=== PATIENT | male | born 1970 | race Caucasian/White ===

== ENCOUNTER → 2017-09-25 14:11 | Outpatient (CLI) | payer OTHER, SELFPAY ==
--- NOTE | 2017-09-25 14:15 | CA_ITS ---
PROCEDURE: 2-D M-mode and color Doppler study INDICATIONS FOR THE TEST: Chest pain COPD Heart Murmur Tobacco Smoking+ Palpitations Fatigue Syncope Edema Hypertension+Diabetes Mellitus Rheumatic Fever SOB HERR Obesity Hyperlipidemia Family History HD Additional History PATIENT INFORMATION HEIGHT: 71 WEIGHT: 259 GENDER: Male B/P: 146/93 2-D/M-MODE INTERPRETATION: 2-D MEASUREMENTS OBSERVED VALUES IN CMS Right Ventricular Dimension (RVDd) 2.9 Interventricular Septum (Thickness)(IVsd) 1.2 Left Ventricular Internal Dimensions(LVIDd) 3.7 Left Ventricular Posterior Wall (Thickness)(LVPWd) 1.4 Aortic Root 3.0 Aortic Cusp Separation 2.1 Left Atrial Dimensions (LAD) 3.7 2D 1. Left atrium is mildly enlarged, left ventricle is normal size, mild concentric left ventricular hypertrophy, visually estimated ejection fraction 55% with no obvious regional wall motion abnormality. 2. The right atrium and right ventricle are normal size and contractility. 3. The aortic valve is minimally thickened and fibrosed. 4. The mitral and tricuspid valvular grossly normal. 5. The pulmonic valve is poorly visualized. 6. No significant pericardial effusion noted. DOPPLER INTERROGATION: Doppler interrogation of the aortic, mitral and tricuspid valvular presence of mild mitral and tricuspid regurgitation, tricuspid and jet velocity is insufficient for calculation of the right ventricular systolic pressure, grade 1 diastolic dysfunction seen without tissue Doppler evidence of raised left atrial pressure. CONCLUSION: 1. Mildly enlarged left atrium, normal left ventricular size, mild concentric left ventricular hypertrophy, visually estimated ejection fraction 55% with no obvious regional wall motion abnormality, grade 1 diastolic dysfunction seen without tissue Doppler evidence of raised left atrial pressure. 2. Mild mitral and tricuspid regurgitation 3. No significant pericardial effusion noted.
== END ==
PROVIDERS: PCP Physician Assistant; Visit Provider Internal Medicine Cardiovascular Disease
DX: R94.31 Abnormal electrocardiogram [ECG] [EKG] (principal); R00.0 Tachycardia, unspecified; R00.2 Palpitations; I10 Essential (primary) hypertension
CPT/HCPCS: 93306

== ENCOUNTER → 2017-10-03 14:17 | Outpatient (CLI) | payer OTHER, SELFPAY | PROVIDERS: PCP Physician Assistant; Visit Provider Internal Medicine Cardiovascular Disease | DX: G47.33 Obstructive sleep apnea (adult) (pediatric) (principal); R40.0 Somnolence | CPT/HCPCS: 95806 ==

== ENCOUNTER → 2017-10-10 15:10 | Outpatient (CLI) | payer OTHER, SELFPAY ==
--- NOTE | 2017-10-10 15:13 | CT_ITS ---
CT heart w calcium score INDICATION: ITS.REASON: HTN and tobacco abuse ORDERING PHYSICIAN: Steven Melissa MD PATIENT AGE: 46 years COMPARISON: None TECHNIQUE: Axial images are obtained without contrast. Sagittal and coronal reformatted images are reviewed as well. All CT scans at the facility use one or more dose reduction, viz: automated exposure control, ma/kV adjustment per patient size (including targeted exams where dose is matched to indication, i.e. head), or iterative reconstruction technique. FINDINGS: Coronary artery calcium score is 323 indicating moderate plaque burden and high cardiovascular disease risk. Calcium is present in the distal left main, LAD, circumflex and RCA. The main calcium burden is in the LAD. IMPRESSION: Coronary artery calcium score of 323 indicating moderate plaque burden and high cardiovascular disease risk
== END ==
PROVIDERS: PCP Physician Assistant; Visit Provider Internal Medicine Cardiovascular Disease
DX: I10 Essential (primary) hypertension (principal); R94.31 Abnormal electrocardiogram [ECG] [EKG]; F17.200 Nicotine dependence, unspecified, uncomplicated
CPT/HCPCS: 75571

== ENCOUNTER → 2017-10-31 09:05 | Outpatient (CLI) | payer OTHER, SELFPAY | PROVIDERS: PCP Physician Assistant; Visit Provider Internal Medicine Cardiovascular Disease | DX: R94.31 Abnormal electrocardiogram [ECG] [EKG] (principal); R00.0 Tachycardia, unspecified | CPT/HCPCS: 93017 ==

== ENCOUNTER → 2018-08-23 12:13 | Outpatient (CLI) | payer OTHER, SELFPAY ==
[2018-08-23 14:30] LABS: Anion Gap 16.2 mEq/L (5-15); Blood Urea Nitrogen 26 mg/dL (7-18); Carbon Dioxide 26 mmol/L (21.0-32.0); Creatinine,Serum 2.14 mg/dL (0.70-1.30); Estimated Glomerular Filt Rate 34 ml/min (>60); GFR (African American) 41 ML/MIN (>60); Potassium 5.2 mmoL/L (3.5-5.1)
[2018-08-23 14:36] LABS: Chloride 75 mmol/L (98-107)
[2018-08-23 14:40] LABS: Glucose 1069 mg/dL (74-106); Sodium 112 mmol/L (136-145)
== END ==
PROVIDERS: Visit Provider Internal Medicine Cardiovascular Disease
DX: R00.0 Tachycardia, unspecified (principal); I10 Essential (primary) hypertension; R94.31 Abnormal electrocardiogram [ECG] [EKG]; F17.200 Nicotine dependence, unspecified, uncomplicated
CPT/HCPCS: 36415; 80048

== ENCOUNTER 2018-08-23 15:07 | Observation (INO) ==
--- NOTE | 2018-08-23 15:13 | Emergency Department Note ---
ED Disposition Clinical Impression: New onset type 2 diabetes mellitus, Acute kidney injury Hyperglycemia due to type 2 diabetes mellitus Qualifiers: Diabetes mellitus identification technician insulin use: without identification technician use Qualified Code(s): E11.65 - Type 2 diabetes mellitus with hyperglycemia Disposition: Admitted as Observation Condition on Discharge: Fair Referrals: Sheila Ayoub PA [Primary Care Provider] - - Critical Care Critical Care Time: Yes Attestation: On , the high probability of a clinically significant, sudden or life threatening deterioration of the following system(s) required my full and direct attention, intervention and personal management. The time I documented below is in addition to time spent performing reported procedures but includes the following listed in this critical care notation. Total Critical Care Time: 35 Vital system(s) involved:: Metabolic Failure My critical care processes included: Assessment & monitoring of V/S, Initial and Re-exams, Data Review/Interpretation, Coordinating Care, Medication Orders and management, Documentation Medical Decision Making - Nathaniel Inquiry Pt receiving controlled substance: No Vital Signs: 08/23/18 15:10 08/23/18 15:35 Temperature 98.1 F Temperature Source Oral Pulse Rate [Right Radial] 105 H 109 H Respiratory Rate 16 Blood Pressure [Right Arm] 113/67 113/67 Blood Pressure Mean [Right Arm] 82 82 Blood Pressure Source [Right Arm] Automatic Cuff Blood Pressure Position [Right Arm] Sitting 02 Sat by Pulse Oximetry 99 97 Oxygen Delivery Method Room Air - Lab Data Lab Results 08/23/18 15:30: WBC 11.1 H, RBC 4.00 L, Hgb 12.8 L, Hct 44.1, MCV 110.3 H, MCH 32.1 H, MCHC 29.1 L, RDW 12.2, Plt Count 268, MPV 8.5, Neut % (Auto) 76.2, Lymph % (Auto) 17.5, [place] % (Auto) 5.5, Eos % (Auto) 0.5, Baso % (Auto) 0.4, Neut # (Auto) 8.4 H, Lymph # (Auto) 1.9, [place] # (Auto) 0.6, Eos # (Auto) 0.1, Baso # (Auto) 0.1 08/23/18 15:30: Sodium 104 L*, Potassium 4.9, Chloride 71 L, Carbon Dioxide 23, Anion Gap 14.9, BUN 28 H, Creatinine 2.63 H D, Estimated Creat Clear 51, Estimated GFR 26 L, Est GFR ( Amer) 32 L D, Glucose 1503 H* D, Calcium 8.5, Total Bilirubin 1.5 H, AST 35, ALT 51, Alkaline Phosphatase 128 H, Total Protein 7.8, Albumin 3.3 L, Globulin 4.5 H, Albumin/Globulin Ratio 0.7 L, Acetone Level None detected 08/23/18 15:30: Lactate 5.8 H 08/23/18 15:32: VBG pH 7.29 L, VBG pCO2 45.1, VBG pO2 39.1, VBG HCO3 21.2 L, VBG Total CO2 22.5 L, VBG O2 Saturation 72.6 H, VBG Base Excess -5.4 L Result diagrams: 08/23/18 15:30 08/23/18 15:30 Orders (Tests/Meds): ED MEDICATIONS Discontinued Medications Generic Name Dose Route Start Last Admin Trade Name Freq PRN Reason Stop Dose Admin Insulin Human Regular 10 unit 08/23/18 15:57 08/23/18 16:16 Humulin R Insulin 100 Units/Ml 10ml Vial IVP 08/23/18 15:58 10 unit ONCE ONE Administration Sodium Chloride 1,000 ml 08/23/18 15:40 08/23/18 15:40 Sod Chlor 0.9% 1000ml Bag IV 08/23/18 15:41 1,000 ml BOLUS ONE Administration Sodium Chloride 1,000 ml 08/23/18 16:10 Sod Chlor 0.9% 1000ml Bag IV 08/23/18 16:11 BOLUS ONE ORDERS Category Date Time Status Hemoglobin A1C Stat Lab 08/23/18 15:30 Received Urinalysis and Microscopic Stat Lab 08/23/18 15:32 Ordered - Radiology Data #1 Image(s): Chest Image Reviewed: Yes I have reviewed radiologist's interpretation IMPRESSION: Negative chest, no acute finding Dictated By: Narendra Solorio MD Signed By: <Electronically signed by Narendra Solorio MD in OV> 08/23/18 1533 - ECG Data Tracing #1 EKG interpreted by Eyad Russo MD: Rhythm: sinus tachycardia Rate: 104 [place]: normal Ectopy: none Conduction: normal ST Segment Changes: none T Wave Changes: Nonspecific Q Waves: none No evidence of acute ischemia or injury Prior electrocardiagrams reviewed. No change from prior tracings. - Physician Consults Physician Consulted: Solomon Time: 15:50 Reason -: Admission Comment/Response: Agrees to admit the patient to the hospital. We discussed the patient's clinical information, including history, exam, laboratory and radiology results and ED course. Per hospital procedure, I will write temporary bridge inpatient orders on the patient. Specific orders requested by the admitting physician: Regular insulin 10 mg IV, then high intensity sliding scale, continue hydration, recheck labs in the morning Additional Consult: Solomon Time: 16:29 Comment/Response: Discussed ED labs. Continue with same treatment plan, repeat chemistry profile at 9 PM. He will be here this evening and will manage. Medical Decision Narrative: Blood draw from today: Blood sugar 1069, sodium 112, potassium 5.2. Chloride 75, CO2 26, BUN 26, creatinine 2.14. I do not see any previous labs prior to that since 2015, at which time those values were normal. General Adult HPI - General Stated complaint: sugar high Time Seen by Provider: 08/23/18 15:30 - History of Present Illness HPI narrative: The patient says for the past 2 weeks he has not felt well. He has blurry vision, his arms feel heavy, he gets a pain across his kidneys when he coughs, he has increased thirst and urination. He saw his primary care doctor on Sunday and is referred to cardiology here at the hospital, whom he has seen before. They did blood work on him and found his blood sugar to be over thousand and sent him to the emergency room. He does not have any known history of diabetes. - Related Data Home Medications Medication Instructions Recorded Confirmed aspirin 81 mg tablet,delayed 81 mg PO DAILY 08/20/18 08/23/18 release cholecalciferol (vitamin D3) 1,000 1,000 unit PO DAILY 08/23/18 08/23/18 unit capsule ibuprofen 200 mg capsule 200 mg PO Q6H 08/23/18 08/23/18 potassium 99 mg tablet 10 meq PO BID 08/23/18 08/23/18 vitamin B complex tablet 1 tab PO DAILY 08/23/18 08/23/18 Previous Rx's Medication Instructions Recorded metoprolol succinate ER 25 mg 25 mg PO DAILY #30 tab 08/23/18 tablet,extended release 24 hr Allergies Allergy/AdvReac Type Severity Reaction Status Date / Time No Known Allergies Allergy Verified 08/23/18 11:05 [facility] History - Hepatitis A Screen Attestation statement:: This patient has been screened for Hepatitis A risk factors. I have reviewed the patient's past medical history: Yes 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: Reports:: Hypertension Other 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: Reports: Other Comment: MEÑO Other Surgeries: Yes: Cardiac Catheterization Amputation: No Fractures: No - Social History Smoking Status: Current every day smoker Tobacco Type: cigarettes # Packs/Day (cigarettes): 1 Alcohol Intake: current Alcohol Intake Frequency:: 3 or more drinks per day Substance Use Type: denies use Occupational Status: employed Family Hx:: Cancer ROS Obtained: Yes All systems reviewed & no additional complaints - Constitutional Constitutional: Reports fatigue, Denies fever(s), Reports weakness - Eyes Eyes: Reports blurry vision - Musculoskeletal Musculoskeletal: Reports back pain - Endocrine Endocrine: Reports increased thirst, Reports polyuria Physical Exam - General General appearance: alert, in no apparent distress - Head Head exam: atraumatic, normocephalic - Eye Eye exam: Present: normal appearance, EOMI - ENT ENT exam: Present: mucous membranes dry - Neck Neck exam: Present: normal inspection, trachea midline - Chest Chest inspection: Present: normal inspection, symmetric chest wall rise - Respiratory Respiratory exam: Present: normal lung sounds bilaterally. Absent: respiratory distress - Cardiovascular Cardiovascular exam: Present: regular rate, normal rhythm, normal heart sounds - Abdominal Exam Abdominal exam: Present: soft, normal bowel sounds. Absent: distention, tenderness, guarding, rebound, rigidity - Extremities Exam Extremities exam: Present: normal inspection - Neurological Exam Neurological exam: Present: alert, oriented X3 - Psychiatric Psychiatric exam: Present: normal affect, normal mood - Skin Skin exam: Present: warm, dry
[2018-08-23 15:43] LABS: Basophils # 0.1 K/mm3 (0-0.2); Basophils % 0.4 % (0.1-2.0); Eosinophils # 0.1 K/mm3 (0.0-0.4); Eosinophils % 0.5 % (0.1-12.0); Hematocrit 44.1 % (42.0-52.0); Hemoglobin 12.8 g/dL (14.1-18.0); Lymphocytes # 1.9 K/mm3 (0.7-4.5); Lymphocytes % 17.5 % (10-50); Mean Corpuscular HGB Conc 29.1 g/dL (31.8-35.4); Mean Corpuscular Hemoglobin 32.1 pg (27.0-31.2); Mean Corpuscular Volume 110.3 fl (80-94); Mean Platelet Volume 8.5 fl (7.4-10.4); Monocytes # 0.6 K/mm3 (0.1-1.0); Monocytes % 5.5 % (1.7-9.3); Neutrophils # 8.4 K/mm3 (1.8-7.8); Neutrophils % 76.2 % (37.0-80.0); Platelet Count 268 K/mm3 (142-424); Red Cell Distribution Width 12.2 % (11.5-17.5); White Blood Count 11.1 K/mm3 (4.8-10.8)
[2018-08-23 15:43] LABS: VBG Base Excess -5.4 mmol/L (-2.4-2.3); VBG HCO3 21.2 mmol/L (23-30); VBG Oxygen Saturation 72.6 % (50-70); VBG PCO2 45.1 mmol/L (35-51); VBG PH 7.29 mmol/L (7.31-7.41); VBG PO2 39.1 mmol/L (28-40); VBG Total CO2 22.5 mmol/L (23-27)
[2018-08-23 15:57] LABS: Alanine Aminotransferase 51 U/L (12-78); Albumin Level 3.3 gm/dL (3.4-5.0); Albumin/Globulin Ratio 0.7 (1.1-1.8); Alkaline Phosphatase 128 U/L (46-116); Anion Gap 14.9 mEq/L (5-15); Aspartate Amino Transferase 35 U/L (15-37); Bilirubin,Total 1.5 mg/dL (0.2-1.0); Blood Urea Nitrogen 28 mg/dL (7-18); Calcium 8.5 mg/dL (8.5-10.1); Carbon Dioxide 23 mmol/L (21.0-32.0); Globulin 4.5 gm/dl (1.3-3.2); Potassium 4.9 mmoL/L (3.5-5.1); Total Protein,Serum 7.8 gm/dL (6.4-8.2)
[2018-08-23 16:12] LABS: Chloride 71 mmol/L (98-107)
[2018-08-23 16:13] LABS: Sodium 104 mmol/L (136-145)
[2018-08-23 16:14] LABS: Glucose 1503 mg/dL (74-106)
[2018-08-23 16:26] LABS: Acetone, Serum (Rapid) None Detected (None Detect)
--- NOTE | 2018-08-23 19:52 | History & Physical Report ---
*Admission Date: 08/23/18 *Chief complaint: elevated glu *History of present illness: this pt was seen in card clinic and was found to have elevated glu- The patient says for the past 2 weeks he has not felt well. He has blurry vision, his arms feel heavy, he gets a pain across his kidneys when he coughs, h e has increased thirst and urination. He saw his primary care doctor on Sunday and is referred to cardiology here at the hospital, whom he has seen before. They did blood work on him and found his blood sugar to be over thousand and sent him to the emergency room. He does not have any known history of diabetes. [facility] History I have reviewed the patient's past medical history: Yes 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: Reports:: Hypertension Denies:: Cancer, Diabetes Mellitus Type 1, Diabetes Mellitus Type 2, MRSA *Have you ever received a pneumonia vaccine?: No *Have you received a flu vaccine this season?: No Other 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: Reports: Other Other Surgeries: Yes: Cardiac Catheterization Amputation: No Fractures: No - *Social History Educational Level: Completed High School Smoking Status: Current every day smoker Tobacco Type: cigarettes # Packs/Day (cigarettes): 1 Alcohol Intake: former Alcohol Intake Frequency:: 3 or more drinks per day Substance Use Type: denies use *Occupational Status:: employed Housing: apartment Household Members: none *Travel in the last 8 weeks: None - Psychiatric History Expresses thoughts of harming self/others: None Suicide Plan Description: No Plan Family Hx:: Cancer, Diabetes, Hypertension Review of Systems - Review of Systems Review of systems:: pertinent systems reviewed and negative unless documented below - Constitutional Reports weakness, Denies fever(s) - Eyes Reports blurry vision - ENT Reports other (dry mouth), Denies sore throat - *Cardiovascular Denies chest pain - *Respiratory Denies cough - *Gastrointestinal Reports nausea, Denies abdominal pain - *Genitourinary Reports urinary frequency, Denies blood in urine - *Musculoskeletal Denies joint pain - Integumentary/Breasts Denies rash - *Neurologic Reports weakness, Denies confusion, Denies seizure-like activity - Psychiatric Denies anxiety Meds Home Medications Medication Instructions Recorded Confirmed Type aspirin 81 mg tablet,delayed 81 mg PO DAILY 08/20/18 08/23/18 History release Ascorbate Calcium [Vitamin C] 500 mg PO DAILY 08/23/18 08/23/18 History Bisoprolol Fumarate [Bisoprolol 1 tab PO DAILY 08/23/18 08/23/18 History 10mg Tablet] Lisinopril/Hydrochlorothiazide 1 tab PO DAILY 08/23/18 08/23/18 History [Lisinopril-Hctz 20-12.5 mg Tab] Magnesium Oxide,Aspartate,Citr 400 mg PO DAILY 08/23/18 08/23/18 History [Triple Magnesium Complex] cholecalciferol (vitamin D3) 1,000 1,000 unit PO DAILY 08/23/18 08/23/18 History unit capsule ibuprofen 200 mg capsule 200 mg PO Q6H 08/23/18 08/23/18 History potassium 99 mg tablet 10 meq PO BID 08/23/18 08/23/18 History vitamin B complex tablet 1 tab PO DAILY 08/23/18 08/23/18 History Allergies Allergy/AdvReac Type Severity Reaction Status Date / Time No Known Allergies Allergy Verified 08/23/18 11:05 Exam Vital signs and Labs for Last 24 Hours: Temp Pulse Resp BP Pulse Ox 98.5 F 102 H 17 122/65 97 08/23/18 19:48 08/23/18 19:48 08/23/18 19:48 08/23/18 19:48 08/23/18 19:48 Laboratory Results - last 24 hr 08/23/18 15:30: WBC 11.1 H, RBC 4.00 L, Hgb 12.8 L, Hct 44.1, MCV 110.3 H, MCH 32.1 H, MCHC 29.1 L, RDW 12.2, Plt Count 268, MPV 8.5, Neut % (Auto) 76.2, Lymph % (Auto) 17.5, [place] % (Auto) 5.5, Eos % (Auto) 0.5, Baso % (Auto) 0.4, Neut # (Auto) 8.4 H, Lymph # (Auto) 1.9, [place] # (Auto) 0.6, Eos # (Auto) 0.1, Baso # (Auto) 0.1 08/23/18 15:30: Sodium 104 L*, Potassium 4.9, Chloride 71 L, Carbon Dioxide 23, Anion Gap 14.9, BUN 28 H, Creatinine 2.63 H D, Estimated Creat Clear 51, Estimated GFR 26 L, Est GFR ( Amer) 32 L D, Glucose 1503 H* D, Calcium 8.5, Total Bilirubin 1.5 H, AST 35, ALT 51, Alkaline Phosphatase 128 H, Total Protein 7.8, Albumin 3.3 L, Globulin 4.5 H, Albumin/Globulin Ratio 0.7 L, Acetone Level None detected 08/23/18 15:30: Hemoglobin A1c 13.8 H 08/23/18 15:30: Lactate 5.8 H 08/23/18 15:32: VBG pH 7.29 L, VBG pCO2 45.1, VBG pO2 39.1, VBG HCO3 21.2 L, VBG Total CO2 22.5 L, VBG O2 Saturation 72.6 H, VBG Base Excess -5.4 L I & O for Last 24 hours: Intake & Output 08/21/18 08/22/18 08/23/18 08/24/18 11:59 11:59 11:59 11:59 Intake Total 1000 / 1000 Balance 1000 / 1000 Weight 233 lb 2 oz - Constitutional no acute distress, obese - *Routine HEENT Exam Head: Present: normocephalic Eye: Present: EOMI, PERRL ENT: Present: mucous membranes dry - *Routine Neck Exam Absent: JVD - *Routine Respiratory Exam Present: CTA bilaterally - *Routine Cardiovascular Exam Present: RRR, murmur - *Routine Abdominal Exam Present: soft. Absent: organomegaly - *Routine Extremities Exam Present: full ROM - *Routine Skin Exam Present: intact - *Routine Neurological Exam Present: alert, oriented X3, CN II-XII intact - Routine Psychiatric Exam Present: normal affect Assessment and Plan (1) Acute kidney injury Current visit: Yes Status: Acute Category: Medical Code(s): N17.9 - Acute kidney failure, unspecified (2) Hyperglycemia due to type 2 diabetes mellitus Current visit: Yes Status: Acute Qualifiers: Diabetes mellitus usp insulin use: without usp use Qualified Code(s): E11.65 - Type 2 diabetes mellitus with hyperglycemia Category: Medical Code(s): E11.65 - Type 2 diabetes mellitus with hyperglycemia (3) New onset type 2 diabetes mellitus Current visit: Yes Status: Acute Category: Medical Code(s): E11.9 - Type 2 diabetes mellitus without complications (4) MEÑO (obstructive sleep apnea) Current visit: No Status: Acute Category: Medical Code(s): G47.33 - Obstructive sleep apnea (adult) (pediatric) (5) Obesity (BMI 30.0-34.9) Current visit: Yes Status: Acute Category: Medical Code(s): E66.9 - Obesity, unspecified (6) Tobacco use Current visit: Yes Status: Acute Category: Medical Code(s): Z72.0 - Tobacco use
[2018-08-23 21:38] LABS: Anion Gap 9.7 mEq/L (5-15); Calcium 8.4 mg/dL (8.5-10.1); Potassium 3.7 mmoL/L (3.5-5.1)
--- NOTE | 2018-08-23 22:22 | Sepsis Event Note ---
Tissue Perfusion Evaluation Sepsis Re-Evaluation Performed: Yes Date Performed: 08/23/18 Time Performed: 22:22 Sepsis Follow-Up: Yes: Respiratory exam, Cardiovascular exam, Capillary refill, Peripheral pulse strength, Skin exam, Vital Signs Most Recent Vital Signs: Temperature 98.5 F 08/23/18 19:48 Temperature Source Oral 08/23/18 19:48 Pulse Rate 102 H 08/23/18 19:48 Respiratory Rate 17 08/23/18 19:48 Blood Pressure 122/65 08/23/18 19:48 Blood Pressure Mean 84 08/23/18 19:48 Blood Pressure Source Manual Cuff/Auscultation 08/23/18 19:48 Blood Pressure Position Supine 08/23/18 18:15 02 Sat by Pulse Oximetry 97 08/23/18 19:48 Oxygen Delivery Method 08/23/18 21:59
[2018-08-24 06:44] LABS: Anion Gap 13.5 mEq/L (5-15); Calcium 8.5 mg/dL (8.5-10.1); Potassium 3.5 mmoL/L (3.5-5.1)
--- NOTE | 2018-08-24 09:09 | Discharge Summary ---
General - General Admission date:: 08/23/18 Discharge date: 08/24/18 HPI HPI: this pt was seen in card clinic and was found to have elevated glu- The patient says for the past 2 weeks he has not felt well. He has blurry vision, his arms feel heavy, he gets a pain across his kidneys when he coughs, he has increased thirst and urination. He saw his primary care doctor on Sunday and is referred to cardiology here at the hospital, whom he has seen before. They did blood work on him and found his blood sugar to be over thousand and sent him to the emergency room. He does not have any known history of diabetes. Hospital Course Hospital Course: pt thornton improved with ivf and insulin with improved renal function and glu- pt with no chest pain and we discussed diet and compliance and close f/u on sunday- no chest pain Objective Vital signs: Temp Pulse Resp BP Pulse Ox 98.6 F 109 H 18 124/74 97 08/24/18 08:00 08/24/18 08:00 08/24/18 08:00 08/24/18 08:00 08/24/18 08:00 no acute distress, obese - *Routine HEENT Exam Head: Present: normocephalic Eye: Present: EOMI, PERRL ENT: Present: mucous membranes dry - *Routine Neck Exam Present: supple. Absent: JVD - *Routine Respiratory Exam Present: CTA bilaterally - *Routine Cardiovascular Exam Present: RRR, murmur - *Routine Abdominal Exam Present: soft - *Routine Extremities Exam Present: full ROM - *Routine Skin Exam Present: intact - *Routine Neurological Exam Present: alert, oriented X3, CN II-XII intact - Routine Psychiatric Exam Present: normal affect Results Labs on day of discharge: Labs from last 24 hours 08/24/18 08/24/18 08/24/18 06:10 06:02 01:34 WBC RBC Hgb Hct MCV MCH MCHC RDW Plt Count MPV Neut % (Auto) Lymph % (Auto) [place] % (Auto) Eos % (Auto) Baso % (Auto) Neut # (Auto) Lymph # (Auto) [place] # (Auto) Eos # (Auto) Baso # (Auto) VBG pH VBG pCO2 VBG pO2 VBG HCO3 VBG Total CO2 VBG O2 Saturation VBG Base Excess Sodium 130 L Potassium 3.5 Chloride 94 L Carbon Dioxide 26 Anion Gap 13.5 BUN 17 Creatinine 1.26 D Estimated Creat Clear 109 Estimated GFR 62 Est GFR ( Amer) 75 D Glucose 381 H D POC Glucose 458 H* Random Glucose 509 H* Hemoglobin A1c Lactate Calcium 8.5 Total Bilirubin AST ALT Alkaline Phosphatase Total Protein Albumin Globulin Albumin/Globulin Ratio Acetone Level 08/23/18 08/23/18 08/23/18 21:14 21:14 19:40 WBC RBC Hgb Hct MCV MCH MCHC RDW Plt Count MPV Neut % (Auto) Lymph % (Auto) [place] % (Auto) Eos % (Auto) Baso % (Auto) Neut # (Auto) Lymph # (Auto) [place] # (Auto) Eos # (Auto) Baso # (Auto) VBG pH VBG pCO2 VBG pO2 VBG HCO3 VBG Total CO2 VBG O2 Saturation VBG Base Excess Sodium 118 L Potassium 3.7 D Chloride 85 L Carbon Dioxide 27 Anion Gap 9.7 BUN 22 H Creatinine 1.75 H D Estimated Creat Clear 80 Estimated GFR 42 L Est GFR ( Amer) 51 L D Glucose 798 H* D POC Glucose Random Glucose Hemoglobin A1c Lactate 2.0 2.6 H Calcium 8.4 L Total Bilirubin AST ALT Alkaline Phosphatase Total Protein Albumin Globulin Albumin/Globulin Ratio Acetone Level 08/23/18 08/23/18 08/23/18 15:32 15:30 15:30 WBC RBC Hgb Hct MCV MCH MCHC RDW Plt Count MPV Neut % (Auto) Lymph % (Auto) [place] % (Auto) Eos % (Auto) Baso % (Auto) Neut # (Auto) Lymph # (Auto) [place] # (Auto) Eos # (Auto) Baso # (Auto) VBG pH 7.29 L VBG pCO2 45.1 VBG pO2 39.1 VBG HCO3 21.2 L VBG Total CO2 22.5 L VBG O2 Saturation 72.6 H VBG Base Excess -5.4 L Sodium Potassium Chloride Carbon Dioxide Anion Gap BUN Creatinine Estimated Creat Clear Estimated GFR Est GFR ( Amer) Glucose POC Glucose Random Glucose Hemoglobin A1c 13.8 H Lactate 5.8 H Calcium Total Bilirubin AST ALT Alkaline Phosphatase Total Protein Albumin Globulin Albumin/Globulin Ratio Acetone Level 08/23/18 08/23/18 15:30 15:30 WBC 11.1 H RBC 4.00 L Hgb 12.8 L Hct 44.1 MCV 110.3 H MCH 32.1 H MCHC 29.1 L RDW 12.2 Plt Count 268 MPV 8.5 Neut % (Auto) 76.2 Lymph % (Auto) 17.5 [place] % (Auto) 5.5 Eos % (Auto) 0.5 Baso % (Auto) 0.4 Neut # (Auto) 8.4 H Lymph # (Auto) 1.9 [place] # (Auto) 0.6 Eos # (Auto) 0.1 Baso # (Auto) 0.1 VBG pH VBG pCO2 VBG pO2 VBG HCO3 VBG Total CO2 VBG O2 Saturation VBG Base Excess Sodium 104 L* Potassium 4.9 Chloride 71 L Carbon Dioxide 23 Anion Gap 14.9 BUN 28 H Creatinine 2.63 H D Estimated Creat Clear 51 Estimated GFR 26 L Est GFR ( Amer) 32 L D Glucose 1503 H* D POC Glucose Random Glucose Hemoglobin A1c Lactate Calcium 8.5 Total Bilirubin 1.5 H AST 35 ALT 51 Alkaline Phosphatase 128 H Total Protein 7.8 Albumin 3.3 L Globulin 4.5 H Albumin/Globulin Ratio 0.7 L Acetone Level None detected DS: Diagnosis - Discharge Diagnosis (1) Acute kidney injury Status: Acute (2) Hyperglycemia due to type 2 diabetes mellitus Status: Acute (3) New onset type 2 diabetes mellitus Status: Acute (4) MEÑO (obstructive sleep apnea) Status: Acute (5) Obesity (BMI 30.0-34.9) Status: Acute (6) Tobacco use Status: Acute Discharge Plan - Patient Discharge Instructions ACTIVITY: Continue current activity DIET: continue same diet Patient Instructions: Type 2 Diabetes, DI for Diabetes Type 2 - Follow up Plan Disposition: Home, Self-Prison Medications: Home Medications Medication Instructions Recorded Confirmed Type aspirin 81 mg tablet,delayed 81 mg PO DAILY 08/20/18 08/23/18 History release Ascorbate Calcium [Vitamin C] 500 mg PO DAILY 08/23/18 08/23/18 History Bisoprolol Fumarate [Bisoprolol 1 tab PO DAILY 08/23/18 08/23/18 History 10mg Tablet] Lisinopril/Hydrochlorothiazide 1 tab PO DAILY 08/23/18 08/23/18 History [Lisinopril-Hctz 20-12.5 mg Tab] Magnesium Oxide,Aspartate,Citr 400 mg PO DAILY 08/23/18 08/23/18 History [Triple Magnesium Complex] cholecalciferol (vitamin D3) 1,000 1,000 unit PO DAILY 08/23/18 08/23/18 History unit capsule ibuprofen 200 mg capsule 200 mg PO Q6H 08/23/18 08/23/18 History potassium 99 mg tablet 10 meq PO BID 08/23/18 08/23/18 History vitamin B complex tablet 1 tab PO DAILY 08/23/18 08/23/18 History Atorvastatin Calcium [Lipitor 10mg 10 mg PO DAILY #30 tab 08/24/18 Rx Tablet] Lisinopril [Lisinopril 5mg Tablet] 5 mg PO DAILY #30 tab 08/24/18 Rx Metformin HCl [Glucophage 500mg 500 mg PO BID #60 tab 08/24/18 Rx Tablet] Prescriptions/Medication Reconciliation: New Lisinopril [Lisinopril 5mg Tablet] 5 mg PO DAILY #30 tab Metformin HCl [Glucophage 500mg Tablet] 500 mg PO BID #60 tab Atorvastatin Calcium [Lipitor 10mg Tablet] 10 mg PO DAILY #30 tab Continued vitamin B complex tablet 1 tab PO DAILY aspirin 81 mg tablet,delayed release 81 mg PO DAILY cholecalciferol (vitamin D3) 1,000 unit capsule 1,000 unit PO DAILY Bisoprolol Fumarate [Bisoprolol 10mg Tablet] 1 tab PO DAILY Ascorbate Calcium [Vitamin C] 500 mg PO DAILY Magnesium Oxide,Aspartate,Citr [Triple Magnesium Complex] 400 mg PO DAILY Discontinued potassium 99 mg tablet 10 meq PO BID ibuprofen 200 mg capsule 200 mg PO Q6H Lisinopril/Hydrochlorothiazide [Lisinopril-Hctz 20-12.5 mg Tab] 1 tab PO DAILY
[2018-08-24 09:21] LABS: Chol/HDL Ratio 5.5 (1-3.5)
== END 2018-08-24 09:54 | disposition home or self-care (01) ==
LOC: 2ND 15:07 → ER 15:07 → 2ND 18:07
PROVIDERS: ADMIT Emergency Medicine; ATTEND Emergency Medicine
CPT/HCPCS: 36415; 71020; 71046; 80048; 80053; 80061; 82009; 82803; 82947; 82962; 83036; 83605; 85025; 93005; 96365; 96375; 99284; G0378

== ENCOUNTER → 2018-09-05 06:17 | Outpatient (CLI) | payer OTHER, SELFPAY ==
--- NOTE | 2018-09-05 06:25 | NM_ITS ---
CARDIOLITE SPECT MYOCARDIAL PERFUSION LEXISCAN, REST AND STRESS: History: Hypertension, diabetes, hyperlipidemia, tobacco use, family history. Procedure: Patient received a 0.4 mg of intravenous Lexiscan, resting heart rate was 82 bpm resting blood pressure 110/63, with Lexiscan maximum heart rate achieved was 113 bpm, which is less than 85% of the maximum predicted heart rate and a blood pressure was 105/54. With Lexiscan patient complained of stomach discomfort Electrocardiogram: Resting electrocardiogram showed sinus rhythm nonspecific ST-T changes, with Lexiscan less than 1.[address] segment depression noted from the baseline. The EKG portion of the Lexiscan Myoview is nondiagnostic. Cardiac stress and resting SPECT images: Cardiac stress and resting SPECT images were obtained using technetium 99 Myoview 30.4 mCi stress and 10.2 mCi at rest. Gated SPECT further analysis of segmental wall motion and calculation of the ejection fraction also done. Cardiac stress and resting SPECT show decreased tracer activity in the inferior wall which improves on the resting images suggestive of reversible ischemia, computer derived ejection fraction is 52% with no regional wall motion abnormality, right ventricle is normal size and contractility. Conclusion: 1. The EKG portion of the Lexiscan Myoview is nondiagnostic. 2. Scintigraphic evidence of reversible ischemia seen in the inferior wall, computer derived ejection fraction is 52% with no regional wall motion abnormality, right ventricle is normal size and contractility. 3. Abnormal Lexiscan Myoview study.
--- NOTE | 2018-09-05 09:29 | HMH.ITSHM ---
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 [] bisoprolol lisinopril atorvastatin asa metformin
== END ==
PROVIDERS: PCP Emergency Medicine; Visit Provider Internal Medicine Cardiovascular Disease
DX: Z01.818 Encounter for other preprocedural examination (principal); R00.2 Palpitations; R94.31 Abnormal electrocardiogram [ECG] [EKG]; I10 Essential (primary) hypertension; R00.0 Tachycardia, unspecified; F17.200 Nicotine dependence, unspecified, uncomplicated
CPT/HCPCS: 78452; 93017; A9502; J2785

== ENCOUNTER → 2018-10-24 13:46 | Outpatient (CLI) | payer OTHER, SELFPAY ==
[2018-10-24 14:08] LABS: Basophils % 0.9 % (0.1-2.0); Eosinophils # 0.1 K/mm3 (0.0-0.4); Eosinophils % 1.7 % (0.1-12.0); Hematocrit 46.8 % (42.0-52.0); Lymphocytes # 2.1 K/mm3 (0.7-4.5); Lymphocytes % 41.8 % (10-50); Mean Corpuscular Volume 103.4 fl (80-94); Mean Platelet Volume 7.4 fl (7.4-10.4); Monocytes # 0.4 K/mm3 (0.1-1.0); Monocytes % 7.9 % (1.7-9.3); Neutrophils # 2.4 K/mm3 (1.8-7.8); Neutrophils % 47.7 % (37.0-80.0); Platelet Count 261 K/mm3 (142-424); Red Blood Count 4.53 M/mm3 (4.60-6.20); Red Cell Distribution Width 14.1 % (11.5-17.5); White Blood Count 5.1 K/mm3 (4.8-10.8)
[2018-10-24 15:17] LABS: Alanine Aminotransferase 26 U/L (12-78); Albumin Level 3.2 gm/dL (3.4-5.0); Albumin/Globulin Ratio 0.9 (1.1-1.8); Alkaline Phosphatase 72 U/L (46-116); Aspartate Amino Transferase 26 U/L (15-37); Bilirubin,Total 0.3 mg/dL (0.2-1.0); Blood Urea Nitrogen 8 mg/dL (7-18); Carbon Dioxide 26 mmol/L (21.0-32.0); Chloride 105 mmol/L (98-107); Chol/HDL Ratio 2.3 (1-3.5); Cholesterol 132 mg/dL (140-200); Creatinine,Serum 0.92 mg/dL (0.70-1.30); Estimated Glomerular Filt Rate 89 ml/min (>60); GFR (African American) 108 ML/MIN (>60); Globulin 3.6 gm/dl (1.3-3.2); Glucose 175 mg/dL (74-106); HDL Cholesterol 57 mg/dL (27-67); LDL Cholesterol 55 mg/dL (0-130); Sodium 143 mmol/L (136-145); T4 (Thyroxine) 4.5 ug/dl (4.7-13.3); Thyroid Stimulating Hormone 0.74 uIU/ml (0.358-3.740); Total Protein,Serum 6.8 gm/dL (6.4-8.2); Triglycerides 99 mg/dL (30-200); VLDL Cholesterol 20 mg/dL (0-40)
[2018-10-24 15:35] LABS: Hemoglobin A1C 6.8 % (0.0-7.0)
[2018-10-25 18:06] LABS: Vitamin D 25 Hydroxy 38.7 ng/mL (30.0-100.0)
[2018-10-25 18:08] LABS: Microalbumin, Urine 3.3 ug/mL (Not Estab.)
[2018-10-27 16:31] LABS: Vitamin B12 201 pg/mL (232-1245)
[2018-10-27 16:32] LABS: Folate 11.7 ng/mL (>3.0)
== END ==
PROVIDERS: Visit Provider Physician Assistant
DX: E11.9 Type 2 diabetes mellitus without complications (principal); Z94.89 Other transplanted organ and tissue status
CPT/HCPCS: 80053; 80061; 82043; 82607; 82652; 82746; 83036; 84436; 84443; 85025

== ENCOUNTER → 2018-10-29 17:10 | Outpatient (CLI) | payer OTHER, SELFPAY ==
[2018-10-29 19:18] LABS: Hemoglobin A1C 6.4 % (0.0-7.0)
== END ==
PROVIDERS: Visit Provider Physician Assistant
DX: E11.9 Type 2 diabetes mellitus without complications (principal); Z79.84 Long term (current) use of oral hypoglycemic drugs
CPT/HCPCS: 83036

== ENCOUNTER → 2020-12-06 12:53 | Outpatient (CLI) | payer SELFPAY ==
[2020-12-06 13:25] LABS: Basophils # 0.1 K/mm3 (0-0.2); Basophils % 0.6 % (0.1-2.0); Eosinophils # 0.1 K/mm3 (0.0-0.4); Eosinophils % 1.2 % (0.1-12.0); Hematocrit 34.9 % (42.0-52.0); Hemoglobin 11.6 g/dL (14.1-18.0); Lymphocytes # 2.1 K/mm3 (0.7-4.5); Lymphocytes % 22.4 % (10-50); Mean Corpuscular HGB Conc 33.3 g/dL (31.8-35.4); Mean Corpuscular Hemoglobin 34.2 pg (27.0-31.2); Mean Corpuscular Volume 102.7 fl (80-94); Mean Platelet Volume 8.9 fl (7.4-10.4); Monocytes # 0.7 K/mm3 (0.1-1.0); Monocytes % 7.3 % (1.7-9.3); Neutrophils # 6.3 K/mm3 (1.8-7.8); Neutrophils % 68.4 % (37.0-80.0); Platelet Count 242 K/mm3 (142-424); Red Cell Distribution Width 17.2 % (11.5-17.5); White Blood Count 9.3 K/mm3 (4.8-10.8)
[2020-12-06 14:32] LABS: Alanine Aminotransferase 191 U/L (12-78); Albumin Level 2.9 g/dl (3.5-5.0); Albumin/Globulin Ratio 0.9 (1.1-1.8); Alkaline Phosphatase 442 U/L (38-126); Anion Gap 9.5 mEq/L (5-15); Bilirubin,Total 7.5 mg/dl (0.2-1.3); Blood Urea Nitrogen 9 mg/dl (9-20); Calcium 8.5 mg/dl (8.4-10.2); Carbon Dioxide 32 mmol/L (22.0-30.0); Chloride 98 mmol/L (98-107); Estimated Glomerular Filt Rate 103 ml/min (>60); GFR (African American) 125 ML/MIN (>60); Globulin 3.3 g/dL (1.3-3.2); Glucose 140 mg/dl (74-100); Potassium 3.5 mmoL/L (3.5-5.1); Sodium 136 mmol/L (136-145); Total Protein,Serum 6.2 g/dl (6.3-8.2)
[2020-12-06 14:38] LABS: Aspartate Amino Transferase 688 U/L (17-59)
[2020-12-08 08:14] LABS: HIV Screen 4th Generation wRfx Non Reactive (Non Reactive)
[2020-12-09 09:19] LABS: ALT (SGPT) P5P 182 IU/L (0-55); Alpha 2-Macroglobulins, Qn 267 mg/dL (110-276); Apolipoprotein A-1 32 mg/dL (101-178); Bilirubin, Total 7.3 mg/dL (0.0-1.2); Fibrosis Score 0.99 (0.00-0.21); GGT 2658 IU/L (0-65); Haptoglobin 116 mg/dL (23-355); Hep A Ab, IgM Negative (Negative); Hep A Ab, Total Positive (Negative); Hep B Core Ab, Total Negative (Negative); Hep B Surface Ab, Qual Non Reactive (.); Hepatitis B Surface Antigen Negative (Negative); Hepatitis C Antibody <0.1 s/co ratio (0.0-0.9); Necroinflammat Activity Grade A3-Severe activity (.); Necroinflammat Activity Score 0.91 (0.00-0.17)
== END ==
PROVIDERS: Visit Provider Emergency Medicine
DX: B19.20 Unspecified viral hepatitis C without hepatic coma (principal); Z11.4 Encounter for screening for human immunodeficiency virus [HIV]
CPT/HCPCS: 80053; 81596; 85025; 86703; 86704; 86706; 86708; 87340; 87380; 87522; 87902; G0432

== ENCOUNTER 2021-04-30 09:12 | Emergency (ER) | payer OTHER, SELFPAY ==
[2021-04-30 09:15] VITALS: BP 146/94; PULSE 84; RESP 18; TEMP 37.1; O2SAT 98; BMI 32.3
--- NOTE | 2021-04-30 09:43 | HMH.EDUTC ---
[facility] Disposition Clinical Impression: Bronchitis Disposition: Home, Self-Care Condition on Discharge: Good Instructions: DI for Acute Bronchitis Additional Instructions: Start antibiotic today. Be sure to complete entire prescription even if feeling better Tylenol and ibuprofen as needed for pain or fever Humidifier/vaporizer/hot steamy shower Follow-up with primary care tomorrow. Follow-up immediately in the ER of the [facility] for new or worsening symptoms or no noticeable improvement over the next 48-72 hours. Stop smoking Mal Avila will not cause drowsiness to use at bedtime to help stop cough so that she can get some sleep Prescriptions: Benzonatate [Benzonatate 100mg cap] 100 mg PO BID 7 Days #14 cap Transmission Status: Pending to [id number] Azithromycin [Zithromax 250mg tab] 250 mg PO DIRECTED #6 tab Transmission Status: Pending to [id number] Referrals: Sheila Ayoub PA [Primary Care Provider] - Forms: Work/School Release Time of Disposition: 09:47 Medical Decision Making - Nathaniel Inquiry Pt receiving controlled substance: No Vital Signs: 04/30/21 09:15 Temperature 98.8 F Temperature Source Oral Pulse Rate [Right Brachial] 84 Respiratory Rate 18 Blood Pressure [Right Arm] 146/94 H Blood Pressure Mean [Right Arm] 111 Blood Pressure Source [Right Arm] Automatic Cuff Blood Pressure Position [Right Arm] Sitting 02 Sat by Pulse Oximetry 98 Oxygen Delivery Method Room Air [facility] HPI - General Chief complaint: Urgent [facility] Stated complaint: sinus pressure Time Seen by Provider: 04/30/21 09:43 Mode of Arrival: Ambulatory Source of Information: Patient Limitations: No Limitations Description of Symptoms (Recalled from Triage Doc. by RN): PATIENT C/O SINUS CONGESTION X 4 DAYS HEENT Symptoms (Recalled from RN notes): Yes Resp Symptoms (Recalled from RN notes): No Skin Symptoms (Recalled from RN notes): No MS Symptoms (Recalled from RN notes): No Functional Status (Recalled from RN notes): WNL - History of Present Illness Provider Complaint: 50 yr old male presents for sinus pressure, nasal drainage, coughing up dark brownish sputum and sinus pain since weds - Related Data Home Medications Medication Instructions Recorded Confirmed aspirin 81 mg tablet,delayed 81 mg PO DAILY 08/20/18 12/24/20 release vitamin B complex 1 tab PO DAILY 08/23/18 12/24/20 Previous Rx's Medication Instructions Recorded atorvastatin 40 mg tablet 40 mg PO DAILY #30 tab 05/06/20 bisoprolol fumarate 10 mg tablet 10 mg PO BID #180 tab 06/25/20 blood sugar diagnostic See Rx Instructions .ROUTE 06/30/20 .COMPLEX #50 each lisinopril 10 mg tablet See Rx Instructions .ROUTE 09/14/20 .COMPLEX #90 tab meclizine 25 mg tablet 25 mg PO TID PRN #30 tab 11/25/20 escitalopram oxalate 10 mg tablet See Rx Instructions .ROUTE 03/07/21 .COMPLEX #90 tab Azithromycin [Zithromax 250mg 250 mg PO DIRECTED #6 tab 04/30/21 tab] Benzonatate [Benzonatate 100mg 100 mg PO BID 7 Days #14 cap 04/30/21 cap] Allergies Allergy/AdvReac Type Severity Reaction Status Date / Time No Known Allergies Allergy Verified 12/24/20 10:37 - Worker's Comp Is this a Worker's Comp case?: No [facility] History - Hepatitis A Screen Drug use history?: No High risk sexual behaviors?: No History of sexually transmitted infection?: No Currently employed?: No Childcare worker?: No Do you have indoor plumbing?: Yes Do you have electricity?: Yes Attestation statement:: This patient has been screened for Hepatitis A risk factors. I have reviewed the patient's past medical history: Yes 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: Reports:: Diabetes Mellitus Type 1, Diabetes Mellitus Type 2, Hyperlipidemia, Hypertension Denies:: Cancer, Internal Pacemaker, MRSA, Seizures Other 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: Reports: Other Comment: MEÑO Other Surgeries: Yes: Cardiac Catheterization, Other (heart cath ). No: Coron
[2021-04-30 09:46] VITALS: BP 146/94; PULSE 84; RESP 18; TEMP 37.1; O2SAT 98
== END 2021-04-30 09:50 | disposition home or self-care (01) ==
PROVIDERS: Emergency Provider Nurse Practitioner Family; PCP Physician Assistant
DX: J40 Bronchitis, not specified as acute or chronic (principal); F17.210 Nicotine dependence, cigarettes, uncomplicated
CPT/HCPCS: 99202; G0463

== ENCOUNTER → 2021-07-29 13:11 | Outpatient (CLI) | payer OTHER, SELFPAY ==
--- NOTE | 2021-07-29 13:22 | XR_ITS ---
FINAL REPORT CLINICAL HISTORY: Tobacco abuse,weight loss FINDINGS: SINGLE VIEW CHEST. The heart is normal in size. The mediastinum is unremarkable. The lungs are clear. There is no pneumothorax. IMPRESSION: No acute process. Reviewed, Interpreted and Dictated by José Stern III, MD Transcribed by Danica Urrutia Authenticated by José Stern III, MD on 07/29/2021 02:39:37 PM [facility]
[2021-07-29 15:49] LABS: Hemoglobin A1C 5.7 % (4.0-6.0)
[2021-07-29 15:55] LABS: Chloride 103 mmol/L (98-107); Potassium 3.9 mmoL/L (3.5-5.1); Sodium 138 mmol/L (136-145)
[2021-07-29 15:57] LABS: Alanine Aminotransferase 37 U/L (12-78); Aspartate Amino Transferase 55 U/L (17-59); Blood Urea Nitrogen 8 mg/dl (9-20); Estimated Glomerular Filt Rate 120 ml/min (>60); GFR (African American) 146 ML/MIN (>60)
[2021-07-29 15:58] LABS: Albumin Level 4.1 g/dl (3.5-5.0); Albumin/Globulin Ratio 1.5 (1.1-1.8); Alkaline Phosphatase 78 U/L (38-126); Anion Gap 14.9 mEq/L (5-15); Bilirubin,Total 0.7 mg/dl (0.2-1.3); Calcium 9.8 mg/dl (8.4-10.2); Carbon Dioxide 24 mmol/L (22.0-30.0); Globulin 2.8 g/dL (1.3-3.2); Glucose 124 mg/dl (74-100); Total Protein,Serum 6.9 g/dl (6.3-8.2)
[2021-07-29 18:01] LABS: Vitamin B12 413 pg/mL (239-931)
[2021-07-29 18:02] LABS: Folate 5.48 ng/mL
== END ==
PROVIDERS: PCP Physician Assistant; Visit Provider Specialist
DX: E11.69 Type 2 diabetes mellitus with other specified complication (principal); R20.0 Anesthesia of skin; R20.2 Paresthesia of skin; R29.898 Other symptoms and signs involving the musculoskeletal system; E66.9 Obesity, unspecified; Z72.0 Tobacco use; Z68.31 Body mass index [BMI] 31.0-31.9, adult
CPT/HCPCS: 36415; 71046; 80053; 82607; 82746; 83036

== ENCOUNTER → 2021-08-24 13:14 | Outpatient (CLI) | payer OTHER, SELFPAY ==
--- NOTE | 2021-08-24 13:25 | XR_ITS ---
FINAL REPORT CLINICAL HISTORY: elbow pain FINDINGS: LEFT ELBOW 3 views were obtained. There is no acute fracture or dislocation. There is mild degenerative change. There is a chronic calcification adjacent to the medial humeral epicondyle. No joint effusion is identified. IMPRESSION: Mild degenerative change with no acute bony abnormality. Reviewed, Interpreted and Dictated by José Stern III, MD Transcribed by Lisa Tan Authenticated and [facility]
--- NOTE | 2021-08-24 15:15 | XR_ITS ---
FINAL REPORT CLINICAL HISTORY: Left hand pain/parathesias, carpal tunnel syndrome FINDINGS: 3 views of the left wrist were obtained. There is no acute fracture or dislocation. The joint spaces are intact. There is no soft tissue abnormality. IMPRESSION: No acute abnormality. Reviewed, Interpreted and Dictated by José Stern III, MD Transcribed by Fox Webber Authenticated and [facility]
== END ==
PROVIDERS: PCP Physician Assistant; Visit Provider Orthopaedic Surgery
DX: G56.02 Carpal tunnel syndrome, left upper limb; M25.532 Pain in left wrist
CPT/HCPCS: 73080; 73110

== ENCOUNTER 2021-08-24 15:30 | Outpatient (RCR) | payer OTHER, SELFPAY | END 2021-08-24 16:30 | disposition home or self-care (01) | LOC: OT 15:30 | PROVIDERS: Visit Provider Orthopaedic Surgery | DX: G56.03 Carpal tunnel syndrome, bilateral upper limbs (principal) | CPT/HCPCS: 97763 ==

== ENCOUNTER → 2021-08-30 14:30 | Outpatient (CLI) | payer OTHER, SELFPAY ==
[2021-08-30 15:07] LABS: Basophils # 0.1 K/mm3 (0-0.2); Basophils % 1.6 % (0.1-2.0); Eosinophils # 0.1 K/mm3 (0.0-0.4); Eosinophils % 0.8 % (0.1-12.0); Hematocrit 45.7 % (42.0-52.0); Hemoglobin 15.4 g/dL (14.1-18.0); Lymphocytes % 33.9 % (10-50); Mean Corpuscular HGB Conc 33.6 g/dL (31.8-35.4); Mean Corpuscular Volume 107.2 fl (80-94); Mean Platelet Volume 7.5 fl (7.4-10.4); Monocytes # 0.4 K/mm3 (0.1-1.0); Monocytes % 6.8 % (1.7-9.3); Neutrophils # 3.3 K/mm3 (1.8-7.8); Platelet Count 227 K/mm3 (142-424); Red Blood Count 4.26 M/mm3 (4.60-6.20); Red Cell Distribution Width 14.1 % (11.5-17.5); White Blood Count 5.8 K/mm3 (4.8-10.8)
[2021-08-30 16:33] LABS: Alanine Aminotransferase 31 U/L (12-78); Albumin Level 3.3 g/dl (3.5-5.0); Albumin/Globulin Ratio 1.2 (1.1-1.8); Alkaline Phosphatase 123 U/L (38-126); Anion Gap 15.7 mEq/L (5-15); Aspartate Amino Transferase 75 U/L (17-59); Bilirubin,Total 0.2 mg/dl (0.2-1.3); Blood Urea Nitrogen 15 mg/dl (9-20); Calcium 8.6 mg/dl (8.4-10.2); Carbon Dioxide 20 mmol/L (22.0-30.0); Chloride 105 mmol/L (98-107); Estimated Glomerular Filt Rate 103 ml/min (>60); GFR (African American) 125 ML/MIN (>60); Globulin 2.8 g/dL (1.3-3.2); Glucose 229 mg/dl (74-100); Potassium 3.7 mmoL/L (3.5-5.1); Sodium 137 mmol/L (136-145); Total Protein,Serum 6.1 g/dl (6.3-8.2)
== END ==
PROVIDERS: PCP Physician Assistant; Visit Provider Orthopaedic Surgery
DX: G56.03 Carpal tunnel syndrome, bilateral upper limbs (principal)
CPT/HCPCS: 36415; 80053; 85025

== ENCOUNTER → 2021-09-06 10:00 | Outpatient (CLI) | payer OTHER, SELFPAY ==
--- NOTE | 2021-09-06 10:11 | ECG_ITS ---
APPROVED REPORT Exam: Resting ECG HR:72 bpm ECG Measurements Heart Rate [address] 171 P 51 QRSd 94 QRS 56 QT 386 T 33 QTc 410 Conclusion SINUS RHYTHM NORMAL ECG UNCONFIRMED REPORT Electronically signed by : Chavez Amos MD 09/06/2021 21:38:14
== END ==
PROVIDERS: PCP Physician Assistant; Visit Provider Orthopaedic Surgery
DX: Z01.818 Encounter for other preprocedural examination (principal); Z20.822 Contact with and (suspected) exposure to COVID-19; G56.03 Carpal tunnel syndrome, bilateral upper limbs
CPT/HCPCS: 93005; C9803; U0003; U0005

== ENCOUNTER 2021-09-08 10:53 | Day surgery (SDC) | payer OTHER, SELFPAY ==
[2021-09-08] VITALS (9 sets, daily range): BP systolic 118–140; BP diastolic 73–86; PULSE 67–80; RESP 12–18; TEMP 36.2–36.4; O2SAT 95–98; BMI 31.5
[2021-09-08 11:25] LABS: POC Glucose,Bedside 153 (70-110)
--- NOTE | 2021-09-08 11:53 | P.PN_ITS ---
[facility] Anesthesia Checklist - Patient Identification Patient Identification: Arm Band, Verbal (Name & ) - Structural Data Admitted From: Home Planned Operative Procedure/s: Left Cubital and Carpal Tunnel Repair Consent for Planned Operative Procedure(s) Verified: Yes - NPO Status Verified Time NPO: 00:00 - Chart Verification Results Verified: CBC, BMP - Additional verifications Anesthesia Reactions: No Hx Blood Transfusions: No Blood Transfusion Reaction: No - Airway Assessment C-Spine Mobility Assessed: Yes TMJ Mobility Assessed: Yes Dentition: Good Dentition - Neurological Assessment Level of Consciousness: Awake, Alert, Appropriate - Anesthesia Plan Anesthesia Risk discussed: Yes ASA Class: III Anesthesia Type: MAC w/Block [facility] History I have reviewed the patient's past medical history: Yes 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: Reports:: Diabetes Mellitus Type 2, Hyperlipidemia, Hypertension Denies:: Cancer, Diabetes Mellitus Type 1, Internal Pacemaker, MRSA, Seizures *Have you ever received a pneumonia vaccine?: No *Have you received a flu vaccine this season?: No Other 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: Reports: Other. Denies: Blood Transfusion Reaction Anesthesia experience/problems:: none Other Surgeries: Yes: No Previous Surgery, Cardiac Catheterization, Other (heart cath ). No: Coronary Stent, Pacemaker Amputation: No Fractures: No - *Social History Last grade of school completed: High school graduate Smoking Status: Current every day smoker Tobacco Type: cigarettes # Packs/Day (cigarettes): 1 #Yrs smoked (if former smoker): 30 Alcohol Intake: current Alcohol Intake Frequency:: 3 or more drinks per day Substance Use Type: denies use *Occupational Status:: employed Housing: house Household Members: none *Travel in the last 8 weeks: None Family Hx:: No significant family history
--- NOTE | 2021-09-08 14:35 | HMH.ANESI ---
[facility] Anesthesia Record Part I Intake, IV Amount: 1,400 Estimated blood loss (mL): 0 Urine output (mL): 0 Blood Pressure: 118/81 SaO2: 98 Pulse Rate: 70 Respiratory Rate: 12 Temperature: 97.3 F Patient is:: Awake, Stable Stable to PACU at:: 14:30
--- NOTE | 2021-09-08 15:00 | HMH.OPNOTE ---
Date of procedure: 09/08/21 Pre-op Diagnosis:: 1. Cubital tunnel syndrome, left elbow 2. Carpal tunnel syndrome, left wrist Post-op Diagnosis:: Same Procedure performed:: 1. Cubital tunnel release, left elbow 2. Anterior transposition of the ulnar nerve, left elbow 3. Carpal tunnel release, left wrist Surgeon:: Ishaan Medina MD Freight Weigher(s):: Alyx Ozuna PA-C FIRE PROTECTION SPECIALIST:: Dandre Wisdom Anesthesia: regional (Supraclavicular nerve block), LMA Estimated blood loss (mL): 10 Clinical Note:: Patient is a 50-year-old male with longstanding paresthesias in his left hand with gradual worsening over time. Bilateral upper extremity EMG/NCV studies performed at [facility] on 08/03/2021 showed evidence of a bilateral carpal tunnel syndrome, classified as electrophysiologically moderate on the right and electrophysiologically mild on the left. EMG/NCV also demonstrates left ulnar nerve entrapment consistent with cubital tunnel syndrome involving both sensory and motor fibers, classified as electrophysiologically severe. EMG study of the left upper extremity demonstrates involvement of the ADEQ and FDI muscles. Bilateral Ramon-Claire anastomosis also noted. He reports that the left index and ring fingers are constantly numb. He also reports night symptoms, sleep disturbance, weakness and clumsiness with his left hand. On clinical examination the findings are consistent with severe left cubital tunnel syndrome and bilateral carpal tunnel syndromes. Therefore, a left cubital tunnel release with or without anterior transposition of the ulnar nerve and a left carpal tunnel release are indicated to relieve the pain and paresthesias, improve function and prevent further permanent nerve damage. Please refer to orthopedic office note for full details. Operative findings:: Left cubital tunnel syndrome: On examination under anesthesia, the ulnar nerve was not subluxing over the medial epicondyle. At surgery, the nerve is noted to be significantly constricted as it passed through the cubital tunnel. There was presence of hourglass constriction of the ulnar nerve behind the medial epicondyle and also some compression noted as it enters the flexor carpi ulnaris muscle. There there were venous varicosities in the cubital tunnel. After the nerve was decompressed at the cubital tunnel, it was subluxing anteriorly over the medial epicondyle with flexion and extension. Therefore, I proceeded with anterior transposition of the ulnar nerve. Left carpal tunnel syndrome: The intraoperative findings showed the median nerve to be tightly compressed and hyperemic. The flexor retinaculum was noted to be thick and tight. There was mild synovitis in the carpal tunnel. There was no evidence of any space-occupying lesions within the carpal tunnel. Operative note:: On the day of the surgery the patient was met in the preoperative area. Patient was positively identified, and the operative site/side was marked and initialed by me. A physical examination was performed, and the chart was updated. I have reviewed the clinical EMG/NCV findings and discussed the diagnosis, natural history and management options in detail including both nonsurgical and surgical with the patient. Patient has had symptoms for a long time and had appropriate conservative management for a length of time without significant benefit. Therefore, following detailed discussion, patient elected to proceed with surgical patient in the form of left cubital tunnel decompression with or without anterior transposition of the ulnar nerve and left carpal tunnel release. Today I have again discussed the details of the cubital tunnel and carpal tunnel releases and ulnar nerve transposition procedure, risks, benefits, and alternatives. We have also discussed the expected postoperative recovery and rehabilitation. We have discussed that the goal of the surgery is to stop further damage to the ulnar and median nerves by fr
[2021-09-08 15:01] LABS: POC Glucose,Bedside 103 (70-110)
[2021-09-13 14:49] VITALS: BP 120/73; PULSE 72; TEMP 36.2
--- NOTE | 2021-09-13 14:49 | HMH.ANESII ---
[facility] Anesthesia Record Part II Discharge Time: 14:59 Destination: Surgical Day Care (OP Surgery) PACU nurse assessment reviewed?: Yes Patient Condition:: Good Anesthesia Complications:: None Swallowing reflex intact?: Yes Cyanosis?: No Blood Pressure: 120/73 Pulse Rate: 72 Temperature: 97.2 F Mental Status: Alert & Oriented Pain level:: 2 Nausea and/or vomitting:: None Intake, IV Amount: 0
== END 2021-09-08 15:30 | disposition home or self-care (01) ==
LOC: OR 10:55
PROVIDERS: PCP Physician Assistant; Visit Provider Orthopaedic Surgery
PROC: (CPT 64721; principal; 2021-09-08 12:30)
DX: G56.02 Carpal tunnel syndrome, left upper limb (principal); G56.22 Lesion of ulnar nerve, left upper limb; E11.9 Type 2 diabetes mellitus without complications; I10 Essential (primary) hypertension
CPT/HCPCS: 64718; 64721; 82962; 96374; J2405

== ENCOUNTER 2021-10-07 09:19 | Emergency (ER) | payer OTHER, SELFPAY ==
[2021-10-07] VITALS (15 sets, daily range): BP systolic 79–135; BP diastolic 42–82; PULSE 66–97; RESP 14–20; TEMP 36.8; O2SAT 96–100; BMI 31.5
--- NOTE | 2021-10-07 09:45 | HMH.EDUTC ---
[facility] [place] Disposition Clinical Impression: Vertigo Syncopal episodes Qualifiers: Syncope type: unspecified Qualified Code(s): R55 - Syncope and collapse Disposition: Still a Patient Condition on Discharge: Fair Referrals: Sheila Ayoub PA [Primary Care Provider] - Time of Disposition: 10:11 Medical Decision Making - Medical Records Medical records reviewed: No: I reviewed the patient's medical records. - Nathaniel Inquiry Pt receiving controlled substance: No Vital Signs: 10/07/21 09:34 Temperature 98.2 F Temperature Source Oral Pulse Rate [Left] 89 Respiratory Rate 18 Blood Pressure [Right Arm] 98/58 L Blood Pressure Mean [Right Arm] 71 02 Sat by Pulse Oximetry 96 Orders (Tests/Meds): ORDERS Category Date Time Status BMP [Basic Metabolic Panel] Stat Lab 10/07/21 09:47 Ordered Complete Blood Count Auto Diff Stat Lab 10/07/21 09:47 Ordered Medical Decision Narrative: During assessment, after he sit up from a lying position he got very dizzy, nauseated, grayish in color and had diaphoresis. He was transferred to the ER due to these symptoms. [facility] [place] HPI - General Stated complaint: dizzy Time Seen by Provider: 10/07/21 09:45 Mode of Arrival: Ambulatory Source of Information: Patient Limitations: No Limitations Description of Symptoms (Recalled from Triage Doc. by RN): patient comes in for severe dizziness. HEENT Symptoms (Recalled from RN notes): Yes Resp Symptoms (Recalled from RN notes): No Skin Symptoms (Recalled from RN notes): No MS Symptoms (Recalled from RN notes): No Functional Status (Recalled from RN notes): n/a - History of Present Illness Provider Complaint: He was in the physical therapy department having pt on his left hand and wrist. He states that he got really dizzy out of nowhere and felt like he was going to pass out. He did not actually lose conciousness. He denies any chest pain or shortness of breath. He states that he felt like this one time before and it turned out to be an ear infection. He denies any recent ear pain or pressure or decreased hearing. He has a history of diabetes. - Related Data Home Medications Medication Instructions Recorded Confirmed aspirin 81 mg tablet,delayed 81 mg PO DAILY 08/20/18 09/21/21 release cariprazine 1.5 mg capsule 3 mg PO DAILY cap 07/19/21 09/21/21 multivitamin 1 tab PO DAILY 08/01/21 09/21/21 Atorvastatin Calcium [Lipitor 40mg 40 mg PO DAILY 09/08/21 09/21/21 Tab] Escitalopram Oxalate 20 mg PO QDAY 09/08/21 09/21/21 lisinopriL [Lisinopril] 10 mg PO BID 09/08/21 09/21/21 Previous Rx's Medication Instructions Recorded bisoprolol fumarate 10 mg tablet 10 mg PO BID #180 tab 06/25/20 cariprazine 3 mg capsule 3 mg PO DAILY #30 cap 09/13/21 Allergies Allergy/AdvReac Type Severity Reaction Status Date / Time No Known Allergies Allergy Verified 10/07/21 09:38 - Worker's Comp Is this a Worker's Comp case?: No [facility] History - Hepatitis A Screen Attestation statement:: This patient has been screened for Hepatitis A risk factors. I have reviewed the patient's past medical history: Yes 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: Reports:: Diabetes Mellitus Type 2, Hyperlipidemia, Hypertension Denies:: Cancer, Diabetes Mellitus Type 1, Internal Pacemaker, MRSA, Seizures Other 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: Reports: Other. Denies: Blood Transfusion Reaction Comment: MEÑO Laterality Cases: Left: Carpal Tunnel Release, Other Other Surgeries: Yes: No Previous Surgery, Cardiac Catheterization, Other (heart cath ). No: Coronary Stent, Pacemaker Amputation: No Fractures: No - Social History Smoking Status: Current every day smoker Tobacco Type: cigarettes # Packs/Day (cigarettes): 1 #Yrs smoked (if former smoker): 30 Alcohol Intake: current Alcohol Intake Frequency:: 3 or more drinks per day Substance Use Type: denies use Occupational Status: employed Housing: house Household Members: none Family Hx:: No significant family history ROS
--- NOTE | 2021-10-07 09:46 | ECG_ITS ---
APPROVED REPORT Exam: Resting ECG HR:89 bpm ECG Measurements Heart Rate 89 AXES WA 154 P 30 QRSd 91 QRS 25 QT 380 T 9 QTc 427 Conclusion SINUS RHYTHM NORMAL ECG UNCONFIRMED REPORT Electronically signed by : Chavez Amos MD 10/09/2021 08:07:37
[2021-10-07 10:18] LABS: POC Glucose,Bedside 192 (70-110)
--- NOTE | 2021-10-07 10:20 | HMH.EDGENADL ---
ED Disposition Clinical Impression: Near syncope, Hyperbilirubinemia, Hypokalemia Cirrhosis Qualifiers: Hepatic cirrhosis type: unspecified hepatic cirrhosis Ascites presence: unspecified Qualified Code(s): K74.60 - Unspecified cirrhosis of liver Disposition: Home, Self-Care Condition on Discharge: Good Instructions: DI for Hypokalemia, DI for Cirrhosis, DI for Syncope in Adults (Fainting) Additional Instructions: Resting continue to drink plenty of fluids. Avoid alcohol, avoid acetaminophen/Tylenol. Potassium as prescribed. Follow-up in the office next week with Dr. Go, call to make appointment. Return to the emergency department if symptoms worsen. Prescriptions: Potassium Chloride [Klor-con 20 mEq tablet] 20 meq PO BID #14 tab Transmission Status: Pending to [id number] Referrals: Sheila Ayoub PA [Primary Care Provider] - - Critical Care Critical Care Time: No Attestation: On 10/07/21, the high probability of a clinically significant, sudden or life threatening deterioration of the following system(s) required my full and direct attention, intervention and personal management. The time I documented below is in addition to time spent performing reported procedures but includes the following listed in this critical care notation. Medical Decision Making - Medical Records Medical records reviewed: Yes: I reviewed the patient's medical records. MR Comment: Reviewed prior heart cath results, see below: Reviewed most recent cardiology clinic note 08/01/2021. - Nathaniel Inquiry Pt receiving controlled substance: No Vital Signs: 10/07/21 09:34 10/07/21 10:20 10/07/21 10:30 Temperature 98.2 F 98.3 F Temperature Source Oral Oral Pulse Rate 79 Pulse Rate [Left] 89 85 Pulse Rate [Orthostatic Lying Right] Pulse Rate [Orthostatic Sitting Right] Pulse Rate [Orthostatic Standing Right] Respiratory Rate 18 16 16 Blood Pressure 107/58 L Blood Pressure [Orthostatic Lying Right Arm] Blood Pressure [Orthostatic Sitting Right Arm] Blood Pressure [Orthostatic Standing Right Arm] Blood Pressure [Right Arm] 98/58 L 84/49 L Blood Pressure Mean 70 Blood Pressure Mean [Right Arm] 71 60 Blood Pressure Source [Right Arm] Automatic Cuff Blood Pressure Position [Right Arm] Sitting 02 Sat by Pulse Oximetry 96 97 100 Oxygen Delivery Method Room Air Room Air 10/07/21 10:39 10/07/21 10:45 10/07/21 11:00 Temperature Temperature Source Pulse Rate 80 84 Pulse Rate [Left] Pulse Rate [Orthostatic Lying Right] 89 Pulse Rate [Orthostatic Sitting Right] 89 Pulse Rate [Orthostatic Standing Right] 79 Respiratory Rate 14 18 Blood Pressure 114/62 123/75 Blood Pressure [Orthostatic Lying Right Arm] 93/58 L Blood Pressure [Orthostatic Sitting Right Arm] 98/58 L Blood Pressure [Orthostatic Standing Right Arm] 79/42 L Blood Pressure [Right Arm] Blood Pressure Mean 78 89 Blood Pressure Mean [Right Arm] Blood Pressure Source [Right Arm] Blood Pressure Position [Right Arm] 02 Sat by Pulse Oximetry 98 99 Oxygen Delivery Method Room Air Room Air 10/07/21 11:15 10/07/21 11:26 10/07/21 11:27 Temperature Temperature Source Pulse Rate 66 82 Pulse Rate [Left] Pulse Rate [Orthostatic Lying Right] 79 Pulse Rate [Orthostatic Sitting Right] 84 Pulse Rate [Orthostatic Standing Right] 97 H Respiratory Rate 15 16 Blood Pressure 104/72 L 122/72 Blood Pressure [Orthostatic Lying Right Arm] 122/72 Blood Pressure [Orthostatic Sitting Right Arm] 123/78 Blood Pressure [Orthostatic Standing Right Arm] 101/66 L Blood Pressure [Right Arm] Blood Pressure Mean 79 85 Blood Pressure Mean [Right Arm] Blood Pressure Source [Right Arm] Blood Pressure Position [Right Arm] 02 Sat by Pulse Oximetry 99 98 Oxygen Delivery Method Room Air Room Air 10/07/21 11:30 10/07/21 12:00 10/07/21 12:15 Temperature Temperature So
--- NOTE | 2021-10-07 10:25 | PC.NURSE ---
pt brought to ER from [facility] per this nurse via stretcher r/t c/o dizziness, pt was dizzy felt like he may pass out upon standing in UT, hypotension. [facility] provider at pt BS when transported pt to ER. Pt to room 6 in ER, placed on gambling monitor, EKG and fsbs was done in UT upon pt arrival.
[2021-10-07 10:38] LABS: Basophils # 0.1 K/mm3 (0-0.2); Basophils % 1.5 % (0.1-2.0); Eosinophils # 0.2 K/mm3 (0.0-0.4); Eosinophils % 1.9 % (0.1-12.0); Hematocrit 35.9 % (42.0-52.0); Hemoglobin 11.4 g/dL (14.1-18.0); Lymphocytes # 2.6 K/mm3 (0.7-4.5); Lymphocytes % 30.3 % (10-50); Mean Corpuscular HGB Conc 31.9 g/dL (31.8-35.4); Mean Corpuscular Hemoglobin 34.7 pg (27.0-31.2); Mean Corpuscular Volume 108.7 fl (80-94); Mean Platelet Volume 8.4 fl (7.4-10.4); Monocytes # 0.7 K/mm3 (0.1-1.0); Monocytes % 7.9 % (1.7-9.3); Neutrophils % 58.4 % (37.0-80.0); Platelet Count 275 K/mm3 (142-424); Red Cell Distribution Width 17.1 % (11.5-17.5); White Blood Count 8.6 K/mm3 (4.8-10.8)
[2021-10-07 10:40] LABS: Alanine Aminotransferase 83 U/L (12-78); Albumin Level 3.1 g/dl (3.5-5.0); Albumin/Globulin Ratio 0.8 (1.1-1.8); Alkaline Phosphatase 512 U/L (38-126); Anion Gap 11.7 mEq/L (5-15); Aspartate Amino Transferase 341 U/L (17-59); Bilirubin,Total 7.6 mg/dl (0.2-1.3); Blood Urea Nitrogen 7 mg/dl (9-20); Calcium 8.5 mg/dl (8.4-10.2); Carbon Dioxide 29 mmol/L (22.0-30.0); Chloride 98 mmol/L (98-107); Creatinine Clearance Estimated 109 mL/min (50-200); Estimated Glomerular Filt Rate 65 ml/min (>60); GFR (African American) 78 ML/MIN (>60); Globulin 3.9 g/dL (1.3-3.2); Glucose 184 mg/dl (74-100); Sodium 136 mmol/L (136-145)
[2021-10-07 10:41] LABS: Potassium 2.7 mmoL/L (3.5-5.1)
--- NOTE | 2021-10-07 10:41 | PC.NURSE ---
lab called with critical potassium result, result repeated and verified, notified ER MD of results at this time.
[2021-10-07 10:56] LABS: Troponin I < 0.01 ng/ml (0.00-0.034)
[2021-10-07 11:08] LABS: Alanine Aminotransferase 81 U/L (12-78); Albumin Level 2.9 g/dl (3.5-5.0); Alkaline Phosphatase 505 U/L (38-126); Aspartate Amino Transferase 348 U/L (17-59); Bilirubin, Conjugated 1.5 mg/dL (0.0-0.3); Bilirubin,Direct 6.1 mg/dl (0.0-0.4); Bilirubin,Indirect 1.1 mg/dL (0.0-0.9); Bilirubin,Total 7.2 mg/dl (0.2-1.3); Bilirubin,Unconjugated 1.2 mg/dL (0.0-1.1); Total Protein,Serum 6.3 g/dl (6.3-8.2)
[2021-10-07 11:14] LABS: Ethyl Alcohol < 10 mg/dl (0-10)
--- NOTE | 2021-10-07 11:15 | PC.NURSE ---
rounded on pt at this time, pt sitting up in bed, pt color has improved. Pt has drank approx 8 oz at water, tolerated well. Pt reports feeling better. States no needs at this time, family at BS, will continue to monitor
--- NOTE | 2021-10-07 11:32 | PC.NURSE ---
ER requested to repeat orthostatic bps on pt, BP taken and reported to RADHA SANTANA. ER MD gave order for additional Liter of IVF
--- NOTE | 2021-10-07 11:42 | PC.NURSE ---
updated pt POC, urine specimen sent to lab, pt voided approx 100 mL of romina color urine. will continue to monitor
[2021-10-07 11:44] LABS: Microscopic, Urine URINE MICROSCOPIC (MICROSCOPIC)
[2021-10-07 11:46] LABS: Appearance,Urine SL CLOUDY (Clear); Blood, Urine Negative (Negative); Color,Urine ORANGE (Yellow); Glucose,Urine (UA) TRACE (Negative); Ketones,Urine 1+ (Negative); Leukocyte Esterase,Urine Negative (Negative); Nitrate,Urine Negative (Negative); PH,Urine 7.5 (5.0-8.5); Protein,Urine 1+ (Negative); Specific Gravity, Urine 1.015 (1.005-1.030); Urobilinogen,Urine >=8.0 EU/dl (0.2)
[2021-10-07 11:48] LABS: Bilirubin,Urine 3+ (Negative)
[2021-10-07 11:59] LABS: Bacteria,Urine Trace /lpf; Mucus,Urine 1+ /lpf
[2021-10-07 12:01] LABS: Barbiturates Screen,Urine Negative ng/ml (<200)
[2021-10-07 12:02] LABS: Amphetamine/Metha Screen,Urine Negative ng/ml (<1000); Benzodiazepines Screen,Urine Negative ng/ml (<200)
[2021-10-07 12:03] LABS: INR 1.04 (0.9-1.1); Prothrombin Time 11.7 seconds (10.1-12.5)
[2021-10-07 12:03] LABS: Cocaine Screen,Urine Negative ng/ml (<300)
[2021-10-07 12:04] LABS: Cannabinoid Screen,Urine Negative ng/ml (<50); Methadone Screen,Urine Negative ng/ml (<300)
[2021-10-07 12:05] LABS: Opiate Screen,Urine Negative ng/ml (<300); Phencyclidine Screen,Urine Negative ng/ml (<25)
--- NOTE | 2021-10-07 12:10 | US_ITS ---
PROCEDURE INFORMATION: Exam: US Abdomen, Limited; Right Upper Quadrant Exam date and time: 10/07/2021 12:35 PM Age: 50 years old Clinical indication: Abnormal findings; Abnormal lab test; Other: Bilirubin; Other: None; Additional info: Elev bili TECHNIQUE: Imaging protocol: Real time ultrasound of the abdomen with image documentation. Limited exam focused on the right upper quadrant. COMPARISON: No relevant prior studies available. FINDINGS: Liver: There is coarsening of the echotexture of the liver. The findings are compatible with hepatic steatosis. There is suggestion of mild hepatomegaly however no measurements have been provided. Gallbladder: Gallbladder anechoic. A small amount of sludge could not be excluded. Biliary ducts: Common bile duct normal. Pancreas: Pancreas incompletely visualized secondary to gas-filled bowel loops and body habitus. Right kidney: Right kidney measured 10.9 cm in length by 4.6 cm in AP dimensions by 6 cm transversely. No evidence of hydronephrosis or perinephric fluid. Other findings: Study limited secondary to patient's body habitus. IMPRESSION: 1. Limited study secondary to patient's body habitus. 2. Hepatic steatosis. 3. Pancreas suboptimally visualized. 4. Recommendations consider follow-up evaluation with computerized tomography without and with contrast if appropriate.
--- NOTE | 2021-10-07 12:10 | PC.NURSE ---
DR TARAH OCONNELL
--- NOTE | 2021-10-07 12:11 | PC.NURSE ---
on the phone with
--- NOTE | 2021-10-07 12:11 | PC.NURSE ---
DR MATTHEWS SPEAKING WITH DR RASCON
--- NOTE | 2021-10-07 12:12 | PC.NURSE ---
RADIOLOGY NOTIFIED OF US
--- NOTE | 2021-10-07 12:27 | PC.NURSE ---
updated pt on POC, gallbladder ultrasound, continue to monitor bp. pt verbalized no needs at this time.
--- NOTE | 2021-10-07 12:32 | PC.NURSE ---
pt to radiology via wheelchair for u/s
--- NOTE | 2021-10-07 13:00 | PC.NURSE ---
Rad staff giving verbal report to ER MD of u/s at this time.
--- NOTE | 2021-10-07 13:15 | PC.NURSE ---
DR TARAH OCONNELL
--- NOTE | 2021-10-07 13:38 | PC.NURSE ---
DR MATTHEWS IN WITH PT GOING OVER RESULTS
[2021-10-07 13:46] LABS: Troponin I < 0.01 ng/ml (0.00-0.034)
== END 2021-10-07 14:08 | disposition home or self-care (01) ==
LOC: UTC 10:12 → ER 10:17
PROVIDERS: Nurse Practitioner Family; Emergency Provider Emergency Medicine; PCP Physician Assistant
DX: R42 Dizziness and giddiness (principal); K74.60 Unspecified cirrhosis of liver; H53.9 Unspecified visual disturbance; R06.00 Dyspnea, unspecified; E80.6 Other disorders of bilirubin metabolism; I95.9 Hypotension, unspecified; I10 Essential (primary) hypertension; E78.5 Hyperlipidemia, unspecified; E11.9 Type 2 diabetes mellitus without complications; F17.210 Nicotine dependence, cigarettes, uncomplicated
CPT/HCPCS: 76705; 80053; 80076; 80305; 81001; 82962; 84484; 85025; 85610; 93005; 96360; 96361; 99285

== ENCOUNTER → 2021-10-13 09:27 | Outpatient (CLI) | payer OTHER, SELFPAY ==
[2021-10-13 09:45] LABS: Basophils # 0.1 K/mm3 (0-0.2); Basophils % 1.4 % (0.1-2.0); Eosinophils # 0.3 K/mm3 (0.0-0.4); Eosinophils % 3.7 % (0.1-12.0); Hematocrit 33.8 % (42.0-52.0); Hemoglobin 10.9 g/dL (14.1-18.0); Lymphocytes # 2.3 K/mm3 (0.7-4.5); Lymphocytes % 29.7 % (10-50); Mean Corpuscular HGB Conc 32.4 g/dL (31.8-35.4); Mean Corpuscular Volume 107.9 fl (80-94); Mean Platelet Volume 7.9 fl (7.4-10.4); Monocytes # 0.7 K/mm3 (0.1-1.0); Monocytes % 8.4 % (1.7-9.3); Neutrophils # 4.4 K/mm3 (1.8-7.8); Neutrophils % 56.7 % (37.0-80.0); Platelet Count 346 K/mm3 (142-424); Red Blood Count 3.13 M/mm3 (4.60-6.20); Red Cell Distribution Width 20.6 % (11.5-17.5); White Blood Count 7.7 K/mm3 (4.8-10.8)
[2021-10-13 09:50] LABS: Chloride 103 mmol/L (98-107); Sodium 139 mmol/L (136-145)
[2021-10-13 09:53] LABS: Alanine Aminotransferase 49 U/L (12-78); Albumin Level 3.2 g/dl (3.5-5.0); Albumin/Globulin Ratio 0.8 (1.1-1.8); Alkaline Phosphatase 338 U/L (38-126); Anion Gap 8.9 mEq/L (5-15); Aspartate Amino Transferase 148 U/L (17-59); Bilirubin,Total 3.9 mg/dl (0.2-1.3); Blood Urea Nitrogen 6 mg/dl (9-20); Calcium 8.8 mg/dl (8.4-10.2); Carbon Dioxide 30 mmol/L (22.0-30.0); Estimated Glomerular Filt Rate 103 ml/min (>60); GFR (African American) 125 ML/MIN (>60); Globulin 3.8 g/dL (1.3-3.2); Glucose 172 mg/dl (74-100)
[2021-10-13 09:54] LABS: Ammonia 24 umol/L (9-30)
[2021-10-13 10:02] LABS: Potassium 2.9 mmoL/L (3.5-5.1)
== END ==
PROVIDERS: PCP Physician Assistant; Visit Provider Nurse Practitioner Family
DX: E80.6 Other disorders of bilirubin metabolism (principal); R17 Unspecified jaundice; E87.6 Hypokalemia
CPT/HCPCS: 36415; 80053; 82140; 85025

== ENCOUNTER → 2021-10-18 17:27 | Outpatient (CLI) | payer OTHER, SELFPAY ==
[2021-10-18 15:56] LABS: Chloride 108 mmol/L (98-107); Potassium 3.7 mmoL/L (3.5-5.1); Sodium 137 mmol/L (136-145)
[2021-10-18 15:59] LABS: Alanine Aminotransferase 48 U/L (12-78); Albumin Level 3.2 g/dl (3.5-5.0); Alkaline Phosphatase 275 U/L (38-126); Anion Gap 7.7 mEq/L (5-15); Aspartate Amino Transferase 154 U/L (17-59); Bilirubin,Total 2.9 mg/dl (0.2-1.3); Blood Urea Nitrogen 8 mg/dl (9-20); Calcium 8.6 mg/dl (8.4-10.2); Carbon Dioxide 25 mmol/L (22.0-30.0); Estimated Glomerular Filt Rate 120 ml/min (>60); GFR (African American) 146 ML/MIN (>60); Globulin 3.3 g/dL (1.3-3.2); Glucose 163 mg/dl (74-100); Total Protein,Serum 6.5 g/dl (6.3-8.2)
== END ==
PROVIDERS: PCP Family Medicine; Visit Provider Family Medicine
DX: E78.5 Hyperlipidemia, unspecified (principal)
CPT/HCPCS: 80053

== ENCOUNTER → 2021-10-26 10:41 | Outpatient (CLI) | payer OTHER, SELFPAY ==
--- NOTE | 2021-10-26 10:44 | CT_ITS ---
FINAL REPORT CLINICAL HISTORY: elevated LFT s FINDINGS: Axial CT images of the abdomen and pelvis were obtained without intravenous contrast. Coronal reformatted images were also obtained.This study was performed with techniques to keep radiation doses as low as reasonably achievable (ALARA). Individualized dose reduction techniques using automated exposure control or adjustment of mA and/or kV according to the patient's size were employed. Abdomen: The lung bases are clear. There is no evidence of renal stone or hydronephrosis. The gallbladder is present. There is fatty infiltration of the liver. The spleen is enlarged measuring 14.5 cm in length. The pancreas has an unremarkable, unenhanced appearance. Pelvis: The appendix is normal. There are scattered diverticula throughout the colon. Images of the pelvis reveal no evidence of ureteral dilation or ureteral stone. No mass or abnormal fluid collection is identified. IMPRESSION: Fatty liver. Splenomegaly. Reviewed, Interpreted and Dictated by José Stern III, MD Transcribed by Lisa Tan Authenticated and . [facility]
== END ==
PROVIDERS: PCP Physician Assistant; Visit Provider Family Medicine
DX: R79.89 Other specified abnormal findings of blood chemistry (principal)
CPT/HCPCS: 74176

== ENCOUNTER 2021-11-21 08:00 | Outpatient (RCR) | payer OTHER, SELFPAY ==
--- NOTE | 2021-09-26 09:04 | HMH.OTOPEV ---
OT Inpatient Evaluation Rehab OT Outpatient Eval Start: 09/26/21 08:39 Freq: Status: Active Protocol: Document 09/26/21 08:40 BRETTSOULEYMANE (Rec: 09/26/21 09:04 HITESHLARISSA [id number]) Electronically Signed By Susie Javier, OT 09/26/21 08:40 Outpatient Therapy Subjective History Subjective History 50 year old male with longstanding paresthesias in his left hadn with gradula worsening over time. Bilateral upper extremity EMG/NCV studies performed at [facility] on showed evidence of a bilateral carpal tunnel syndrome, classified as electrophysiologically moderate on the right and electrophysiologically mild on the left. EMG/NCV also demonstrated left ulnar nerve entrapment consistent with cubital tunnel syndrome involving both sensory and motor fibers, classified as electrophysiologically severe. 50 year old old male referred to skilled OP OT services for cubital tunnel release, left elbow. CTR left wrist, anterior transposition of ulnar nerve. Patient is currently 3 weeks out on . f/u on 10/19/21. Chief Complaint Pain,Weakness,Decreased Patient Safety Manager Strength Symptom Type Sharp Symptoms Relieved By Nothing Symptoms Aggravated By Physical Activity Prior Functional Limitations None Current Functional Limitations Reaching,Lifting,Recreation Activity Symptom Description Intermittent Level of pain today (0-10) 0 Pain scale - at its best (0-10) 4 Pain scale - at its worst (0-10) 4 Shoulder/Elbow Eval Shoulder Objective Measurements Elbow Objective Measurements Elbow ROM Left decreased ROM elbow exam standard left pain with active ROM elbow exam standard left Elbow Extension Active Range of Motion ( 0 degrees) Elbow Flexion Active Range of Motion ( 138 degrees) Elbow Pronation of Forearm Range of 90 Motion (degrees) Elbow Supination of Forearm Range of 80 Motion (degrees) Elbow MMT Elbow Flexion Strength Grade 3
--- NOTE | 2021-10-31 08:39 | HMH.RHREAS ---
Rehab Reassessment Rehab OP Re-assessment Start: 10/31/21 08:33 Freq: Status: Active Protocol: Document 10/31/21 08:33 ELISHA (Rec: 10/31/21 08:39 LCURTIS [id number]) Electronically Signed By Susie Javier, OT 10/31/21 08:33 Rehab Re-assessment Subjective Subjective My elbow and wrist are feeling better. Objective Objective Notes 50 year old male with longstanding paresthesias in his left hand with gradula worsening over time. Bilateral upper extremity EMG/NCV studies performed at [facility] on showed evidence of a bilateral carpal tunnel syndrome, classified as electrophysiologically moderate on the right and electrophysiologically mild on the left. EMG/NCV also demonstrated left ulnar nerve entrapment consistent with cubital tunnel syndrome involving both sensory and motor fibers, classified as electrophysiologically severe. 50 year old old male referred to skilled OP OT services for cubital tunnel release, left elbow. CTR left wrist, anterior transposition of ulnar nerve. Patient is currently 8 weeks out on . f/u on 10/19/21 with everything healing as planned. Patient has an additional f/u with ortho on Nov 30. Assessment Progress Assessment Progressing as Expected Assessment Notes Evaluation on 09/26/21 AROM of L UE wrist flex: 80 ext: 55 Pro: 90 SUP:80 AROM of L UE elbow flex: 138 ext: 0 RD:18 UD: 30 L hand: 30# R hand: 55# Re-assessment on 10/31/21 AROM of L UE wrist
== END 2021-11-21 08:05 | disposition home or self-care (01) ==
LOC: OT 08:00
PROVIDERS: PCP Physician Assistant; Visit Provider Orthopaedic Surgery
DX: G56.02 Carpal tunnel syndrome, left upper limb (principal); R20.0 Anesthesia of skin
CPT/HCPCS: 97010; 97014; 97035; 97110; 97140; 97164; 97165; G0283

== ENCOUNTER → 2021-12-08 19:56 | Outpatient (CLI) | payer OTHER, SELFPAY | PROVIDERS: PCP Physician Assistant; Visit Provider Nurse Practitioner Family | DX: G47.33 Obstructive sleep apnea (adult) (pediatric) (principal); R06.83 Snoring; J44.9 Chronic obstructive pulmonary disease, unspecified | CPT/HCPCS: 95810 ==

== ENCOUNTER → 2022-02-01 10:55 | Outpatient (CLI) | payer OTHER, SELFPAY ==
[2022-02-01 13:05] LABS: Alanine Aminotransferase 29 U/L (12-78); Albumin Level 3.7 g/dl (3.5-5.0); Alkaline Phosphatase 130 U/L (38-126); Aspartate Amino Transferase 60 U/L (17-59); Bilirubin,Direct 0.4 mg/dl (0.0-0.4); Bilirubin,Indirect 0.3 mg/dL (0.0-0.9); Bilirubin,Total 0.7 mg/dl (0.2-1.3); Bilirubin,Unconjugated 0.3 mg/dL (0.0-1.1); Chol/HDL Ratio 3.6 (1-3.5); Cholesterol 170 mg/dl (140-200); HDL Cholesterol 47 mg/dl (40-60); Total Protein,Serum 6.8 g/dl (6.3-8.2); Triglycerides 102 mg/dl (30-150); VLDL Cholesterol 20 mg/dL (0-40)
[2022-02-01 13:17] LABS: Direct LDL Cholesterol 100.66 mg/dL (100-129)
== END ==
PROVIDERS: PCP Physician Assistant; Visit Provider Nurse Practitioner Family
DX: I25.10 Atherosclerotic heart disease of native coronary artery without angina pectoris (principal); I11.9 Hypertensive heart disease without heart failure; E11.9 Type 2 diabetes mellitus without complications; E66.9 Obesity, unspecified; G47.33 Obstructive sleep apnea (adult) (pediatric); R94.31 Abnormal electrocardiogram [ECG] [EKG]; Z72.0 Tobacco use; Z68.33 Body mass index [BMI] 33.0-33.9, adult
CPT/HCPCS: 36415; 80061; 80076

== ENCOUNTER 2022-02-18 16:36 | Emergency (ER) | payer OTHER, SELFPAY ==
--- NOTE | 2022-02-18 16:56 | EXP.UTC ---
Discharge Plan Disposition Patient Disposition: Still a Patient Prescriptions Prescriptions: No Action multivitamin Tablet 1 tab PO DAILY tetracycline 500 mg capsule 500 mg PO DAILY metronidazole 500 mg tablet 500 mg PO DAILY mupirocin 2 % ointment 1 applic topical BID Qty: 22 0RF lisinopril 20 mg tablet 20 mg PO BID Qty: 60 2RF aspirin [Adult Low Dose Aspirin] 81 mg tablet,delayed release (DR/EC) 81 mg PO DAILY thiamine HCl (vitamin B1) 500 mg tablet 500 mg PO DAILY Qty: 30 2RF oxazepam 15 mg capsule 15 mg PO HS PRN (Reason: alcohol withdrawal/insomnia) Qty: 30 0RF omeprazole 20 mg capsule,delayed release(DR/EC) 20 mg PO Vraylar 3 mg capsule 3 mg PO DAILY Qty: 30 2RF bisoprolol fumarate 5 mg tablet 5 mg PO DAILY Qty: 90 3RF escitalopram oxalate 20 MG tablet 20 mg PO QDAY Referrals Follow up/Referrals: Sheila Ayoub PA [Primary Care Provider] - See instructions Clinical Impressions Clinical Impression: Near syncope Discharge ED Provider: Jackie ([facility] [place] HPI General Stated complaint: light headed Time Seen by Provider: 02/18/22 16:56 History of Present Illness Provider Complaint: 51 yr old male presents for near syncope episode on break. pt states he was smoking and put it out and stood up, then felt he was going to pass out. Related Data Home Medications Medication Instructions Recorded Confirmed aspirin 81 mg tablet,delayed 81 mg PO DAILY heart health 08/20/18 02/15/22 release (Adult Low Dose Aspirin) multivitamin 1 tab PO DAILY Supplement 08/01/21 02/15/22 escitalopram oxalate 20 mg tablet 20 mg PO QDAY . 09/08/21 02/15/22 metronidazole 500 mg tablet 500 mg PO DAILY 02/01/22 02/15/22 tetracycline 500 mg capsule 500 mg PO DAILY 02/01/22 02/15/22 omeprazole 20 mg capsule,delayed 20 mg PO 02/09/22 02/15/22 release Previous Rx's Medication Instructions Recorded cariprazine 3 mg capsule (Vraylar) 3 mg PO DAILY #30 caps 09/13/21 oxazepam 15 mg capsule 15 mg PO HS PRN alcohol 10/13/21 withdrawal/insomnia #30 caps thiamine HCl (vitamin B1) 500 mg 500 mg PO DAILY #30 tabs 10/13/21 tablet bisoprolol fumarate 5 mg tablet 5 mg PO DAILY #90 tabs 12/29/21 lisinopril 20 mg tablet 20 mg PO BID #60 tabs 02/15/22 mupirocin 2 % topical ointment 1 applic topical BID #22 grams 02/15/22 Allergies Allergy/AdvReac Type Severity Reaction Status Date / Time No Known Allergies Allergy Verified 02/15/22 10:20 [facility] Disclaimer: The information contained in this section may have been updated after the patient was seen, as this information can be updated by other users. 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) Smoking Status: Current every day smoker tobacco type: cigarettes packs per day: 1 second hand exposure: Yes alcohol intake: current counseling provided: none substance use type: denies use current occupational status: employed Travel in the last 8 weeks: None household members: none housing: house lives independently: Yes current occupation: [employer] current occupational exposures/hazards: No caffeine: Yes ROS Obtained: Yes All systems reviewed & no additional complaints except as documented Constitutional Constitutional: Reports system reviewed and no additional complaints, except as documented, Denies as per HPI, Denies fever(s) and Denies headache(s) Eyes Eyes: Reports system reviewed and no additional complaints,
[2022-02-18 16:58] VITALS: BP 139/89; PULSE 109; RESP 19; TEMP 36.8; O2SAT 98; BMI 35.2
[2022-02-18 17:17] VITALS: BP 129/84; PULSE 103; RESP 18; TEMP 37.1; O2SAT 97; BMI 35.0
--- NOTE | 2022-02-18 17:28 | ECG_ITS ---
APPROVED REPORT Exam: Resting ECG HR:101 bpm ECG Measurements Heart Rate 101 AXES UT 170 P 34 QRSd 88 QRS 54 QT 340 T 29 QTc 398 Conclusion SINUS TACHYCARDIA NONSPECIFIC T-WAVE ABNORMALITY ABNORMAL RHYTHM ECG UNCONFIRMED REPORT Electronically signed by : Chavez Amos MD 02/20/2022 20:03:31
[2022-02-18 17:44] LABS: Coronavirus 19, PCR Not Detected (NotDetected); Influenza A, PCR Not Detected (NotDetected); Influenza B, PCR Not Detected (NotDetected)
[2022-02-18 17:50] LABS: Basophils # 0.1 K/mm3 (0-0.2); Eosinophils # 0.1 K/mm3 (0.0-0.4); Eosinophils % 1.7 % (0.1-12.0); Hematocrit 51.2 % (42.0-52.0); Hemoglobin 16.8 g/dL (14.1-18.0); Lymphocytes # 1.9 K/mm3 (0.7-4.5); Lymphocytes % 25.7 % (10-50); Mean Corpuscular HGB Conc 32.8 g/dL (31.8-35.4); Mean Corpuscular Hemoglobin 34.1 pg (27.0-31.2); Mean Platelet Volume 7.5 fl (7.4-10.4); Monocytes # 0.6 K/mm3 (0.1-1.0); Monocytes % 8.7 % (1.7-9.3); Neutrophils # 4.5 K/mm3 (1.8-7.8); Platelet Count 311 K/mm3 (142-424); Red Blood Count 4.92 M/mm3 (4.60-6.20); Red Cell Distribution Width 14.9 % (11.5-17.5); White Blood Count 7.2 K/mm3 (4.8-10.8)
[2022-02-18 17:57] LABS: Chloride 103 mmol/L (98-107); Potassium 4.1 mmoL/L (3.5-5.1); Sodium 134 mmol/L (136-145)
[2022-02-18 18:00] LABS: Alanine Aminotransferase 27 U/L (12-78); Albumin Level 3.9 g/dl (3.5-5.0); Albumin/Globulin Ratio 1.2 (1.1-1.8); Alkaline Phosphatase 123 U/L (38-126); Anion Gap 16.1 mEq/L (5-15); Aspartate Amino Transferase 63 U/L (17-59); Bilirubin,Total 0.9 mg/dl (0.2-1.3); Blood Urea Nitrogen 20 mg/dl (9-20); Carbon Dioxide 19 mmol/L (22.0-30.0); Creatinine Clearance Estimated 140 mL/min (50-200); Estimated Glomerular Filt Rate 79 ml/min (>60); GFR (African American) 96 ML/MIN (>60); Globulin 3.3 g/dL (1.3-3.2); Total Protein,Serum 7.2 g/dl (6.3-8.2)
[2022-02-18 18:01] LABS: Calcium 9.1 mg/dl (8.4-10.2); Glucose 163 mg/dl (74-100)
--- NOTE | 2022-02-18 18:07 | HMH.EDGENADL ---
Discharge Plan Disposition Patient Disposition: Home, Self-Care Condition: Good Prescriptions Prescriptions: No Action multivitamin Tablet 1 tab PO DAILY tetracycline 500 mg capsule 500 mg PO DAILY metronidazole 500 mg tablet 500 mg PO DAILY mupirocin 2 % ointment 1 applic topical BID Qty: 22 0RF lisinopril 20 mg tablet 20 mg PO BID Qty: 60 2RF aspirin [Adult Low Dose Aspirin] 81 mg tablet,delayed release (DR/EC) 81 mg PO DAILY thiamine HCl (vitamin B1) 500 mg tablet 500 mg PO DAILY Qty: 30 2RF oxazepam 15 mg capsule 15 mg PO HS PRN (Reason: alcohol withdrawal/insomnia) Qty: 30 0RF omeprazole 20 mg capsule,delayed release(DR/EC) 20 mg PO Vraylar 3 mg capsule 3 mg PO DAILY Qty: 30 2RF bisoprolol fumarate 5 mg tablet 5 mg PO DAILY Qty: 90 3RF escitalopram oxalate 20 MG tablet 20 mg PO QDAY Referrals Follow up/Referrals: Sheila Ayoub PA [Primary Care Provider] - See instructions Activity Restrictions/Add. Instructions Additional Instructions/Restrictions: Rest, drink plenty of fluids. Follow-up with your primary care provider if symptoms recur. Clinical Impressions Clinical Impression: Near syncope Instructions Patient Instructions: DI for Syncope in Adults (Fainting) Discharge ED Provider: Eyad Russo Adult HPI General Chief complaint: Syncope Stated complaint: light headed Time Seen by Provider: 02/18/22 18:07 Mode of Arrival: Wheelchair Source of Information: Patient Limitations: No Limitations Description of Symptoms (Recalled from ER Triage Doc. by RN): c/o almost passing out while sitting in his car smoking a cigeratte. States he has been vomiting alot History of Present Illness HPI narrative: The patient is sent from the urgent treatment center. States that he was sitting in his car smoking a cigarette and he almost passed out. Now he feels better. No associated chest pain, headache, abdominal pain, or any other symptoms. States that he has been sick for the past week. He says that he has been vomiting a lot, the last time he vomited was the day before yesterday. He says he just starts coughing and then he starts. No fever. No abdominal pain. No diarrhea. He states he drinks a lot of water, but he still feels dry in the mouth and dehydrated. He says he is almost passed out once before, he says they could not figure out why it happened. Related Data Home Medications Medication Instructions Recorded Confirmed aspirin 81 mg tablet,delayed 81 mg PO DAILY heart health 08/20/18 02/15/22 release (Adult Low Dose Aspirin) multivitamin 1 tab PO DAILY Supplement 08/01/21 02/15/22 escitalopram oxalate 20 mg tablet 20 mg PO QDAY . 09/08/21 02/15/22 metronidazole 500 mg tablet 500 mg PO DAILY 02/01/22 02/15/22 tetracycline 500 mg capsule 500 mg PO DAILY 02/01/22 02/15/22 omeprazole 20 mg capsule,delayed 20 mg PO 02/09/22 02/15/22 release Previous Rx's Medication Instructions Recorded cariprazine 3 mg capsule (Vraylar) 3 mg PO DAILY #30 caps 09/13/21 oxazepam 15 mg capsule 15 mg PO HS PRN alcohol 10/13/21 withdrawal/insomnia #30 caps thiamine HCl (vitamin B1) 500 mg 500 mg PO DAILY #30 tabs 10/13/21 tablet bisoprolol fumarate 5 mg tablet 5 mg PO DAILY #90 tabs 12/29/21 lisinopril 20 mg tablet 20 mg PO BID #60 tabs 02/15/22 mupirocin 2 % topical ointment 1 applic topical BID #22 grams 02/15/22 Allergies Allergy/AdvReac Type Severity Reaction Status Date / Time No Known Allergies Allergy Verified 02/15/22 10:20 [facility] Disclaimer: The information contained in this section may have been updated after the patient was seen, as this information can be updated by other users. 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
[2022-02-18 18:13] VITALS: BP 134/86; BP 137/94; PULSE 105; PULSE 92
[2022-02-18 18:17] LABS: Troponin I < 0.01 ng/ml (0.00-0.034)
--- NOTE | 2022-02-18 18:17 | XR_ITS ---
PROCEDURE INFORMATION: Exam: XR Chest Exam date and time: 02/18/2022 6:17 PM Age: 51 years old Clinical indication: Smoker's cough TECHNIQUE: Imaging protocol: Radiologic exam of the chest. Views: 2 views. COMPARISON: CR XR CHEST 2V 07/29/2021 1:28 PM FINDINGS: Lungs: Unremarkable. No consolidation. Pleural spaces: Unremarkable. No pleural effusion. No pneumothorax. Heart/Mediastinum: Unremarkable. No cardiomegaly. Bones/joints: Unremarkable. IMPRESSION: No acute findings.
[2022-02-18 18:30] VITALS: BP 138/89; PULSE 93; O2SAT 99
[2022-02-18 19:50] VITALS: BP 134/78; PULSE 90; RESP 18; TEMP 36.8; O2SAT 93
== END 2022-02-18 19:51 | disposition home or self-care (01) ==
LOC: UTC 16:40 → ER 17:01
PROVIDERS: Emergency Provider Emergency Medicine; PCP Physician Assistant
DX: R55 Syncope and collapse (principal); Z79.01 Long term (current) use of anticoagulants; Z79.899 Other long term (current) drug therapy; E11.9 Type 2 diabetes mellitus without complications; F32.A Depression, unspecified; I10 Essential (primary) hypertension
CPT/HCPCS: 71046; 80053; 84484; 85025; 93005; 96365; 99284; C9803; U0003; U0005

== ENCOUNTER → 2022-02-27 13:37 | Outpatient (CLI) | payer OTHER, SELFPAY ==
[2022-02-27 14:37] LABS: Basophils # 0.1 K/mm3 (0-0.2); Basophils % 1.9 % (0.1-2.0); Eosinophils # 0.2 K/mm3 (0.0-0.4); Eosinophils % 3.3 % (0.1-12.0); Hematocrit 44.4 % (42.0-52.0); Hemoglobin 14.6 g/dL (14.1-18.0); Lymphocytes % 43.5 % (10-50); Mean Corpuscular Hemoglobin 33.4 pg (27.0-31.2); Mean Corpuscular Volume 101.2 fl (80-94); Mean Platelet Volume 8.3 fl (7.4-10.4); Monocytes # 0.3 K/mm3 (0.1-1.0); Monocytes % 5.3 % (1.7-9.3); Neutrophils # 2.1 K/mm3 (1.8-7.8); Platelet Count 209 K/mm3 (142-424); Red Blood Count 4.39 M/mm3 (4.60-6.20); Red Cell Distribution Width 14.3 % (11.5-17.5); White Blood Count 4.6 K/mm3 (4.8-10.8)
[2022-02-27 15:16] LABS: Erythrocyte Sedimentation Rate 22 mm/hr (0-15)
[2022-02-27 15:26] LABS: C-Reactive Protein 5.1 mg/L (0-4)
== END ==
PROVIDERS: PCP Physician Assistant; Visit Provider Physician Assistant Surgical
DX: L03.114 Cellulitis of left upper limb (principal)
CPT/HCPCS: 36415; 85025; 85651; 86140

== ENCOUNTER → 2022-03-02 13:43 | Outpatient (CLI) | payer OTHER, SELFPAY ==
--- NOTE | 2022-03-02 13:49 | MR_ITS ---
FINAL REPORT CLINICAL HISTORY: lt elbow pain prior surgery to elbow years ago per patient pt stated he has a small hole in his elbow with some tenderness, hole is right at the tip of the posterior aspect of the elbow FINDINGS: Multiplanar MR imaging of the left elbow was performed without contrast. There are mild degenerative changes. There is no evidence of bone marrow edema or fracture. There is no evidence of osteochondral lesion. There is a partial tear of the proximal radial collateral ligament. There is a moderate tear at the origin of the common extensor tendon. The common flexor tendon is intact. There is a partial tear of the distal attachment of the biceps tendon. The distal triceps tendon is intact. The brachialis tendon is intact. The musculature has an unremarkable appearance. There is posterior soft tissue thickening and edema with a small skin defect best seen on series 10, image 11. There is no focal fluid collection to suggest abscess. There is a small joint effusion. No focal abnormality is identified of the ulnar nerve. IMPRESSION: Partial tear of the proximal radial collateral ligament. Moderate tear at the origin of the common extensor tendon. Partial tear of the distal biceps tendon attachment. Posterior soft tissue thickening and edema with a small skin defect. No focal fluid collection to suggest abscess. Reviewed, Interpreted and Dictated by José Stern III, MD Transcribed by Fox Webber Authenticated and [facility]
== END ==
PROVIDERS: PCP Physician Assistant; Visit Provider Physician Assistant Surgical
DX: L03.114 Cellulitis of left upper limb (principal)
CPT/HCPCS: 73221

== ENCOUNTER 2022-04-09 12:32 | Emergency (ER) | payer OTHER, SELFPAY ==
[2022-04-09 12:40] VITALS: BP 145/99; PULSE 84; RESP 20; TEMP 36.6; O2SAT 98; BMI 33.9
--- NOTE | 2022-04-09 13:16 | EXP.UTC ---
Discharge Plan Disposition Patient Disposition: Home, Self-Care Condition: Good Prescriptions Prescriptions: New cyclobenzaprine 10 mg Tablet 10 mg PO BID PRN (Reason: Muscle Spasm) Qty: 20 0RF methylprednisolone 4 mg Tablets,Dose Pack 4 mg PO DIRECTED Qty: 21 0RF No Action multivitamin Tablet 1 tab PO DAILY mupirocin 2 % ointment 1 applic topical BID Qty: 22 0RF lisinopril 20 mg tablet 20 mg PO BID Qty: 60 2RF aspirin [Adult Low Dose Aspirin] 81 mg tablet,delayed release (DR/EC) 81 mg PO DAILY thiamine HCl (vitamin B1) 500 mg tablet 500 mg PO DAILY Qty: 30 2RF Vraylar 3 mg capsule 3 mg PO DAILY Qty: 30 2RF bisoprolol fumarate 5 mg tablet 5 mg PO DAILY Qty: 90 3RF escitalopram oxalate 20 MG tablet 20 mg PO QDAY Referrals Follow up/Referrals: Sheila Ayoub PA [Primary Care Provider] - See instructions Activity Restrictions/Add. Instructions Additional Instructions/Restrictions: Rest the extremity, Elevate the extremity as tolerated while you are resting. Go home and rest. It would be best if you rested tomorrow too. No heavy lifting. No twisting for the next few days. Take the oral medications as directed. The steroids may cause your blood sugar to run higher, so please follow your diabetic diet closely and keep an eye on his blood sugar. The muscle relaxer (cyclobenzaprine--Flexeril) will make you drowsy, so don't drive or operate heavy machinery after taking it. Follow up with your regular doctor. GO TO THE ER FOR ANY WORSENING SYMPTOMS Clinical Impressions Clinical Impression: Piriformis syndrome of left side Stand Alone Forms Stand Alone Forms: Work/School Release Instructions Patient Instructions: DI for Leg Pain Discharge ED Provider: Justin Echols [facility] General Stated complaint: pain left leg, no accident Mode of Arrival: Ambulatory Source of Information: Spouse Limitations: No Limitations Time Seen by Provider: 04/09/22 13:15 Description of Symptoms (Recalled from Triage Doc. by RN): when pt stands up he gets pain from calf and goes up to hip. States he did not do anything to hurt it. HEENT Symptoms (Recalled from RN notes): No Resp Symptoms (Recalled from RN notes): No Skin Symptoms (Recalled from RN notes): No MS Symptoms (Recalled from RN notes): Yes Functional Status (Recalled from RN notes): n/a History of Present Illness Provider Complaint: He is having left leg pain. His symptoms began about 1 week ago. He denies any known injury. He denies any swelling or warmth of the leg. He states that after he has worked on the leg his pain is worse. He denies any personal or family history of dvt. He is a diabetic. Related Data Home Medications Medication Instructions Recorded Confirmed aspirin 81 mg tablet,delayed 81 mg PO DAILY heart health 08/20/18 03/23/22 release (Adult Low Dose Aspirin) multivitamin 1 tab PO DAILY Supplement 08/01/21 03/23/22 escitalopram oxalate 20 mg tablet 20 mg PO QDAY . 09/08/21 03/23/22 Previous Rx's Medication Instructions Recorded cariprazine 3 mg capsule (Vraylar) 3 mg PO DAILY #30 caps 09/13/21 thiamine HCl (vitamin B1) 500 mg 500 mg PO DAILY #30 tabs 10/13/21 tablet bisoprolol fumarate 5 mg tablet 5 mg PO DAILY #90 tabs 12/29/21 lisinopril 20 mg tablet 20 mg PO BID #60 tabs 02/15/22 mupirocin 2 % topical ointment 1 applic topical BID #22 grams 02/15/22 cyclobenzaprine 10 mg tablet 10 mg PO BID PRN Muscle Spasm #20 04/09/22 tabs methylprednisolone 4 mg tablets in 4 mg PO DIRECTED #21 tabs 04/09/22 a dose pack Allergies Allergy/AdvReac Type Severity Reaction Status Date / Time No Known Allergies Allergy Verified 04/09/22 12:50 Worker's Comp Is this a Worker's Comp case?: No [facility] Disclaimer: The information contained in this section may have been updated after the patient was seen, as this information can be updated by other users.
[2022-04-09 13:53] VITALS: BP 145/99; PULSE 84; RESP 20; TEMP 36.6; O2SAT 98
== END 2022-04-09 13:53 | disposition home or self-care (01) ==
PROVIDERS: Emergency Provider Nurse Practitioner Family; PCP Physician Assistant
DX: G57.02 Lesion of sciatic nerve, left lower limb (principal)
CPT/HCPCS: 99212; 99213; G0463

== ENCOUNTER → 2022-05-29 13:01 | Outpatient (CLI) | payer OTHER, SELFPAY ==
[2022-05-29 13:25] LABS: Basophils # 0.1 K/mm3 (0-0.2); Basophils % 2.1 % (0.1-2.0); Eosinophils # 0.1 K/mm3 (0.0-0.4); Eosinophils % 2.5 % (0.1-12.0); Hematocrit 46.7 % (42.0-52.0); Hemoglobin 14.9 g/dL (14.1-18.0); Lymphocytes # 1.8 K/mm3 (0.7-4.5); Lymphocytes % 46.3 % (10-50); Mean Corpuscular HGB Conc 31.9 g/dL (31.8-35.4); Mean Corpuscular Hemoglobin 35.4 pg (27.0-31.2); Mean Corpuscular Volume 110.9 fl (80-94); Mean Platelet Volume 7.9 fl (7.4-10.4); Monocytes # 0.3 K/mm3 (0.1-1.0); Monocytes % 7.6 % (1.7-9.3); Neutrophils # 1.6 K/mm3 (1.8-7.8); Neutrophils % 41.6 % (37.0-80.0); Platelet Count 229 K/mm3 (142-424); Red Blood Count 4.22 M/mm3 (4.60-6.20); Red Cell Distribution Width 14.9 % (11.5-17.5); White Blood Count 3.8 K/mm3 (4.8-10.8)
[2022-05-29 13:35] LABS: INR 1.01 (0.9-1.1); Prothrombin Time 10.9 seconds (10.1-12.5)
[2022-05-29 14:01] LABS: Chloride 104 mmol/L (98-107); Potassium 3.4 mmoL/L (3.5-5.1); Sodium 139 mmol/L (136-145)
[2022-05-29 14:04] LABS: Alanine Aminotransferase 32 U/L (12-78); Albumin Level 3.6 g/dl (3.5-5.0); Albumin/Globulin Ratio 1.3 (1.1-1.8); Alkaline Phosphatase 188 U/L (38-126); Anion Gap 14.4 mEq/L (5-15); Aspartate Amino Transferase 89 U/L (17-59); Bilirubin,Total 0.3 mg/dl (0.2-1.3); Blood Urea Nitrogen 9 mg/dl (9-20); Carbon Dioxide 24 mmol/L (22.0-30.0); Estimated Glomerular Filt Rate 120 ml/min (>60); GFR (African American) 145 ML/MIN (>60); Globulin 2.8 g/dL (1.3-3.2); Total Protein,Serum 6.4 g/dl (6.3-8.2)
[2022-05-29 14:05] LABS: Calcium 8.7 mg/dl (8.4-10.2); Glucose 184 mg/dl (74-100)
[2022-05-31 09:15] LABS: AFP, Tumor Marker 4.2 ng/mL (0.0-6.9)
== END ==
PROVIDERS: PCP Physician Assistant; Visit Provider Physician Assistant
DX: K70.30 Alcoholic cirrhosis of liver without ascites (principal)
CPT/HCPCS: 36415; 80053; 82105; 85025; 85610

== ENCOUNTER 2022-06-01 12:38 | Emergency (ER) | payer OTHER, SELFPAY ==
[2022-06-01 12:40] VITALS: BP 150/92; PULSE 138; RESP 24; TEMP 36.7; O2SAT 98; BMI 34.4
--- NOTE | 2022-06-01 12:55 | EXP.UTC ---
Discharge Plan Disposition Patient Disposition: Home, Self-Care Condition: Good Prescriptions Prescriptions: New ondansetron 4 mg tablet,disintegrating 4 mg PO Q8H PRN (Reason: nausea and vomiting) Qty: 10 0RF No Action multivitamin Tablet 1 tab PO DAILY lisinopril 20 mg tablet 20 mg PO BID Qty: 60 2RF aspirin [Adult Low Dose Aspirin] 81 mg tablet,delayed release (DR/EC) 81 mg PO DAILY thiamine HCl (vitamin B1) 500 mg tablet 500 mg PO DAILY Qty: 30 2RF potassium chloride 20 mEq tablet,ER particles/crystals 20 meq PO BID fluticasone propionate [Flonase Allergy Relief] 50 mcg/actuation spray,suspension 1 spray intranasal DAILY Qty: 16 1RF Rx Instructions: administer into each nostril Vraylar 3 mg capsule 3 mg PO DAILY Qty: 30 2RF bisoprolol fumarate 5 mg tablet 5 mg PO DAILY Qty: 90 3RF escitalopram oxalate 20 MG tablet 20 mg PO QDAY Referrals Follow up/Referrals: Shelia Ayoub PA [Primary Care Provider] - See instructions Activity Restrictions/Add. Instructions Additional Instructions/Restrictions: Straight to ER if any worsening of vomiting or diarrhea and unable to keep down fluids Make sure to drink plenty of fluids like gatoraid, Pedialyte etc to keep your self hydrated Drink extra fluids with and between meals. If you have difficulty drinking, try very small amounts of water or suck on ice chips. ? Avoid fruit juices, as these do not replace minerals and can actually increase diarrhea. ? Children and adults can use sports drinks to replenish electrolytes. Younger children and infants should use products formulated for children, like oral rehydration solutions. ? Eat food in small amounts and let your stomach recover. ? Get lots of rest. You may feel tired or weak. ? No greasy or fried foods for the next 24-48 hours BRAT diet Bananas Rice Apples and [place] ? Make sure to drink plenty of liquids ? Return if needed ? Straight to ER if any life threatening symptoms ? Zofran as prescribed ? Follow up with family doctor in the next 48-72 hours if no improvement or any worsening of symptoms Clinical Impressions Clinical Impression: Nausea vomiting and diarrhea Stand Alone Forms Stand Alone Forms: Work/School Release Instructions Patient Instructions: Nausea and Vomiting-Adult, Diarrhea Discharge ED Provider: Janet Azevedo [facility] General Stated complaint: vomiting, diarrhea, chills Mode of Arrival: Ambulatory Source of Information: Patient Limitations: No Limitations Time Seen by Provider: 06/01/22 12:59 Description of Symptoms (Recalled from Triage Doc. by RN): PATIENT C/O VOMITING, DIARRHEA, CHILLS AND HOT FLASHES X 2 DAYS HEENT Symptoms (Recalled from RN notes): No Resp Symptoms (Recalled from RN notes): No Skin Symptoms (Recalled from RN notes): No MS Symptoms (Recalled from RN notes): No Functional Status (Recalled from RN notes): WNL History of Present Illness Provider Complaint: Patient state that he thinks he may have the stomach bug States that he has been having N/V/D for a couple of days and was worried that he may get dehydrated States that he wanted to get something for the nausea so he came in Related Data Home Medications Medication Instructions Recorded Confirmed aspirin 81 mg tablet,delayed 81 mg PO DAILY heart health 08/20/18 05/31/22 release (Adult Low Dose Aspirin) multivitamin 1 tab PO DAILY Supplement 08/01/21 05/31/22 escitalopram oxalate 20 mg tablet 20 mg PO QDAY . 09/08/21 05/31/22 potassium chloride 20 mEq 20 meq PO BID 04/19/22 05/31/22 tablet,extended release(part/cryst) Previous Rx's Medication Instructions Recorded cariprazine 3 mg capsule (Vraylar) 3 mg PO DAILY #30 caps 09/13/21 thiamine HCl (vitamin B1) 500 mg 500 mg PO DAILY #30 tabs 10/13/21 tablet bisoprolol fumarate 5 mg tablet 5 mg PO DAILY #90 tabs
[2022-06-01 14:20] VITALS: BP 150/92; PULSE 100; RESP 24; TEMP 36.7; O2SAT 98
[2022-06-01 16:20] LABS: Adenovirus F 40/41, stool Not Detected (NotDetected); Astrovirus Not Detected (NotDetected); Campylobacter Not Detected (NotDetected); Cryptosporidium Not Detected (NotDetected); Cyclospora Cayetanesis Not Detected (NotDetected); Entamoeba histolytica Not Detected (NotDetected); Enteroaggregative E coli Not Detected (NotDetected); Enteropathogenic E coli Not Detected (NotDetected); Enterotoxigenic E coli Not Detected (NotDetected); Giardia lamblia Not Detected (NotDetected); Plesimonas Shigalloides, PCR Not Detected (NotDetected); Rotavirus A Not Detected (NotDetected); Salmonella, PCR Not Detected (NotDetected); Sapovirus Not Detected (NotDetected); Shiga-like toxin E coli Not Detected (NotDetected); Shigella Enterovasive E coli Not Detected (NotDetected); Vibrio Cholerae Not Detected (NotDetected); Vibrio, PCR Not Detected (NotDetected); Yersinia Entercolitica, PCR Not Detected (NotDetected)
[2022-06-01 17:49] LABS: Clostridium Difficile A/B, PCR Detected (NotDetected)
[2022-06-01 17:50] LABS: Norovirus Detected (NotDetected)
--- NOTE | 2022-06-01 17:55 | PC.NURSE ---
lab called with critical results. diarrhea panel positive for c diff and rhinovirus. kevin bryant aprn aware.
--- NOTE | 2022-06-01 20:41 | PC.NURSE ---
called pt and spoke with him about precautions and that we were calling an antibiotic in for him to the pharmacy. told him to stay hydrated and come back if symptoms get worse. pt verbalized understanding.
== END 2022-06-01 14:40 | disposition home or self-care (01) ==
PROVIDERS: Emergency Provider Nurse Practitioner; PCP Physician Assistant
DX: A04.72 Enterocolitis due to Clostridium difficile, not specified as recurrent (principal); R11.2 Nausea with vomiting, unspecified; F17.210 Nicotine dependence, cigarettes, uncomplicated
CPT/HCPCS: 96360; 87507; 99213; 99214; G0463; J2405

== ENCOUNTER 2022-07-20 13:21 | Emergency (ER) | payer OTHER, SELFPAY ==
[2022-07-20] VITALS (11 sets, daily range): BP systolic 123–158; BP diastolic 70–102; PULSE 75–89; RESP 16–18; TEMP 36.7–36.8; O2SAT 96–99; BMI 34.0
--- NOTE | 2022-07-20 | ECG_ITS ---
APPROVED REPORT Exam: Resting ECG HR:85 bpm ECG Measurements Heart Rate 85 AXES MS 162 P 60 QRSd 86 QRS 57 QT 372 T 47 QTc 414 Conclusion SINUS RHYTHM NONSPECIFIC T-WAVE ABNORMALITY BORDERLINE ECG INTERPRETATION BASED ON A DEFAULT AGE OF 40 YEARS UNCONFIRMED REPORT Electronically signed by : Chavez Amos MD 07/21/2022 15:02:33
--- NOTE | 2022-07-20 13:26 | XR_ITS ---
FINAL REPORT CLINICAL HISTORY: chest pain, smoker COMPARISON: 07/29/2021 FINDINGS: There is no evidence of effusion or other pleural disease. The mediastinum has a normal appearance. The cardiac silhouette is unremarkable. IMPRESSION: Unremarkable chest exam. Reviewed, Interpreted and Dictated by Sheryl Ortiz MD Transcribed by Danica Urrutia Authenticated and [facility]
[2022-07-20 13:33] LABS: Basophils # 0.1 K/mm3 (0-0.2); Basophils % 1.1 % (0.1-2.0); Eosinophils # 0.1 K/mm3 (0.0-0.4); Eosinophils % 2.5 % (0.1-12.0); Lymphocytes # 1.8 K/mm3 (0.7-4.5); Lymphocytes % 35.4 % (10-50); Mean Corpuscular HGB Conc 33.3 g/dL (31.8-35.4); Mean Corpuscular Hemoglobin 35.5 pg (27.0-31.2); Mean Corpuscular Volume 106.7 fl (80-94); Mean Platelet Volume 7.4 fl (7.4-10.4); Monocytes # 0.4 K/mm3 (0.1-1.0); Monocytes % 8.3 % (1.7-9.3); Neutrophils # 2.7 K/mm3 (1.8-7.8); Neutrophils % 52.7 % (37.0-80.0); Platelet Count 183 K/mm3 (142-424); Red Cell Distribution Width 14.8 % (11.5-17.5)
--- NOTE | 2022-07-20 13:35 | HMH.EDGENADL ---
Discharge Plan Disposition Patient Disposition: Home, Self-Care Prescriptions Prescriptions: New potassium chloride 10 mEq capsule, extended release 10 meq PO DAILY Qty: 10 0RF magnesium oxide 400 mg magnesium tablet 400 mg PO DAILY Qty: 10 0RF No Action multivitamin Tablet 1 tab PO DAILY lisinopril 20 mg tablet 20 mg PO BID Qty: 60 2RF aspirin [Adult Low Dose Aspirin] 81 mg tablet,delayed release (DR/EC) 81 mg PO DAILY thiamine HCl (vitamin B1) 500 mg tablet 500 mg PO DAILY Qty: 30 2RF potassium chloride 20 mEq tablet,ER particles/crystals 20 meq PO BID fluticasone propionate [Flonase Allergy Relief] 50 mcg/actuation spray,suspension 1 spray intranasal DAILY Qty: 16 1RF Rx Instructions: administer into each nostril Vraylar 3 mg capsule 3 mg PO DAILY Qty: 30 2RF bisoprolol fumarate 5 mg tablet 5 mg PO DAILY Qty: 90 3RF escitalopram oxalate 20 MG tablet 20 mg PO QDAY ondansetron 4 mg tablet,disintegrating 4 mg PO Q8H PRN (Reason: nausea and vomiting) Qty: 10 0RF vancomycin 125 mg capsule 125 mg PO QID 10 Days Qty: 40 0RF Activity Restrictions/Add. Instructions Additional Instructions/Restrictions: Return the emergency department for worsening palpitations shortness of air chest pain or any other concerns within the next 8 days follow-up with your primary care physician within the next few days Clinical Impressions Clinical Impression: Palpitations Discharge ED Provider: Derrick Maxwell General Adult HPI General Chief complaint: Chest Pain Stated complaint: chest pain Time Seen by Provider: 07/20/22 13:25 Mode of Arrival: Ambulatory Source of Information: Patient Limitations: No Limitations Description of Symptoms (Recalled from ER Triage Doc. by RN): Presents via POV d/t onset of midsternal discomfort described as heart throbbing approx. 30 min ste[employer]oat [employer] while at work. Pt states he took his BP, 1. 165/115 & 2. 153/109, then taking Asa 81mg and his BP meds. Currently on Losaartan and Lisinopriol. Denies cardiac hx. Reports mild Sx at this time. Alleviating factor, stretching out and precipitating factor, movement . History of Present Illness HPI narrative: 51-year-old male presents with chest pain. He says that he had heart racing and palpitations about 30 minutes prior at work. He has not had an episode like this before but his blood pressure was elevated at the time. He was mildly short of breath when it happened. No fever cough chills no recent travel or surgeries no coughing up blood no history of heart disease. Now he is feeling better. Related Data Home Medications Medication Instructions Recorded Confirmed aspirin 81 mg tablet,delayed 81 mg PO DAILY heart health 08/20/18 06/29/22 release (Adult Low Dose Aspirin) multivitamin 1 tab PO DAILY Supplement 08/01/21 06/29/22 escitalopram oxalate 20 mg tablet 20 mg PO QDAY . 09/08/21 06/29/22 potassium chloride 20 mEq 20 meq PO BID 04/19/22 06/29/22 tablet,extended release(part/cryst) Previous Rx's Medication Instructions Recorded cariprazine 3 mg capsule (Vraylar) 3 mg PO DAILY #30 caps 09/13/21 thiamine HCl (vitamin B1) 500 mg 500 mg PO DAILY #30 tabs 10/13/21 tablet bisoprolol fumarate 5 mg tablet 5 mg PO DAILY #90 tabs 12/29/21 lisinopril 20 mg tablet 20 mg PO BID #60 tabs 02/15/22 fluticasone propionate 50 1 spray intranasal DAILY #16 grams 04/19/22 mcg/actuation nasal spray,suspension (Flonase Allergy Relief) ondansetron 4 mg disintegrating 4 mg PO Q8H PRN nausea and 06/01/22 tablet vomiting #10 tabs vancomycin 125 mg capsule 125 mg PO QID 10 days #40 caps 06/01/22 magnesium oxide 400 mg PO DAILY #10 tabs 07/20/22 potassium chloride 10 mEq 10 meq PO DAILY #10 caps 07/20/22 capsule,extended release Allergies Allergy/AdvReac Type Severity Reaction Status Date / Time No Known Allergies Allergy Verified 06/29/22 10:04 [facility] Disclaimer:
[2022-07-20 13:40] LABS: Anion Gap 15.9 mEq/L (5-15); Blood Urea Nitrogen 7 mg/dl (9-20); Calcium 8.3 mg/dl (8.4-10.2); Carbon Dioxide 26 mmol/L (22.0-30.0); Chloride 97 mmol/L (98-107); Creatinine Clearance Estimated 233 mL/min (50-200); Estimated Glomerular Filt Rate 143 ml/min (>60); GFR (African American) 173 ML/MIN (>60); Glucose 177 mg/dl (74-100); Sodium 136 mmol/L (136-145)
[2022-07-20 13:42] LABS: Potassium 2.9 mmoL/L (3.5-5.1)
[2022-07-20 13:43] LABS: Magnesium 1.4 mg/dl (1.6-2.3)
--- NOTE | 2022-07-20 13:46 | PC.NURSE ---
Brionna provided. Pt updated on plan of care.
[2022-07-20 13:49] LABS: D-Dimer 0.89 ug/mL (0.0-0.5)
--- NOTE | 2022-07-20 13:53 | CT_ITS ---
FINAL REPORT TECHNIQUE: Thin section axial CT with contrast with multiplanar reconstruction CLINICAL HISTORY: PTE COMPARISON: CT abdomen and pelvis dated 10/26/2021 FINDINGS: Pulmonary vessels enhance in normal fashion without evidence of embolism. Thoracic aorta shows no dissection or aneurysm. No pulmonary mass or infiltrate is present. There is no significant pleural effusion. There is no significant pericardial effusion. No mediastinal or hilar adenopathy is present. Limited imaging of the upper abdomen demonstrates enlargement of the left adrenal gland, similar to the prior exam. There are prominent left perirenal collateral veins which could be associated with renal vein occlusion. IMPRESSION: 1. No evidence of pulmonary embolism or dissection. 2. Abnormal vascularity surrounding the left kidney could be related to chronic left renal vein abnormality. Non emergent CT abdomen and pelvis with contrast could further evaluate. Reviewed, Interpreted and Dictated by Sheryl Ortiz MD Transcribed by Julia Rinaldi Authenticated and [facility]
[2022-07-20 13:56] LABS: Troponin I < 0.01 ng/ml (0.00-0.034)
[2022-07-20 14:16] LABS: Thyroid Stimulating Hormone 1.48 uIU/mL (0.465-4.68)
--- NOTE | 2022-07-20 14:22 | PC.NURSE ---
covid swab sent to lab
[2022-07-20 14:28] LABS: Coronavirus 19, PCR Not Detected (NotDetected); Influenza A, PCR Not Detected (NotDetected); Influenza B, PCR Not Detected (NotDetected)
--- NOTE | 2022-07-20 14:43 | PC.NURSE ---
Pt updated on plan of care. No complaints at this time. Call light within reach.
--- NOTE | 2022-07-20 15:24 | PC.NURSE ---
Patient asked what else we are waiting for. Informed patient we are an hour out from his second troponin as well as still waiting for results from his CTA. Patient requested to be laid back in the bed and the lights turned off. Call light within reach of patient
[2022-07-20 17:33] LABS: Troponin I < 0.01 ng/ml (0.00-0.034)
== END 2022-07-20 17:58 | disposition home or self-care (01) ==
PROVIDERS: Emergency Provider Emergency Medicine; PCP Physician Assistant
DX: R07.9 Chest pain, unspecified (principal); R00.2 Palpitations; F17.210 Nicotine dependence, cigarettes, uncomplicated
CPT/HCPCS: 71046; 71275; 80048; 83735; 84443; 84484; 85025; 85378; 93005; 96361; 96365; 99284; 99285; C9803; J3475; Q9967; U0003; U0005

== ENCOUNTER → 2022-07-26 23:11 | Outpatient (CLI) | payer OTHER, SELFPAY ==
[2022-07-26 20:14] LABS: Anion Gap 17.5 mEq/L (5-15); Blood Urea Nitrogen 8 mg/dl (9-20); Calcium 8.8 mg/dl (8.4-10.2); Carbon Dioxide 23 mmol/L (22.0-30.0); Chloride 98 mmol/L (98-107); Estimated Glomerular Filt Rate 120 ml/min (>60); GFR (African American) 145 ML/MIN (>60); Glucose 181 mg/dl (74-100); Magnesium 1.5 mg/dl (1.6-2.3); Potassium 3.5 mmoL/L (3.5-5.1); Sodium 135 mmol/L (136-145)
[2022-07-27 13:12] LABS: Hemoglobin A1C 6.4 % (4.0-6.0)
== END ==
PROVIDERS: PCP Physician Assistant; Visit Provider Physician Assistant
DX: R11.2 Nausea with vomiting, unspecified (principal); R19.7 Diarrhea, unspecified; R73.09 Other abnormal glucose
CPT/HCPCS: 80048; 83036; 83735

== ENCOUNTER → 2022-11-14 11:42 | Outpatient (CLI) | payer OTHER, SELFPAY ==
--- NOTE | 2022-11-14 11:42 | CA_ITS ---
FINAL REPORT TECHNIQUE: Color Doppler, duplex Doppler and compression sonography of the left lower extremity deep venous systems was performed. CLINICAL HISTORY: LT CALF PAIN X SEVERAL WEEKS,NKI COMPARISON: None FINDINGS: There is no evidence of deep venous thrombosis from the level of the groin to the calf. The veins are patent and compressible. IMPRESSION: No evidence of deep venous thrombosis left lower extremity. Reviewed, Interpreted and Dictated by José Stern III, MD Transcribed by Regina Delgadillo Authenticated and [facility]
== END ==
PROVIDERS: PCP Physician Assistant; Visit Provider Physician Assistant
DX: M79.605 Pain in left leg (principal)
CPT/HCPCS: 93971

== ENCOUNTER → 2022-11-22 12:46 | Outpatient (CLI) | payer OTHER, SELFPAY ==
--- NOTE | 2022-11-22 12:51 | US_ITS ---
FINAL REPORT CLINICAL HISTORY: current smoker, HTN, DM, hyperlipidemia, left claudication, obesity COMPARISON: None FINDINGS: ANKLE-BRACHIAL PRESSURE INDICES Pressure indices are as follows: RIGHT LOWER EXTREMITY: Ankle-brachial pressure index: 1.1 Comments: Normal LEFT LOWER EXTREMITY: Ankle-brachial pressure index: 1.2 Comments: Normal IMPRESSION: No evidence of significant obstructive peripheral vascular disease of the lower extremities Reviewed, Interpreted and Dictated by José Stern III, MD Transcribed by Danica Urrutia Authenticated and [facility]
== END ==
PROVIDERS: PCP Physician Assistant; Visit Provider Physician Assistant
DX: M79.662 Pain in left lower leg (principal)
CPT/HCPCS: 93923

== ENCOUNTER → 2022-11-30 14:12 | Outpatient (CLI) | payer OTHER, SELFPAY ==
[2022-11-30 14:56] LABS: Basophils # 0.1 K/mm3 (0-0.2); Basophils % 1.3 % (0.1-2.0); Eosinophils # 0.1 K/mm3 (0.0-0.4); Eosinophils % 2.6 % (0.1-12.0); Hemoglobin 15.6 g/dL (14.1-18.0); Lymphocytes % 40.3 % (10-50); Mean Corpuscular HGB Conc 32.5 g/dL (31.8-35.4); Mean Corpuscular Hemoglobin 34.1 pg (27.0-31.2); Mean Corpuscular Volume 105.1 fl (80-94); Monocytes # 0.5 K/mm3 (0.1-1.0); Monocytes % 10.2 % (1.7-9.3); Neutrophils # 2.2 K/mm3 (1.8-7.8); Neutrophils % 45.5 % (37.0-80.0); Platelet Count 174 K/mm3 (142-424); Red Blood Count 4.57 M/mm3 (4.60-6.20); Red Cell Distribution Width 14.5 % (11.5-17.5); White Blood Count 4.9 K/mm3 (4.8-10.8)
[2022-11-30 15:01] LABS: INR 1.11 (0.9-1.1); Prothrombin Time 11.9 seconds (10.1-12.5)
[2022-11-30 15:17] LABS: Chloride 105 mmol/L (98-107); Sodium 137 mmol/L (136-145)
[2022-11-30 15:20] LABS: Alanine Aminotransferase 34 U/L (12-78); Albumin Level 3.5 g/dl (3.5-5.0); Albumin/Globulin Ratio 1.1 (1.1-1.8); Alkaline Phosphatase 125 U/L (38-126); Aspartate Amino Transferase 52 U/L (17-59); Bilirubin,Total 0.8 mg/dl (0.2-1.3); Blood Urea Nitrogen 9 mg/dl (9-20); Carbon Dioxide 23 mmol/L (22.0-30.0); Estimated Glomerular Filt Rate 119 ml/min (>60); GFR (African American) 144 ML/MIN (>60); Globulin 3.2 g/dL (1.3-3.2); Total Protein,Serum 6.7 g/dl (6.3-8.2)
[2022-11-30 15:21] LABS: Calcium 8.6 mg/dl (8.4-10.2); Glucose 203 mg/dl (74-100)
== END ==
PROVIDERS: PCP Physician Assistant; Visit Provider Physician Assistant
DX: K70.30 Alcoholic cirrhosis of liver without ascites (principal)
CPT/HCPCS: 36415; 80053; 82105; 85025; 85610

== ENCOUNTER → 2022-12-14 14:16 | Outpatient (CLI) | payer OTHER, SELFPAY ==
[2022-12-14 21:00] LABS: 25-OH Vitamin D, Total 27.6 ng/mL (30-100)
[2022-12-14 21:29] LABS: Hemoglobin A1C 8.1 % (4.0-6.0)
== END ==
PROVIDERS: PCP Internal Medicine; Visit Provider Internal Medicine
DX: R53.83 Other fatigue (principal); Z79.899 Other long term (current) drug therapy; E55.9 Vitamin D deficiency, unspecified
CPT/HCPCS: 82306; 83036

== ENCOUNTER → 2022-12-28 09:45 | Outpatient (CLI) | payer OTHER, SELFPAY ==
[2022-12-28 19:00] LABS: Chol/HDL Ratio 4.3 (1-3.5); Cholesterol 194 mg/dl (140-200); HDL Cholesterol 45 mg/dl (40-60); Triglycerides 120 mg/dl (30-150); VLDL Cholesterol 24 mg/dL (0-40)
[2022-12-28 19:11] LABS: Direct LDL Cholesterol 131.33 mg/dL (100-129)
[2022-12-28 19:32] LABS: Prostate Specific Ag Screen 0.5 ng/ml (0.0-4.0)
== END ==
PROVIDERS: PCP Internal Medicine; Visit Provider Internal Medicine
DX: E78.5 Hyperlipidemia, unspecified (principal); I10 Essential (primary) hypertension; E66.9 Obesity, unspecified; Z68.34 Body mass index [BMI] 34.0-34.9, adult; F17.200 Nicotine dependence, unspecified, uncomplicated; Z79.84 Long term (current) use of oral hypoglycemic drugs
CPT/HCPCS: 80061; 82306; G0103

== ENCOUNTER → 2023-02-13 23:34 | Outpatient (CLI) | payer OTHER, SELFPAY ==
[2023-02-13 18:45] LABS: Coronavirus 19, PCR Not Detected (NotDetected); Influenza A, PCR Not Detected (NotDetected); Influenza B, PCR Not Detected (NotDetected)
== END ==
PROVIDERS: PCP Internal Medicine; Visit Provider Internal Medicine
DX: R06.02 Shortness of breath (principal)
CPT/HCPCS: 87636

== ENCOUNTER → 2023-02-14 06:17 | Outpatient (CLI) | payer OTHER, SELFPAY ==
--- NOTE | 2023-02-14 | CA_ITS ---
APPROVED REPORT Exam: Pharmacologic Technologist: Miryam Whelan, Ht: 5 ft 11 in Wt: 236 lbs BSA: 2.26 m2 HR: 81 bpm BP: 110/68 mmHg Rhythm: NSR 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 Medications: Lisinopril,,,,, Potassium Chloride,,,,, Aspirin,,,,, Metformin,,,,, Vitamin D3,,,,, Escitalopram,,,,, HCTZ,,,,, Crestor,,,,, BisOPROLOL Fumarate,,,,, Magnesium OXIDE,,,,, SilDENAFIL,,,,, Cariprazine,,,,, Stress Test Details Test: LEXISCAN Reason for pharmacologic stress test: changed from exercise stress test due to inability to reach target heart rate. HR Resting HR: 83 bpm Max Heart Rate (APMHR): 170 bpm Max HR Achieved: 97 bpm Target HR (85% APMHR): 145 bpm % of APMHR: 57 Recovery HR: 90 bpm BP Resting BP: 110.0/68.0 mmHg Max BP: 110.0/68.0 mmHg Recovery BP: 107.0/70.0 mmHg ECG Resting ECG: NSR, ST-T abnormalities in inferior and lateral leads Stress ECG: No significant ST changes Arrhythmia: None Clinical Exercise duration: 04:00 min Highest Stage Achieved: Exercise capacity: 1.0 METs Stress ECG Conclusion Switched from exercise to Lexiscan due to inadequate HR response on Bisoprolol. Symptoms: SOA, chest pressure, head discomfort. Arrhythmias/Ectopy: None ST-T Changes: No significant ST changes. Conclusion: Unremarkable Lexiscan stress. Myoview images reported separatelty. Test Summary REST . . . . . . . Resting REST 01:35 . . 83 . 110/ 68 . . Stage 1 01:00 . . 90 . . . . Stage 2 01:00 . . 96 . 94/ 57 . . Stage 3 01:00 . . 94 . 107/ 64 . . Stage 4 01:00 . . 91 . 100/ 66 . Stop exercise at 04:00 RECOVERY 01:00 . . 90 . . . . RECOVERY 02:00 . . 89 . 108/ 66 . . RECOVERY 03:00 . . 90 . 108/ 66 . . RECOVERY 03:19 . . 90 . 107/ 70 . . Electronically signed by : Criselda Ricketts MD 02/15/2023 15:14:18
--- NOTE | 2023-02-14 06:18 | CA_ITS ---
APPROVED REPORT EXAM: Comprehensive 2D, Doppler, and color-flow Echocardiogram Imaging Assistant: Shaneka Jones CRT Ht: 5 ft 11 in Wt: 236lbs BSA: 2.26 BP: 102/62 mmHg Indications: Abnormal ECG, Diabetes, Hyperlipidemia, Hypertension/HDD. MEÑO 2D Dimensions Left Atrium 3.93 cm LVEF (Kauffman's) 60.20 % LVOT 2.09 cm (M/F) 1.5-2.5 LV Volume 94.30 mL LA Volume 41.70 mL LA Volume Index 18.50 mL/m2 (M/F) 16-34 EF AP4 58.30 % EF AP2 60.7 % EF BP 60.2 % GL Strain -16.4 % M-Mode Dimensions RVDd 2.46 cm (0.9-2.6) LVDd 4.78 cm (3.5-5.7) Ao Diam 4.21 cm (2.0-3.7) LVDs 4.02 cm (3.5-5.7) IVSd 1.90 cm (0.6-1.1) PWd 0.72 cm (0.6-1.1) EF (Teich) 33.50% FS 15.90% EDV (Teich) 106.50 mL TAPSE 1.45 (<1.7) ESV (Teich) 70.80 mL LV Diastology E Decel Time 308 (160-240 msec) E/A Ratio 0.55 MED E' 6.7 (>= 7 cm/sec) MED A' 9.50 cm/s E'/MED E' Ratio 7.30 (<= 14) LAT E' 8.5 (>= 10 cm/sec) LAT A' 11.40 cm/s E/LAT E' Ratio 5.75 (<= 14) Aortic Valve AoV Peak Brian. 149.0 (50-130 cm/s) AO Peak GR. 8.90 mmHg Mitral Valve MV E Max Brian. 49.0 (40-130 cm/s) MV A Velocity 90.0 (40-130 cm/s) E/A Ratio 0.55 MV Decel. Time 308 (160-240 ms) Tricuspid Valve TR P. Velocity 229.00 cm/s RAP Estimate 10.00 mmHg RVSP 31.00 mmHg Left Ventricle The left ventricle is normal size. The left ventricular systolic function is normal. The left ventricular ejection fraction is within the normal range. There is normal left ventricular wall thickness. There is normal LV segmental wall motion. The left ventricular diastolic function is normal. LVEF is 55%. Right Ventricle The right ventricle is normal size. Right ventricle is mildly hypokinetic. Atria The left atrium size is normal. The right atrium size is normal. There is no Doppler evidence of interatrial shunt. Aortic Valve The aortic valve opens well. There is no aortic valvular stenosis. No aortic regurgitation is present. Mitral Valve The mitral valve is normal in structure. No evidence of mitral valve stenosis. Trace mitral regurgitation. Tricuspid Valve The tricuspid valve leaflets are thin and pliable. Trace tricuspid regurgitation. There is insufficient TR jet to estimate RVSP. Pulmonic Valve The pulmonary valve is normal in structure. Trace pulmonic regurgitation. Great Vessels The aortic root is normal in size. The ascending aorta is normal in size. IVC is normal in size and collapses >50% with inspiration. Pericardium There is no pericardial effusion. Other Information Study Quality: Fair Conclusion Normal LV systolic function. Normal RV size with mildly reduced RV function. No significant valvular stenosis or regurgitation. Electronically signed by : Criselda Ricketts MD 02/17/2023 00:31:37
--- NOTE | 2023-02-14 06:24 | NM_ITS ---
APPROVED REPORT Exam: Nuclear Stress Test Indication: fatigue..high bp..high cholesterol..tobacco use Patient Location: Outpatient Stress Tech: Miryam Grady [place] Tech:Cande Garcia ADITHYAUzair RT(R)(N) Ht: 5 ft 11 in Wt: 236 lbs HR: 83 bpm BP: 110/68 mmHg BSA: 2.26 m2 Rhythm: NSR TID: 0.95 BMI: 32.9 History: fatigue..high bp..high cholesterol..tobacco use Procedure: Patient received 0.4 mg of intravenous Lexiscan, resting heart rate 83 bpm, resting blood pressure 110/68 mmHg, with Lexiscan maximum heart rate achieved was 97 bpm which is 85 % of the maximum predicted heart rate and blood pressure was 110/68 mmHg. With Lexiscan, patient denied any complaint of chest pain. Cardiac Stress and Resting SPECT Images: Cardiac Stress and Resting SPECT images were obtained using technetium 99m Myoview 31.4 mCi stress and 10.08 mCi at rest. Resting and stress imaging in supine and prone positions demonstrate a small sized, moderate, partially reversible perfusion defect in the basal inferior LV wall. Gated imaging demonstrates normal global LV systolic function. There is mild hypokinesis of the basal inferior LV wall. LVEF is calculated at 61%. Conclusion: Small sized, moderate, partially reversible perfusion defect in the basal inferior LV wall. Gated imaging demonstrates normal global LV systolic function. There is mild hypokinesis of the basal inferior LV wall. LVEF is calculated at 61%. Electronically signed by : Criselda Ricketts MD 02/15/2023 15:20:36
== END ==
LOC: RAD 06:18
PROVIDERS: PCP Internal Medicine; Visit Provider Nurse Practitioner
DX: R94.31 Abnormal electrocardiogram [ECG] [EKG] (principal); I25.10 Atherosclerotic heart disease of native coronary artery without angina pectoris; I10 Essential (primary) hypertension; E11.9 Type 2 diabetes mellitus without complications; E78.5 Hyperlipidemia, unspecified; E66.9 Obesity, unspecified; Z68.32 Body mass index [BMI] 32.0-32.9, adult; Z79.84 Long term (current) use of oral hypoglycemic drugs
CPT/HCPCS: 78452; 93017; 93018; 93306; A9502; J2785

== ENCOUNTER 2023-05-23 09:11 | Outpatient (CLI) | payer OTHER, SELFPAY ==
[2023-05-23 09:26] LABS: Basophils # 0.1 K/mm3 (0-0.2); Basophils % 1.6 % (0.1-2.0); Eosinophils # 0.2 K/mm3 (0.0-0.4); Eosinophils % 3.1 % (0.1-12.0); Hematocrit 45.8 % (42.0-52.0); Lymphocytes # 2.6 K/mm3 (0.7-4.5); Lymphocytes % 38.3 % (10-50); Mean Corpuscular HGB Conc 32.8 g/dL (31.8-35.4); Mean Corpuscular Hemoglobin 36.4 pg (27.0-31.2); Mean Platelet Volume 7.9 fl (7.4-10.4); Monocytes # 0.4 K/mm3 (0.1-1.0); Monocytes % 6.4 % (1.7-9.3); Neutrophils # 3.4 K/mm3 (1.8-7.8); Neutrophils % 50.7 % (37.0-80.0); Platelet Count 203 K/mm3 (142-424); Red Blood Count 4.13 M/mm3 (4.60-6.20); Red Cell Distribution Width 14.7 % (11.5-17.5); White Blood Count 6.8 K/mm3 (4.8-10.8)
[2023-05-23 10:11] LABS: Alanine Aminotransferase 40 U/L (12-78); Albumin Level 3.9 g/dl (3.5-5.0); Alkaline Phosphatase 105 U/L (38-126); Anion Gap 14.1 mEq/L (5-15); Aspartate Amino Transferase 93 U/L (17-59); Bilirubin,Direct 0.3 mg/dl (0.0-0.4); Bilirubin,Total 0.3 mg/dl (0.2-1.3); Bilirubin,Unconjugated 0.1 mg/dL (0.0-1.1); Blood Urea Nitrogen 22 mg/dl (9-20); Calcium 9.5 mg/dl (8.4-10.2); Carbon Dioxide 22 mmol/L (22.0-30.0); Chloride 102 mmol/L (98-107); Chol/HDL Ratio 5.8 (1-3.5); Cholesterol 181 mg/dl (140-200); Estimated Glomerular Filt Rate 79 ml/min (>60); GFR (African American) 96 ML/MIN (>60); Glucose 229 mg/dl (74-100); HDL Cholesterol 31 mg/dl (40-60); Magnesium 1.8 mg/dl (1.6-2.3); Potassium 4.1 mmoL/L (3.5-5.1); Sodium 134 mmol/L (136-145); Triglycerides 286 mg/dl (30-150); VLDL Cholesterol 57 mg/dL (0-40)
[2023-05-23 10:23] LABS: Direct LDL Cholesterol 108.24 mg/dL (100-129)
[2023-05-23 10:28] LABS: Free T4 (Free Thyroxine) 0.89 ng/dl (0.78-2.19)
[2023-05-23 10:42] LABS: Thyroid Stimulating Hormone 1.97 uIU/mL (0.465-4.68)
== END 2023-05-23 23:59 ==
LOC: LAB 09:11
PROVIDERS: PCP Internal Medicine; Visit Provider Physician Assistant
DX: E11.9 Type 2 diabetes mellitus without complications (principal); E78.2 Mixed hyperlipidemia; K74.60 Unspecified cirrhosis of liver; I25.10 Atherosclerotic heart disease of native coronary artery without angina pectoris; I11.9 Hypertensive heart disease without heart failure; Z68.33 Body mass index [BMI] 33.0-33.9, adult; F17.210 Nicotine dependence, cigarettes, uncomplicated; Z79.84 Long term (current) use of oral hypoglycemic drugs; R94.39 Abnormal result of other cardiovascular function study
CPT/HCPCS: 36415; 80048; 80061; 80076; 83735; 84439; 84443; 85025

== ENCOUNTER 2023-06-05 07:19 | Outpatient (CLI) | payer OTHER, SELFPAY ==
--- NOTE | 2023-06-05 07:27 | US_ITS ---
FINAL REPORT CLINICAL HISTORY: CIRRHOSIS COMPARISON: 10/07/2021 FINDINGS: Sonographic images of the right upper quadrant were obtained. The pancreas is partially obscured. There is diffuse increased echogenicity in the liver consistent with fatty infiltration of the liver, stable since the prior ultrasound. The gallbladder appears normal without evidence of gallstones. There is a trace amount of sludge present in the gallbladder. There is no evidence of biliary ductal dilatation.The common duct measures 4mm. Limited images of the right kidney are unremarkable. IMPRESSION: Fatty infiltration of the liver, stable since the prior ultrasound. Trace amount of sludge is present in the gallbladder. Reviewed, Interpreted and Dictated by Travis Blackmon MD Transcribed by Regina Delgadillo Authenticated and [facility]
== END 2023-06-05 23:59 ==
LOC: RAD 07:20
PROVIDERS: PCP Internal Medicine; Visit Provider Physician Assistant
DX: K70.30 Alcoholic cirrhosis of liver without ascites (principal)
CPT/HCPCS: 76705

== ENCOUNTER 2023-06-13 18:38 | Outpatient (CLI) | payer OTHER, SELFPAY ==
[2023-06-13 17:57] LABS: Chloride 98 mmol/L (98-107); Potassium 4.6 mmoL/L (3.5-5.1); Sodium 132 mmol/L (136-145)
[2023-06-13 17:58] LABS: Basophils # 0.1 K/mm3 (0-0.2); Basophils % 1.5 % (0.1-2.0); Eosinophils # 0.1 K/mm3 (0.0-0.4); Eosinophils % 1.5 % (0.1-12.0); Hematocrit 46.8 % (42.0-52.0); Hemoglobin 15.4 g/dL (14.1-18.0); Lymphocytes # 2.1 K/mm3 (0.7-4.5); Lymphocytes % 26.6 % (10-50); Mean Corpuscular HGB Conc 32.8 g/dL (31.8-35.4); Mean Corpuscular Hemoglobin 35.9 pg (27.0-31.2); Mean Corpuscular Volume 109.4 fl (80-94); Monocytes # 0.6 K/mm3 (0.1-1.0); Monocytes % 7.9 % (1.7-9.3); Neutrophils % 62.6 % (37.0-80.0); Platelet Count 184 K/mm3 (142-424); Red Blood Count 4.28 M/mm3 (4.60-6.20); Red Cell Distribution Width 13.8 % (11.5-17.5)
[2023-06-13 18:00] LABS: Alanine Aminotransferase 41 U/L (12-78); Albumin Level 3.9 g/dl (3.5-5.0); Albumin/Globulin Ratio 1.2 (1.1-1.8); Alkaline Phosphatase 190 U/L (38-126); Anion Gap 15.6 mEq/L (5-15); Aspartate Amino Transferase 63 U/L (17-59); Bilirubin,Total 0.9 mg/dl (0.2-1.3); Blood Urea Nitrogen 25 mg/dl (9-20); Carbon Dioxide 23 mmol/L (22.0-30.0); Estimated Glomerular Filt Rate 79 ml/min (>60); GFR (African American) 96 ML/MIN (>60); Globulin 3.3 g/dL (1.3-3.2); Total Protein,Serum 7.2 g/dl (6.3-8.2)
[2023-06-13 18:01] LABS: Calcium 10.4 mg/dl (8.4-10.2)
[2023-06-13 18:04] LABS: Glucose 487 mg/dl (74-100)
[2023-06-13 18:31] LABS: Hemoglobin A1C 12.1 % (4.0-6.0)
== END 2023-06-13 23:59 ==
LOC: LAB.DROPOF 18:38
PROVIDERS: PCP Internal Medicine; Visit Provider Internal Medicine
DX: E11.69 Type 2 diabetes mellitus with other specified complication (principal); E66.9 Obesity, unspecified; L98.9 Disorder of the skin and subcutaneous tissue, unspecified; Z68.32 Body mass index [BMI] 32.0-32.9, adult; Z79.84 Long term (current) use of oral hypoglycemic drugs
CPT/HCPCS: 80053; 83036; 85025

== ENCOUNTER 2023-06-21 09:55 | Observation (INO) | payer OTHER, SELFPAY ==
[2023-06-20 11:12] VITALS: BMI 34.2
--- NOTE | 2023-06-20 11:14 | SUR.PREOP ---
Pt wants to participate in meds to beds
[2023-06-21] VITALS (18 sets, daily range): BP systolic 85–106; BP diastolic 48–68; PULSE 74–87; RESP 16–20; TEMP 36.1–37.1; O2SAT 92–98; BMI 32.5
[2023-06-21] MEDS: LACTATED RINGERS 1000ML 1,000 ML 25 ML IV (07:46)
[2023-06-21 07:52] LABS: POC Glucose,Bedside 594 (70-110)
[2023-06-21] MEDS: INSULIN HUMAN REGULAR 100 UNITS/ML 10ML VIAL 10 UNIT IV ×2 (07:56→08:21)
[2023-06-21 08:01] LABS: Chloride 94 mmol/L (98-107)
[2023-06-21 08:02] LABS: Potassium 4.7 mmoL/L (3.5-5.1); Sodium 126 mmol/L (136-145)
[2023-06-21 08:04] LABS: Blood Urea Nitrogen 31 mg/dl (9-20); Creatinine Clearance Estimated 99 mL/min (50-200); Estimated Glomerular Filt Rate 54 ml/min (>60); GFR (African American) 65 ML/MIN (>60)
[2023-06-21 08:05] LABS: Anion Gap 11.7 mEq/L (5-15); Calcium 9.5 mg/dl (8.4-10.2); Carbon Dioxide 25 mmol/L (22.0-30.0)
[2023-06-21 08:16] LABS: Glucose 585 mg/dl (74-100); Glucose,Random 585 mg/dL (74-100)
--- NOTE | 2023-06-21 08:18 | SUR.PREOP ---
FSBS - 530 @ [facility]
[2023-06-21 08:25] LABS: POC Glucose,Bedside 530 (70-110)
[2023-06-21 08:45] LABS: Oxygen RA %
[2023-06-21 08:46] LABS: ABG PH 7.42 mmol/L (7.35-7.45); Allen's Test Acceptable; Source Right Radial
[2023-06-21 08:47] LABS: ABG Base Excess -2.6 mmol/L (-2.4-2.3); ABG Oxygen Saturation 97 % (90-100); ABG TCO2 23.1 mmhg (23-27)
[2023-06-21] MEDS: INSULIN HUMAN REGULAR 100 UNITS/ML 10ML VIAL 5 UNIT IV (08:55)
[2023-06-21 08:56] LABS: POC Glucose,Bedside 428 (70-110)
[2023-06-21] MEDS: CEFAZOLIN SODIUM 2 GM in 0.9 % SODIUM CHLORIDE 100 ML IV ×2 (09:20→17:04)
[2023-06-21] MEDS: LIDOCAINE 1% 20ML MDV 20 ML (09:25)
--- NOTE | 2023-06-21 09:37 | P.OP_ITS ---
Date of procedure: 06/21/23 Pre-op Diagnosis:: Abscess sebaceous cyst (x 2) along right proximal medial thigh Post-op Diagnosis:: Same Procedure performed:: Incision and drainage/excision of abscessed sebaceous cyst along right proximal medial thigh Surgeon:: Jas Mishra MD [employer] IN[employer]CTOR [employer] WOMEN'[employer]UDIES:: Justus Veliz Anesthesia: MAC and local Estimated blood loss (mL): 15 Clinical Note:: Fairly profound hyperglycemia and significant hyponatremia noted preoperatively. Discussed with patient's primary care provider. Postoperative observation admission planned (Hospitalist Service). Operative findings:: Inflamed sebaceous cyst with focal purulence Primary cystic lesion 2 cm Secondary cystic lesion 1.5 cm Operative note:: After informed consent was obtained the patient was taken to the operating room and placed in the supine position. Monitored anesthesia care ensued. He was transferred to a modified lithotomy position. His proximal right medial thigh region was prepped and draped in a sterile fashion. After infiltration local anesthetic the cystic lesions (x 2) with focal purulence for excised. Electrocautery was utilized to achieve hemostasis. The largest cystic lesion was passed off for pathologic evaluation. The dissection was taken into the deep subcutaneous tissue. Both wounds were packed open and dressings were applied. Patient was then transferred to recovery in stable condition. Condition: stable Disposition: PACU Specimens:: Right proximal medial thigh abscess cyst Complications:: No immediate
--- NOTE | 2023-06-21 09:40 | EXP.ANES.CKL ---
[facility] Disclaimer: The information contained in this section may have been updated after the patient was seen, as this information can be updated by other users. 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 Ulnar nerve neuropathy Helicobacter pylori (H. pylori) Cellulitis of left elbow Carpal tunnel syndrome on left Near syncope Depression Dyspnea Diabetes mellitus Hypertension Blood pressure here in the clinic have been good. He does not check his blood pressure at home. Surgical History History of esophagogastroduodenoscopy History of cardiac cath History of colonoscopy History of elbow surgery Family History Other Alcoholism Cancer Diabetes Heart attack Social History Smoking Status: Current every day smoker tobacco type: cigarettes packs per day: 1 second hand exposure: Yes alcohol intake: current counseling provided: none substance use type: denies use current occupational status: employed Travel in the last 8 weeks: None household members: none housing: house lives independently: Yes marital status: current occupation: [employer] current occupational exposures/hazards: No caffeine: Yes [facility] Anesthesia Checklist Patient Identification Patient Identification: Arm Band Structural Data Admitted From: Home Planned Operative Procedure/s: I&D Right Thigh Abscess Consent for Planned Operative Procedure(s) Verified: Yes Verified Documents: Surgical Consent and History and Physical NPO Status Verified Time NPO: 00:00 Additional verifications Anesthesia Reactions: No Hx Blood Transfusions: No Blood Transfusion Reaction: No Airway Assessment Mallampati Score:: Class II C-Spine Mobility Assessed: Yes TMJ Mobility Assessed: Yes Dentition: Good Dentition Neurological Assessment Level of Consciousness: Awake and Alert Anesthesia Plan Anesthesia Risk discussed: Yes Anesthesia Plan: Verified ASA Class: III Anesthesia Type: MAC Preoperative Comments Pre-Operative Comments: Pt's FSBS preoperatively is 595. IV insulin given. Discussed case with Dr. Mishra and he discussed case with Pt's PCP (Dr. Rosenberg). Decision made to proceed with operation and admit overnight for blood glucose control.
[2023-06-21 09:50] LABS: POC Glucose,Bedside 376 (70-110)
--- NOTE | 2023-06-21 10:06 | PC.NURSE ---
arrived by stretcher from surgery
--- NOTE | 2023-06-21 10:52 | P.HP_ITS ---
History of Present Illness *Admission Date: 06/21/23 *Reason for visit:: hyperglycemia, post-op *History of present illness: Mr. Whitfield is a 52-year-old male with history of previous history of tobacco dependence, hypertension, poorly controlled diabetes, depression/anxiety, cirrhosis who presented as an outpatient for I&D of abscess sebaceous cyst along his right proximal thigh. His preop labs this morning showed hyperglycemia and hyponatremia. After his procedure, medicine was consulted to admit due to concern for his hyperglycemia. Received 25 units of insulin prior to admission but glucose was still in the 3-500 range. Discussed case with surgeon, agree with admission. On arrival to the floor, patient is doing well, stable on room air. Denies any fever, chills, nausea or vomiting. States he takes metformin at home but is not very compliant with taking it consistently. Does not appear to have a good understanding of his diabetes. Discussed the need to start him on insulin, he is hesitant and asking if he will need to be on it long-term. Have strong concern he will. A1c obtained showing poor control at 201. Discussed the need for better control to help his infections heal. Patient states understanding. [facility] Disclaimer: The information contained in this section may have been updated after the patient was seen, as this information can be updated by other users. 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 Ulnar nerve neuropathy Helicobacter pylori (H. pylori) Cellulitis of left elbow Carpal tunnel syndrome on left Near syncope Depression Dyspnea Diabetes mellitus Hypertension Surgical History History of esophagogastroduodenoscopy History of cardiac cath History of colonoscopy History of elbow surgery Family History Other Alcoholism Cancer Diabetes Heart attack Social History Smoking Status: Current every day smoker tobacco type: cigarettes packs per day: 1 second hand exposure: Yes alcohol intake: current counseling provided: none substance use type: denies use current occupational status: employed Travel in the last 8 weeks: None household members: none housing: house lives independently: Yes marital status: current occupation: [employer] current occupational exposures/hazards: No caffeine: Yes Review of Systems Review of Systems Review of systems (narrative): 14 point review of systems performed, pertinent positives and negatives as per HPI Meds Home Medications and Allergies Home Medications Medication Instructions Recorded Confirmed Type aspirin 81 mg tablet,delayed 81 mg PO DAILY 08/20/18 06/21/23 History release (Adult Low Dose Aspirin) blood-glucose meter (ReliOn Micro #1 ea 10/02/22 06/21/23 Rx Glucose Monitor kit) potassium chloride 20 mEq 20 meq PO DAILY 11/14/22 06/21/23 History tablet,extended release(part/cryst) cholecalciferol (vitamin D3) 125 125 mcg PO DAILY 30 days #30 caps 12/18/22 06/21/23 Rx mcg (5,000 unit) capsule clopidogrel 75 mg tablet (Plavix) 75 mg PO DAILY #30 tabs 02/21/23 06/21/23 Rx cariprazine 3 mg capsule (Vraylar) 6 mg (2 x 3 mg) PO DAILY 30 days 03/08/23 06/21/23 Rx #60 caps amoxicillin 875 mg-potassium 1 tab PO BID Infection 14 days #28 06/13/23 06/21/23 Rx clavulanate 125 mg tablet tabs tadalafil 10 mg tablet 10 mg PO DAILY PRN sexual activity 06/15/23 06/21/23 Rx #30 tabs metformin 500 mg tablet 500 mg PO BID 06/20/23 06/21/23 History bisoprolol fumarate 5 mg tablet 5 mg PO DAILY 06/21/23 06/21/23 History escitalopram oxalate 20 mg tablet 20 mg PO DAILY 06/21/23 06/21/23 History hydrochlorothiazide 25 mg tablet 25 mg PO DAILY 06/21/23 06/21/23 History lisinopril 20 mg tablet 20 mg PO BID 06/21/23 06/21/23 History magnesium oxide 400 mg (241.3 mg 400 mg PO DAILY 06/21/23 06/21/23 History magnesium) tablet pramipexole 0.25 mg tablet 0.25 mg PO HS 06/21/23 06/21/23 History rosuvastatin 20 mg tablet 20 mg PO DAILY 06/21/23 06/21/23 History New Prescriptions to Start Prescriptions: Allergies Allergy/AdvReac Type Severity Reaction Status Date / Time adhesive Allergy Mild Verified 06/21/23 13:37 Exam Data for Last 24 hours Vital signs and Labs for Last 24 Hours: Temp Pulse Resp BP Pulse Ox O2 Del Method 97.0 F L 77 17 106/55 L 92 L Room Air 06/21/23 09:40 06/21/23 10:10 06/21/23 10:10 06/21/23 10:10 06/21/23 10:10 06/21/23 10:10 Laboratory Results - last 24 hr 06/21/23 07:43: POC Glucose 594 H* 06/21/23 07:48: Sodium 126 L, Potassium 4.7, Chloride 94 L, Carbon Dioxide 25, Anion Gap 11.7, BUN 31 H, Creatinine 1.40 H, Estimated Creat Clear 99, Estimated GFR 54 L, Est GFR ( Amer) 65, Glucose 585 H*, Random Glucose 585 H*, Calcium 9.5 06/21/23 08:18: POC Glucose 530 H* 06/21/23 08:34: Specimen Source Right radial, O2 % Ra, ABG pH 7.42, ABG pCO2 35.0, ABG pO2 94.0, ABG HCO3 22.0, ABG Total CO2 23.1, ABG O2 Saturation 97, ABG Base Excess -2.6 L, Narendra Test Acceptable 06/21/23 08:49: POC Glucose 428 H* 06/21/23 09:43: POC Glucose 376 H* I & O for Last 24 hours: Intake & Output 06/18/23 06/19/23 06/20/23 06/21/23 23:59 23:59 23:59 23:59 Output Total 0 / 0 Balance 0 / 0 Weight 111.13 kg 105.687 kg Constitutional Constitutional: no acute distress, obese and chronically ill appearing *Routine HEENT Exam Head: Present normocephalic Eye: Present EOMI and PERRL ENT: Present mucous membranes moist *Routine Neck Exam Neck: Present supple; Absent lymphadenopathy *Routine Respiratory Exam Respiratory: Present CTA bilaterally; Absent rhonchi, wheezes or crackles *Routine Cardiovascular Exam Cardiovascular: Present RRR *Routine Abdominal Exam Abdominal: Present soft and normoactive bowel sounds; Absent tenderness *Routine Rectal Exam Rectal:: deferred *Routine Genitalia Exam Genitalia:: deferred *Routine Extremities Exam Extremities: Absent cyanosis, clubbing or edema Comments: Surgical bandage on right upper medial thigh. Minimal blood from I&D. No significant erythema *Routine Skin Exam Skin: Present warm and wounds (Right upper thigh, postsurgical.); Absent rash *Routine Neurological Exam Neurological: Present alert, oriented X3 and moving all extremities; Absent altered mental status Assessment and Plan *Assessment and plan (1) Hyponatremia: Status: Acute Category: Medical Code(s): E87.1 - Hypo-osmolality and hyponatremia (2) Hyperglycemia: Status: Acute Category: Medical Code(s): R73.9 - Hyperglycemia, unspecified (3) Diabetes mellitus type 2 in obese: Status: Acute Category: Medical Code(s): E11.69 - Type 2 diabetes mellitus with other specified complication; E66.9 - Obesity, unspecified (4) Tobacco use disorder: Status: Acute Category: Medical Code(s): F17.200 - Nicotine dependence, unspecified, uncomplicated (5) Noncompliance: Status: Acute Category: Medical Code(s): Z91.199 - Patient's noncompliance with other medical treatment and regimen due to unspecified reason (6) Major depressive disorder: Status: Chronic Qualifiers: Active/Remission status: currently active Major depression episode sev erity: moderate Major depression recurrence: recurrent Qualified Code(s): F33.1 - Major depressive disorder, recurrent, moderate Category: Medical Code(s): F32.9 - Major depressive disorder, single episode, unspecified (7) Generalized anxiety disorder: Status: Chronic Category: Medical Code(s): F41.1 - Generalized anxiety disorder (8) Severe sleep apnea: Status: Chronic Category: Medical Code(s): G47.30 - Sleep apnea, unspecified (9) Cirrhosis: Problem Comment: Ongoing daily liquor intake. Not interested in cessation. monitor for withd rawals Status: Chronic Qualifiers: Ascites presence: unspecified Hepatic cirrhosis type: unspecified hepatic cirrhosis Qualified Code(s): K74.60 - Unspecified cirrhosis of liver Category: Medical Code(s): K74.60 - Unspecified cirrhosis of liver (10) Obesity (BMI 30.0-34.9): Status: Chronic Category: Medical Code(s): E66.9 - Obesity, unspecified (11) CAD (coronary artery disease): Status: Chronic Qualifiers: Associated angina: without angina Coronary Disease-Associated Artery/Lesion type: [place] artery [place] vs. transplanted heart: [place] heart Qualified Code(s): I25.10 - Atherosclerotic heart disease of [place] coronary artery without angina pectoris Category: Medical Code(s): I25.10 - Atherosclerotic heart disease of [place] coronary artery without angina pectoris (12) Hypertension: Status: Chronic Qualifiers: Hypertension type: essential hypertension Qualified Code(s): I10 - Essential (primary) hypertension Category: Medical Code(s): I10 - Essential (primary) hypertension Plan 52-year-old male with poorly controlled diabetes, hypertension, cirrhosis who was admitted from postop due to hyperglycemia and hyponatremia. Discussed case with surgeon, request admission for improvement in glucose control and initiation of diabetic regimen. Medicine agreed to admit for further management. Started on insulin injections. Close monitoring of fingersticks ACHS. Will address regimen overnight anticipate discharge tomorrow. Problems addressed as follows: Uncontrolled diabetes Hyperglycemia Hyponatremia -A1c 12.1. Initiated on sliding scale insulin high intensity with fingersticks ACHS. Will initiate long-acting insulin tonight with Lantus 25 units -Initiate Jardiance 10 mg daily -Continue metformin 500 mg twice daily p.o. -Anion gap normal -Concern for hyponatremia being related to elevated glucose. Will monitor closely with repeat BMP this afternoon and CMP in the morning. Anticipate improvement in sodium with improvement in glucose control Hypertension Hyperlipidemia CAD/PAD -Continue lisinopril 20 mg twice daily -Continue Crestor 20 nightly -Continue bisoprolol 5 mg daily -Continue aspirin and Plavix daily Mood disorder: Continue cariprazine 6 mg daily and Lexapro to grams daily. Pramipexole 0.25 mg nightly for sleep Sebaceous cyst/abscess -Status post I&D, continue antibiotics with cefazolin IV - White cell count normal 8.0 on preop labs 1 week ago. Repeat CBC ordered for the morning -Afebrile, no systemic signs of infection Cirrhosis: -Per review from imaging, it is present. Liver function relatively normal on labs from 1 week ago. Repeat CMP ordered for the morning. -No thrombocytopenia., Compensated Full code Diabetic diet
--- NOTE | 2023-06-21 10:55 | EXP.ANES.I ---
[facility] Anesthesia Record Part I Anesthesia Record I Intake, IV Amount: 600 Hydration: Adequate Estimated blood loss (mL): 5 Urine output (mL): 0 Blood Products used (#): none Blood Pressure: 85/52 SaO2: 96 Pulse Rate: 77 Airway Patency: Patent Respiratory Rate: 16 Temperature: 97 F Patient is:: Drowsy and Stable Stable to PACU at:: 09:40
--- NOTE | 2023-06-21 10:56 | P.PNANES_ITS ---
[facility] Anesthesia Record Part II Anesthesia Record Part II Discharge Time: 10:10 Destination: Medical Surgical Department PACU nurse assessment reviewed?: Yes Patient Condition:: Good Anesthesia Complications:: None Swallowing reflex intact?: Yes Airway Patency: Patent Cyanosis?: No Blood Pressure: 106/55 SaO2: 92 Respiratory Rate: 17 Pulse Rate: 77 Temperature: 97 F Mental Status: Alert & Oriented Pain level:: 0 Nausea and/or vomitting:: None Intake, IV Amount: 0 Hydration: Adequate
[2023-06-21 11:18] LABS: Anion Gap 13.1 mEq/L (5-15); Blood Urea Nitrogen 31 mg/dl (9-20); Calcium 9.5 mg/dl (8.4-10.2); Carbon Dioxide 24 mmol/L (22.0-30.0); Chloride 97 mmol/L (98-107); Creatinine Clearance Estimated 102 mL/min (50-200); Estimated Glomerular Filt Rate 58 ml/min (>60); GFR (African American) 71 ML/MIN (>60); Glucose 384 mg/dl (74-100); Potassium 5.1 mmoL/L (3.5-5.1); Sodium 129 mmol/L (136-145)
--- NOTE | 2023-06-21 11:23 | HMH.PHAINT1 ---
Pharmacy Intervention Comments: HOME MEDICATION LIST VERIFIED VIA OUTSIDE PHARMACY
[2023-06-21 11:38] LABS: POC Glucose,Bedside 406 (70-110)
[2023-06-21] MEDS: humaLOG 100 UNITS/ML 3ML VIAL (SSI) SQ ×3 (11:43→21:40)
[2023-06-21] MEDS: LACTATED RINGERS 1000ML 1,000 ML 500 ML IV (11:44)
[2023-06-21] MEDS: NICOTINE 21MG/24HR PATCH 21 MG TD (11:51)
[2023-06-21 15:05] LABS: Chloride 95 mmol/L (98-107); Sodium 126 mmol/L (136-145)
[2023-06-21 15:06] LABS: Potassium 4.9 mmoL/L (3.5-5.1)
[2023-06-21 15:09] LABS: Anion Gap 11.9 mEq/L (5-15); Blood Urea Nitrogen 30 mg/dl (9-20); Calcium 9.1 mg/dl (8.4-10.2); Carbon Dioxide 24 mmol/L (22.0-30.0); Creatinine Clearance Estimated 102 mL/min (50-200); Estimated Glomerular Filt Rate 58 ml/min (>60); GFR (African American) 71 ML/MIN (>60)
[2023-06-21 15:16] LABS: Glucose 583 mg/dl (74-100)
[2023-06-21] MEDS: humaLOG 100 UNITS/ML 3ML VIAL (SSI) 25 UNIT SQ (15:57)
[2023-06-21 17:22] LABS: Glucose,Random 508 mg/dL (74-100)
[2023-06-21 18:44] LABS: Chloride 99 mmol/L (98-107); Sodium 130 mmol/L (136-145)
[2023-06-21 18:45] LABS: Potassium 4.2 mmoL/L (3.5-5.1)
[2023-06-21 18:47] LABS: Anion Gap 11.2 mEq/L (5-15); Blood Urea Nitrogen 30 mg/dl (9-20); Carbon Dioxide 24 mmol/L (22.0-30.0); Creatinine Clearance Estimated 110 mL/min (50-200); Estimated Glomerular Filt Rate 64 ml/min (>60); GFR (African American) 78 ML/MIN (>60)
[2023-06-21 18:48] LABS: Calcium 9.5 mg/dl (8.4-10.2)
[2023-06-21 18:49] LABS: Glucose 446 mg/dl (74-100)
[2023-06-21] MEDS: INSULIN GLARGINE 100 UNITS/ML 3ML FLEXPEN 25 UNIT SQ (19:07)
--- NOTE | 2023-06-21 19:14 | PC.NURSE ---
pt educated on insulin administration, was able to administer insulin himself
[2023-06-21] MEDS: ATORVASTATIN 40MG TABLET 40 MG PO (21:41)
[2023-06-21 21:50] LABS: POC Glucose,Bedside 247 (70-110)
[2023-06-21 22:36] LABS: Anion Gap 11.6 mEq/L (5-15); Blood Urea Nitrogen 30 mg/dl (9-20); Calcium 9.9 mg/dl (8.4-10.2); Carbon Dioxide 24 mmol/L (22.0-30.0); Chloride 100 mmol/L (98-107); Creatinine Clearance Estimated 120 mL/min (50-200); Estimated Glomerular Filt Rate 71 ml/min (>60); GFR (African American) 86 ML/MIN (>60); Glucose 262 mg/dl (74-100); Potassium 4.6 mmoL/L (3.5-5.1); Sodium 131 mmol/L (136-145)
[2023-06-22] VITALS: BP 105/51; PULSE 80; RESP 18; TEMP 36.8; O2SAT 94
[2023-06-22] MEDS: CEFAZOLIN SODIUM 2 GM in 0.9 % SODIUM CHLORIDE 100 ML IV ×2 (01:21→09:08)
[2023-06-22 04:00] VITALS: BP 100/66; PULSE 82; RESP 18; TEMP 37.1; O2SAT 98; BMI 32.3
[2023-06-22 05:12] LABS: POC Glucose,Bedside 341 (70-110)
[2023-06-22] MEDS: humaLOG 100 UNITS/ML 3ML VIAL (SSI) SQ ×2 (05:16→11:40)
[2023-06-22 06:38] LABS: Basophils # 0.1 K/mm3 (0-0.2); Eosinophils # 0.1 K/mm3 (0.0-0.4); Eosinophils % 1.2 % (0.1-12.0); Hematocrit 42.7 % (42.0-52.0); Hemoglobin 13.8 g/dL (14.1-18.0); Lymphocytes # 2.3 K/mm3 (0.7-4.5); Lymphocytes % 33.5 % (10-50); Mean Corpuscular HGB Conc 32.4 g/dL (31.8-35.4); Mean Corpuscular Hemoglobin 34.7 pg (27.0-31.2); Mean Corpuscular Volume 107.2 fl (80-94); Mean Platelet Volume 8.1 fl (7.4-10.4); Monocytes # 0.4 K/mm3 (0.1-1.0); Monocytes % 5.9 % (1.7-9.3); Neutrophils % 58.2 % (37.0-80.0); Platelet Count 155 K/mm3 (142-424); Red Blood Count 3.98 M/mm3 (4.60-6.20); Red Cell Distribution Width 13.6 % (11.5-17.5); White Blood Count 6.8 K/mm3 (4.8-10.8)
[2023-06-22 06:40] LABS: Chloride 102 mmol/L (98-107)
[2023-06-22] MEDS: METFORMIN 500MG TABLET 500 MG PO (06:40)
[2023-06-22 06:41] LABS: Potassium 4.6 mmoL/L (3.5-5.1); Sodium 131 mmol/L (136-145)
[2023-06-22 06:43] LABS: Alanine Aminotransferase 40 U/L (12-78); Alkaline Phosphatase 111 U/L (38-126); Anion Gap 7.6 mEq/L (5-15); Aspartate Amino Transferase 81 U/L (17-59); Bilirubin,Total 0.5 mg/dl (0.2-1.3); Blood Urea Nitrogen 27 mg/dl (9-20); Carbon Dioxide 26 mmol/L (22.0-30.0); Creatinine Clearance Estimated 131 mL/min (50-200); Estimated Glomerular Filt Rate 79 ml/min (>60); GFR (African American) 96 ML/MIN (>60)
[2023-06-22 06:44] LABS: Albumin Level 3.3 g/dl (3.5-5.0); Albumin/Globulin Ratio 1.1 (1.1-1.8); Calcium 9.7 mg/dl (8.4-10.2); Glucose 340 mg/dl (74-100); Total Protein,Serum 6.3 g/dl (6.3-8.2)
--- NOTE | 2023-06-22 06:44 | P.PN_ITS ---
Subjective Patient reports: no new complaints Exam Data for Last 24 hours Vital signs and Labs for Last 24 Hours: Temp Pulse Resp BP Pulse Ox O2 Del Method 98.8 F 82 18 100/66 L 98 Room Air 06/22/23 04:00 06/22/23 04:00 06/22/23 04:00 06/22/23 04:00 06/22/23 04:00 06/22/23 06:38 Laboratory Results - last 24 hr 06/21/23 07:43: POC Glucose 594 H* 06/21/23 07:48: Sodium 126 L, Potassium 4.7, Chloride 94 L, Carbon Dioxide 25, Anion Gap 11.7, BUN 31 H, Creatinine 1.40 H, Estimated Creat Clear 99, Estimated GFR 54 L, Est GFR ( Amer) 65, Glucose 585 H*, Random Glucose 585 H*, Calcium 9.5 06/21/23 08:18: POC Glucose 530 H* 06/21/23 08:34: Specimen Source Right radial, O2 % Ra, ABG pH 7.42, ABG pCO2 35 .0, ABG pO2 94.0, ABG HCO3 22.0, ABG Total CO2 23.1, ABG O2 Saturation 97, ABG Base Excess -2.6 L, Narendra Test Acceptable 06/21/23 08:49: POC Glucose 428 H* 06/21/23 09:43: POC Glucose 376 H* 06/21/23 10:45: Sodium 129 L, Potassium 5.1, Chloride 97 L, Carbon Dioxide 24, Anion Gap 13.1, BUN 31 H, Creatinine 1.30 H, Estimated Creat Clear 102, Estimated GFR 58 L, Est GFR ( Amer) 71, Glucose 384 H D, Calcium 9.5 06/21/23 11:31: POC Glucose 406 H* 06/21/23 14:20: Sodium 126 L, Potassium 4.9, Chloride 95 L, Carbon Dioxide 24, Anion Gap 11.9, BUN 30 H, Creatinine 1.30 H, Estimated Creat Clear 102, Estimated GFR 58 L, Est GFR ( Amer) 71, Glucose 583 H* D, Calcium 9.1 06/21/23 17:10: Random Glucose 508 H* 06/21/23 18:27: Sodium 130 L, Potassium 4.2, Chloride 99, Carbon Dioxide 24, Anion Gap 11.2, BUN 30 H, Creatinine 1.20, Estimated Creat Clear 110, Estimated GFR 64, Est GFR ( Amer) 78, Glucose 446 H* D, Calcium 9.5 06/21/23 21:31: POC Glucose 247 H 06/21/23 22:15: Sodium 131 L, Potassium 4.6, Chloride 100, Carbon Dioxide 24, Anion Gap 11.6, BUN 30 H, Creatinine 1.10, Estimated Creat Clear 120, Estimated GFR 71, Est GFR ( Amer) 86, Glucose 262 H D, Calcium 9.9 06/22/23 04:58: POC Glucose 341 H* 06/22/23 06:03: Sodium 131 L, Potassium 4.6, Chloride 102, BUN 27 H, Creatinine 1.00, Estimated Creat Clear 131, Estimated GFR 79, Est GFR ( Amer) 96 I & O for Last 24 hours: Intake & Output 06/19/23 06/20/23 06/21/23 06/22/23 11:59 11:59 11:59 11:59 Intake Total 600 / 600 2416 / 2416 Output Total 0 / 0 0 / 0 Balance 600 / 600 2416 / 2416 Weight 245 lb 233 lb 230 lb 9.6 oz Constitutional Constitutional: no acute distress *Routine Respiratory Exam Respiratory: Absent respiratory distress *Routine Cardiovascular Exam Cardiovascular: Absent tachycardia *Routine Skin Exam Comments: Dressings in place. No spreading cellulitis Progress Note: A&P Assessment and plan (1) Sore on thigh: Status: Acute Assessment and plan: Overall, doing well status post incision and drainage/excision of likely abscessed cysts Dry dressing changes at least daily Outpatient follow-up
--- NOTE | 2023-06-22 06:48 | PC.NURSE ---
DR LEON CAME BY TO SEE PATIENT. PATIENT POSSIBLY TO BE DISCHARGED TODAY. DRSG C/D/I TO INNER RIGHT THIGH AREA. DENIES PAIN.
[2023-06-22 07:42] VITALS: BP 101/59; PULSE 93; RESP 18; TEMP 36.8; O2SAT 96
[2023-06-22] MEDS: NICOTINE 21MG/24HR PATCH 21 MG TD (07:58)
[2023-06-22] MEDS: ASPIRIN EC 81MG TABLET 81 MG PO (07:59)
[2023-06-22] MEDS: CITALOPRAM 40MG TABLET 40 MG PO (07:59)
[2023-06-22] MEDS: CLOPIDOGREL 75MG TAB 75 MG PO (07:59)
[2023-06-22] MEDS: VRAYLAR 3 MG 6 EACH PO (08:02)
--- NOTE | 2023-06-22 08:25 | EXP.DC.SUM ---
General Admission date:: 06/21/23 Discharge date: 06/22/23 HPI HPI HPI: Mr. Whitfield is a 52-year-old male with history of previous history of tobacco dependence, hypertension, poorly controlled diabetes, depression/anxiety, cirrhosis who presented as an outpatient for I&D of abscess sebaceous cyst along his right proximal thigh. His preop labs this morning showed hyperglycemia and hyponatremia. After his procedure, medicine was consulted to admit due to concern for his hyperglycemia. Received 25 units of insulin prior to admission but glucose was still in the 3-500 range. Discussed case with surgeon, agree with admission. On arrival to the floor, patient is doing well, stable on room air. Denies any fever, chills, nausea or vomiting. States he takes metformin at home but is not very compliant with taking it consistently. Does not appear to have a good understanding of his diabetes. Discussed the need to start him on insulin, he is hesitant and asking if he will need to be on it long-term. Have strong concern he will. A1c obtained showing poor control at 201. Discussed the need for better control to help his infections heal. Patient states understanding. Hospital Course Hospital Course Hospital Course: 52-year-old male with poorly controlled diabetes, hypertension, cirrhosis who was admitted from postop due to hyperglycemia and hyponatremia. Discussed case with surgeon, request admission for improvement in glucose control and initiation of diabetic regimen. Medicine agreed to admit for further management. Started on insulin injections. Glucose showed improvement. Sodium showing some improvement. Stable to discharge home with further management as an outpatient. Problems addressed as follows: Uncontrolled diabetes Hyperglycemia Hyponatremia -Patient noted to have severely elevated glucose on admission 500 after surgery. A1c obtained, 12.1 on admission. Started on fingersticks ACHS with subcu basal bolus insulin regimen. Lantus titrated to 40 units nightly. Still necessitating large-volume sliding scale insulin however has no anion gap and is hesitant to take shots. Initiated Jardiance 25 mg daily. Patient on metformin prior to admission. Increase dosage to 1000 mg twice daily. Hyponatremia likely secondary to his hyperglycemia. Improving, 131 on day of discharge. Needs repeat labs in 3 to 5 days. Further management with PCP as an outpatient. Patient may benefit from GLP-1 therapy. Would additionally consider possibly an insulin pump or basal bolus regimen if no improvement in the coming months. Hypertension Hyperlipidemia CAD/PAD -Continue lisinopril 20 mg twice daily -Continue Crestor 20 nightly -Continue bisoprolol 5 mg daily -Continue aspirin and Plavix daily Mood disorder: Continue cariprazine 6 mg daily and Lexapro to grams daily. Pramipexole 0.25 mg nightly for sleep Sebaceous cyst/abscess -Status post I&D, was on Augmentin prior to admission. Treated with cefazolin during admission. Transition to Augmentin at discharge to complete course that he has at home. White cell count normal during admission. 6.8 on day of discharge. Follow-up with surgery in the next week or 2. Dry dressing changes daily. Cirrhosis: -Per review from imaging, it is present. Liver function relatively normal on labs from 1 week ago. No thrombocytopenia, platelets 155. Compensated. Continues to drink. Total time spent on discharge 34 minutes in counseling, documentation, chart review, and direct care with patient. Exam Data for Last 24 hours Vital signs and Labs for Last 24 Hours: Temp Pulse Resp BP Pulse Ox O2 Del Method 98.3 F 93 H 18 101/59 L 96 Room Air 06/22/23 07:42 06/22/23 07:42 06/22/23 07:42 06/22/23 07:42 06/22/23 07:42 06/22/23 07:42 Laboratory Results - last 24 hr 06/21/23 08:18: POC Glucose 530 H* 06/21/23 08:34: Specimen Source Right radial, O2 % Ra, ABG pH 7.42, ABG pCO2 35.0, ABG pO2 94.0, ABG HCO3 22.0, ABG Total CO2 23.1, ABG O2 Saturation 97, ABG Base Excess -2.6 L, Narendra Test Acceptable 06/21/23 08:49: POC Glucose 428 H* 06/21/23 09:43: POC Glucose 376 H* 06/21/23 10:45: Sodium 129 L, Potassium 5.1, Chloride 97 L, Carbon Dioxide 24, Anion Gap 13.1, BUN 31 H, Creatinine 1.30 H, Estimated Creat Clear 102, Estimated GFR 58 L, Est GFR ( Amer) 71, Glucose 384 H D, Calcium 9.5 06/21/23 11:31: POC Glucose 406 H* 06/21/23 14:20: Sodium 126 L, Potassium 4.9, Chloride 95 L, Carbon Dioxide 24, Anion Gap 11.9, BUN 30 H, Creatinine 1.30 H, Estimated Creat Clear 102, Estimated GFR 58 L, Est GFR ( Amer) 71, Glucose 583 H* D, Calcium 9.1 06/21/23 17:10: Random Glucose 508 H* 06/21/23 18:27: Sodium 130 L, Potassium 4.2, Chloride 99, Carbon Dioxide 24, Anion Gap 11.2, BUN 30 H, Creatinine 1.20, Estimated Creat Clear 110, Estimated GFR 64, Est GFR ( Amer) 78, Glucose 446 H* D, Calcium 9.5 06/21/23 21:31: POC Glucose 247 H 06/21/23 22:15: Sodium 131 L, Potassium 4.6, Chloride 100, Carbon Dioxide 24, Anion Gap 11.6, BUN 30 H, Creatinine 1.10, Estimated Creat Clear 120, Estimated GFR 71, Est GFR ( Amer) 86, Glucose 262 H D, Calcium 9.9 06/22/23 04:58: POC Glucose 341 H* 06/22/23 06:03: WBC 6.8, RBC 3.98 L, Hgb 13.8 L, Hct 42.7, MCV 107.2 H, MCH 34.7 H, MCHC 32.4, RDW 13.6, Plt Count 155, MPV 8.1, Neut % (Auto) 58.2, Lymph % (Auto) 33.5, [place] % (Auto) 5.9, Eos % (Auto) 1.2, Baso % (Auto) 1.0, Neut # (Auto) 4.0, Lymph # (Auto) 2.3, [place] # (Auto) 0.4, Eos # (Auto) 0.1, Baso # (Auto) 0.1, Sodium 131 L, Potassium 4.6, Chloride 102, Carbon Dioxide 26, Anion Gap 7.6, BUN 27 H, Creatinine 1.00, Estimated Creat Clear 131, Estimated GFR 79, Est GFR ( Amer) 96, Glucose 340 H D, Calcium 9.7, Magnesium 2.0, Total Bilirubin 0.5, AST 81 H, ALT 40, Alkaline Phosphatase 111, Total Protein 6.3, Albumin 3.3 L, Globulin 3.0, Albumin/Globulin Ratio 1.1 I & O for Last 24 hours: Intake & Output 06/19/23 06/20/23 06/21/23 06/22/23 23:59 23:59 23:59 23:59 Intake Total 2195 1240 / 1240 Output Total 0 / 0 0 / 0 Balance 2195 1240 / 1240 Weight 111.13 kg 105.687 kg 104.598 kg Constitutional Constitutional: no acute distress, obese, chronically ill appearing and cooperative *Routine HEENT Exam Head: Present normocephalic Eye: Present EOMI and PERRL ENT: Present mucous membranes moist *Routine Neck Exam Neck: Present supple; Absent lymphadenopathy *Routine Respiratory Exam Respiratory: Present CTA bilaterally; Absent rhonchi, wheezes or crackles *Routine Cardiovascular Exam Cardiovascular: Present RRR *Routine Abdominal Exam Abdominal: Present soft and normoactive bowel sounds; Absent tenderness *Routine Rectal Exam Patient deferred: visual exam *Routine Exam Patient deferred: penile exam *Routine Extremities Exam Extremities: Absent cyanosis, clubbing or edema Comments: Right upper thigh with surgical wound, scant bleeding.; Loss of thenar muscle mass bilaterally *Routine Skin Exam Skin: Present intact and warm; Absent rash *Routine Neurological Exam Neurological: Present alert, oriented X3, sensory deficit (BLE) and moving all extremities; Absent altered mental status Results Data Completed and Pending Labs on day of discharge: Labs from last 24 hours 06/22/23 06/22/23 06/21/23 06:03 04:58 22:15 WBC 6.8 RBC 3.98 L Hgb 13.8 L Hct 42.7 MCV 107.2 H MCH 34.7 H MCHC 32.4 RDW 13.6 Plt Count 155 MPV 8.1 Neut % (Auto) 58.2 Lymph % (Auto) 33.5 [place] % (Auto) 5.9 Eos % (Auto) 1.2 Baso % (Auto) 1.0 Neut # (Auto) 4.0 Lymph # (Auto) 2.3 [place] # (Auto) 0.4 Eos # (Auto) 0.1 Baso # (Auto) 0.1 Specimen Source O2 % ABG pH ABG pCO2 ABG pO2 ABG HCO3 ABG Total CO2 ABG O2 Saturation ABG Base Excess Narendra Test Sodium 131 L 131 L Potassium 4.6 4.6 Chloride 102 100 Carbon Dioxide 26 24 Anion Gap 7.6 11.6 BUN 27 H 30 H Creatinine 1.00 1.10 Estimated Creat Clear 131 120 Estimated GFR 79 71 Est GFR ( Amer) 96 86 Glucose 340 H D 262 H D POC Glucose 341 H* Random Glucose Calcium 9.7 9.9 Magnesium 2.0 Total Bilirubin 0.5 AST 81 H ALT 40 Alkaline Phosphatase 111 Total Protein 6.3 Albumin 3.3 L Globulin 3.0 Albumin/Globulin Ratio 1.1 06/21/23 06/21/23 06/21/23 21:31 18:27 17:10 WBC RBC Hgb Hct MCV MCH MCHC RDW Plt Count MPV Neut % (Auto) Lymph % (Auto) [place] % (Auto) Eos % (Auto) Baso % (Auto) Neut # (Auto) Lymph # (Auto) [place] # (Auto) Eos # (Auto) Baso # (Auto) Specimen Source O2 % ABG pH ABG pCO2 ABG pO2 ABG HCO3 ABG Total CO2 ABG O2 Saturation ABG Base Excess Narendra Test Sodium 130 L Potassium 4.2 Chloride 99 Carbon Dioxide 24 Anion Gap 11.2 BUN 30 H Creatinine 1.20 Estimated Creat Clear 110 Estimated GFR 64 Est GFR ( Amer) 78 Glucose 446 H* D POC Glucose 247 H Random Glucose 508 H* Calcium 9.5 Magnesium Total Bilirubin AST ALT Alkaline Phosphatase Total Protein Albumin Globulin Albumin/Globulin Ratio 06/21/23 06/21/23 06/21/23 14:20 11:31 10:45 WBC RBC Hgb Hct MCV MCH MCHC RDW Plt Count MPV Neut % (Auto) Lymph % (Auto) [place] % (Auto) Eos % (Auto) Baso % (Auto) Neut # (Auto) Lymph # (Auto) [place] # (Auto) Eos # (Auto) Baso # (Auto) Specimen Source O2 % ABG pH ABG pCO2 ABG pO2 ABG HCO3 ABG Total CO2 ABG O2 Saturation ABG Base Excess Narendra Test Sodium 126 L 129 L Potassium 4.9 5.1 Chloride 95 L 97 L Carbon Dioxide 24 24 Anion Gap 11.9 13.1 BUN 30 H 31 H Creatinine 1.30 H 1.30 H Estimated Creat Clear 102 102 Estimated GFR 58 L 58 L Est GFR ( Amer) 71 71 Glucose 583 H* D 384 H D POC Glucose 406 H* Random Glucose Calcium 9.1 9.5 Magnesium Total Bilirubin AST ALT Alkaline Phosphatase Total Protein Albumin Globulin Albumin/Globulin Ratio 06/21/23 06/21/23 06/21/23 09:43 08:49 08:34 WBC RBC Hgb Hct MCV MCH MCHC RDW Plt Count MPV Neut % (Auto) Lymph % (Auto) [place] % (Auto) Eos % (Auto) Baso % (Auto) Neut # (Auto) Lymph # (Auto) [place] # (Auto) Eos # (Auto) Baso # (Auto) Specimen Source Right radial O2 % Ra ABG pH 7.42 ABG pCO2 35.0 ABG pO2 94.0 ABG HCO3 22.0 ABG Total CO2 23.1 ABG O2 Saturation 97 ABG Base Excess -2.6 L Narendra Test Acceptable Sodium Potassium Chloride Carbon Dioxide Anion Gap BUN Creatinine Estimated Creat Clear Estimated GFR Est GFR ( Amer) Glucose POC Glucose 376 H* 428 H* Random Glucose Calcium Magnesium Total Bilirubin AST ALT Alkaline Phosphatase Total Protein Albumin Globulin Albumin/Globulin Ratio 06/21/23 08:18 WBC RBC Hgb Hct MCV MCH MCHC RDW Plt Count MPV Neut % (Auto) Lymph % (Auto) [place] % (Auto) Eos % (Auto) Baso % (Auto) Neut # (Auto) Lymph # (Auto) [place] # (Auto) Eos # (Auto) Baso # (Auto) Specimen Source O2 % ABG pH ABG pCO2 ABG pO2 ABG HCO3 ABG Total CO2 ABG O2 Saturation ABG Base Excess Narendra Test Sodium Potassium Chloride Carbon Dioxide Anion Gap BUN Creatinine Estimated Creat Clear Estimated GFR Est GFR ( Amer) Glucose POC Glucose 530 H* Random Glucose Calcium Magnesium Total Bilirubin AST ALT Alkaline Phosphatase Total Protein Albumin Globulin Albumin/Globulin Ratio DS: Diagnosis Discharge Diagnosis (1) Sore on thigh: Status: Acute Code(s): L98.9 - Disorder of the skin and subcutaneous tissue, unspecified (2) Hyponatremia: Status: Acute Code(s): E87.1 - Hypo-osmolality and hyponatremia (3) Hyperglycemia: Status: Acute Code(s): R73.9 - Hyperglycemia, unspecified (4) Tobacco use disorder: Status: Acute Code(s): F17.200 - Nicotine dependence, unspecified, uncomplicated (5) Diabetes mellitus type 2 in obese: Status: Acute Code(s): E11.69 - Type 2 diabetes mellitus with other specified complication; E66.9 - Obesity, unspecified (6) Noncompliance: Status: Acute Code(s): Z91.199 - Patient's noncompliance with other medical treatment and regimen due to unspecified reason (7) Major depressive disorder: Status: Chronic Code(s): F32.9 - Major depressive disorder, single episode, unspecified Qualifiers: Active/Remission status: currently active Major depression episode severity: moderate Major depression recurrence: recurrent Qualified Code(s): F33.1 - Major depressive disorder, recurrent, moderate (8) Generalized anxiety disorder: Status: Chronic Code(s): F41.1 - Generalized anxiety disorder (9) Cirrhosis: Status: Chronic Code(s): K74.60 - Unspecified cirrhosis of liver Qualifiers: Ascites presence: unspecified Hepatic cirrhosis type: unspecified hepatic cirrhosis Qualified Code(s): K74.60 - Unspecified cirrhosis of liver (10) CAD (coronary artery disease): Status: Chronic Code(s): I25.10 - Atherosclerotic heart disease of [place] coronary artery without angina pectoris Qualifiers: Associated angina: without angina Coronary Disease-Associated Artery/Lesion type: [place] artery [place] vs. transplanted heart: [place] heart Qualified Code(s): I25.10 - Atherosclerotic heart disease of [place] coronary artery without angina pectoris (11) MEÑO (obstructive sleep apnea): Status: Chronic Code(s): G47.33 - Obstructive sleep apnea (adult) (pediatric) (12) Hypertension: Status: Chronic Code(s): I10 - Essential (primary) hypertension Qualifiers: Hypertension type: essential hypertension Qualified Code(s): I10 - Essential (primary) hypertension (13) Peripheral neuropathy: Status: Acute Code(s): G62.9 - Polyneuropathy, unspecified Qualifiers: Peripheral neuropathy type: polyneuropathy, unspecified Qualified Code(s): G62.9 - Polyneuropathy, unspecified Meds Home Medications and Allergies Home Medications Medication Instructions Recorded Confirmed Type aspirin 81 mg tablet,delayed 81 mg PO DAILY 08/20/18 06/21/23 History release (Adult Low Dose Aspirin) blood-glucose meter (ReliOn Micro #1 ea 10/02/22 06/21/23 Rx Glucose Monitor kit) potassium chloride 20 mEq 20 meq PO DAILY 09/05/23 04/11/24 History tablet,extended release(part/cryst) cholecalciferol (vitamin D3) 125 125 mcg PO DAILY 30 days #30 caps 12/18/22 06/21/23 Rx mcg (5,000 unit) capsule clopidogrel 75 mg tablet (Plavix) 75 mg PO DAILY #30 tabs 02/21/23 06/21/23 Rx cariprazine 3 mg capsule (Vraylar) 6 mg (2 x 3 mg) PO DAILY 30 days 03/08/23 06/21/23 Rx #60 caps amoxicillin 875 mg-potassium 1 tab PO BID Infection 14 days #28 06/13/23 06/21/23 Rx clavulanate 125 mg tablet tabs tadalafil 10 mg tablet 10 mg PO DAILY PRN sexual activity 06/15/23 06/21/23 Rx #30 tabs escitalopram oxalate 20 mg tablet 20 mg PO DAILY 06/21/23 06/21/23 History magnesium oxide 400 mg (241.3 mg 400 mg PO DAILY 06/21/23 06/21/23 History magnesium) tablet pramipexole 0.25 mg tablet 0.25 mg PO HS 06/21/23 06/21/23 History rosuvastatin 20 mg tablet 20 mg PO DAILY 06/21/23 06/21/23 History empagliflozin 25 mg tablet 25 mg PO DAILY 30 days #30 tabs 06/22/23 Rx (Jardiance) insulin glargine 100 unit/mL (3 40 unit (0.4 mL) SQ HS 30 days #12 06/22/23 Rx mL) subcutaneous pen (Lantus mL Solostar U-100 Insulin) lisinopril 20 mg tablet 10 mg (1/2 x 20 mg) PO BID 30 days 06/22/23 06/21/23 Rx #0 tabs metformin 1,000 mg tablet 1,000 mg PO BID 30 days #60 tabs 06/22/23 Rx nicotine 21 mg/24 hr daily 21 mg transdermal DAILYP PRN 06/22/23 Rx transdermal patch Nicotine Cravings 28 days #28 ea pen needle, diabetic, safety 31 #100 ea 06/22/23 Rx gauge x 3/16 vits no.[id number] fum 1 tab PO DAILY 30 days #30 tabs 06/22/23 Rx 27 mg iron-folic acid 800 mcg tablet ( Vitamin) New Prescriptions to Start Prescriptions: empagliflozin [Jardiance] Kelsey,Justin insulin glargine [Lantus Solostar U-100 Insulin] Justin Cole metformin Justin Cole nicotine Justin Cole pen needle, diabetic, safety Justin Cole vit [id number] [ Vitamin] Justin Cole Allergies Allergy/AdvReac Type Severity Reaction Status Date / Time adhesive Allergy Mild Verified 06/21/23 13:37 Discharge Plan Disposition Patient Disposition: Home, Self-Care Condition: Fair Follow up Plan Follow up with: Ortega Rosenberg DO [Primary Care Provider] - 06/28/23 2:30 pm aJs Mishra MD [Staff Physician] - 06/27/23 9:45 am Prescriptions/Medication Reconciliation: New metformin 1,000 mg tablet 1,000 mg PO BID 30 Days Qty: 60 0RF nicotine 21 mg/24 hr Patch 24 Hour 21 mg transdermal DAILYP PRN (Reason: Nicotine Cravings) 28 Days Qty: 28 2RF insulin glargine [Lantus Solostar U-100 Insulin] 100 unit/mL (3 mL) Insulin Pen 40 unit SQ HS 30 Days Qty: 12 0RF Vitamin 27 mg iron- 800 mcg Tablet 1 tab PO DAILY 30 Days Qty: 30 0RF (DME) pen needle, diabetic, safety 31 gauge x 3/16 needle See Rx Instructions .Route Qty: 100 0RF Rx Instructions: As directed Jardiance 25 mg tablet 25 mg PO DAILY 30 Days Qty: 30 2RF Continued Vraylar 3 mg capsule 6 mg PO DAILY 30 Days Qty: 60 2RF aspirin [Adult Low Dose Aspirin] 81 mg tablet,delayed release (DR/EC) 81 mg PO DAILY potassium chloride 20 mEq tablet,ER particles/crystals 20 meq PO DAILY clopidogrel [Plavix] 75 mg tablet 75 mg PO DAILY Qty: 30 2RF amoxicillin-pot clavulanate 875-125 mg tablet 1 tab PO BID 14 Days Qty: 28 0RF (DME) blood-glucose meter [ReliOn Micro Glucose Monitor] Kit See Rx Instructions .Route Qty: 1 0RF Rx Instructions: As directed - tests three times per day cholecalciferol (vitamin D3) 125 mcg (5,000 unit) capsule 125 mcg PO DAILY 30 Days Qty: 30 4RF tadalafil 10 mg tablet 10 mg PO DAILY PRN (Reason: sexual activity) Qty: 30 0RF Rx Instructions: administer approximately 30min before sexual activity; do not use more than 1 dose per 24hrs magnesium oxide 400 mg (241.3 mg magnesium) tablet 400 mg PO DAILY Patient Comments: TAKE 1 TABLET BY MOUTH ONCE DAILY escitalopram oxalate 20 mg tablet 20 mg PO DAILY rosuvastatin 20 mg tablet 20 mg PO DAILY Patient Comments: TAKE 1 TABLET BY MOUTH ONCE DAILY pramipexole 0.25 mg tablet 0.25 mg PO HS Changed lisinopril 20 mg tablet 10 mg PO BID 30 Days Qty: 0 0RF Patient Comments: TAKE 1 TABLET BY MOUTH TWICE DAILY Discontinued metformin 500 mg tablet 500 mg PO BID bisoprolol fumarate 5 mg tablet 5 mg PO DAILY Patient Comments: TAKE 1 TABLET BY MOUTH ONCE DAILY hydrochlorothiazide 25 mg tablet 25 mg PO DAILY Patient Comments: TAKE 1 TABLET BY MOUTH ONCE DAILY Problem Reconciliation Problems Reviewed?: Yes Patient Discharge Instructions ACTIVITY: Continue current activity DIET: continue same diet Additional Instructions: Dry dressing changes to R prox/medial thigh wounds at least daily Patient Instructions: How to Take Care of Your Feet If You Have Diabetes, Exercising Caution When You Have Diabetes, DI for Surgical Site Infection, Hyponatremia-Adult Providers Primary Care Provider: Ortega Rosenberg Admit Provider: Justin Cole Attending Provider: Justin Cole
[2023-06-22] MEDS: INSULIN GLARGINE 100 UNITS/ML 3ML FLEXPEN 10 UNIT SQ (09:08)
[2023-06-22] MEDS: PRENATAL MULTIVITAMIN W/IRON 1 EACH PO (09:08)
[2023-06-22 11:44] LABS: POC Glucose,Bedside 423 (70-110)
--- NOTE | 2023-06-26 11:00 | CARE MANAGER ---
Contacted patient related to hospital discharge. He states he has all his new medications and is aware of follow up appointments. Denies questions or concerns. MIRA Hale
== END 2023-06-22 13:35 | disposition home or self-care (01) ==
LOC: 2ND 09:55
PROVIDERS: Nurse Anesthetist, Certified Registered; Surgery; Admitting Provider Internal Medicine Adolescent Medicine; PCP Internal Medicine; Visit Provider Internal Medicine Adolescent Medicine
PROC: (CPT 10060; principal; 2023-06-21 09:00)
DX: E11.65 Type 2 diabetes mellitus with hyperglycemia (principal); L72.3 Sebaceous cyst; F17.210 Nicotine dependence, cigarettes, uncomplicated; E87.1 Hypo-osmolality and hyponatremia; F32.9 Major depressive disorder, single episode, unspecified; F41.1 Generalized anxiety disorder; G47.30 Sleep apnea, unspecified; K74.60 Unspecified cirrhosis of liver; I10 Essential (primary) hypertension; Z68.32 Body mass index [BMI] 32.0-32.9, adult; I25.10 Atherosclerotic heart disease of native coronary artery without angina pectoris; E11.51 Type 2 diabetes mellitus with diabetic peripheral angiopathy without gangrene; F39 Unspecified mood [affective] disorder; Z79.899 Other long term (current) drug therapy
CPT/HCPCS: 10060; 36415; 80048; 80053; 82803; 82947; 82962; 83735; 85025; 96374; 96375; G0378; J0690

== ENCOUNTER → 2023-08-20 19:58 | Outpatient (CLI) | payer OTHER, SELFPAY | LOC: SL 19:58 | PROVIDERS: PCP Internal Medicine; Visit Provider Nurse Practitioner Family | DX: G47.33 Obstructive sleep apnea (adult) (pediatric) (principal); G47.63 Sleep related bruxism | CPT/HCPCS: 95811 ==

== ENCOUNTER 2023-09-03 11:46 | Outpatient (CLI) | payer OTHER, SELFPAY ==
[2023-09-03 19:29] LABS: Chloride 110 mmol/L (98-107); Potassium 3.6 mmoL/L (3.5-5.1); Sodium 146 mmol/L (136-145)
[2023-09-03 19:31] LABS: Blood Urea Nitrogen 5 mg/dl (9-20); Estimated Glomerular Filt Rate 102 ml/min (>60); GFR (African American) 124 ML/MIN (>60)
[2023-09-03 19:32] LABS: Alanine Aminotransferase 31 U/L (12-78); Albumin Level 3.9 g/dl (3.5-5.0); Albumin/Globulin Ratio 1.3 (1.1-1.8); Alkaline Phosphatase 120 U/L (38-126); Anion Gap 18.6 mEq/L (5-15); Aspartate Amino Transferase 57 U/L (17-59); Bilirubin,Total 0.3 mg/dl (0.2-1.3); Calcium 9.3 mg/dl (8.4-10.2); Carbon Dioxide 21 mmol/L (22.0-30.0); Globulin 3.1 g/dL (1.3-3.2); Glucose 267 mg/dl (74-100)
[2023-09-03 21:21] LABS: Hemoglobin A1C 6.4 % (4.0-6.0)
== END 2023-09-03 23:59 | disposition home or self-care (01) ==
LOC: LAB.DROPOF 09-04 11:47
PROVIDERS: PCP Internal Medicine; Visit Provider Internal Medicine
DX: R53.83 Other fatigue (principal)
CPT/HCPCS: 80053; 83036

== ENCOUNTER 2023-09-18 10:30 | Outpatient (CLI) | payer OTHER, SELFPAY ==
--- NOTE | 2023-09-18 10:31 | MR_ITS ---
FINAL REPORT CLINICAL HISTORY: LEFT LOWER LEG PAIN FINDINGS: Multiplanar MR imaging of the lumbar spine was performed without contrast. There is mild leftward curvature. On the sagittal T2-weighted images, disc degeneration is seen at multiple levels. Endplate changes are seen at multiple levels. Small Schmorl's nodes are seen at multiple levels. There is mild retrolisthesis of L2 on L3 and L3 on L4. There is no evidence of fracture. The conus has an unremarkable appearance. L1-2: An annular bulge is present with vertebral osteophytes and bilateral facet arthropathy. Mild bilateral neural foraminal narrowing is seen. L2-3: An annular bulge is present with vertebral osteophytes and bilateral facet arthropathy. A left foraminal disc protrusion is present. There is mild right and moderate left neural foraminal narrowing. L3-4: An annular bulge is present with bilateral facet arthropathy. Moderate bilateral neural foraminal narrowing is seen. L4-5: An annular bulge is present with bilateral facet arthropathy. A broad-based left foraminal disc protrusion is seen. There is left L5 nerve root impingement. Moderate right and severe left neural foraminal narrowing is seen. L5-S1: An annular bulge is present with bilateral facet arthropathy. A left paracentral disc protrusion is present with left S1 nerve root impingement. Moderate right and severe left neural foraminal narrowing is seen. IMPRESSION: Multilevel degenerative disc disease and spondylosis with bilateral neural foraminal narrowing as described. Left foraminal L4-5 disc protrusion with left L5 nerve root impingement and severe left neural foraminal narrowing. Left paracentral L5-S1 disc protrusion with left S1 nerve root impingement. Left foraminal L2-3 disc protrusion with moderate left neural foraminal narrowing. Authenticated and ERN
== END 2023-09-18 23:59 | disposition home or self-care (01) ==
LOC: RAD 10:31
PROVIDERS: PCP Internal Medicine; Visit Provider Internal Medicine
DX: M79.605 Pain in left leg (principal)
CPT/HCPCS: 72148

== ENCOUNTER 2023-10-17 10:42 | Outpatient (CLI) | payer OTHER, SELFPAY ==
[2023-10-17 18:37] LABS: Basophils # 0.1 K/mm3 (0-0.2); Basophils % 1.1 % (0.1-2.0); Eosinophils # 0.2 K/mm3 (0.0-0.4); Hematocrit 52.3 % (42.0-52.0); Lymphocytes # 1.9 K/mm3 (0.7-4.5); Lymphocytes % 36.6 % (10-50); Mean Corpuscular HGB Conc 32.5 g/dL (31.8-35.4); Mean Corpuscular Hemoglobin 35.9 pg (27.0-31.2); Mean Corpuscular Volume 110.2 fl (80-94); Mean Platelet Volume 9.4 fl (7.4-10.4); Monocytes # 0.5 K/mm3 (0.1-1.0); Neutrophils # 2.6 K/mm3 (1.8-7.8); Neutrophils % 49.3 % (37.0-80.0); Platelet Count 175 K/mm3 (142-424); Red Blood Count 4.75 M/mm3 (4.60-6.20); Red Cell Distribution Width 14.3 % (11.5-17.5); White Blood Count 5.2 K/mm3 (4.8-10.8)
[2023-10-17 19:06] LABS: Alanine Aminotransferase 30 U/L (12-78); Albumin Level 3.6 g/dl (3.5-5.0); Albumin/Globulin Ratio 1.1 (1.1-1.8); Alkaline Phosphatase 109 U/L (38-126); Aspartate Amino Transferase 46 U/L (17-59); Bilirubin,Total 0.8 mg/dl (0.2-1.3); Blood Urea Nitrogen 11 mg/dl (9-20); Calcium 9.7 mg/dl (8.4-10.2); Carbon Dioxide 25 mmol/L (22.0-30.0); Chol/HDL Ratio 4.6 (1-3.5); Cholesterol 174 mg/dl (140-200); Estimated Glomerular Filt Rate 119 ml/min (>60); GFR (African American) 144 ML/MIN (>60); Globulin 3.2 g/dL (1.3-3.2); Glucose 159 mg/dl (74-100); HDL Cholesterol 38 mg/dl (40-60); Sodium 138 mmol/L (136-145); Total Protein,Serum 6.8 g/dl (6.3-8.2); Triglycerides 148 mg/dl (30-150); VLDL Cholesterol 30 mg/dL (0-40)
[2023-10-17 19:17] LABS: Direct LDL Cholesterol 109.29 mg/dL (100-129)
[2023-10-17 19:20] LABS: Potassium 3.1 mmoL/L (3.5-5.1)
[2023-10-17 19:21] LABS: Anion Gap 10.1 mEq/L (5-15); Chloride 106 mmol/L (98-107)
== END 2023-10-17 23:59 | disposition home or self-care (01) ==
LOC: LAB.DROPOF 10-18 10:43
PROVIDERS: PCP Internal Medicine; Visit Provider Internal Medicine
DX: K70.0 Alcoholic fatty liver (principal); F10.10 Alcohol abuse, uncomplicated; E78.2 Mixed hyperlipidemia; I10 Essential (primary) hypertension; F17.210 Nicotine dependence, cigarettes, uncomplicated
CPT/HCPCS: 80053; 80061; 85025

== ENCOUNTER 2023-10-25 08:40 | Outpatient (POV) | payer OTHER, SELFPAY ==
[2023-10-25 09:05] VITALS: BP 155/104; PULSE 93; RESP 18; O2SAT 98; BMI 32.6
--- NOTE | 2023-10-25 09:23 | A.OFFVIS_ITS ---
HPI Data of Consult Patient: new to practice Consult date: 10/25/23 Requesting Physician: Rosa Terrell APRN Primary Care Provider: Ortega Rosenberg DO Consult Narrative Reason for consult: Low back pain, left leg/calf pain History of present illness: Mr. Whitfield is a 52 year old male who presents today as a new patient. He is a referral from Dr. Dickson's office. Today he rates his pain a 5 out of 10. Patient states his pain is all in his low back with radiating symptoms down into his left leg and calf. Patient states this has been going on for years and just progressively worsened over time. He denies any trauma or injury that initially started this pain. He does state he feels like it is just more wearing tighter. Patient does describe it as a cramping, pressure sensation that does interfere with his ability perform activities of daily living. He states it is worse with any type of prolonged standing or walking. He does state that he gets some relief when he goes to lay down. Patient has tried oral medications, heat and ice and topicals with minimal relief. Patient does state that he was prescribed gabapentin from his PCP and this is helping some. Patient is on Plavix related to heart issues. Patient denies any prior surgery or injection history. Patient has tried to do at home exercising and stretching for longer than 6 weeks. His Nathaniel has been reviewed and is appropriate. CC: Rosa Terrell APRN [facility] Disclaimer: The information contained in this section may have been updated after the patient was seen, as this information can be updated by other users. 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 Ulnar nerve neuropathy Helicobacter pylori (H. pylori) Cellulitis of left elbow Carpal tunnel syndrome on left Near syncope Depression Dyspnea Diabetes mellitus Hypertension Surgical History History of esophagogastroduodenoscopy History of cardiac cath History of colonoscopy History of elbow surgery Family History Other Alcoholism Cancer Diabetes Heart attack Social History (Updated 10/25/23 @ 09:06 by Jeimy De Souza RN) Smoking Status: Current every day smoker tobacco type: cigarettes packs per day: 1 second hand exposure: Yes alcohol intake: current alcohol intake frequency: 0-2 drinks per day counseling provided: none substance use type: denies use current occupational status: employed Travel in the last 8 weeks: None household members: none housing: house lives independently: Yes marital status: current occupation: [employer] current occupational exposures/hazards: No caffeine: Yes Review of Systems Review of Systems Review of systems:: pertinent systems reviewed and negative unless documented below Review of systems (narrative): Review of Systems: General: No recent weight changes, no fever, no sleep disturbances Respiratory: No cough, no shortness of air, no recurring pulmonary infections Cardiovascular/peripheral vascular: No chest pain, no palpitations, no edema, no shortness of breath Gastrointestinal: No new onset incontinence, normal bowel movements reported Genitourinary: No new onset incontinence Musculoskeletal: Low back pain, left leg pain Psychiatric: [Normal mood/affect] Neurological: [Denies weakness in extremities], [denies balance issues] Meds Home Medications and Allergies Home Medications ?Medication ?Instructions ?Recorded ?Confirmed ?Type aspirin 81 mg tablet,delayed 81 mg PO DAILY 08/20/18 10/25/23 History release (Adult Low Dose Aspirin) blood-glucose meter (ReliOn Micro #1 ea 10/02/22 10/25/23 Rx Glucose Monitor kit) potassium chloride 20 mEq 20 meq PO DAILY 11/14/22 10/25/23 History tablet,extended release(part/cryst) tadalafil 10 mg tablet 10 mg PO DAILY PRN sexual activity 06/15/23 10/25/23 Rx #30 tabs nicotine 21 mg/24 hr daily 21 mg transdermal DAILYP PRN 06/22/23 10/25/23 Rx transdermal patch Nicotine Cravings 28 days #28 ea pen needle, diabetic, safety 31 #100 ea 06/22/23 10/25/23 Rx gauge x 3/16 vits no.130-ferrous fum 1 tab PO DAILY 30 days #30 tabs 06/22/23 10/25/23 Rx 27 mg iron-folic acid 800 mcg tablet ( Vitamin) blood-glucose meter,continuous #3 ea 07/24/23 10/25/23 Rx (Dexcom G7 Double End Production Grinder) blood-glucose sensor (Dexcom G7 #3 ea 07/24/23 10/25/23 Rx Sensor device) cariprazine 3 mg capsule (Vraylar) 6 mg (2 x 3 mg) PO DAILY 90 days 09/18/23 10/25/23 Rx #180 caps cholecalciferol (vitamin D3) 125 125 mcg PO DAILY 90 days #90 caps 09/18/23 10/25/23 Rx mcg (5,000 unit) capsule clopidogrel 75 mg tablet (Plavix) 75 mg PO DAILY 90 days #90 tabs 09/18/23 10/25/23 Rx empagliflozin 25 mg tablet 25 mg PO DAILY 90 days #90 tabs 09/18/23 10/25/23 Rx (Jardiance) escitalopram oxalate 20 mg tablet See Rx Instructions .Route 09/18/23 10/25/23 Rx .COMPLEX #90 tabs gabapentin 600 mg tablet 600 mg PO TID #90 tabs 09/18/23 10/25/23 Rx insulin glargine 100 unit/mL (3 25 unit (0.25 mL) SQ BID 90 days 09/18/23 Rx mL) subcutaneous pen (Lantus #45 mL Solostar U-100 Insulin) magnesium oxide 400 mg (241.3 mg 400 mg PO DAILY #90 tabs 09/18/23 10/25/23 Rx magnesium) tablet metformin 1,000 mg tablet 1,000 mg PO BID 90 days #180 tabs 09/18/23 10/25/23 Rx pramipexole 0.25 mg tablet 0.25 mg PO HS #60 tabs 09/18/23 10/25/23 Rx rosuvastatin 40 mg tablet 40 mg PO DAILY 90 days #90 tabs 09/18/23 10/25/23 Rx thiamine HCl (vitamin B1) 250 mg 250 mg PO DAILY 90 days #90 tabs 09/18/23 10/25/23 Rx tablet lisinopril 40 mg tablet 40 mg PO DAILY #90 tabs 10/17/23 10/25/23 Rx New Prescriptions to Start Prescriptions: Allergies Allergy/AdvReac Type Severity Reaction Status Date / Time adhesive Allergy Mild Verified 10/17/23 09:09 Objective Vital signs: Pulse Resp BP Pulse Ox O2 Del Method 93 H 18 155/104 H 98 Room Air 10/25/23 09:05 10/25/23 09:05 10/25/23 09:05 10/25/23 09:05 08/15/24 09:05 Narrative: Physical Exam: General: Alert and oriented x3, no acute distress, pleasant and cooperative Lungs: Respirations even and unlabored, symmetrical chest expansion Eyes: PERRL Musculoskeletal: Flexion and extension of lumbar [spine] somewhat guarded secondary to pain, [antalgic gait noted] positive left leg raise with decreased sensation to light touch and decreased reflexes Neurological: Speech clear, no gross sensory deficit Additional findings Additional findings: FINDINGS: Multiplanar MR imaging of the lumbar spine was performed without contrast. There is mild leftward curvature. On the sagittal T2-weighted images, disc degeneration is seen at multiple levels. Endplate changes are seen at multiple levels. Small Schmorl's nodes are seen at multiple levels. There is mild retrolisthesis of L2 on L3 and L3 on L4. There is no evidence of fracture. The conus has an unremarkable appearance. L1-2: An annular bulge is present with vertebral osteophytes and bilateral facet arthropathy. Mild bilateral neural foraminal narrowing is seen. L2-3: An annular bulge is present with vertebral osteophytes and bilateral facet arthropathy. A left foraminal disc protrusion is present. There is mild right and moderate left neural foraminal narrowing. L3-4: An annular bulge is present with bilateral facet arthropathy. Moderate bilateral neural foraminal narrowing is seen. L4-5: An annular bulge is present with bilateral facet arthropathy. A broad-based left foraminal disc protrusion is seen. There is left L5 nerve root impingement. Moderate right and severe left neural foraminal narrowing is seen. L5-S1: An annular bulge is present with bilateral facet arthropathy. A left paracentral disc protrusion is present with left S1 nerve root impingement. Moderate right and severe left neural foraminal narrowing is seen. IMPRESSION: Multilevel degenerative disc disease and spondylosis with bilateral neural foraminal narrowing as described. Left foraminal L4-5 disc protrusion with left L5 nerve root impingement and severe left neural foraminal narrowing. Left paracentral L5-S1 disc protrusion with left S1 nerve root impingement. Left foraminal L2-3 disc protrusion with moderate left neural foraminal narrowing. Authenticated and ERN Assessment and Plan *Assessment and plan (1) Degenerative disc disease, lumbar: Status: Acute Category: Medical Code(s): M51.36 - Other intervertebral disc degeneration, lumbar region (2) Lumbar radiculopathy: Status: Acute Category: Medical Code(s): M54.16 - Radiculopathy, lumbar region (3) Spinal stenosis, lumbar region with neurogenic claudication: Status: Acute Category: Medical Code(s): M48.062 - Spinal stenosis, lumbar region with neurogenic claudication Plan Patient is experiencing significant pain throughout his low back and left leg. I did discuss with the patient that he may benefit from a left transforaminal epidural steroid injection and did review over his recent lumbar imaging. Patient did have most of his issues around the L4-L5 L5-S1 levels where he does have nerve root impingement at both. Patient does state that he is not necessarily wanting to try injection therapy at this time. I have counseled the patient that I will order the patient a compounded cream and send in a 2-week supply of baclofen 10 mg 3 times daily. Patient will return to clinic in 2 weeks for reevaluation of symptoms and plan of care. Patient has been instructed to contact the clinic with any concerns before the next appointment. Dr. Willis has reviewed this note and agrees with this plan of care. This note was dictated using voice recognition software and make contain errors or omissions. All injections are used with Lidocaine or Bupivacaine and Depo Medrol.
== END 2023-10-25 23:59 | disposition home or self-care (01) ==
PROVIDERS: PCP Internal Medicine; Visit Provider Nurse Practitioner Family
DX: M51.16 Intervertebral disc disorders with radiculopathy, lumbar region (principal); M48.062 Spinal stenosis, lumbar region with neurogenic claudication; F17.210 Nicotine dependence, cigarettes, uncomplicated; Z79.02 Long term (current) use of antithrombotics/antiplatelets; Z79.4 Long term (current) use of insulin; E11.9 Type 2 diabetes mellitus without complications; Z73.89 Other problems related to life management difficulty
CPT/HCPCS: 99202; G0463

== ENCOUNTER 2023-10-31 09:51 | Outpatient (CLI) | payer OTHER, SELFPAY ==
[2023-10-31 19:34] LABS: Alanine Aminotransferase 24 U/L (12-78); Albumin Level 3.7 g/dl (3.5-5.0); Albumin/Globulin Ratio 1.2 (1.1-1.8); Alkaline Phosphatase 94 U/L (38-126); Anion Gap 15.9 mEq/L (5-15); Aspartate Amino Transferase 35 U/L (17-59); Bilirubin,Total 0.9 mg/dl (0.2-1.3); Blood Urea Nitrogen 8 mg/dl (9-20); Calcium 9.4 mg/dl (8.4-10.2); Carbon Dioxide 22 mmol/L (22.0-30.0); Chloride 106 mmol/L (98-107); Estimated Glomerular Filt Rate 102 ml/min (>60); GFR (African American) 123 ML/MIN (>60); Globulin 3.2 g/dL (1.3-3.2); Glucose 218 mg/dl (74-100); Potassium 3.9 mmoL/L (3.5-5.1); Sodium 140 mmol/L (136-145); Total Protein,Serum 6.9 g/dl (6.3-8.2)
[2023-10-31 19:37] LABS: Creatinine,Urine Random 38 mg/dL (Not Estab.); Microalbumin < 6.000 mg/L (0-16.7)
== END 2023-10-31 23:59 | disposition home or self-care (01) ==
LOC: LAB.DROPOF 11-01 09:52
PROVIDERS: PCP Internal Medicine; Visit Provider Internal Medicine
DX: R73.03 Prediabetes (principal)
CPT/HCPCS: 80053; 82043; 82570

== ENCOUNTER 2023-11-08 09:47 | Outpatient (POV) | payer OTHER, SELFPAY ==
[2023-11-08 10:28] VITALS: BP 134/89; PULSE 108; RESP 16; O2SAT 97; BMI 32.6
--- NOTE | 2023-11-08 10:46 | EXP.PAIN.SOA ---
[facility] Disclaimer: The information contained in this section may have been updated after the patient was seen, as this information can be updated by other users. 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 Ulnar nerve neuropathy Helicobacter pylori (H. pylori) Cellulitis of left elbow Carpal tunnel syndrome on left Near syncope Depression Dyspnea Diabetes mellitus Hypertension Surgical History History of esophagogastroduodenoscopy History of cardiac cath History of colonoscopy History of elbow surgery Family History Other Alcoholism Cancer Diabetes Heart attack Social History Smoking Status: Current every day smoker tobacco type: cigarettes packs per day: 1 second hand exposure: Yes alcohol intake: current alcohol intake frequency: 0-2 drinks per day counseling provided: none substance use type: denies use current occupational status: unemployed Travel in the last 8 weeks: None household members: none housing: house lives independently: Yes marital status: current occupation: [employer] current occupational exposures/hazards: No caffeine: Yes PM Subjective & Objective Subjective Subjective:: Patient is a pleasant 53-year-old male who presents today for follow-up. Today he rates his pain a 1 out of 10. Patient denies any new trauma or injury. He does state that he did get the compounded cream yesterday however he has not needed to try it at this point. He does also state that he did pick at the muscle relaxer of baclofen 10 mg 3 times daily however he has not really started to use this either. Patient does state that for what ever reason the pain has gotten better. His Nathaniel has been reviewed and is appropriate. Review of Systems: General: No recent weight changes, no fever, no sleep disturbances Respiratory: No cough, no shortness of air, no recurring pulmonary infections Cardiovascular/peripheral vascular: No chest pain, no palpitations, no edema, no shortness of breath Gastrointestinal: No new onset incontinence, normal bowel movements reported Genitourinary: No new onset incontinence Musculoskeletal: Low back pain Psychiatric: [Normal mood/affect] Neurological: [Denies weakness in extremities], [denies balance issues] Pain at rest (0-10 scale): 1 Objective Objective:: Physical Exam: General: Alert and oriented x3, no acute distress, pleasant and cooperative Lungs: Respirations even and unlabored, symmetrical chest expansion Eyes: PERRL Musculoskeletal: Flexion and extension of lumbar [spine] somewhat guarded secondary to pain, [antalgic gait noted] Neurological: Speech clear, no gross sensory deficit Has patient had previous pain injection?: No Conservative treatment options previously tried: Home exercise plan Length of treatment: Longer than 6 weeks Meds Home Medications and Allergies Home Medications ?Medication ?Instructions ?Recorded ?Confirmed ?Type aspirin 81 mg tablet,delayed 81 mg PO DAILY 08/20/18 11/08/23 History release (Adult Low Dose Aspirin) blood-glucose meter (ReliOn Micro #1 ea 10/02/22 11/08/23 Rx Glucose Monitor kit) tadalafil 10 mg tablet 10 mg PO DAILY PRN sexual activity 06/15/23 11/08/23 Rx #30 tabs nicotine 21 mg/24 hr daily 21 mg transdermal DAILYP PRN 06/22/23 11/08/23 Rx transdermal patch Nicotine Cravings 28 days #28 ea pen needle, diabetic, safety 31 #100 ea 06/22/23 11/08/23 Rx gauge x 3/16 vits no.130-ferrous fum 1 tab PO DAILY 30 days #30 tabs 06/22/23 11/08/23 Rx 27 mg iron-folic acid 800 mcg tablet ( Vitamin) blood-glucose meter,continuous #3 ea 07/24/23 11/08/23 Rx (Dexcom G7 Health Careers Instructor) blood-glucose sensor (Dexcom G7 #3 ea 07/24/23 11/08/23 Rx Sensor device) cariprazine 3 mg capsule (Vraylar) 6 mg (2 x 3 mg) PO DAILY 90 days 09/18/23 11/08/23 Rx #180 caps cholecalciferol (vitamin D3) 125 125 mcg PO DAILY 90 days #90 caps 09/18/23 11/08/23 Rx mcg (5,000 unit) capsule clopidogrel 75 mg tablet (Plavix) 75 mg PO DAILY 90 days #90 tabs 09/18/23 11/08/23 Rx empagliflozin 25 mg tablet 25 mg PO DAILY 90 days #90 tabs 07/09/24 08/29/24 Rx (Jardiance) escitalopram oxalate 20 mg tablet See Rx Instructions .Route 09/18/23 11/08/23 Rx .COMPLEX #90 tabs gabapentin 600 mg tablet 600 mg PO TID #90 tabs 09/18/23 11/08/23 Rx insulin glargine 100 unit/mL (3 25 unit (0.25 mL) SQ BID 90 days 09/18/23 11/08/23 Rx mL) subcutaneous pen (Lantus #45 mL Solostar U-100 Insulin) magnesium oxide 400 mg (241.3 mg 400 mg PO DAILY #90 tabs 09/18/23 11/08/23 Rx magnesium) tablet metformin 1,000 mg tablet 1,000 mg PO BID 90 days #180 tabs 09/18/23 11/08/23 Rx pramipexole 0.25 mg tablet 0.25 mg PO HS #60 tabs 09/18/23 11/08/23 Rx rosuvastatin 40 mg tablet 40 mg PO DAILY 90 days #90 tabs 09/18/23 11/08/23 Rx thiamine HCl (vitamin B1) 250 mg 250 mg PO DAILY 90 days #90 tabs 09/18/23 11/08/23 Rx tablet lisinopril 40 mg tablet 40 mg PO DAILY #90 tabs 10/17/23 11/08/23 Rx chlorthalidone 25 mg tablet 25 mg PO DAILY #30 tabs 10/31/23 11/08/23 Rx potassium chloride 10 mEq 10 meq PO DAILY #30 caps 10/31/23 11/08/23 Rx capsule,extended release New Prescriptions to Start Prescriptions: Allergies Allergy/AdvReac Type Severity Reaction Status Date / Time adhesive Allergy Mild Verified 10/31/23 09:33 Assessment and Plan *Assessment and plan (1) Degenerative disc disease, lumbar: Status: Acute Category: Medical Code(s): M51.36 - Other intervertebral disc degeneration, lumbar region (2) Lumbar radiculopathy: Status: Acute Category: Medical Code(s): M54.16 - Radiculopathy, lumbar region Plan Patient is doing better with his overall low back pain and does not require any additional interventions at this time. Patient was counseled that we will see him back in 1 month for reevaluation of symptoms and plan of care. Patient has been instructed to contact the clinic with any concerns before the next appointment. Dr. Willis has reviewed this note and agrees with this plan of care. This note was dictated using voice recognition software and make contain errors or omissions. All injections are used with Lidocaine or Bupivacaine and Depo Medrol.
== END 2023-11-08 23:59 | disposition home or self-care (01) ==
LOC: SC.PAIN 09:47
PROVIDERS: PCP Internal Medicine; Visit Provider Nurse Practitioner Family
DX: M51.16 Intervertebral disc disorders with radiculopathy, lumbar region (principal); Z79.899 Other long term (current) drug therapy
CPT/HCPCS: 99212; G0463

== ENCOUNTER 2023-11-27 10:00 | Outpatient (CLI) | payer OTHER, SELFPAY ==
[2023-11-27 22:10] LABS: Chol/HDL Ratio 4.8 (1-3.5); Cholesterol 221 mg/dl (140-200); HDL Cholesterol 46 mg/dl (40-60); Triglycerides 252 mg/dl (30-150); VLDL Cholesterol 50 mg/dL (0-40)
[2023-11-27 22:21] LABS: Direct LDL Cholesterol 133.98 mg/dL (100-129)
[2023-11-27 22:33] LABS: Hemoglobin A1C 7.6 % (4.0-6.0)
== END 2023-11-27 23:59 | disposition home or self-care (01) ==
LOC: LAB.DROPOF 11-28 10:27
PROVIDERS: PCP Internal Medicine; Visit Provider Internal Medicine
DX: E11.69 Type 2 diabetes mellitus with other specified complication (principal); E66.9 Obesity, unspecified; Z68.32 Body mass index [BMI] 32.0-32.9, adult; Z79.84 Long term (current) use of oral hypoglycemic drugs
CPT/HCPCS: 80061; 83036

== ENCOUNTER 2023-12-10 08:22 | Outpatient (CLI) | payer OTHER, SELFPAY ==
--- NOTE | 2023-12-10 08:25 | US_ITS ---
FINAL REPORT CLINICAL HISTORY: CIRRHOSIS OF LIVER COMPARISON: 06/05/2023 FINDINGS: ABDOMEN LIMITED RUQ: Sonographic images of the right upper quadrant were obtained. The pancreas is partially obscured. The liver has a coarsened echotexture, that may be secondary to changes of fibrosis or fatty infiltration. The gallbladder appears normal without evidence of gallstones.There is no evidence of biliary ductal dilatation.The common duct measures 3 mm. Limited images of the right kidney are unremarkable. IMPRESSION: Coarsened echotexture of the liver, that may be secondary to changes of fibrosis or fatty infiltration, essentially stable since the prior exam. Reviewed, Interpreted and Dictated by Travis Blackmon MD Transcribed by Regina Delgadillo Authenticated and [facility]
[2023-12-10 09:20] LABS: Prothrombin Time 11.2 seconds (10.1-12.5)
[2023-12-10 09:21] LABS: Basophils # 0.1 K/mm3 (0-0.2); Basophils % 1.4 % (0.1-2.0); Eosinophils # 0.1 K/mm3 (0.0-0.4); Eosinophils % 2.8 % (0.1-12.0); Hematocrit 49.3 % (42.0-52.0); Hemoglobin 16.1 g/dL (14.1-18.0); Lymphocytes # 1.9 K/mm3 (0.7-4.5); Lymphocytes % 43.3 % (10-50); Mean Corpuscular HGB Conc 32.6 g/dL (31.8-35.4); Mean Corpuscular Hemoglobin 34.8 pg (27.0-31.2); Mean Corpuscular Volume 106.7 fl (80-94); Mean Platelet Volume 6.7 fl (7.4-10.4); Monocytes # 0.5 K/mm3 (0.1-1.0); Monocytes % 10.3 % (1.7-9.3); Neutrophils # 1.9 K/mm3 (1.8-7.8); Neutrophils % 42.1 % (37.0-80.0); Platelet Count 187 K/mm3 (142-424); Red Blood Count 4.62 M/mm3 (4.60-6.20); Red Cell Distribution Width 14.5 % (11.5-17.5); White Blood Count 4.5 K/mm3 (4.8-10.8)
[2023-12-10 09:51] LABS: Albumin Level 4.1 g/dl (3.5-5.0); Chloride 96 mmol/L (98-107); Potassium 3.5 mmoL/L (3.5-5.1); Sodium 135 mmol/L (136-145)
[2023-12-10 09:54] LABS: Alanine Aminotransferase 32 U/L (12-78); Albumin/Globulin Ratio 1.3 (1.1-1.8); Alkaline Phosphatase 106 U/L (38-126); Anion Gap 14.5 mEq/L (5-15); Aspartate Amino Transferase 42 U/L (17-59); Bilirubin,Total 0.9 mg/dl (0.2-1.3); Blood Urea Nitrogen 25 mg/dl (9-20); Carbon Dioxide 28 mmol/L (22.0-30.0); Estimated Glomerular Filt Rate 43 ml/min (>60); GFR (African American) 52 ML/MIN (>60); Globulin 3.2 g/dL (1.3-3.2); Glucose 167 mg/dl (74-100); Total Protein,Serum 7.3 g/dl (6.3-8.2)
== END 2023-12-10 23:59 | disposition home or self-care (01) ==
PROVIDERS: PCP Internal Medicine; Visit Provider Physician Assistant
DX: K70.30 Alcoholic cirrhosis of liver without ascites (principal)
CPT/HCPCS: 36415; 76705; 80053; 82105; 85025; 85610

== ENCOUNTER 2023-12-13 09:20 | Outpatient (POV) | payer OTHER, SELFPAY ==
[2023-12-13 09:37] VITALS: BP 98/59; RESP 16; O2SAT 99; BMI 32.6
--- NOTE | 2023-12-13 09:47 | EXP.PAIN.SOA ---
[facility] Disclaimer: The information contained in this section may have been updated after the patient was seen, as this information can be updated by other users. 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 Tachycardia Ulnar nerve neuropathy Helicobacter pylori (H. pylori) Cellulitis of left elbow Carpal tunnel syndrome on left Near syncope Depression Dyspnea Diabetes mellitus Hypertension Surgical History History of esophagogastroduodenoscopy History of cardiac cath History of colonoscopy History of elbow surgery Family History Other Alcoholism Cancer Diabetes Heart attack Social History Smoking Status: Current every day smoker tobacco type: cigarettes packs per day: 1 second hand exposure: Yes alcohol intake: current alcohol intake frequency: 0-2 drinks per day counseling provided: none substance use type: denies use current occupational status: other Travel in the last 8 weeks: None household members: none housing: house lives independently: Yes marital status: current occupation: [employer] current occupational exposures/hazards: No caffeine: Yes PM Subjective & Objective Subjective Subjective:: Patient is a pleasant 53-year-old male who presents today for 1 month follow-up. He denies any new trauma or injury. He does state that he has continued to do well over the last month. Patient is prescribed baclofen 10 mg 3 times a day along with compounded cream however he is really not needed to even rely on these. His Nathaniel has been reviewed and is appropriate. Review of Systems: General: No recent weight changes, no fever, no sleep disturbances Respiratory: No cough, no shortness of air, no recurring pulmonary infections Cardiovascular/peripheral vascular: No chest pain, no palpitations, no edema, no shortness of breath Gastrointestinal: No new onset incontinence, normal bowel movements reported Genitourinary: No new onset incontinence Musculoskeletal: Low back pain Psychiatric: [Normal mood/affect] Neurological: [Denies weakness in extremities], [denies balance issues] Pain at rest (0-10 scale): 0 Objective Objective:: Physical Exam: General: Alert and oriented x3, no acute distress, pleasant and cooperative Lungs: Respirations even and unlabored, symmetrical chest expansion Eyes: PERRL Musculoskeletal: Flexion and extension of lumbar [spine] somewhat guarded secondary to pain, [antalgic gait noted] Neurological: Speech clear, no gross sensory deficit Has patient had previous pain injection?: No Conservative treatment options previously tried: Home exercise plan Length of treatment: Longer than 12 weeks Meds Home Medications and Allergies Home Medications ?Medication ?Instructions ?Recorded ?Confirmed ?Type aspirin 81 mg tablet,delayed 81 mg PO DAILY 08/20/18 12/13/23 History release (Adult Low Dose Aspirin) blood-glucose meter (ReliOn Micro #1 ea 10/02/22 12/13/23 Rx Glucose Monitor kit) tadalafil 10 mg tablet 10 mg PO DAILY PRN sexual activity 06/15/23 12/13/23 Rx #30 tabs nicotine 21 mg/24 hr daily 21 mg transdermal DAILYP PRN 06/22/23 12/13/23 Rx transdermal patch Nicotine Cravings 28 days #28 ea pen needle, diabetic, safety 31 #100 ea 06/22/23 12/13/23 Rx gauge x 3/16 blood-glucose meter,continuous #3 ea 07/24/23 12/13/23 Rx (Dexcom G7 Retail Attendant) blood-glucose sensor (Dexcom G7 #3 ea 07/24/23 12/13/23 Rx Sensor device) cariprazine 3 mg capsule (Vraylar) 6 mg (2 x 3 mg) PO DAILY 90 days 09/18/23 12/13/23 Rx #180 caps cholecalciferol (vitamin D3) 125 125 mcg PO DAILY 90 days #90 caps 09/18/23 12/13/23 Rx mcg (5,000 unit) capsule clopidogrel 75 mg tablet (Plavix) 75 mg PO DAILY 90 days #90 tabs 09/18/23 12/13/23 Rx empagliflozin 25 mg tablet 25 mg PO DAILY 90 days #90 tabs 09/18/23 12/13/23 Rx (Jardiance) escitalopram oxalate 20 mg tablet See Rx Instructions .Route 09/18/23 12/13/23 Rx .COMPLEX #90 tabs magnesium oxide 400 mg (241.3 mg 400 mg PO DAILY #90 tabs 09/18/23 12/13/23 Rx magnesium) tablet metformin 1,000 mg tablet 1,000 mg PO BID 90 days #180 tabs 09/18/23 12/13/23 Rx rosuvastatin 40 mg tablet 40 mg PO DAILY 90 days #90 tabs 09/18/23 12/13/23 Rx thiamine HCl (vitamin B1) 250 mg 250 mg PO DAILY 90 days #90 tabs 09/18/23 12/13/23 Rx tablet chlorthalidone 25 mg tablet 25 mg PO DAILY #30 tabs 10/31/23 12/13/23 Rx potassium chloride 10 mEq 10 meq PO DAILY #30 caps 10/31/23 12/13/23 Rx capsule,extended release ezetimibe 10 mg tablet 10 mg PO DAILY #30 tabs 11/27/23 12/13/23 Rx lisinopril 20 mg tablet 20 mg PO DAILY #90 tabs 12/04/23 12/13/23 Rx metoprolol succinate 25 mg 25 mg PO DAILY #90 tabs 12/04/23 12/13/23 Rx tablet,extended release 24 hr gabapentin 600 mg tablet 600 mg PO TID #90 tabs 12/11/23 12/13/23 Rx insulin glargine 100 unit/mL (3 27 unit (0.27 mL) SQ BID 90 days 12/11/23 12/13/23 Rx mL) subcutaneous pen (Lantus #48.6 mL Solostar U-100 Insulin) New Prescriptions to Start Prescriptions: Allergies Allergy/AdvReac Type Severity Reaction Status Date / Time adhesive Allergy Mild Verified 12/11/23 09:55 Assessment and Plan *Assessment and plan (1) Degenerative disc disease, lumbar: Status: Acute Category: Medical Code(s): M51.36 - Other intervertebral disc degeneration, lumbar region (2) Lumbar radiculopathy: Status: Acute Category: Medical Code(s): M54.16 - Radiculopathy, lumbar region Plan Patient is doing well and does not require any additional interventions at this time. Patient will return to clinic in 3 month for reevaluation of symptoms and plan of care. Patient has been instructed to contact the clinic with any concerns before the next appointment. Dr. Willis has reviewed this note and agrees with this plan of care. This note was dictated using voice recognition software and make contain errors or omissions. All injections are used with Lidocaine or Bupivacaine and Depo Medrol.
== END 2023-12-13 23:59 | disposition home or self-care (01) ==
LOC: SC.PAIN 09:20
PROVIDERS: PCP Internal Medicine; Visit Provider Nurse Practitioner Family
DX: M51.16 Intervertebral disc disorders with radiculopathy, lumbar region (principal); F17.210 Nicotine dependence, cigarettes, uncomplicated; Z79.899 Other long term (current) drug therapy
CPT/HCPCS: 99212; G0463

== ENCOUNTER 2023-12-23 10:20 | Observation (INO) | payer OTHER, SELFPAY ==
[2023-12-23] VITALS (32 sets, daily range): BP systolic 71–113; BP diastolic 45–73; PULSE 80–113; RESP 11–21; TEMP 36.6–37.2; O2SAT 94–100; BMI 31.6; BMI 32.6; BMI 33.1
--- NOTE | 2023-12-23 10:48 | ED_ITS ---
Discharge Plan Disposition Patient Disposition: Admitted Condition: Good Clinical Impressions Clinical Impression: Dilatation of left ureter, Hyponatremia, Dehydration, LIZETH (acute kidney injury), Septic shock, Hematuria, Acute UTI Discharge ED Provider: Rosa Mccray [facility] [place] HPI General Chief complaint: Weakness Stated complaint: weakness, abd pain Time Seen by Provider: 12/23/23 10:56 History of Present Illness Provider Complaint: Patient states that for the last couple of days he has been having cough, N/V, feeling weak and lightheadedness States this morning he wasnt feeling right and not feeling any better so he came in to get checked patient is a diabetic and currently on several medications for his blood pressure Related Data Home Medications ?Medication ?Instructions ?Recorded ?Confirmed aspirin 81 mg tablet,delayed 81 mg PO DAILY 08/20/18 12/23/23 release (Adult Low Dose Aspirin) escitalopram oxalate 20 mg tablet 20 mg PO DAILY 12/23/23 12/23/23 Previous Rx's ?Medication ?Instructions ?Recorded blood-glucose meter ([employer] #1 ea 10/02/22 Glucose Monitor kit) tadalafil 10 mg tablet 10 mg PO DAILY PRN sexual activity 06/15/23 #30 tabs nicotine 21 mg/24 hr daily 21 mg transdermal DAILYP PRN 06/22/23 transdermal patch Nicotine Cravings 28 days #28 ea pen needle, diabetic, safety 31 #100 ea 06/22/23 gauge x 3/16 blood-glucose meter,continuous #3 ea 07/24/23 ([employer]) blood-glucose sensor ([employer] G7 #3 ea 07/24/23 Sensor device) cariprazine 3 mg capsule (Vraylar) 6 mg (2 x 3 mg) PO DAILY 90 days 09/18/23 #180 caps cholecalciferol (vitamin D3) 125 125 mcg PO DAILY 90 days #90 caps 09/18/23 mcg (5,000 unit) capsule clopidogrel 75 mg tablet (Plavix) 75 mg PO DAILY 90 days #90 tabs 09/18/23 empagliflozin 25 mg tablet 25 mg PO DAILY 90 days #90 tabs 09/18/23 (Jardiance) magnesium oxide 400 mg (241.3 mg 400 mg PO DAILY #90 tabs 09/18/23 magnesium) tablet metformin 1,000 mg tablet 1,000 mg PO BID 90 days #180 tabs 09/18/23 rosuvastatin 40 mg tablet 40 mg PO DAILY 90 days #90 tabs 09/18/23 thiamine HCl (vitamin B1) 250 mg 250 mg PO DAILY 90 days #90 tabs 09/18/23 tablet chlorthalidone 25 mg tablet 25 mg PO DAILY #30 tabs 10/31/23 potassium chloride 10 mEq 10 meq PO DAILY #30 caps 10/31/23 capsule,extended release ezetimibe 10 mg tablet 10 mg PO DAILY #30 tabs 11/27/23 lisinopril 20 mg tablet 20 mg PO DAILY #90 tabs 12/04/23 metoprolol succinate 25 mg 25 mg PO DAILY #90 tabs 12/04/23 tablet,extended release 24 hr gabapentin 600 mg tablet 600 mg PO TID #90 tabs 12/11/23 insulin glargine 100 unit/mL (3 27 unit (0.27 mL) SQ BID 90 days 12/11/23 mL) subcutaneous pen (Lantus #48.6 mL Solostar U-100 Insulin) Allergies Allergy/AdvReac Type Severity Reaction Status Date / Time adhesive Allergy Mild Verified 12/20/23 14:58 [facility] Disclaimer: The information contained in this section may have been updated after the patient was seen, as this information can be updated by other users. 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 Tachycardia Ulnar nerve neuropathy Helicobacter pylori (H. pylori) Cellulitis of left elbow Carpal tunnel syndrome on left Near syncope Depression Dyspnea Diabetes mellitus Hypertension Surgical History History of esophagogastroduodenoscopy History of cardiac cath History of colonoscopy History of elbow surgery Family History Other Alcoholism Cancer Diabetes Heart attack Social History Smoking Status: Current every day smoker tobacco type: cigarettes packs per day: 1 second hand exposure: Yes alcohol intake: current alcohol intake frequency: 0-2 drinks per day counseling provided: none substance use type: denies use current occupational status: other Travel in the last 8 weeks: None household members: none housing: house lives independently: Yes marital status: current occupation: [employer] current occupational exposures/hazards: No caffeine: Yes ROS Obtained: Yes All systems reviewed & no additional complaints except as documented and Yes Systems reviewed as appropriate & no additional complaints except as documented Constitutional Constitutional: Reports system reviewed and no additional complaints, except as documented, Reports as per HPI, Reports fatigue and Reports lethargy ENT Ears, Nose, Mouth, and Throat: Reports system reviewed and no additional complaints, except as documented and Reports as per HPI Cardiovascular Cardiovascular: Reports system reviewed and no additional complaints, except as documented, Reports as per HPI and Reports lightheadedness Respiratory Respiratory: Reports system reviewed and no additional complaints, except as documented, Reports as per HPI and Reports cough Gastrointestinal Gastrointestingal: Reports system reviewed and no additional complaints, except as documented, as per HPI, abdominal pain, nausea and vomiting Genitourinary Male Genitourinary: Reports system reviewed and no additional complaints, except as documented and Reports as per HPI Endocrine Endocrine: Reports fatigue Physical Exam General General appearance: alert and in no apparent distress Respiratory Respiratory exam: Present normal lung sounds bilaterally; Absent respiratory distress or wheezes Cardiovascular Cardiovascular exam: Present regular rate, normal rhythm and tachycardia Neurological Exam Neurological exam: Present alert and oriented X3 Medical Decision Making Medical Records Screening: Per USPSTF and CDC recommendations, given the prevalence of disease in our region, it is our hospital?s policy to screen for HIV and viral Hepatitis for all patients aged 18 and over and those with ongoing risk factors. Nathaniel Inquiry Pt receiving controlled substance: No Nathaniel was queried for this patient: No Lab Data 12/23/23 11:20 12/23/23 17:45 Medical Decision Narrative: Patient reports feeling lightheaded, dizzy, N/V and cough since Sunday Patients BP in the [facility] found to be 78/50 was checked x 2 by machine and manually by RN Patient reports when he gets up he gets very lightheaded Patient states last took his BP medications this AM due to hypotension and feeling of lightheadedness discussed with patient and will transfer to the ED for further work up and evaluation and patient agreed Called ED and patient was moved to room 7
--- NOTE | 2023-12-23 11:01 | PC.NURSE ---
Pt arrived to ED from [facility]
--- NOTE | 2023-12-23 11:07 | PC.NURSE ---
seizure precautions in place.
--- NOTE | 2023-12-23 11:07 | ECG_ITS ---
APPROVED REPORT Exam: Resting ECG HR:108 bpm ECG Measurements Heart Rate 108 AXES W[place] 150 P 50 QRSd 84 QRS 66 QT 315 T 31 QTc 379 Conclusion SINUS TACHYCARDIA NONSPECIFIC ST ELEVATION [0.05+ mV ST ELEVATION] ABNORMAL RHYTHM ECG Electronically signed by : ESTER PETERSON, 12/24/2023 23:19:38
--- NOTE | 2023-12-23 11:14 | ED_ITS ---
Discharge Plan Disposition Patient Disposition: Admitted Condition: Good Clinical Impressions Clinical Impression: Dilatation of left ureter, Hyponatremia, Dehydration, LIZETH (acute kidney injury), Septic shock, Hematuria, Acute UTI Discharge ED Provider: Rosa Mccray General Adult HPI General Chief complaint: Weakness Stated complaint: weakness, abd pain Time Seen by Provider: 12/23/23 10:56 Mode of Arrival: Ambulatory Source of Information: Patient Limitations: No Limitations Description of Symptoms (Recalled from ER Triage Doc. by RN): PATIENT C/O WEAKNESS, FEELING LIGHT-HEADED, NAUSEA AND VOMITING X 2 DAYS History of Present Illness HPI narrative: This patient is a 53-year-old male with a history of hypertension, hyperlipidemia, CAD, type 2 diabetes, MEÑO, and daily alcohol abuse presenting to the emergency department for evaluation with concern for lightheadedness, nausea, poor appetite, and vomiting x 2 days. He was sent from urgent treatment center, as I had an interactive discussion with the provider there who advised that his blood pressure was very low with systolic in the 70s. Upon arrival, patient's blood pressure here is in the 80s systolic. He is sitting upright in bed in no acute distress and is GCS of 15. He notes that for the last several days, he has had really bad nausea and poor appetite. He is only had some Pepsi to drink yesterday but nothing else taken and otherwise. He notes he has had some chills. He notes he has cough, but he states that he always has cough. No pain anywhere, such as headache, chest pain, abdominal pain, or other concerns. He has still been taking his medications, including his blood pressure medication which he had already taken today. He denies fever, vision changes, shortness of breath, numbness, tingling, unilateral weakness, changes in bowel movements, melena, hematochezia, urinary symptoms, or other concerns. He typically drinks a pint a day of liquor, but he has not had alcohol in 2 days. He denies any history of alcohol withdrawals. Related Data Home Medications ?Medication ?Instructions ?Recorded ?Confirmed aspirin 81 mg tablet,delayed 81 mg PO DAILY 08/20/18 12/23/23 release (Adult Low Dose Aspirin) escitalopram oxalate 20 mg tablet 20 mg PO DAILY 12/23/23 12/23/23 Previous Rx's ?Medication ?Instructions ?Recorded blood-glucose meter (ReliOn Micro #1 ea 10/02/22 Glucose Monitor kit) tadalafil 10 mg tablet 10 mg PO DAILY PRN sexual activity 06/15/23 #30 tabs nicotine 21 mg/24 hr daily 21 mg transdermal DAILYP PRN 06/22/23 transdermal patch Nicotine Cravings 28 days #28 ea pen needle, diabetic, safety 31 #100 ea 06/22/23 gauge x 3/16 blood-glucose meter,continuous #3 ea 07/24/23 (Dexcom G7 Hotel Attendant) blood-glucose sensor (Dexcom G7 #3 ea 07/24/23 Sensor device) cariprazine 3 mg capsule (Vraylar) 6 mg (2 x 3 mg) PO DAILY 90 days 09/18/23 #180 caps cholecalciferol (vitamin D3) 125 125 mcg PO DAILY 90 days #90 caps 09/18/23 mcg (5,000 unit) capsule clopidogrel 75 mg tablet (Plavix) 75 mg PO DAILY 90 days #90 tabs 09/18/23 empagliflozin 25 mg tablet 25 mg PO DAILY 90 days #90 tabs 09/18/23 (Jardiance) magnesium oxide 400 mg (241.3 mg 400 mg PO DAILY #90 tabs 09/18/23 magnesium) tablet metformin 1,000 mg tablet 1,000 mg PO BID 90 days #180 tabs 09/18/23 rosuvastatin 40 mg tablet 40 mg PO DAILY 90 days #90 tabs 09/18/23 thiamine HCl (vitamin B1) 250 mg 250 mg PO DAILY 90 days #90 tabs 09/18/23 tablet chlorthalidone 25 mg tablet 25 mg PO DAILY #30 tabs 10/31/23 potassium chloride 10 mEq 10 meq PO DAILY #30 caps 10/31/23 capsule,extended release ezetimibe 10 mg tablet 10 mg PO DAILY #30 tabs 11/27/23 lisinopril 20 mg tablet 20 mg PO DAILY #90 tabs 12/04/23 metoprolol succinate 25 mg 25 mg PO DAILY #90 tabs 12/04/23 tablet,extended release 24 hr gabapentin 600 mg tablet 600 mg PO TID #90 tabs 12/11/23 insulin glargine 100 unit/mL (3 27 unit (0.27 mL) SQ BID 90 days 12/11/23 mL) subcutaneous pen (Lantus #48.6 mL Solostar U-100 Insulin) Allergies Allergy/AdvReac Type Severity Reaction Status Date / Time adhesive Allergy Mild Verified 12/20/23 14:58 [facility] Disclaimer: The information contained in this section may have been updated after the patient was seen, as this information can be updated by other users. 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 Tachycardia Ulnar nerve neuropathy Helicobacter pylori (H. pylori) Cellulitis of left elbow Carpal tunnel syndrome on left Near syncope Depression Dyspnea Diabetes mellitus Hypertension Surgical History History of esophagogastroduodenoscopy History of cardiac cath History of colonoscopy History of elbow surgery Family History Other Alcoholism Cancer Diabetes Heart attack Social History Smoking Status: Current every day smoker tobacco type: cigarettes packs per day: 1 second hand exposure: Yes alcohol intake: current alcohol intake frequency: 0-2 drinks per day counseling provided: none substance use type: denies use current occupational status: other Travel in the last 8 weeks: None household members: none housing: house lives independently: Yes marital status: current occupation: [employer] current occupational exposures/hazards: No caffeine: Yes Other 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 Have you received the Flu Vaccine for this season: No Have you received the Pneumonia Vaccine: No ROS Obtained: Yes All systems reviewed & no additional complaints except as documented Physical Exam General General appearance: alert and in no apparent distress Head Head exam: atraumatic and normocephalic Eye Eye exam: Present normal appearance, PERRL and EOMI ENT ENT exam: Present normal exam, normal oropharynx, mucous membranes moist and normal external ear exam Neck Neck exam: Present normal inspection, full ROM and trachea midline; Absent tenderness Chest Chest inspection: Present normal inspection and symmetric chest wall rise; Absent tenderness Respiratory Respiratory exam: Present normal lung sounds bilaterally; Absent respiratory distress, wheezes, stridor or accessory muscle use Cardiovascular Cardiovascular exam: Present normal rhythm and tachycardia Abdominal Exam Abdominal exam: Present soft; Absent distention, tenderness or guarding Extremities Exam Extremities exam: Present normal inspection, full ROM and normal capillary refill; Absent tenderness or edema Back Exam Back exam: Present normal inspection and full ROM; Absent tenderness Neurological Exam Neurological exam: Present alert, oriented X3, CN II-XII intact and normal gait; Absent motor sensory deficit Psychiatric Psychiatric exam: Present normal affect and normal mood Skin Skin exam: Present warm and dry Medical Decision Making Medical Records Medical records reviewed: Yes I reviewed the patient's medical records. Screening: Per USPSTF and CDC recommendations, given the prevalence of disease in our region, it is our hospital?s policy to screen for HIV and viral Hepatitis for all patients aged 18 and over and those with ongoing risk factors. Nathaniel Inquiry Pt receiving controlled substance: No Vital Signs: 12/23/23 10:45 12/23/23 11:09 12/23/23 11:25 Temperature 98.2 F 98.9 F Temperature Source Oral Oral Pulse Rate 110 H Pulse Rate [Left Brachial] 113 H 112 H Respiratory Rate 20 16 14 Blood Pressure 71/51 L Blood Pressure [Left Arm] 78/50 L 80/54 L Blood Pressure Mean [Left Arm] 59 62 Blood Pressure Source [Left Arm] Manual Cuff/ Auscultation Automatic Cuff Blood Pressure Position [Left Arm] Sitting Sitting 02 Sat by Pulse Oximetry 97 96 96 Oxygen Delivery Method Room Air Room Air Room Air 12/23/23 11:30 12/23/23 11:37 12/23/23 11:44 Temperature Temperature Source Pulse Rate 103 H 90 99 H Pulse Rate [Left Brachial] Respiratory Rate 16 11 L 14 Blood Pressure 75/48 L 74/47 L 73/53 L Blood Pressure [Left Arm] Blood Pressure Mean [Left Arm] Blood Pressure Source [Left Arm] Blood Pressure Position [Left Arm] 02 Sat by Pulse Oximetry 96 98 96 Oxygen Delivery Method Room Air Room Air Room Air 12/23/23 11:45 12/23/23 11:49 12/23/23 11:58 Temperature Temperature Source Pulse Rate 97 H 91 H 91 H Pulse Rate [Left Brachial] Respiratory Rate 19 16 12 Blood Pressure 73/45 L 88/58 L 89/55 L Blood Pressure [Left Arm] Blood Pressure Mean [Left Arm] Blood Pressure Source [Left Arm] Blood Pressure Position [Left Arm] 02 Sat by Pulse Oximetry 96 94 L 98 Oxygen Delivery Method Room Air Room Air Room Air 12/23/23 12:00 12/23/23 12:06 12/23/23 12:10 Temperature Temperature Source Pulse Rate 93 H 80 91 H Pulse Rate [Left Brachial] Respiratory Rate 13 18 14 Blood Pressure 88/57 L 90/54 L 90/51 L Blood Pressure [Left Arm] Blood Pressure Mean [Left Arm] Blood Pressure Source [Left Arm] Blood Pressure Position [Left Arm] 02 Sat by Pulse Oximetry 97 99 98 Oxygen Delivery Method Room Air Room Air Room Air 12/23/23 12:20 12/23/23 13:40 12/23/23 13:50 Temperature Temperature Source Pulse Rate 91 H 84 90 Pulse Rate [Left Brachial] Respiratory Rate 13 15 15 Blood Pressure 88/58 L 107/68 L 103/60 L Blood Pressure [Left Arm] Blood Pressure Mean [Left Arm] Blood Pressure Source [Left Arm] Blood Pressure Position [Left Arm] 02 Sat by Pulse Oximetry 98 99 100 Oxygen Delivery Method Room Air 12/23/23 14:07 12/23/23 14:10 12/23/23 14:20 Temperature Temperature Source Pulse Rate 89 89 85 Pulse Rate [Left Brachial] Respiratory Rate 14 14 12 Blood Pressure 106/71 L 109/70 L 103/61 L Blood Pressure [Left Arm] Blood Pressure Mean [Left Arm] Blood Pressure Source [Left Arm] Blood Pressure Position [Left Arm] 02 Sat by Pulse Oximetry 99 98 98 Oxygen Delivery Method Room Air Room Air Room Air 12/23/23 14:30 12/23/23 14:40 Temperature Temperature Source Pulse Rate 88 90 Pulse Rate [Left Brachial] Respiratory Rate 13 14 Blood Pressure 107/65 L 105/65 L Blood Pressure [Left Arm] Blood Pressure Mean [Left Arm] Blood Pressure Source [Left Arm] Blood Pressure Position [Left Arm] 02 Sat by Pulse Oximetry 98 99 Oxygen Delivery Method Room Air Room Air Lab Data Lab results reviewed: Yes I reviewed the patient's lab results. Lab Results 12/23/23 11:20: WBC 11.3 H, RBC 4.92, Hgb 16.6, Hct 49.9, MCV 101.5 H, MCH 33.7 H, MCHC 33.1, RDW 14.4, Plt Count 318, MPV 7.4, Neut % (Auto) 65.3, Lymph % (Auto) 23.5, [place] % (Auto) 9.5 H, Eos % (Auto) 0.8, Baso % (Auto) 1.0, Neut # (Auto) 7.3, Lymph # (Auto) 2.6, [place] # (Auto) 1.1 H, Eos # (Auto) 0.1, Baso # (Auto) 0.1, PT 11.3, INR 1.01, APTT 27.6, D-Dimer 0.26, Sodium 130 L, Potassium 5.1, Chloride 100, Carbon Dioxide 19 L, Anion Gap 16.1 H, BUN 37 H, Creatinine 2.40 H, Estimated Creat Clear 55, Estimated GFR 29 L, Est GFR ( Amer) 35 L, Glucose 188 H, Lactate 1.8, Calcium 10.7 H, Phosphorus 5.0 H, Magnesium 1.6, Total Bilirubin 1.4 H, AST 117 H, ALT 51, Alkaline Phosphatase 67, Troponin I < 0.01, NT-Pro-B Natriuret Pep 123, Total Protein 8.4 H, Albumin 4.6, Globulin 3.8 H, Albumin/Globulin Ratio 1.2, Lipase 321 H, TSH 4.89 H, Thyroxine (T4) 7.1, HIV 1&2 Antibody Rapid Nonreactive 12/23/23 11:21: VBG pH 7.42 H, VBG pCO2 33.4 L, VBG pO2 84.3 H, VBG HCO3 21.4 L, VBG Total CO2 22.4 L, VBG O2 Saturation 96.5 H, VBG Base Excess -1.9, VBG Lactic Acid 2.5 H 12/23/23 12:35: Urine Opiates Screen Negative, Urine Methadone Screen Negative, Ur Barbituates Screen Negative, Ur Phencyclidine Scrn Negative, Ur Amphetamines Screen Negative, U Benzodiazepines Scrn Negative, Urine Cocaine Screen Negative, U Marijuana (THC) Screen Negative 12/23/23 12:37: Urine Color Dark yellow, Urine Appearance Clear, Urine pH 6.0, Ur Specific [place] 1.020, Urine Protein 1+ A, Urine Glucose (UA) Negative, Urine Ketones Negative, Urine Blood Trace-i, Urine Nitrate Negative, Urine Bilirubin Negative, Urine Urobilinogen 0.2, Ur Leukocyte Esterase Negative, Urine RBC None, Urine WBC 5-10, Ur Squamous Epith Cells 5-10, Urine Bacteria 1+ 12/23/23 14:30: Troponin I < 0.01 12/23/23 11:20 12/23/23 11:20 Orders (Tests/Meds): ED MEDICATIONS Generic Name Dose Route Start Last Admin Trade Name Shannan PRN Reason Stop Dose Admin Citalopram Hydrobromide 40 mg 12/24/23 09:00 Citalopram 40mg Tablet PO 01/23/24 08:59 DAILY PENDING SALE TO [facility] Clopidogrel Bisulfate 75 mg 12/24/23 09:00 Clopidogrel 75mg Tab PO 01/23/24 08:59 DAILY ROJAS Diazepam 10 mg 12/23/23 11:06 Diazepam 10mg/2ml Syringe IV 01/22/24 11:05 Q1HP PRN CIWA >16 Diazepam 5 mg 12/23/23 11:06 Diazepam 5mg Tablet PO 01/22/24 11:05 Q1HP PRN CIWA Score 8-15 Diazepam 5 mg 12/23/23 11:06 Diazepam 5mg Tablet PO 01/22/24 11:05 Q6HP PRN CIWA 2-7 Folic Acid 1 mg 12/23/23 14:00 12/23/23 13:57 Folic Acid 1mg Tablet PO 01/22/24 13:59 1 mg DAILY PENDING SALE TO [facility] Administration Gabapentin 600 mg 12/23/23 21:00 Gabapentin 600mg Tablet PO 01/22/24 20:59 TID PENDING SALE TO [facility] Insulin Glargine 15 unit 12/23/23 21:00 Insulin Glargine 100 Units/Ml 3ml Flexpen SQ 01/22/24 20:59 HS PENDING SALE TO [facility] Insulin Human Lispro 0 unit 12/23/23 16:30 Humalog 100 Units/Ml 10ml Vial (Ssi) SQ 01/22/24 16:29 ACHS PENDING SALE TO [facility] Protocol Metoprolol Succinate 25 mg 12/24/23 09:00 Metoprolol Succinate Xl 25mg Tablet PO 01/23/24 08:59 DAILY PENDING SALE TO [facility] Multivitamins 1 each 12/23/23 14:00 12/23/23 13:59 Multivitamin Tablet PO 01/22/24 13:59 1 each 1700 PENDING SALE TO [facility] Administration Nicotine 21 mg 12/23/23 15:25 Nicotine 21mg/24hr Patch TD 01/22/24 15:24 DAILYP PRN Nicotine Cravings Non-Formulary Medication 250 mg 12/24/23 09:00 Thiamine Hcl (Vitamin B1) PO 01/23/24 08:59 DAILY PENDING SALE TO [facility] Non-Formulary Medication 6 mg 12/24/23 09:00 Cariprazine [Vraylar] PO 01/23/24 08:59 DAILY PENDING SALE TO [facility] Thiamine HCl 100 mg 12/23/23 14:00 12/23/23 13:58 Thiamine 100mg Tablet PO 12/25/23 09:01 100 mg DAILY ROJAS Administration Discontinued Medications Generic Name Dose Route Start Last Admin Trade Name Shannan PRN Reason Stop Dose Admin Folic Acid 1 mg 12/24/23 09:00 Folic Acid 1mg Tablet PO 01/23/24 08:59 DAILY ROJAS Lactated Ringer's 1,000 mls @ 999 mls/hr 12/23/23 11:09 12/23/23 11:42 Lactated Ringer's 1000 Ml Bag IV 12/23/23 12:09 999 mls/hr .Q1H1M ONE Administration Lactated Ringer's 1,000 mls @ 999 mls/hr 12/23/23 11:39 12/23/23 11:42 Lactated Ringer's 1000 Ml Bag IV 12/23/23 12:39 999 mls/hr .Q1H1M ONE Administration Cefepime HCl 2 gm/ Sodium 100 mls @ 200 mls/hr 12/23/23 13:20 12/23/23 13:56 Chloride IV 12/23/23 13:49 200 mls/hr ONCE ONE Administration Iopamidol 70 ml 12/23/23 12:40 12/23/23 12:41 Iopamidol-370 (76%);100ml Bottle IV 12/23/23 12:41 70 ml ONCE ONE Administration Multivitamins 1 each 12/23/23 17:00 Multivitamin Tablet PO 01/22/24 16:59 1700 PENDING SALE TO [facility] Ondansetron HCl 4 mg 12/23/23 11:14 12/23/23 11:41 Ondansetron 4mg/2ml Vial IV 12/23/23 11:15 4 mg ONCE ONE Administration Sodium Chloride 10 ml 12/23/23 12:40 12/23/23 12:41 Sodium Chloride 0.9% 10ml Syr (Rad Only) IV 12/23/23 12:41 10 ml ONCE ONE Administration Thiamine HCl 100 mg 12/24/23 09:00 Thiamine 100mg Tablet PO 12/26/23 09:01 DAILY ROJAS ORDERS Category Date Time Status CT abdomen pelvis w con Stat Cat Scan 12/23/23 12:26 Completed CXR --portable [XR chest portable] Stat Exams 12/23/23 11:18 Completed BNP [NT Pro Brain Natriuretic Pep.] Stat Lab 12/23/23 11:20 Completed Basic Metabolic Panel Routine Lab 12/23/23 18:00 Ordered Complete Blood Count Auto Diff AMLAB Lab 12/24/23 06:00 Ordered Complete Blood Count Auto Diff Stat Lab 12/23/23 11:20 Completed Comprehensive Metabolic Panel AMLAB Lab 12/24/23 06:00 Ordered Comprehensive Metabolic Panel Stat Lab 12/23/23 11:20 Completed D-Dimer Stat Lab 12/23/23 11:20 Completed Drug Screen,Urine Routine Lab 12/23/23 12:35 Completed HIV (1&2) Antibody Rapid Stat Lab 12/23/23 11:20 Completed Hemoglobin A1C Routine Lab 12/23/23 15:26 Ordered Hep C Ab with Reflex to RNA Stat Lab 12/23/23 11:20 Received Lactic Acid Stat Lab 12/23/23 11:20 Completed Lipase Stat Lab 12/23/23 11:20 Completed Magnesium AMLAB Lab 12/24/23 06:00 Ordered Magnesium Stat Lab 12/23/23 11:20 Completed PT INR [Prothrombin Time INR] Stat Lab 12/23/23 11:20 Completed PTT [Activated Partial Thrombo Time] Stat Lab 12/23/23 11:20 Completed Phosphorous Stat Lab 12/23/23 11:20 Completed T4 (Thyroxine) Stat Lab 12/23/23 11:20 Completed TSH [Thyroid Stimulating Hormone] Stat Lab 12/23/23 11:20 Completed Trop I [Troponin I] Stat Lab 12/23/23 11:20 Completed Troponin I Q3H Lab 12/23/23 14:30 Completed Troponin I Q3H Lab 12/23/23 17:15 Ordered UA [Urinalysis and Microscopic] Stat Lab 12/23/23 12:37 Completed Blood Culture Stat Micro 12/23/23 11:20 Received Urine Culture Stat Micro 12/23/23 12:35 Received VBG [Venous Blood Gas] Stat RT 12/23/23 11:21 Completed ECG Data Tracing #1: I reviewed this ECG and interpreted as documented below: Sinus tachycardia with a ventricular rate of [address]/T wave changes without acute STEMI. Normal axis and intervals. ECG initial impression date: 12/23/23 ECG initial impression time: 11:09 Medical Decision Narrative: In summary, this patient is a 53-year-old male presenting to the Emergency Department for evaluation of nausea, vomiting, lightheadedness. He had low blood pressure reading in UTC. Differential diagnoses considered include but are not limited to dehydration, septic shock, cardiogenic shock, ACS, pneumonia, urinary tract infection, intra-abdominal infection. Ruling out the most morbid conditions drove assessment. It should be noted patient's history includes alcohol abuse, hypertension, hyperlipidemia, diabetes, CAD which may or may not be at goal therapy. This complicates all aspects of care by increasing patient's risk for morbidity. On exam, the patient is sitting upright in no acute distress. He is hypotensive and tachycardic on exam but he is mentating very well. Cardiopulmonary and abdominal exams are benign. Workup included broad lab evaluation to evaluate for infectious, metabolic, and cardiac causes of the patient's symptoms. I also obtained chest x-ray given cough. Given hypotension and tachycardia in the setting of poor oral intake, patient was given a liter bolus of IV fluids upon arrival to assess for symptomatic improvement. He was also given IV Zofran. EKG was obtained without acutely concerning abnormalities. Labs demonstrated that the patient had mild leukocytosis, elevated lactic acid, mildly elevated bilirubin, significant LIZETH, mildly elevated AST and mildly elevated bilirubin. He also has hematuria and some bacteria in the urine. Patient was given 2 L of IV fluids, which is basically equivalent to a sepsis bolus for his weight. He was not given further IV fluids given fluid disorders and the fact that he is tolerating oral fluids without issue. He drank a large amount of oral water here. Given his lab derangements, I did obtain a CT scan of the abdomen and pelvis. Per radiology, left hydroureter and fat stranding but no stone. He could have recently passed a stone versus have a noncalcified stone/soft tissue mass obstructing his ureter. For UTI causing septic shock and LIZETH, he was given IV Rocephin in addition to the fluids that he was already given. He is requesting food and is tolerating oral intake without difficulty. Overall, he is had significant improvement in his clinical status, perfusion, and vital signs after fluid resuscitation. Heart rate in the 80s to 90s on assessment down from the 1 teens to 120s. Blood pressure up to 100 systolic from 70s. Ultimately, I feel he requires admission for IV antibiotics and continued resuscitation. I felt he would benefit from urologic consultation/evaluation given the concern for possible obstructive process, though he could have simply just passed a stone recently. I had an interactive discussion with Dr. Rosario in the transfer center at who advised that she recommends conservative management as there is no indication for urologic evaluation and transfer since he does not have an obstructive stone visualized on scan. I then had an interactive discussion with Dr. Campbell at [facility] (hospitalist) who advised they would accept the patient for transfer, but they likely won't have a bed until the morning. Given this, I called Dr. Eli with urology at [facility] who advised patient likely doesnt need urologic evaluation since dilatation is mild and he likely passed a stone. I then called our hospitalist Dr. Cole who accepted the patient for admission here. He was admitted in stable/improved condition. Critical Care Critical Care Time Critical Care Time: Yes Attestation: On 12/23/23, the high probability of a clinically significant, sudden or life threatening deterioration of the following system(s) required my full and direct attention, intervention and personal management. The time I documented below is in addition to time spent performing reported procedures but includes the following listed in this critical care notation. Total Time Total Critical Care Time: 45
--- NOTE | 2023-12-23 11:18 | XR_ITS ---
PROCEDURE INFORMATION: Exam: XR Chest Exam date and time: 12/23/2023 11:48 AM Age: 53 years old Clinical indication: Cough TECHNIQUE: Imaging protocol: Radiologic exam of the chest. Views: 1 view. COMPARISON: CT ANGIO CHEST PE PROTOCOL 07/20/2022 2:09 PM FINDINGS: Lungs: Unremarkable. No consolidation. Pleural spaces: Unremarkable. No pleural effusion. No pneumothorax. Heart/Mediastinum: Unremarkable. No cardiomegaly. Bones/joints: Unremarkable. IMPRESSION: No acute findings.
--- NOTE | 2023-12-23 11:22 | PC.NURSE ---
Notified RT of VBG results
[2023-12-23 11:35] LABS: Lactate Venous 2.5 mmol/L (0.4-2.0); VBG Base Excess -1.9 mmol/L (-2.4-2.3); VBG HCO3 21.4 mmol/L (23-30); VBG Oxygen Saturation 96.5 % (50-70); VBG PCO2 33.4 mmol/L (35-51); VBG PH 7.42 mmol/L (7.31-7.41); VBG PO2 84.3 mmol/L (28-40); VBG Total CO2 22.4 mmol/L (23-27)
[2023-12-23] MEDS: ONDANSETRON 4MG/2ML VIAL 4 MG IV (11:41)
[2023-12-23] MEDS: LACTATED RINGERS 1000ML 1,000 ML 999 ML IV ×2 (11:42)
[2023-12-23 11:46] LABS: Basophils # 0.1 K/mm3 (0-0.2); Eosinophils # 0.1 K/mm3 (0.0-0.4); Eosinophils % 0.8 % (0.1-12.0); Hematocrit 49.9 % (42.0-52.0); Hemoglobin 16.6 g/dL (14.1-18.0); Lymphocytes # 2.6 K/mm3 (0.7-4.5); Lymphocytes % 23.5 % (10-50); Mean Corpuscular HGB Conc 33.1 g/dL (31.8-35.4); Mean Corpuscular Hemoglobin 33.7 pg (27.0-31.2); Mean Corpuscular Volume 101.5 fl (80-94); Mean Platelet Volume 7.4 fl (7.4-10.4); Monocytes # 1.1 K/mm3 (0.1-1.0); Monocytes % 9.5 % (1.7-9.3); Neutrophils # 7.3 K/mm3 (1.8-7.8); Neutrophils % 65.3 % (37.0-80.0); Platelet Count 318 K/mm3 (142-424); Red Blood Count 4.92 M/mm3 (4.60-6.20); Red Cell Distribution Width 14.4 % (11.5-17.5); White Blood Count 11.3 K/mm3 (4.8-10.8)
--- NOTE | 2023-12-23 11:51 | PC.NURSE ---
family at BS
[2023-12-23 11:53] LABS: Activated Partial Thrombo Time 27.6 seconds (22.8-30.6); INR 1.01 (0.9-1.1); Prothrombin Time 11.3 seconds (10.1-12.5)
--- NOTE | 2023-12-23 11:53 | PC.NURSE ---
RA at BS
[2023-12-23 11:55] LABS: Albumin Level 4.6 g/dl (3.5-5.0); Chloride 100 mmol/L (98-107)
[2023-12-23 11:56] LABS: Potassium 5.1 mmoL/L (3.5-5.1); Sodium 130 mmol/L (136-145)
--- NOTE | 2023-12-23 11:56 | PC.NURSE ---
I stayed bedside with the pt from 1110 until 1150 monitoring his BP and the IV fluids infusing.
[2023-12-23 11:58] LABS: Alanine Aminotransferase 51 U/L (12-78); Albumin/Globulin Ratio 1.2 (1.1-1.8); Alkaline Phosphatase 67 U/L (38-126); Anion Gap 16.1 mEq/L (5-15); Aspartate Amino Transferase 117 U/L (17-59); Bilirubin,Total 1.4 mg/dl (0.2-1.3); Blood Urea Nitrogen 37 mg/dl (9-20); Carbon Dioxide 19 mmol/L (22.0-30.0); Creatinine Clearance Estimated 55 mL/min (50-200); Estimated Glomerular Filt Rate 29 ml/min (>60); GFR (African American) 35 ML/MIN (>60); Globulin 3.8 g/dL (1.3-3.2); Total Protein,Serum 8.4 g/dl (6.3-8.2)
[2023-12-23 11:59] LABS: Calcium 10.7 mg/dl (8.4-10.2); Glucose 188 mg/dl (74-100); Lipase 321 U/L (23-300); Magnesium 1.6 mg/dl (1.6-2.3)
[2023-12-23 12:00] LABS: Lactic Acid 1.8 mmol/L (0.7-2.1)
--- NOTE | 2023-12-23 12:09 | PC.NURSE ---
I rounded on the pt, no new complaints at this time. pt states his dizziness has improved. BP is trending upward. call lopez in reach.
[2023-12-23 12:10] LABS: D-Dimer 0.26 ug/mL (0.0-0.5); NT Pro Brain Natriuretic Pep. 123 pg/mL (0-125)
[2023-12-23 12:16] LABS: T4 (Thyroxine) 7.1 ug/dl (5.53-11.0)
[2023-12-23 12:23] LABS: Troponin I < 0.01 ng/ml (0.00-0.034)
--- NOTE | 2023-12-23 12:26 | CT_ITS ---
PROCEDURE INFORMATION: Exam: CT Abdomen And Pelvis With Contrast Exam date and time: 12/23/2023 12:41 PM Age: 53 years old Clinical indication: Nausea and vomiting; Additional info: Elevated bili, elevated lipase, n/v TECHNIQUE: Imaging protocol: Computed tomography of the abdomen and pelvis with contrast. Radiation optimization: All CT scans at this facility use at least one of these dose optimization techniques: automated exposure control; mA and/or kV adjustment per patient size (includes targeted exams where dose is matched to clinical indication); or iterative reconstruction. Contrast material: ISOVUE; Contrast volume: 75 ml; Contrast route: IV; COMPARISON: CT ABDOMEN PELVIS WO CON 10/26/2021 10:56 AM FINDINGS: Coronary arteries: Coronary artery calcifications may indicate coronary artery disease. Liver: Normal. No mass. Gallbladder and biliary ducts: Normal. No calcified stones. No ductal dilation. Pancreas: Normal. No ductal dilation. Spleen: Normal. No splenomegaly. Adrenal glands: Normal. No mass. Kidneys and ureters: There is no evidence of renal or ureteral calcifications. Mild dilatation of the left collecting system and proximal left ureter. Mild inflammatory changes around the left collecting system. However there is no ureteral calculus. . Stomach and bowel: Diverticulosis of the descending colon and rectosigmoid. No lorenzo diverticulitis . No obstruction Appendix: Normal appendix Intraperitoneal space: Unremarkable. No free air. No significant fluid collection. Vasculature: Unremarkable. No abdominal aortic aneurysm. Lymph nodes: Unremarkable. No enlarged lymph nodes. Urinary bladder: Unremarkable as visualized. Reproductive: Unremarkable as visualized. Bones/joints: Unremarkable. No acute fracture. Soft tissues: Unremarkable. IMPRESSION: Mild dilatation of the left collecting system and proximal left ureter. Mild inflammatory changes around the left collecting system. However there is no ureteral calculus. The findings could be due to a recently passed stone, a noncalcified stone or clot or soft tissue process in the left ureter, or an infectious/inflammatory process of the left collecting system. .
[2023-12-23 12:30] LABS: Thyroid Stimulating Hormone 4.89 uIU/mL (0.465-4.68)
--- NOTE | 2023-12-23 12:37 | PC.NURSE ---
UA sent to lab @[id number]
[2023-12-23 12:40] LABS: Microscopic, Urine URINE MICROSCOPIC (MICROSCOPIC)
[2023-12-23] MEDS: IOPAMIDOL-370 (76%);100ML BOTTLE 70 ML IV (12:41)
[2023-12-23] MEDS: SODIUM CHLORIDE 0.9% 10ML SYR (RAD ONLY) 10 ML IV (12:41)
[2023-12-23 12:43] LABS: Appearance,Urine CLEAR (Clear); Blood, Urine TRACE-I (Negative); Color,Urine DARK YELLOW (Yellow); Glucose,Urine (UA) Negative (Negative); Ketones,Urine Negative (Negative); Leukocyte Esterase,Urine Negative (Negative); Nitrate,Urine Negative (Negative); Protein,Urine 1+ (Negative); Urobilinogen,Urine 0.2 EU/dl (0.2)
[2023-12-23 12:47] LABS: Bilirubin,Urine Negative (Negative)
[2023-12-23 12:57] LABS: Barbiturates Screen,Urine Negative ng/ml (<200)
[2023-12-23 12:58] LABS: Benzodiazepines Screen,Urine Negative ng/ml (<200)
[2023-12-23 12:59] LABS: Amphetamine/Metha Screen,Urine Negative ng/ml (<1000); Cannabinoid Screen,Urine Negative ng/ml (<50)
[2023-12-23 13:00] LABS: Cocaine Screen,Urine Negative ng/ml (<300); Methadone Screen,Urine Negative ng/ml (<300)
[2023-12-23 13:01] LABS: Opiate Screen,Urine Negative ng/ml (<300)
[2023-12-23 13:02] LABS: Phencyclidine Screen,Urine Negative ng/ml (<25)
--- NOTE | 2023-12-23 13:22 | PC.NURSE ---
Spoke with Tari to [employer] [facility] to [facility]
--- NOTE | 2023-12-23 13:28 | PC.NURSE ---
CALLED [facility] FOR TRANSFER FOR UROLOGY, TRANSFER CENTER STATES MD'S ARE DOING SHIFT CHANGE AT THIS TIME AND WILL CALL BACK
--- NOTE | 2023-12-23 13:34 | HMH.PHAINT1 ---
Pharmacy Intervention Comments: MEDICATION RECONCILIATION COMPLETED ON PATIENT USING EXTERNAL FILL HISTORY FROM PHARMACY AND LIST FROM PCP/CARDIOLOGY OFFICES. -CARMINE GUZMÁN, KIMBERLID
--- NOTE | 2023-12-23 13:36 | PC.NURSE ---
SPEAKING WITH IN UROLOGY
[2023-12-23 13:52] LABS: HIV (1&2) Antibody Rapid NONREACTIVE (NONREACTIVE)
[2023-12-23] MEDS: CEFEPIME HCL 2 GM in 0.9 % SODIUM CHLORIDE 100 ML IV (13:56)
[2023-12-23] MEDS: FOLIC ACID 1MG TABLET 1 MG PO (13:57)
[2023-12-23] MEDS: THIAMINE 100MG TABLET 100 MG PO (13:58)
[2023-12-23] MEDS: MULTIVITAMIN TABLET 1 EACH PO (13:59)
--- NOTE | 2023-12-23 13:59 | PC.NURSE ---
on phone with st dwaine SANTANA
--- NOTE | 2023-12-23 14:07 | PC.NURSE ---
pt has drank a total of 960 ml of water
[2023-12-23 14:08] LABS: Bacteria,Urine 1+ /lpf
--- NOTE | 2023-12-23 14:40 | PC.NURSE ---
called for tray at this time.
--- NOTE | 2023-12-23 14:54 | PC.NURSE ---
calling kev at this time.
[2023-12-23 14:57] LABS: Troponin I < 0.01 ng/ml (0.00-0.034)
--- NOTE | 2023-12-23 15:00 | PC.NURSE ---
Dr. Mccray speaking with [facility] at this time.
--- NOTE | 2023-12-23 15:00 | PC.NURSE ---
Facesheet faxed to
--- NOTE | 2023-12-23 15:09 | PC.NURSE ---
Dr. Mccray reports and [facility] urology state that the pt does not need to be transferred and decline.
--- NOTE | 2023-12-23 15:27 | P.HP_ITS ---
History of Present Illness *Admission Date: 12/23/23 *Reason for visit:: weakness *History of present illness: 53-year-old male with history of hypertension, hyperlipidemia, CAD, diabetes, daily alcohol use. Presented to the ER with complaint of lightheadedness, nausea, poor appetite. States has been vomiting for the past few days. Having some loose stools. Denies any blood in his vomit or stool. No chest pain or shortness of breath. No syncope. Blood pressure low with systolics in the 70s to 80s on arrival to the ER. Alert and oriented x 3 with GCS 15. He stopped drinking 3 to 4 days ago. Workup in the ER concerning for UTI with LIZETH and possible obstruction of collecting system on the left side with mild hydronephrosis. Attempts were made to transfer patient but unsuccessful at this time. Patient initiated on cefepime for UTI. Given his current symptoms, medicine consulted for admission and further management. On arrival to the floor, patient reports he typically drinks a pint of liquor a day. Last drink was 3 days ago. He is feeling better after getting fluids in the ER. Systolic blood pressure 103 on evaluation. Able to stand without being dizzy. Denies any flank pain or dysuria. Feeling better from his nausea, wanting to try to eat. Afebrile and on room air. [facility] Disclaimer: The information contained in this section may have been updated after the patient was seen, as this information can be updated by other users. 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 Tachycardia Ulnar nerve neuropathy Helicobacter pylori (H. pylori) Cellulitis of left elbow Carpal tunnel syndrome on left Near syncope Depression Dyspnea Diabetes mellitus Hypertension Surgical History History of esophagogastroduodenoscopy History of cardiac cath History of colonoscopy History of elbow surgery Family History Other Alcoholism Cancer Diabetes Heart attack Social History Smoking Status: Current every day smoker tobacco type: cigarettes packs per day: 1 second hand exposure: Yes alcohol intake: current alcohol intake frequency: 0-2 drinks per day counseling provided: none substance use type: denies use current occupational status: other Travel in the last 8 weeks: None household members: none housing: house lives independently: Yes marital status: current occupation: [employer] current occupational exposures/hazards: No caffeine: Yes Other 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 Have you received the Flu Vaccine for this season: No Have you received the Pneumonia Vaccine: No Review of Systems Review of Systems Review of systems (narrative): 14 point review of systems performed, pertinent positives and negatives as per HPI Meds Home Medications and Allergies Home Medications ?Medication ?Instructions ?Recorded ?Confirmed ?Type aspirin 81 mg tablet,delayed 81 mg PO DAILY 08/20/18 12/23/23 History release (Adult Low Dose Aspirin) blood-glucose meter (ReliOn Micro #1 ea 10/02/22 12/23/23 Rx Glucose Monitor kit) tadalafil 10 mg tablet 10 mg PO DAILY PRN sexual activity 06/15/23 12/23/23 Rx #30 tabs nicotine 21 mg/24 hr daily 21 mg transdermal DAILYP PRN 06/22/23 12/23/23 Rx transdermal patch Nicotine Cravings 28 days #28 ea pen needle, diabetic, safety 31 #100 ea 06/22/23 12/23/23 Rx gauge x 3/16 blood-glucose meter,continuous #3 ea 07/24/23 12/23/23 Rx (Dexcom G7 Mule Rider) blood-glucose sensor (Dexcom G7 #3 ea 07/24/23 12/23/23 Rx Sensor device) cariprazine 3 mg capsule (Vraylar) 6 mg (2 x 3 mg) PO DAILY 90 days 09/18/23 12/23/23 Rx #180 caps cholecalciferol (vitamin D3) 125 125 mcg PO DAILY 90 days #90 caps 09/18/23 12/23/23 Rx mcg (5,000 unit) capsule clopidogrel 75 mg tablet (Plavix) 75 mg PO DAILY 90 days #90 tabs 09/18/23 12/23/23 Rx empagliflozin 25 mg tablet 25 mg PO DAILY 90 days #90 tabs 09/18/23 12/23/23 Rx (Jardiance) magnesium oxide 400 mg (241.3 mg 400 mg PO DAILY #90 tabs 09/18/23 12/23/23 Rx magnesium) tablet metformin 1,000 mg tablet 1,000 mg PO BID 90 days #180 tabs 07/09/24 10/13/24 Rx rosuvastatin 40 mg tablet 40 mg PO DAILY 90 days #90 tabs 09/18/23 12/23/23 Rx thiamine HCl (vitamin B1) 250 mg 250 mg PO DAILY 90 days #90 tabs 09/18/23 12/23/23 Rx tablet chlorthalidone 25 mg tablet 25 mg PO DAILY #30 tabs 10/31/23 12/23/23 Rx potassium chloride 10 mEq 10 meq PO DAILY #30 caps 10/31/23 12/23/23 Rx capsule,extended release ezetimibe 10 mg tablet 10 mg PO DAILY #30 tabs 11/27/23 12/23/23 Rx lisinopril 20 mg tablet 20 mg PO DAILY #90 tabs 12/04/23 12/23/23 Rx metoprolol succinate 25 mg 25 mg PO DAILY #90 tabs 12/04/23 12/23/23 Rx tablet,extended release 24 hr gabapentin 600 mg tablet 600 mg PO TID #90 tabs 12/11/23 12/23/23 Rx insulin glargine 100 unit/mL (3 27 unit (0.27 mL) SQ BID 90 days 12/11/23 12/23/23 Rx mL) subcutaneous pen (Lantus #48.6 mL Solostar U-100 Insulin) escitalopram oxalate 20 mg tablet 20 mg PO DAILY 12/23/23 12/23/23 History New Prescriptions to Start Prescriptions: Allergies Allergy/AdvReac Type Severity Reaction Status Date / Time adhesive Allergy Mild Verified 12/20/23 14:58 Exam Data for Last 24 hours Vital signs and Labs for Last 24 Hours: Temp Pulse Resp BP Pulse Ox O2 Del Method 98.9 F 90 14 105/65 L 99 Room Air 12/23/23 11:09 12/23/23 14:40 12/23/23 14:40 12/23/23 14:40 12/23/23 14:40 12/23/23 14:40 Laboratory Results - last 24 hr 12/23/23 11:20: WBC 11.3 H, RBC 4.92, Hgb 16.6, Hct 49.9, MCV 101.5 H, MCH 33.7 H, MCHC 33.1, RDW 14.4, Plt Count 318, MPV 7.4, Neut % (Auto) 65.3, Lymph % (Auto) 23.5, Reeves % (Auto) 9.5 H, Eos % (Auto) 0.8, Baso % (Auto) 1.0, Neut # (Auto) 7.3, Lymph # (Auto) 2.6, Reeves # (Auto) 1.1 H, Eos # (Auto) 0.1, Baso # (Auto) 0.1, PT 11.3, INR 1.01, APTT 27.6, D-Dimer 0.26, Sodium 130 L, Potassium 5.1, Chloride 100, Carbon Dioxide 19 L, Anion Gap 16.1 H, BUN 37 H, Creatinine 2.40 H, Estimated Creat Clear 55, Estimated GFR 29 L, Est GFR ( Amer) 35 L, Glucose 188 H, Lactate 1.8, Calcium 10.7 H, Phosphorus 5.0 H, Magnesium 1.6, Total Bilirubin 1.4 H, AST 117 H, ALT 51, Alkaline Phosphatase 67, Troponin I < 0.01, NT-Pro-B Natriuret Pep 123, Total Protein 8.4 H, Albumin 4.6, Globulin 3.8 H, Albumin/Globulin Ratio 1.2, Lipase 321 H, TSH 4.89 H, Thyroxine (T4) 7.1, HIV 1&2 Antibody Rapid Nonreactive 12/23/23 11:21: VBG pH 7.42 H, VBG pCO2 33.4 L, VBG pO2 84.3 H, VBG HCO3 21.4 L, VBG Total CO2 22.4 L, VBG O2 Saturation 96.5 H, VBG Base Excess -1.9, VBG Lactic Acid 2.5 H 12/23/23 12:35: Urine Opiates Screen Negative, Urine Methadone Screen Negative, Ur Barbituates Screen Negative, Ur Phencyclidine Scrn Negative, Ur Amphetamines Screen Negative, U Benzodiazepines Scrn Negative, Urine Cocaine Screen Negative, U Marijuana (THC) Screen Negative 12/23/23 12:37: Urine Color Dark yellow, Urine Appearance Clear, Urine pH 6.0, Ur Specific [place] 1.020, Urine Protein 1+ A, Urine Glucose (UA) Negative, Urine Ketones Negative, Urine Blood Trace-i, Urine Nitrate Negative, Urine Bilirubin Negative, Urine Urobilinogen 0.2, Ur Leukocyte Esterase Negative, Urine RBC None, Urine WBC 5-10, Ur Squamous Epith Cells 5-10, Urine Bacteria 1+ 12/23/23 14:30: Troponin I < 0.01 I & O for Last 24 hours: Intake & Output 12/20/23 12/21/23 12/22/23 12/23/23 23:59 23:59 23:59 23:59 Intake Total 3060 / 3060 Balance 3060 / 3060 Weight 106.141 kg Constitutional Constitutional: no acute distress, obese, chronically ill appearing and cooperative *Routine HEENT Exam Head: Present normocephalic Eye: Present EOMI and PERRL ENT: Present mucous membranes moist *Routine Neck Exam Neck: Present supple; Absent lymphadenopathy *Routine Respiratory Exam Respiratory: Present CTA bilaterally; Absent rhonchi, wheezes or crackles *Routine Cardiovascular Exam Cardiovascular: Present RRR *Routine Abdominal Exam Abdominal: Present soft and normoactive bowel sounds; Absent tenderness *Routine Rectal Exam Rectal:: deferred *Routine Genitalia Exam Genitalia:: deferred *Routine Extremities Exam Extremities: Absent cyanosis, clubbing or edema Comments: Surgical bandage on right upper medial thigh. Minimal blood from I&D. No significant erythema Routine Back/Spine/Pelvis Exam Back/Spine: Absent CVA tenderness *Routine Skin Exam Skin: Present warm and wounds (Right upper thigh, postsurgical.); Absent rash *Routine Neurological Exam Neurological: Present alert, oriented X3 and moving all extremities; Absent altered mental status Assessment and Plan *Assessment and plan (1) Acute UTI: Status: Acute Category: Medical Code(s): N39.0 - Urinary tract infection, site not specified (2) Hematuria: Status: Acute Category: Medical Code(s): R31.9 - Hematuria, unspecified (3) LIZETH (acute kidney injury): Status: Acute Category: Medical Code(s): N17.9 - Acute kidney failure, unspecified (4) Dehydration: Status: Acute Category: Medical Code(s): E86.0 - Dehydration (5) Hyponatremia: Status: Acute Category: Medical Code(s): E87.1 - Hypo-osmolality and hyponatremia (6) Dilatation of left ureter: Status: Acute Category: Medical Code(s): N28.82 - Megaloureter (7) Diabetic peripheral neuropathy: Status: Acute Category: Medical Code(s): E11.42 - Type 2 diabetes mellitus with diabetic polyneuropathy (8) Alcohol use disorder: Problem Comment: Continue thiamine 100 mg p.o. daily and consider counseling Status: Chronic Category: Medical Code(s): F10.90 - Alcohol use, unspecified, uncomplicated (9) Diabetes mellitus type 2 in obese: Status: Chronic Category: Medical Code(s): E11.69 - Type 2 diabetes mellitus with other specified complication; E66.9 - Obesity, unspecified (10) Major depressive disorder: Status: Chronic Qualifiers: Active/Remission status: currently active Major depression episode severity: moderate Major depression recurrence: recurrent Qualified Code(s): F33.1 - Major depressive disorder, recurrent, moderate Category: Medical Code(s): F32.9 - Major depressive disorder, single episode, unspecified (11) CAD (coronary artery disease): Status: Chronic Qualifiers: Associated angina: without angina Coronary Disease-Associated A rtery/Lesion type: [place] artery [place] vs. transplanted heart: [place] heart Qualified Code(s): I25.10 - Atherosclerotic heart disease of [place] coronary artery without angina pectoris Category: Medical Code(s): I25.10 - Atherosclerotic heart disease of [place] coronary artery without angina pectoris (12) MEÑO (obstructive sleep apnea): Status: Chronic Category: Medical Code(s): G47.33 - Obstructive sleep apnea (adult) (pediatric) (13) Hypertension: Status: Chronic Qualifiers: Hypertension type: essential hypertension Qualified Code(s): I10 - Essential (primary) hypertension Category: Medical Code(s): I10 - Essential (primary) hypertension Plan 53-year-old male with history of diabetes, alcohol use disorder, hypertension. Presented to the ER with weakness. Concern for LIZETH, UTI, dehydration. Discussed case with ER physician, request admission for further treatment with antibiotics and IV fluids. I agreed to admit for further management. Problems addressed as follows: UTI LIZETH Hydronephrosis -Per my review of CT abdomen pelvis, mild hydronephrosis on the left side. No lorenzo stones. Does not have any perinephric stranding. -Urinalysis grossly abnormal with 5-10 white cells and 1+ bacteria. Initiated on cefepime 2 g in the ER. Continue IV every 12 hours -White count marginally elevated 11.3. Afebrile. Repeat CBC, CMP, magnesium ordered for the morning. -Kidney function abnormal with BUN 37, creatinine 2.4. Baseline less than 1. Repeat BMP ordered for this evening. -Electrolytes normal with potassium 5.1, phosphorus 5.0, magnesium 1.6 and calcium 10.7. -Accepted to [place] [facility] for transfer, if kidney function improving on repeat labs, in light of negative CVA tenderness and making urine/voiding independently, would recommend continued treatment at our facility for UTI with outpatient referral to urology. Patient agreeable to this plan Status post fluid resuscitation in the ER. Will administer another liter of normal saline at 250 cc an hour for 4 hours. Blood pressure showing improvement. No shock. Alcohol abuse disorder: Last drink 3 days ago. No active signs of withdrawal. Will monitor on CIWA scale for now. If has withdrawal symptoms, Valium ordered per protocol Diabetes: A1c pending, continue insulin glargine 20 units nightly. Glucose elevated at 188 on presentation. Continue sliding scale with fingersticks ACHS Hypertension: Hold lisinopril, chlorthalidone, prelaw for today due to h ypotension. Will consider resuming metoprolol morning if blood pressure normalizes Tobacco use disorder: Nicotine patch 21 mg daily Diabetic neuropathy: Continue gabapentin 600 mg 3 times a day CAD: Continue aspirin 81 mg daily and Plavix 5 mg daily Mood disorder: Continue cariprazine 3 mg daily Full code Patient mobile, holding anticoagulation Diabetic diet
[2023-12-23 15:36] LABS: Reflex Lactic Add Lactic Reflex
--- NOTE | 2023-12-23 15:42 | PC.NURSE ---
Report called to Kamla MEYERS
--- NOTE | 2023-12-23 16:00 | PC.NURSE ---
arrived by w/c from ED
[2023-12-23 16:34] LABS: Hemoglobin A1C 7.5 % (4.0-6.0)
[2023-12-23] MEDS: humaLOG 100 UNITS/ML 10ML VIAL (SSI) SQ ×2 (16:42→21:47)
[2023-12-23 16:44] LABS: Lactic Acid Follow Up (RFLX 1) 3.2 mmol/L (0.7-2.1)
[2023-12-23 16:45] LABS: POC Glucose,Bedside 338 (70-110)
--- NOTE | 2023-12-23 17:14 | PC.NURSE ---
pt arrived to the floor with the diagnosis of septic shock. given 2L bolus in ER and has been encouraged to increase PO intake of water since being on the floor. lung sounds clear, bowel sounds active. a&ox4. pt reports drinking 1 pt of liquor a day, but last drink was 2 days ago. seizure precautions in place. last CIWA was 1. pt has had an appetite and tolerated dinner well. bp has been soft since being on the floor. bp given in report was 103/55 and last recorded was 103/73. no complaints of n/v/d since admission. pt appears to be slightly diaphoretic. no complaints at this time. call light is within reach. bed in low and locked position.
[2023-12-23] MEDS: NICOTINE 21MG/24HR PATCH 21 MG TD (17:22)
[2023-12-23 18:32] LABS: Reflex Lactic (2 hrs) Add Lactic Reflex
[2023-12-23 18:33] LABS: Chloride 95 mmol/L (98-107)
[2023-12-23 18:34] LABS: Potassium 4.5 mmoL/L (3.5-5.1); Sodium 124 mmol/L (136-145)
--- NOTE | 2023-12-23 18:35 | PC.NURSE ---
Spoke with Dr. Cole regarding pts hypotension. .stated he was comfortable with MAP >60 as long as pt is asymptomatic.
[2023-12-23 18:36] LABS: Blood Urea Nitrogen 38 mg/dl (9-20); Creatinine Clearance Estimated 60 mL/min (50-200); Estimated Glomerular Filt Rate 32 ml/min (>60); GFR (African American) 38 ML/MIN (>60)
[2023-12-23 18:37] LABS: Anion Gap 12.5 mEq/L (5-15); Calcium 9.2 mg/dl (8.4-10.2); Carbon Dioxide 21 mmol/L (22.0-30.0); Glucose 323 mg/dl (74-100)
[2023-12-23 18:55] LABS: Troponin I < 0.01 ng/ml (0.00-0.034)
[2023-12-23 18:55] LABS: Lactic Acid Follow up (RFLX 2) 2.7 mmol/L (0.7-2.1)
[2023-12-23] MEDS: 0.9 % SODIUM CHLORIDE 1000ML 1,000 ML 250 ML IV (19:45)
[2023-12-23] MEDS: GABAPENTIN 600MG TABLET 600 MG PO (21:35)
[2023-12-23] MEDS: INSULIN GLARGINE 100 UNITS/ML 3ML FLEXPEN 20 UNIT SQ (21:48)
[2023-12-23 22:03] LABS: POC Glucose,Bedside 164 (70-110)
[2023-12-24] VITALS: BP 97/58; PULSE 87; RESP 17; TEMP 36.7; O2SAT 97
[2023-12-24] MEDS: CEFEPIME HCL 2 GM in 0.9 % SODIUM CHLORIDE 100 ML IV ×2 (00:50→12:30)
[2023-12-24 04:00] VITALS: BP 88/62; PULSE 84; RESP 17; TEMP 36.6; O2SAT 95; BMI 33.0
--- NOTE | 2023-12-24 05:19 | PC.NURSE ---
Patient is alert and oriented x4. CIWA scores have been taken every 4 hours this shift for alcohol withdrawal precautions; patient has been scoring zero each time thus far. Seizure pads are in place per protocol. Patient denied any significant perspiration, but subtle beads of sweat were occasionally noticed on his forehead by staff. Patient was observed to have eyes closed, respirations even and unlabored on room air, and no apparent distress throughout the night. Patient has overall been pleasant this shift and did not express any withdrawal concerns. Vital signs have remained relatively stable this shift; however, blood pressures continue to be hypotensive, but MAPs have remained > 60 (cleared with MD) and patient has been asymptomatic. No reports of dizziness or lightheadedness were made by patient. Upon auscultation, patient's lung sounds were clear, S1/S2 heart sounds could be heard, and bowel sounds were active. Patient has been ambulating to the bathroom with supervision and tolerates it well. Patient received his scheduled medications per MAR this shift, including a bolus of normal saline, IV antibiotics, and insulin coverage. At this time, patient is resting on his right side in bed. Patient does not have any further complaints. No acute changes noted thus far. Call light within reach.
[2023-12-24] MEDS: humaLOG 100 UNITS/ML 10ML VIAL (SSI) SQ ×2 (06:01→11:11)
[2023-12-24 06:03] LABS: POC Glucose,Bedside 157 (70-110)
[2023-12-24 06:55] LABS: Basophils # 0.1 K/mm3 (0-0.2); Basophils % 1.3 % (0.1-2.0); Eosinophils # 0.1 K/mm3 (0.0-0.4); Eosinophils % 1.9 % (0.1-12.0); Hematocrit 40.2 % (42.0-52.0); Lymphocytes # 2.3 K/mm3 (0.7-4.5); Lymphocytes % 38.2 % (10-50); Mean Corpuscular HGB Conc 34.9 g/dL (31.8-35.4); Mean Corpuscular Hemoglobin 35.6 pg (27.0-31.2); Mean Corpuscular Volume 101.8 fl (80-94); Mean Platelet Volume 7.3 fl (7.4-10.4); Monocytes # 0.4 K/mm3 (0.1-1.0); Neutrophils # 3.1 K/mm3 (1.8-7.8); Neutrophils % 51.6 % (37.0-80.0); Platelet Count 172 K/mm3 (142-424); Red Blood Count 3.95 M/mm3 (4.60-6.20); Red Cell Distribution Width 14.5 % (11.5-17.5)
[2023-12-24 06:56] LABS: Albumin Level 3.4 g/dl (3.5-5.0); Chloride 102 mmol/L (98-107); Potassium 4.7 mmoL/L (3.5-5.1); Sodium 129 mmol/L (136-145)
[2023-12-24 06:58] LABS: Alanine Aminotransferase 37 U/L (12-78); Aspartate Amino Transferase 54 U/L (17-59); Blood Urea Nitrogen 36 mg/dl (9-20); Creatinine Clearance Estimated 70 mL/min (50-200); Estimated Glomerular Filt Rate 38 ml/min (>60); GFR (African American) 45 ML/MIN (>60)
[2023-12-24 06:59] LABS: Albumin/Globulin Ratio 1.1 (1.1-1.8); Alkaline Phosphatase 64 U/L (38-126); Anion Gap 7.7 mEq/L (5-15); Bilirubin,Total 0.8 mg/dl (0.2-1.3); Calcium 8.8 mg/dl (8.4-10.2); Carbon Dioxide 24 mmol/L (22.0-30.0); Glucose 158 mg/dl (74-100); Magnesium 1.8 mg/dl (1.6-2.3); Total Protein,Serum 6.4 g/dl (6.3-8.2)
[2023-12-24 07:33] VITALS: BP 95/51; PULSE 92; RESP 15; TEMP 36.4; O2SAT 96
--- NOTE | 2023-12-24 08:29 | P.DS_ITS ---
General Admission date:: 12/23/23 Discharge date: 12/24/23 HPI HPI HPI: 53-year-old male with history of hypertension, hyperlipidemia, CAD, diabetes, daily alcohol use. Presented to the ER with complaint of lightheadedness, nausea, poor appetite. States has been vomiting for the past few days. Having some loose stools. Denies any blood in his vomit or stool. No chest pain or shortness of breath. No syncope. Blood pressure low with systolics in the 70s to 80s on arrival to the ER. Alert and oriented x 3 with GCS 15. He stopped drinking 3 to 4 days ago. Workup in the ER concerning for UTI with LIZETH and possible obstruction of collecting system on the left side with mild hydronephrosis. Attempts were made to transfer patient but unsuccessful at this time. Patient initiated on cefepime for UTI. Given his current symptoms, medicine consulted for admission and further management. On arrival to the floor, patient reports he typically drinks a pint of liquor a day. Last drink was 3 days ago. He is feeling better after getting fluids in the ER. Systolic blood pressure 103 on evaluation. Able to stand without being dizzy. Denies any flank pain or dysuria. Feeling better from his nausea, wanting to try to eat. Afebrile and on room air. Hospital Course Hospital Course Hospital Course: 53-year-old male with history of diabetes, alcohol use disorder, hypertension. Presented to the ER with weakness. Concern for LIZETH, UTI, dehydration. Discussed case with ER physician, request admission for further treatment with antibiotics and IV fluids. I agreed to admit for further management. Patient did well overnight. Improvement in kidney function. Making adequate urine. No flank pain or signs of obstructive pathology on exam to match CT findings. Stable to discharge home with further management as an outpatient. Problems addressed as follows: UTI LIZETH Hydronephrosis -Per my review of CT abdomen pelvis, mild hydronephrosis on the left side. No lorenzo stones. Does not have any perinephric stranding. Urinalysis grossly abnormal with 5-10 white cells and 1+ bacteria. Initiated on cefepime 2 g in the ER. Antibiotics were transitioned to levofloxacin for ease of dosing at discharge. White count improved from 11.3-6.0. Patient remained afebrile. Had no CVA tenderness on exam. Would benefit from outpatient referral to urology to further evaluate and follow-up if patient has recurrent symptoms. Kidney function abnormal at time of admission with BUN of 37, creatinine of 2.4. Improving by morning with serial labs and both p.o. and IV hydration. BUN 36, creatinine 1.9. Baseline for patient has a creatinine of approximately 1. Would benefit from repeat labs in 3 to 4 days to monitor for stability and improvement in kidney function and electrolytes. Given patient's improvement, lack of clinical signs of obstruction or pyelonephritis, stable to discharge esteban e with further management as an outpatient. Do not believe patient needs transfer at this time in light of exam and clinical improvement with antibiotics. Alcohol abuse disorder: Last drink 3 days prior to admission. No withdrawal symptoms during admission. Monitored with [facility] protocol. Diabetes: A1c 7.5. Continue his home insulin and diabetic medication regimen at discharge. Hypertension: Blood pressure actually soft during admission. Asymptomatic. No dizziness after fluid resuscitation. Recommend holding his lisinopril and chlorthalidone at discharge. Reevaluate resuming medications at follow-up with PCP if blood pressure is improved. Okay to continue metoprolol. Tobacco use disorder: Nicotine patch 21 mg daily Diabetic neuropathy: Continue gabapentin 600 mg 3 times a day CAD: Continue aspirin 81 mg daily and Plavix 5 mg daily Mood disorder: Continue cariprazine 3 mg daily Total time spent on discharge 35 minutes in counseling, documentation, chart review, and direct care with patient. Exam Data for Last 24 hours Vital signs and Labs for Last 24 Hours: Temp Pulse Resp BP Pulse Ox O2 Del Method 97.6 F 92 H 15 95/51 L 96 Room Air 12/24/23 07:33 12/24/23 07:33 12/24/23 07:33 12/24/23 07:33 12/24/23 07:33 12/24/23 07:33 Laboratory Results - last 24 hr 12/23/23 11:20: WBC 11.3 H, RBC 4.92, Hgb 16.6, Hct 49.9, MCV 101.5 H, MCH 33.7 H, MCHC 33.1, RDW 14.4, Plt Count 318, MPV 7.4, Neut % (Auto) 65.3, Lymph % (Auto) 23.5, [place] % (Auto) 9.5 H, Eos % (Auto) 0.8, Baso % (Auto) 1.0, Neut # (Auto) 7.3, Lymph # (Auto) 2.6, [place] # (Auto) 1.1 H, Eos # (Auto) 0.1, Baso # (Auto) 0.1, PT 11.3, INR 1.01, APTT 27.6, D-Dimer 0.26, Sodium 130 L, Potassium 5.1, Chloride 100, Carbon Dioxide 19 L, Anion Gap 16.1 H, BUN 37 H, Creatinine 2.40 H, Estimated Creat Clear 55, Estimated GFR 29 L, Est GFR ( Amer) 35 L, Glucose 188 H, Hemoglobin A1c 7.5 H, Lactate 1.8, Calcium 10.7 H, Phosphorus 5.0 H, Magnesium 1.6, Total Bilirubin 1.4 H, AST 117 H, ALT 51, Alkaline Phosphatase 67, Troponin I < 0.01, NT-Pro-B Natriuret Pep 123, Total Protein 8.4 H, Albumin 4.6, Globulin 3.8 H, Albumin/Globulin Ratio 1.2, Lipase 321 H, TSH 4.89 H, Thyroxine (T4) 7.1, HIV 1&2 Antibody Rapid Nonreactive 12/23/23 11:21: VBG pH 7.42 H, VBG pCO2 33.4 L, VBG pO2 84.3 H, VBG HCO3 21.4 L, VBG Total CO2 22.4 L, VBG O2 Saturation 96.5 H, VBG Base Excess -1.9, VBG Lactic Acid 2.5 H 12/23/23 12:35: Urine Opiates Screen Negative, Urine Methadone Screen Negative, Ur Barbituates Screen Negative, Ur Phencyclidine Scrn Negative, Ur Amphetamines Screen Negative, U Benzodiazepines Scrn Negative, Urine Cocaine Screen Negative, U Marijuana (THC) Screen Negative 12/23/23 12:37: Urine Color Dark yellow, Urine Appearance Clear, Urine pH 6.0, Ur Specific Mar Lin 1.020, Urine Protein 1+ A, Urine Glucose (UA) Negative, Urine Ketones Negative, Urine Blood Trace-i, Urine Nitrate Negative, Urine Bilirubin Negative, Urine Urobilinogen 0.2, Ur Leukocyte Esterase Negative, Urine RBC None, Urine WBC 5-10, Ur Squamous Epith Cells 5-10, Urine Bacteria 1+ 12/23/23 14:30: Troponin I < 0.01 12/23/23 16:15: Lactate 3.2 H 12/23/23 16:36: POC Glucose 338 H* 12/23/23 17:45: Sodium 124 L, Potassium 4.5, Chloride 95 L, Carbon Dioxide 21 L, Anion Gap 12.5, BUN 38 H, Creatinine 2.20 H, Estimated Creat Clear 60, Estimated GFR 32 L, Est GFR ( Amer) 38 L, Glucose 323 H D, Calcium 9.2, Troponin I < 0.01 12/23/23 18:00: Lactate 2.7 H 12/23/23 21:39: POC Glucose 164 H 12/24/23 05:55: POC Glucose 157 H 12/24/23 06:21: WBC 6.0 D, RBC 3.95 L, Hgb 14.0 L D, Hct 40.2 L, MCV 101.8 H, MCH 35.6 H, MCHC 34.9, RDW 14.5, Plt Count 172 D, MPV 7.3 L, Neut % (Auto) 51.6, Lymph % (Auto) 38.2, [place] % (Auto) 7.0, Eos % (Auto) 1.9, Baso % (Auto) 1.3, Neut # (Auto) 3.1, Lymph # (Auto) 2.3, [place] # (Auto) 0.4, Eos # (Auto) 0.1, Baso # (Auto) 0.1, Sodium 129 L, Potassium 4.7, Chloride 102, Carbon Dioxide 24, Anion Gap 7.7, BUN 36 H, Creatinine 1.90 H, Estimated Creat Clear 70, Estimated GFR 38 L, Est GFR ( Amer) 45 L, Glucose 158 H D, Calcium 8.8, Magnesium 1.8 D, Total Bilirubin 0.8, AST 54 D, ALT 37 D, Alkaline Phosphatase 64, Total Protein 6.4, Albumin 3.4 L D, Globulin 3.0, Albumin/Globulin Ratio 1.1 I & O for Last 24 hours: Intake & Output 12/21/23 12/22/23 12/23/23 12/24/23 23:59 23:59 23:59 23:59 Intake Total 3060 / 4260 1560 / 1560 Output Total 0 / 0 0 / 0 Balance 3060 / 4260 1560 / 1560 Weight 107.501 kg 107.048 kg Constitutional Constitutional: no acute distress, obese, chronically ill appearing and cooperative *Routine HEENT Exam Head: Present normocephalic Eye: Present EOMI and PERRL ENT: Present mucous membranes moist *Routine Neck Exam Neck: Present supple; Absent lymphadenopathy *Routine Respiratory Exam Respiratory: Present CTA bilaterally; Absent rhonchi, wheezes or crackles *Routine Cardiovascular Exam Cardiovascular: Present RRR *Routine Abdominal Exam Abdominal: Present soft and normoactive bowel sounds; Absent tenderness *Routine Rectal Exam Patient deferred: visual exam *Routine Exam Patient deferred: penile exam *Routine Extremities Exam Extremities: Absent cyanosis, clubbing or edema Routine Back/Spine/Pelvis Exam Back/Spine: Absent CVA tenderness *Routine Skin Exam Skin: Present intact and warm; Absent rash *Routine Neurological Exam Neurological: Present alert, oriented X3, sensory deficit (BLE) and moving all extremities; Absent altered mental status Results Data Completed and Pending Labs on day of discharge: Labs from last 24 hours 12/24/23 12/24/23 12/23/23 06:21 05:55 21:39 WBC 6.0 D RBC 3.95 L Hgb 14.0 L D Hct 40.2 L MCV 101.8 H MCH 35.6 H MCHC 34.9 RDW 14.5 Plt Count 172 D MPV 7.3 L Neut % (Auto) 51.6 Lymph % (Auto) 38.2 [place] % (Auto) 7.0 Eos % (Auto) 1.9 Baso % (Auto) 1.3 Neut # (Auto) 3.1 Lymph # (Auto) 2.3 [place] # (Auto) 0.4 Eos # (Auto) 0.1 Baso # (Auto) 0.1 PT INR APTT D-Dimer VBG pH VBG pCO2 VBG pO2 VBG HCO3 VBG Total CO2 VBG O2 Saturation VBG Base Excess VBG Lactic Acid Sodium 129 L Potassium 4.7 Chloride 102 Carbon Dioxide 24 Anion Gap 7.7 BUN 36 H Creatinine 1.90 H Estimated Creat Clear 70 Estimated GFR 38 L Est GFR ( Amer) 45 L Glucose 158 H D POC Glucose 157 H 164 H Hemoglobin A1c Lactate Calcium 8.8 Phosphorus Magnesium 1.8 D Total Bilirubin 0.8 AST 54 D ALT 37 D Alkaline Phosphatase 64 Troponin I NT-Pro-B Natriuret Pep Total Protein 6.4 Albumin 3.4 L D Globulin 3.0 Albumin/Globulin Ratio 1.1 Lipase TSH Thyroxine (T4) Urine Color Urine Appearance Urine pH Ur Specific Mar Lin Urine Protein Urine Glucose (UA) Urine Ketones Urine Blood Urine Nitrate Urine Bilirubin Urine Urobilinogen Ur Leukocyte Esterase Urine RBC Urine WBC Ur Squamous Epith Cells Urine Bacteria Urine Opiates Screen Urine Methadone Screen Ur Barbituates Screen Ur Phencyclidine Scrn Ur Amphetamines Screen U Benzodiazepines Scrn Urine Cocaine Screen U Marijuana (THC) Screen HIV 1&2 Antibody Rapid 12/23/23 12/23/23 12/23/23 18:00 17:45 16:36 WBC RBC Hgb Hct MCV MCH MCHC RDW Plt Count MPV Neut % (Auto) Lymph % (Auto) [place] % (Auto) Eos % (Auto) Baso % (Auto) Neut # (Auto) Lymph # (Auto) [place] # (Auto) Eos # (Auto) Baso # (Auto) PT INR APTT D-Dimer VBG pH VBG pCO2 VBG pO2 VBG HCO3 VBG Total CO2 VBG O2 Saturation VBG Base Excess VBG Lactic Acid Sodium 124 L Potassium 4.5 Chloride 95 L Carbon Dioxide 21 L Anion Gap 12.5 BUN 38 H Creatinine 2.20 H Estimated Creat Clear 60 Estimated GFR 32 L Est GFR ( Amer) 38 L Glucose 323 H D POC Glucose 338 H* Hemoglobin A1c Lactate 2.7 H Calcium 9.2 Phosphorus Magnesium Total Bilirubin AST ALT Alkaline Phosphatase Troponin I < 0.01 NT-Pro-B Natriuret Pep Total Protein Albumin Globulin Albumin/Globulin Ratio Lipase TSH Thyroxine (T4) Urine Color Urine Appearance Urine pH Ur Specific Mar Lin Urine Protein Urine Glucose (UA) Urine Ketones Urine Blood Urine Nitrate Urine Bilirubin Urine Urobilinogen Ur Leukocyte Esterase Urine RBC Urine WBC Ur Squamous Epith Cells Urine Bacteria Urine Opiates Screen Urine Methadone Screen Ur Barbituates Screen Ur Phencyclidine Scrn Ur Amphetamines Screen U Benzodiazepines Scrn Urine Cocaine Screen U Marijuana (THC) Screen HIV 1&2 Antibody Rapid 12/23/23 12/23/23 12/23/23 16:15 14:30 12:37 WBC RBC Hgb Hct MCV MCH MCHC RDW Plt Count MPV Neut % (Auto) Lymph % (Auto) [place] % (Auto) Eos % (Auto) Baso % (Auto) Neut # (Auto) Lymph # (Auto) [place] # (Auto) Eos # (Auto) Baso # (Auto) PT INR APTT D-Dimer VBG pH VBG pCO2 VBG pO2 VBG HCO3 VBG Total CO2 VBG O2 Saturation VBG Base Excess VBG Lactic Acid Sodium Potassium Chloride Carbon Dioxide Anion Gap BUN Creatinine Estimated Creat Clear Estimated GFR Est GFR ( Amer) Glucose POC Glucose Hemoglobin A1c Lactate 3.2 H Calcium Phosphorus Magnesium Total Bilirubin AST ALT Alkaline Phosphatase Troponin I < 0.01 NT-Pro-B Natriuret Pep Total Protein Albumin Globulin Albumin/Globulin Ratio Lipase TSH Thyroxine (T4) Urine Color Dark yellow Urine Appearance Clear Urine pH 6.0 Ur Specific Mar Lin 1.020 Urine Protein 1+ A Urine Glucose (UA) Negative Urine Ketones Negative Urine Blood Trace-i Urine Nitrate Negative Urine Bilirubin Negative Urine Urobilinogen 0.2 Ur Leukocyte Esterase Negative Urine RBC None Urine WBC 5-10 Ur Squamous Epith Cells 5-10 Urine Bacteria 1+ Urine Opiates Screen Urine Methadone Screen Ur Barbituates Screen Ur Phencyclidine Scrn Ur Amphetamines Screen U Benzodiazepines Scrn Urine Cocaine Screen U Marijuana (THC) Screen HIV 1&2 Antibody Rapid 12/23/23 12/23/23 12/23/23 12:35 11:21 11:20 WBC 11.3 H RBC 4.92 Hgb 16.6 Hct 49.9 MCV 101.5 H MCH 33.7 H MCHC 33.1 RDW 14.4 Plt Count 318 MPV 7.4 Neut % (Auto) 65.3 Lymph % (Auto) 23.5 [place] % (Auto) 9.5 H Eos % (Auto) 0.8 Baso % (Auto) 1.0 Neut # (Auto) 7.3 Lymph # (Auto) 2.6 [place] # (Auto) 1.1 H Eos # (Auto) 0.1 Baso # (Auto) 0.1 PT 11.3 INR 1.01 APTT 27.6 D-Dimer 0.26 VBG pH 7.42 H VBG pCO2 33.4 L VBG pO2 84.3 H VBG HCO3 21.4 L VBG Total CO2 22.4 L VBG O2 Saturation 96.5 H VBG Base Excess -1.9 VBG Lactic Acid 2.5 H Sodium 130 L Potassium 5.1 Chloride 100 Carbon Dioxide 19 L Anion Gap 16.1 H BUN 37 H Creatinine 2.40 H Estimated Creat Clear 55 Estimated GFR 29 L Est GFR ( Amer) 35 L Glucose 188 H POC Glucose Hemoglobin A1c 7.5 H Lactate 1.8 Calcium 10.7 H Phosphorus 5.0 H Magnesium 1.6 Total Bilirubin 1.4 H AST 117 H ALT 51 Alkaline Phosphatase 67 Troponin I < 0.01 NT-Pro-B Natriuret Pep 123 Total Protein 8.4 H Albumin 4.6 Globulin 3.8 H Albumin/Globulin Ratio 1.2 Lipase 321 H TSH 4.89 H Thyroxine (T4) 7.1 Urine Color Urine Appearance Urine pH Ur Specific Mar Lin Urine Protein Urine Glucose (UA) Urine Ketones Urine Blood Urine Nitrate Urine Bilirubin Urine Urobilinogen Ur Leukocyte Esterase Urine RBC Urine WBC Ur Squamous Epith Cells Urine Bacteria Urine Opiates Screen Negative Urine Methadone Screen Negative Ur Barbituates Screen Negative Ur Phencyclidine Scrn Negative Ur Amphetamines Screen Negative U Benzodiazepines Scrn Negative Urine Cocaine Screen Negative U Marijuana (THC) Screen Negative HIV 1&2 Antibody Rapid Nonreactive DS: Diagnosis Discharge Diagnosis (1) Acute UTI: Status: Acute Code(s): N39.0 - Urinary tract infection, site not specified (2) Hematuria: Status: Acute Code(s): R31.9 - Hematuria, unspecified (3) LIZETH (acute kidney injury): Status: Acute Code(s): N17.9 - Acute kidney failure, unspecified (4) Dehydration: Status: Acute Code(s): E86.0 - Dehydration (5) Hyponatremia: Status: Acute Code(s): E87.1 - Hypo-osmolality and hyponatremia (6) Dilatation of left ureter: Status: Acute Code(s): N28.82 - Megaloureter (7) Diabetic peripheral neuropathy: Status: Acute Code(s): E11.42 - Type 2 diabetes mellitus with diabetic polyneuropathy (8) Alcohol use disorder: Status: Chronic Code(s): F10.90 - Alcohol use, unspecified, uncomplicated Problem details: Continue thiamine 100 mg p.o. daily and consider counseling (9) Diabetes mellitus type 2 in obese: Status: Chronic Code(s): E11.69 - Type 2 diabetes mellitus with other specified complication; E66.9 - Obesity, unspecified (10) Major depressive disorder: Status: Chronic Code(s): F32.9 - Major depressive disorder, single episode, unspecified Qualifiers: Active/Remission status: currently active Major depression episode severity: moderate Major depression recurrence: recurrent Qualified Code(s): F33.1 - Major depressive disorder, recurrent, moderate (11) CAD (coronary artery disease): Status: Chronic Code(s): I25.10 - Atherosclerotic heart disease of [place] coronary artery without angina pectoris Qualifiers: Associated angina: without angina Coronary Disease-Associated Artery/Lesion type: [place] artery [place] vs. transplanted heart: [place] heart Qualified Code(s): I25.10 - Atherosclerotic heart disease of [place] coronary artery without angina pectoris (12) MEÑO (obstructive sleep apnea): Status: Chronic Code(s): G47.33 - Obstructive sleep apnea (adult) (pediatric) (13) Hypertension: Status: Chronic Code(s): I10 - Essential (primary) hypertension Qualifiers: Hypertension type: essential hypertension Qualified Code(s): I10 - Essential (primary) hypertension Meds Home Medications and Allergies Home Medications ?Medication ?Instructions ?Recorded ?Confirmed ?Type aspirin 81 mg tablet,delayed 81 mg PO DAILY 08/20/18 12/23/23 History release (Adult Low Dose Aspirin) blood-glucose meter (ReliOn Micro #1 ea 10/02/22 12/23/23 Rx Glucose Monitor kit) tadalafil 10 mg tablet 10 mg PO DAILY PRN sexual activity 06/15/23 12/23/23 Rx #30 tabs nicotine 21 mg/24 hr daily 21 mg transdermal DAILYP PRN 06/22/23 12/23/23 Rx transdermal patch Nicotine Cravings 28 days #28 ea pen needle, diabetic, safety 31 #100 ea 06/22/23 12/23/23 Rx gauge x 3/16 blood-glucose meter,continuous #3 ea 07/24/23 12/23/23 Rx (Dexcom G7 Mail Processing Equipment Mechanic) blood-glucose sensor (Dexcom G7 #3 ea 07/24/23 12/23/23 Rx Sensor device) cariprazine 3 mg capsule (Vraylar) 6 mg (2 x 3 mg) PO DAILY 90 days 09/18/23 12/23/23 Rx #180 caps cholecalciferol (vitamin D3) 125 125 mcg PO DAILY 90 days #90 caps 09/18/23 12/23/23 Rx mcg (5,000 unit) capsule clopidogrel 75 mg tablet (Plavix) 75 mg PO DAILY 90 days #90 tabs 09/18/23 12/23/23 Rx empagliflozin 25 mg tablet 25 mg PO DAILY 90 days #90 tabs 09/18/23 12/23/23 Rx (Jardiance) magnesium oxide 400 mg (241.3 mg 400 mg PO DAILY #90 tabs 09/18/23 12/23/23 Rx magnesium) tablet metformin 1,000 mg tablet 1,000 mg PO BID 90 days #180 tabs 09/18/23 12/23/23 Rx rosuvastatin 40 mg tablet 40 mg PO DAILY 90 days #90 tabs 09/18/23 12/23/23 Rx thiamine HCl (vitamin B1) 250 mg 250 mg PO DAILY 90 days #90 tabs 09/18/23 12/23/23 Rx tablet chlorthalidone 25 mg tablet 25 mg PO DAILY #30 tabs 10/31/23 12/23/23 Rx potassium chloride 10 mEq 10 meq PO DAILY #30 caps 10/31/23 12/23/23 Rx capsule,extended release ezetimibe 10 mg tablet 10 mg PO DAILY #30 tabs 11/27/23 12/23/23 Rx lisinopril 20 mg tablet 20 mg PO DAILY #90 tabs 12/04/23 12/23/23 Rx metoprolol succinate 25 mg 25 mg PO DAILY #90 tabs 12/04/23 12/23/23 Rx tablet,extended release 24 hr gabapentin 600 mg tablet 600 mg PO TID #90 tabs 12/11/23 12/23/23 Rx insulin glargine 100 unit/mL (3 27 unit (0.27 mL) SQ BID 90 days 12/11/23 12/23/23 Rx mL) subcutaneous pen (Lantus #48.6 mL Solostar U-100 Insulin) escitalopram oxalate 20 mg tablet 20 mg PO DAILY 12/23/23 12/23/23 History levofloxacin 750 mg tablet 750 mg PO Q48H 5 days #3 tabs 12/24/23 Rx New Prescriptions to Start Prescriptions: levofloxacin Justin Cole Allergies Allergy/AdvReac Type Severity Reaction Status Date / Time adhesive Allergy Mild Verified 12/20/23 14:58 Discharge Plan Disposition Patient Disposition: Home, Self-Care Condition: Fair Follow up Plan Follow up with: Ortega Rosenberg DO [Primary Care Provider] - 12/31/23 11:15 am Prescriptions/Medication Reconciliation: New levofloxacin 750 mg tablet 750 mg PO Q48H 5 Days Qty: 3 0RF Rx Instructions: first dose night of 12/24/23 Continued Vraylar 3 mg capsule 6 mg PO DAILY 90 Days Qty: 180 2RF cholecalciferol (vitamin D3) 125 mcg (5,000 unit) capsule 125 mcg PO DAILY 90 Days Qty: 90 4RF clopidogrel [Plavix] 75 mg tablet 75 mg PO DAILY 90 Days Qty: 90 4RF Jardiance 25 mg tablet 25 mg PO DAILY 90 Days Qty: 90 4RF magnesium oxide 400 mg (241.3 mg magnesium) tablet 400 mg PO DAILY Qty: 90 4RF metformin 1,000 mg tablet 1,000 mg PO BID 90 Days Qty: 180 4RF rosuvastatin 40 mg tablet 40 mg PO DAILY 90 Days Qty: 90 4RF thiamine HCl (vitamin B1) 250 mg tablet 250 mg PO DAILY 90 Days Qty: 90 4RF ezetimibe 10 mg tablet 10 mg PO DAILY Qty: 30 2RF insulin glargine [Lantus Solostar U-100 Insulin] 100 unit/mL (3 mL) insulin pen 27 unit SQ BID 90 Days Qty: 48.6 4RF gabapentin 600 mg tablet 600 mg PO TID Qty: 90 2RF aspirin [Adult Low Dose Aspirin] 81 mg tablet,delayed release (DR/EC) 81 mg PO DAILY metoprolol succinate 25 mg tablet extended release 24 hr 25 mg PO DAILY Qty: 90 2RF potassium chloride 10 mEq capsule, extended release 10 meq PO DAILY Qty: 30 4RF tadalafil 10 mg tablet 10 mg PO DAILY PRN (Reason: sexual activity) Qty: 30 0RF Rx Instructions: administer approximately 30min before sexual activity; do not use more than 1 dose per 24hrs nicotine 21 mg/24 hr Patch 24 Hour 21 mg transdermal DAILYP PRN (Reason: Nicotine Cravings) 28 Days Qty: 28 2RF escitalopram oxalate 20 mg tablet 20 mg PO DAILY Held lisinopril 20 mg tablet 20 mg PO DAILY Qty: 90 3RF Hold Instructions: Pending follow-up with PCP and normal labs chlorthalidone 25 mg tablet 25 mg PO DAILY Qty: 30 2RF Hold Instructions: Pending follow-up with PCP and normal labs No Action (DME) blood-glucose meter [ReliOn Micro Glucose Monitor] Kit See Rx Instructions .Route Qty: 1 0RF Rx Instructions: As directed - tests three times per day (DME) Dexcom G7 Mail Processing Equipment Mechanic Misc See Rx Instructions .Route Qty: 3 3RF Rx Instructions: As directed or bid (DME) Dexcom G7 Sensor Device See Rx Instructions .Route Qty: 3 3RF Rx Instructions: As directed or bid (DME) pen needle, diabetic, safety 31 gauge x 3/16 needle See Rx Instructions .Route Qty: 100 0RF Rx Instructions: As directed Other Ambulatory Orders: Basic Metabolic Panel (Routine) Timeframe: 3 Days Facility: [facility] - Location: Laboratory Ordered By: Justin Cole Problem Reconciliation Problems Reviewed?: Yes Patient Discharge Instructions ACTIVITY: Continue current activity DIET: continue same diet Additional Instructions: BMP X 3 days Stand Alone Forms: [facility] Work Release Patient Instructions: Urinary Tract Infection, Hydronephrosis -- Adult, Acute Kidney Injury Print Language: [place] Providers Primary Care Provider: Ortega Rosenberg Admit Provider: Justin Cole Attending Provider: Justin Cole
[2023-12-24] MEDS: INSULIN GLARGINE 100 UNITS/ML 3ML FLEXPEN 20 UNIT SQ (09:33)
[2023-12-24] MEDS: CITALOPRAM 40MG TABLET 40 MG PO (09:35)
[2023-12-24] MEDS: GABAPENTIN 600MG TABLET 600 MG PO ×2 (09:35→12:30)
[2023-12-24] MEDS: METOPROLOL SUCCINATE XL 25MG TABLET 25 MG PO (09:35)
[2023-12-24] MEDS: THIAMINE 100MG TABLET 100 MG PO (09:35)
[2023-12-24] MEDS: CLOPIDOGREL 75MG TAB 75 MG PO (09:35)
[2023-12-24 09:46] LABS: POC Glucose,Bedside 293 (70-110)
[2023-12-24] MEDS: FOLIC ACID 1MG TABLET 1 MG PO (11:05)
--- NOTE | 2023-12-24 11:26 | SW/DCPLANNER ---
I spoke w/ patient this AM regarding plans once medically stable for discharge. Patient is not interested in any inpatient/outpatient alcohol resources at this time. I did provide patient w/ [facility] Resource List to review. Per MD pending afternoon labs draws patient will discharge home later today. Patient did not have any further needs/questions at this time.
[2023-12-24 14:23] LABS: Chloride 101 mmol/L (98-107); Sodium 130 mmol/L (136-145)
[2023-12-24 14:26] LABS: Blood Urea Nitrogen 34 mg/dl (9-20); Creatinine Clearance Estimated 70 mL/min (50-200); Estimated Glomerular Filt Rate 38 ml/min (>60); GFR (African American) 45 ML/MIN (>60)
[2023-12-24 14:27] LABS: Calcium 8.9 mg/dl (8.4-10.2); Carbon Dioxide 24 mmol/L (22.0-30.0); Glucose 208 mg/dl (74-100)
[2023-12-25 05:09] LABS: HCV Ab Non Reactive (Non Reactive)
--- NOTE | 2023-12-25 13:54 | CARE MANAGER ---
Spoke with patient regarding recent discharge. Patient stated that he is doing well, has made medication changes prescribed at discharge, and was aware of scheduled f/u appt. No concerns voiced at time of call.
[2023-12-28 11:31] LABS: POC Glucose,Bedside 217 (70-110)
== END 2023-12-24 16:35 | disposition home or self-care (01) ==
LOC: UTC 10:22 → ER 10:56 → 2ND 15:32
PROVIDERS: Admitting Provider Internal Medicine Adolescent Medicine; Emergency Provider Emergency Medicine; PCP Internal Medicine; Visit Provider Internal Medicine Adolescent Medicine
DX: N39.0 Urinary tract infection, site not specified (principal); R31.9 Hematuria, unspecified; N17.9 Acute kidney failure, unspecified; E86.0 Dehydration; E87.1 Hypo-osmolality and hyponatremia; E11.42 Type 2 diabetes mellitus with diabetic polyneuropathy; F33.1 Major depressive disorder, recurrent, moderate; I25.10 Atherosclerotic heart disease of native coronary artery without angina pectoris; G47.33 Obstructive sleep apnea (adult) (pediatric); I10 Essential (primary) hypertension; Z79.899 Other long term (current) drug therapy; Z79.4 Long term (current) use of insulin; F10.90 Alcohol use, unspecified, uncomplicated; N13.30 Unspecified hydronephrosis
CPT/HCPCS: 36415; 71045; 74177; 80048; 80053; 80307; 81001; 82803; 82962; 83036; 83605; 83690; 83735; 83880; 84100; 84436; 84443; 84484; 85025; 85378; 85610; 85730; 86803; 87040; 87086; 87389; 93005; 99285; G0378; J2405; J7030; J7120; Q9967

== ENCOUNTER 2023-12-27 07:35 | Outpatient (CLI) | payer OTHER, SELFPAY ==
[2023-12-27 08:43] LABS: Chloride 104 mmol/L (98-107); Sodium 136 mmol/L (136-145)
[2023-12-27 08:44] LABS: Potassium 4.5 mmoL/L (3.5-5.1)
[2023-12-27 08:47] LABS: Anion Gap 16.5 mEq/L (5-15); Blood Urea Nitrogen 21 mg/dl (9-20); Calcium 10.3 mg/dl (8.4-10.2); Carbon Dioxide 20 mmol/L (22.0-30.0); Chol/HDL Ratio 3.2 (1-3.5); Cholesterol 197 mg/dl (140-200); Estimated Glomerular Filt Rate 79 ml/min (>60); GFR (African American) 95 ML/MIN (>60); Glucose 154 mg/dl (74-100); HDL Cholesterol 62 mg/dl (40-60); Triglycerides 223 mg/dl (30-150); VLDL Cholesterol 45 mg/dL (0-40)
[2023-12-27 08:58] LABS: Direct LDL Cholesterol 97.44 mg/dL (100-129)
== END 2023-12-27 23:59 | disposition home or self-care (01) ==
LOC: LAB 07:37
PROVIDERS: PCP Internal Medicine; Visit Provider Internal Medicine Adolescent Medicine
DX: N17.9 Acute kidney failure, unspecified (principal); E78.5 Hyperlipidemia, unspecified
CPT/HCPCS: 36415; 80048; 80061

== ENCOUNTER 2023-12-27 12:21 | Emergency (ER) | payer OTHER, SELFPAY ==
[2023-12-27 12:30] VITALS: BP 122/82; PULSE 109; RESP 20; TEMP 36.6; O2SAT 100; BMI 32.2
--- NOTE | 2023-12-27 12:39 | ED_ITS ---
Discharge Plan Disposition Patient Disposition: Home, Self-Care Condition: Good Prescriptions Prescriptions: No Action Vraylar 3 mg capsule 6 mg PO DAILY 90 Days Qty: 180 2RF cholecalciferol (vitamin D3) 125 mcg (5,000 unit) capsule 125 mcg PO DAILY 90 Days Qty: 90 4RF clopidogrel [Plavix] 75 mg tablet 75 mg PO DAILY 90 Days Qty: 90 4RF Jardiance 25 mg tablet 25 mg PO DAILY 90 Days Qty: 90 4RF magnesium oxide 400 mg (241.3 mg magnesium) tablet 400 mg PO DAILY Qty: 90 4RF metformin 1,000 mg tablet 1,000 mg PO BID 90 Days Qty: 180 4RF rosuvastatin 40 mg tablet 40 mg PO DAILY 90 Days Qty: 90 4RF thiamine HCl (vitamin B1) 250 mg tablet 250 mg PO DAILY 90 Days Qty: 90 4RF ezetimibe 10 mg tablet 10 mg PO DAILY Qty: 30 2RF insulin glargine [Lantus Solostar U-100 Insulin] 100 unit/mL (3 mL) insulin pen 27 unit SQ BID 90 Days Qty: 48.6 4RF gabapentin 600 mg tablet 600 mg PO TID Qty: 90 2RF aspirin [Adult Low Dose Aspirin] 81 mg tablet,delayed release (DR/EC) 81 mg PO DAILY lisinopril 20 mg tablet 20 mg PO DAILY Qty: 90 3RF metoprolol succinate 25 mg tablet extended release 24 hr 25 mg PO DAILY Qty: 90 2RF chlorthalidone 25 mg tablet 25 mg PO DAILY Qty: 30 2RF potassium chloride 10 mEq capsule, extended release 10 meq PO DAILY Qty: 30 4RF (DME) blood-glucose meter [ReliOn Micro Glucose Monitor] Kit See Rx Instructions .Route Qty: 1 0RF Rx Instructions: As directed - tests three times per day tadalafil 10 mg tablet 10 mg PO DAILY PRN (Reason: sexual activity) Qty: 30 0RF Rx Instructions: administer approximately 30min before sexual activity; do not use more than 1 dose per 24hrs (DME) Dexcom G7 Mall Plant Caretaker Misc See Rx Instructions .Route Qty: 3 3RF Rx Instructions: As directed or bid (DME) Dexcom G7 Sensor Device See Rx Instructions .Route Qty: 3 3RF Rx Instructions: As directed or bid nicotine 21 mg/24 hr Patch 24 Hour 21 mg transdermal DAILYP PRN (Reason: Nicotine Cravings) 28 Days Qty: 28 2RF (DME) pen needle, diabetic, safety 31 gauge x 3/16 needle See Rx Instructions .Route Qty: 100 0RF Rx Instructions: As directed escitalopram oxalate 20 mg tablet 20 mg PO DAILY levofloxacin 750 mg tablet 750 mg PO Q48H 5 Days Qty: 3 0RF Rx Instructions: first dose night of 12/24/23 Referrals Follow up/Referrals: Ortega Rosenberg DO [Primary Care Provider] - See instructions Activity Restrictions/Add. Instructions Additional Instructions/Restrictions: No work until you see your Family Doctor an d he can release you to return to work Continue your Antibiotics and the discharge instructions you was given Straight to ER if any life threatening symptoms Clinical Impressions Clinical Impression: Encounter to obtain excuse from work Stand Alone Forms Stand Alone Forms: Work/School Release Instructions Patient Instructions: DI for Fatigue Print Language Print Language: Syriac Discharge ED Provider: Janet Azevedo [facility] [place] HPI General Stated complaint: weak Mode of Arrival: Ambulatory Source of Information: Patient Limitations: No Limitations Time Seen by Provider: 12/27/23 12:39 Description of Symptoms (Recalled from Triage Doc. by RN): PATIENT REPORTS THAT HE WAS RECENTLY ADMITTED TO HOSPITAL FOR A UTI AND KIDNEY INJURY AND WAS DISCHARGED A FEW DAYS AGO. PATIENT STATES HE RETURNED TO WORK YESTERDAY AND BECAME VERY TIRED. PATIENT REQUESTING A WORK NOTE FOR A FEW MORE DAYS HEENT Symptoms (Recalled from RN notes): No Resp Symptoms (Recalled from RN notes): No Skin Symptoms (Recalled from RN notes): No MS Symptoms (Recalled from RN notes): No Functional Status (Recalled from RN notes): WNL History of Present Illness Provider Complaint: Patient states that he was recently hospitalized for UTI and LIZETH and was discharged day before yesterday and he tried to go back to work yesterday and it made him fatigued by the end of his shift and he cannot miss without a doctors note, states he is feeling better since his admission but feels like he may have tried to go back to work too soon, States he has appointment with his PCP on Sunday wanting to see if he could get a work note so he can rest up and get his strength back before he returns Denies any complaints at this time Related Data Home Medications ?Medication ?Instructions ?Recorded ?Confirmed aspirin 81 mg tablet,delayed 81 mg PO DAILY 08/20/18 12/23/23 release (Adult Low Dose Aspirin) escitalopram oxalate 20 mg tablet 20 mg PO DAILY 12/23/23 12/23/23 Previous Rx's ?Medication ?Instructions ?Recorded blood-glucose meter ([employer]On Micro #1 ea 10/02/22 Glucose Monitor kit) tadalafil 10 mg tablet 10 mg PO DAILY PRN sexual activity 06/15/23 #30 tabs nicotine 21 mg/24 hr daily 21 mg transdermal DAILYP PRN 06/22/23 transdermal patch Nicotine Cravings 28 days #28 ea pen needle, diabetic, safety 31 #100 ea 06/22/23 gauge x 3/16 blood-glucose meter,continuous #3 ea 07/24/23 (Dexcom G7 Mall Plant Caretaker) blood-glucose sensor (Dexcom G7 #3 ea 07/24/23 Sensor device) cariprazine 3 mg capsule (Vraylar) 6 mg (2 x 3 mg) PO DAILY 90 days 09/18/23 #180 caps cholecalciferol (vitamin D3) 125 125 mcg PO DAILY 90 days #90 caps 09/18/23 mcg (5,000 unit) capsule clopidogrel 75 mg tablet (Plavix) 75 mg PO DAILY 90 days #90 tabs 09/18/23 empagliflozin 25 mg tablet 25 mg PO DAILY 90 days #90 tabs 09/18/23 (Jardiance) magnesium oxide 400 mg (241.3 mg 400 mg PO DAILY #90 tabs 09/18/23 magnesium) tablet metformin 1,000 mg tablet 1,000 mg PO BID 90 days #180 tabs 09/18/23 rosuvastatin 40 mg tablet 40 mg PO DAILY 90 days #90 tabs 09/18/23 thiamine HCl (vitamin B1) 250 mg 250 mg PO DAILY 90 days #90 tabs 09/18/23 tablet chlorthalidone 25 mg tablet 25 mg PO DAILY #30 tabs 10/31/23 potassium chloride 10 mEq 10 meq PO DAILY #30 caps 10/31/23 capsule,extended release ezetimibe 10 mg tablet 10 mg PO DAILY #30 tabs 11/27/23 lisinopril 20 mg tablet 20 mg PO DAILY #90 tabs 12/04/23 metoprolol succinate 25 mg 25 mg PO DAILY #90 tabs 12/04/23 tablet,extended release 24 hr gabapentin 600 mg tablet 600 mg PO TID #90 tabs 12/11/23 insulin glargine 100 unit/mL (3 27 unit (0.27 mL) SQ BID 90 days 12/11/23 mL) subcutaneous pen (Lantus #48.6 mL Solostar U-100 Insulin) levofloxacin 750 mg tablet 750 mg PO Q48H 5 days #3 tabs 12/24/23 Allergies Allergy/AdvReac Type Severity Reaction Status Date / Time adhesive Allergy Mild Verified 12/20/23 14:58 Worker's Comp Is this a Worker's Comp case?: No PFSH PFS Disclaimer: The information contained in this section may have been updated after the patient was seen, as this information can be updated by other users. 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 Tachycardia Ulnar nerve neuropathy Helicobacter pylori (H. pylori) Cellulitis of left elbow Carpal tunnel syndrome on left Near syncope Depression Dyspnea Diabetes mellitus Hypertension Surgical History History of esophagogastroduodenoscopy History of cardiac cath History of colonoscopy History of elbow surgery Family History Other Alcoholism Cancer Diabetes Heart attack Social History Smoking Status: Current every day smoker tobacco type: cigarettes packs per day: 1 second hand exposure: Yes alcohol intake: current alcohol intake frequency: 0-2 drinks per day counseling provided: none substance use type: denies use current occupational status: other Travel in the last 8 weeks: None household members: none housing: house lives independently: Yes marital status: current occupation: [employer] current occupational exposures/hazards: No caffeine: Yes ROS Obtained: Yes All systems reviewed & no additional complaints except as documented and Yes Systems reviewed as appropriate & no additional complaints except as documented Constitutional Constitutional: Reports system reviewed and no additional complaints, except as documented, Reports as per HPI and Reports fatigue ENT Ears, Nose, Mouth, and Throat: Reports system reviewed and no additional complaints, except as documented and Reports as per HPI Cardiovascular Cardiovascular: Reports system reviewed and no additional complaints, except as documented and Reports as per HPI Respiratory Respiratory: Reports system reviewed and no additional complaints, except as documented and Reports as per HPI Gastrointestinal Gastrointestingal: Reports system reviewed and no additional complaints, except as documented and as per HPI Endocrine Endocrine: Reports fatigue Physical Exam General General appearance: alert and in no apparent distress ENT ENT exam: Present mucous membranes moist Respiratory Respiratory exam: Present normal lung sounds bilaterally; Absent respiratory distress or wheezes Cardiovascular Cardiovascular exam: Present regular rate, normal rhythm and normal heart sounds Neurological Exam Neurological exam: Present alert, oriented X3 and normal gait Medical Decision Making Medical Records Screening: Per USPSTF and CDC recommendations, given the prevalence of disease in our region, it is our hospital?s policy to screen for HIV and viral Hepatitis for all patients aged 18 and over and those with ongoing risk factors. Nathaniel Inquiry Pt receiving controlled substance: No Nathaniel was queried for this patient: No Vital Signs: 12/27/23 12:30 Temperature 97.8 F Temperature Source Oral Pulse Rate [Left Brachial] 109 H Respiratory Rate 20 Blood Pressure [Left Arm] 122/82 Blood Pressure Mean [Left Arm] 95 Blood Pressure Source [Left Arm] Automatic Cuff Blood Pressure Position [Left Arm] Sitting 02 Sat by Pulse Oximetry 100 Oxygen Delivery Method Room Air
[2023-12-27 12:45] VITALS: BP 122/82; PULSE 109; RESP 20; TEMP 36.6; O2SAT 100
== END 2023-12-27 12:49 | disposition home or self-care (01) ==
PROVIDERS: Emergency Provider Nurse Practitioner; PCP Internal Medicine
DX: R53.83 Other fatigue (principal)
CPT/HCPCS: 99213; G0381

== ENCOUNTER 2024-02-27 09:15 | Outpatient (CLI) | payer OTHER, SELFPAY ==
[2024-02-27 18:36] LABS: Basophils % 1.6 % (0.1-2.0); Eosinophils % 2.5 % (0.1-12.0); Hematocrit 45.3 % (42.0-52.0); Mean Corpuscular HGB Conc 33.1 g/dL (31.8-35.4); Mean Corpuscular Hemoglobin 35.5 pg (27.0-31.2); Mean Corpuscular Volume 107.1 fl (80-94); Mean Platelet Volume 9.4 fl (7.4-10.4); Monocytes % 10.7 % (1.7-9.3); Neutrophils # 1.2 K/mm3 (1.8-7.8); Neutrophils % 37.9 % (37.0-80.0); Platelet Count 174 K/mm3 (142-424); Red Blood Count 4.23 M/mm3 (4.60-6.20); Red Cell Distribution Width 13.9 % (11.5-17.5); White Blood Count 3.2 K/mm3 (4.8-10.8)
[2024-02-27 18:37] LABS: Basophils # 0.1 K/mm3 (0-0.2); Eosinophils # 0.1 K/mm3 (0.0-0.4); Lymphocytes # 1.5 K/mm3 (0.7-4.5); Monocytes # 0.3 K/mm3 (0.1-1.0)
[2024-02-27 18:47] LABS: Chol/HDL Ratio 2.8 (1-3.5); Cholesterol 136 mg/dl (140-200); HDL Cholesterol 48 mg/dl (40-60); Triglycerides 95 mg/dl (30-150); VLDL Cholesterol 19 mg/dL (0-40)
[2024-02-27 18:59] LABS: Direct LDL Cholesterol 75.04 mg/dL (100-129)
[2024-02-27 19:21] LABS: Prostate Specific Ag Screen 1.3 ng/ml (0.0-4.0)
[2024-02-27 22:57] LABS: Microalbumin < 6.000 mg/L (0-16.7)
[2024-02-27 23:11] LABS: Creatinine,Urine Random 114 mg/dL (Not Estab.); Hemoglobin A1C 5.7 % (4.0-6.0)
[2024-02-29 18:08] LABS: Peripheral Smear Review Scanned Result
== END 2024-02-27 23:59 | disposition home or self-care (01) ==
LOC: LAB.DROPOF 02-28 09:03
PROVIDERS: PCP Internal Medicine; Visit Provider Internal Medicine
DX: N39.0 Urinary tract infection, site not specified (principal); R00.0 Tachycardia, unspecified; E11.69 Type 2 diabetes mellitus with other specified complication; E66.9 Obesity, unspecified; Z68.32 Body mass index [BMI] 32.0-32.9, adult; R94.31 Abnormal electrocardiogram [ECG] [EKG]; R53.83 Other fatigue; Z79.4 Long term (current) use of insulin; Z79.84 Long term (current) use of oral hypoglycemic drugs
CPT/HCPCS: 80061; 82043; 82570; 83036; 85025; 86140; G0103

== ENCOUNTER 2024-03-13 08:36 | Outpatient (POV) | payer OTHER, SELFPAY ==
--- NOTE | 2024-03-13 09:05 | A.OFFVIS_ITS ---
[facility] Disclaimer: The information contained in this section may have been updated after the patient was seen, as this information can be updated by other users. 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 Tachycardia Ulnar nerve neuropathy Helicobacter pylori (H. pylori) Cellulitis of left elbow Carpal tunnel syndrome on left Near syncope Depression Dyspnea Diabetes mellitus Hypertension Surgical History History of esophagogastroduodenoscopy History of cardiac cath History of colonoscopy History of elbow surgery Family History Other Alcoholism Cancer Diabetes Heart attack Social History Smoking Status: Current every day smoker tobacco type: cigarettes packs per day: 1 second hand exposure: Yes alcohol intake: current alcohol intake frequency: 0-2 drinks per day counseling provided: none substance use type: denies use current occupational status: other Travel in the last 8 weeks: None household members: none housing: house lives independently: Yes marital status: current occupation: [employer] current occupational exposures/hazards: No caffeine: Yes PM Subjective & Objective Subjective Subjective:: Patient is a pleasant 53-year-old male who presents today for 3-month follow-up. Today he rates his pain a 0 out of 10. He denies any new injury or trauma from our last appointment. He states overall his pain is still been doing well and that he has not had to rely even on the baclofen or the compounded cream. Patient was prescribed baclofen 10 mg 3 times a day but only does this as needed. He is prescribed gabapentin from his primary care. Has been reviewed and is appropriate. Review of Systems: General: No recent weight changes, no fever, no sleep disturbances Respiratory: No cough, no shortness of air, no recurring pulmonary infections Cardiovascular/peripheral vascular: No chest pain, no palpitations, no edema, no shortness of breath Gastrointestinal: No new onset incontinence, normal bowel movements reported Genitourinary: No new onset incontinence Musculoskeletal: Low back pain Psychiatric: [Normal mood/affect] Neurological: [Denies weakness in extremities], [denies balance issues] Pain at rest (0-10 scale): 0 Objective Objective:: Physical Exam: General: Alert and oriented x3, no acute distress, pleasant and cooperative Lungs: Respirations even and unlabored, symmetrical chest expansion Eyes: PERRL Musculoskeletal: Flexion and extension of lumbar [spine] within normal limits Neurological: Speech clear, no gross sensory deficit Has patient had previous pain injection?: No Conservative treatment options previously tried: Home exercise plan Length of treatment: Longer than 12 weeks Meds Home Medications and Allergies Home Medications ?Medication ?Instructions ?Recorded ?Confirmed ?Type aspirin 81 mg tablet,delayed 81 mg PO DAILY 08/20/18 02/27/24 History release (Adult Low Dose Aspirin) blood-glucose meter ([employer] Micro #1 ea 10/02/22 02/27/24 Rx Glucose Monitor kit) tadalafil 10 mg tablet 10 mg PO DAILY PRN sexual activity 06/15/23 02/27/24 Rx #30 tabs nicotine 21 mg/24 hr daily 21 mg transdermal DAILYP PRN 06/22/23 02/27/24 Rx transdermal patch Nicotine Cravings 28 days #28 ea pen needle, diabetic, safety 31 #100 ea 06/22/23 02/27/24 Rx gauge x 3/16 blood-glucose meter,continuous #3 ea 07/24/23 02/27/24 Rx (Dexcom G7 Transfer Table Operator) blood-glucose sensor (Dexcom G7 #3 ea 07/24/23 02/27/24 Rx Sensor device) cariprazine 3 mg capsule (Vraylar) 6 mg (2 x 3 mg) PO DAILY 90 days 09/18/23 02/27/24 Rx #180 caps cholecalciferol (vitamin D3) 125 125 mcg PO DAILY 90 days #90 caps 09/18/23 02/27/24 Rx mcg (5,000 unit) capsule clopidogrel 75 mg tablet (Plavix) 75 mg PO DAILY 90 days #90 tabs 09/18/23 02/27/24 Rx empagliflozin 25 mg tablet 25 mg PO DAILY 90 days #90 tabs 09/18/23 02/27/24 Rx (Jardiance) magnesium oxide 400 mg (241.3 mg 400 mg PO DAILY #90 tabs 09/18/23 02/27/24 Rx magnesium) tablet metformin 1,000 mg tablet 1,000 mg PO BID 90 days #180 tabs 09/18/23 02/27/24 Rx rosuvastatin 40 mg tablet 40 mg PO DAILY 90 days #90 tabs 09/18/23 02/27/24 Rx thiamine HCl (vitamin B1) 250 mg 250 mg PO DAILY 90 days #90 tabs 09/18/23 02/27/24 Rx tablet chlorthalidone 25 mg tablet 25 mg PO DAILY #30 tabs 10/31/23 02/27/24 Rx potassium chloride 10 mEq 10 meq PO DAILY #30 caps 10/31/23 02/27/24 Rx capsule,extended release ezetimibe 10 mg tablet 10 mg PO DAILY #30 tabs 11/27/23 02/27/24 Rx metoprolol succinate 25 mg 25 mg PO DAILY #90 tabs 12/04/23 02/27/24 Rx tablet,extended release 24 hr insulin glargine 100 unit/mL (3 28 unit (0.28 mL) SQ BID 90 days 12/31/23 02/27/24 Rx mL) subcutaneous pen (Lantus #50.4 mL Solostar U-100 Insulin) escitalopram oxalate 20 mg tablet 20 mg PO DAILY #90 tabs 02/27/24 02/27/24 Rx gabapentin 600 mg tablet See Rx Instructions .Route 02/27/24 02/27/24 Rx .COMPLEX #90 tabs insulin regular human 100 unit/mL 1 sliding scale dose SQ 02/27/24 02/27/24 Rx injection solution (Humulin R USEASDIRECTD #10 mL Regular U-100 Insulin) insulin syringe-needle U-100 1 mL #100 ea 02/29/24 Rx 28 gauge x 1/2 (BD Insulin Syringe Micro-Fine) New Prescriptions to Start Prescriptions: Allergies Allergy/AdvReac Type Severity Reaction Status Date / Time adhesive Allergy Mild Verified 02/27/24 08:45 Assessment and Plan *Assessment and plan (1) Degenerative disc disease, lumbar: Status: Acute Category: Medical Code(s): M51.369 - Other intervertebral disc degeneration, lumbar region without mention of lumbar back pain or lower extremity pain (2) Lumbar radiculopathy: Status: Acute Category: Medical Code(s): M54.16 - Radiculopathy, lumbar region (3) Spinal stenosis, lumbar region with neurogenic claudication: Status: Acute Category: Medical Code(s): M48.062 - Spinal stenosis, lumbar region with neurogenic claudication Plan Patient is still doing well and does not require any additional interventions at this time. Patient will return to clinic in 6 months for reevaluation of symptoms and plan of care. Patient has been instructed to contact the clinic with any concerns before the next appointment. Dr. Willis has reviewed this note and agrees with this plan of care. This note was dictated using voice recognition software and make contain errors or omissions. All injections are used with Lidocaine, Bupivacaine and Depo Medrol. Occasionally urine drug screen is needed to verify patient's compliance with our office pain contract. This is ordered based off specific treatments related to chronic pain with the potential to abuse certain medications.
[2024-03-13 09:31] VITALS: BP 172/98; PULSE 89; RESP 18; O2SAT 98; BMI 32.8
== END 2024-03-13 23:59 | disposition home or self-care (01) ==
LOC: SC.PAIN 08:37
PROVIDERS: PCP Internal Medicine; Visit Provider Nurse Practitioner Family
DX: M51.16 Intervertebral disc disorders with radiculopathy, lumbar region (principal); M48.062 Spinal stenosis, lumbar region with neurogenic claudication; F17.210 Nicotine dependence, cigarettes, uncomplicated; Z79.899 Other long term (current) drug therapy
CPT/HCPCS: 99212; G0463

== ENCOUNTER 2024-03-13 13:49 | Outpatient (RCR) | payer OTHER, SELFPAY ==
--- NOTE | 2024-03-13 14:33 | HMH.PTOPWND ---
Rehab Outpt Wound Evaluation Rehab OP Wound Evaluation Start: 03/13/24 13:59 Freq: Status: Active Protocol: Document 03/13/24 14:22 [email or web address] (Rec: 03/13/24 14:33 PHORDIAN [id number]) E-signed By Blaze Boss, PT Subjective/History History History This is the initial PT eval for Damon Whitfield, 53 yowm who presents with c/o intermittent L elbow wounds for the past 3 -4 weeks with insidious onset of symptoms. He reports, I've had these places come up every now and then for a year or more. They usually heal up in a few days or so. He presents this date with no drainage and only minimally open area of the L elbow, but scar tissue and dry skin noted in the surrounding area. He has no c/o pain at this time and no TTP noted. He has PMH as follows: Tachycardia Ulnar nerve neuropathy Helicobacter pylori (H. pylori ) Cellulitis of left elbow Carpal tunnel syndrome on left Near syncope Depression Dyspnea Diabetes mellitus Hypertension Subjective Subjective Currently pt reports he feels good, no pain or tenderness noted at L elbow. Wounds appears almost completely epithelialized at this point. New diagnosis of cancer in past 12 No months? Wound Eval Wound Left Elbow Wound Type unknown etiology Is This a Chronic Wound No Wound Length (cm) 0.4 Wound Width (cm) 0.5 Wound Depth (cm) 0.1 Wound Bed Appearance [facility] Description Well Defined Drainage Amount None Primary Dressing Bandaid Dressing Change Patient Tolerance Tolerated Well Wound Problems/Impairments Impairments Problems/Impairmments Wound Care Needs,Impaired Self Care/Self Management Prognosis Rehab Potential Good Comment Skilled therapy is indicated to reduce overall wound size as able to return pt to [facility]. Difficult wound diagnosis due to the intermittent nature of pt c/o. Differential diagnosis includes neuropathic wounds vs psoriatic wounds. If wounds continue to occur intermittently, punch biopsy may be more helpful in determining wound etiology. Clinical Impression Consistent with Diagnosis Yes Short Term Goals Number of Weeks 2 Decrease Wound Area Yes: by 25% Senior Living Goals Number of Weeks 4 Decrease Wound Area Yes: by 100% Outpatient Therapy Plan of Care Treatment Plan May Include Wound Care Yes Eval/Re-Eval Yes Frequency Times per week 1 Duration Number of Weeks 4 Addendums This patient is a candidate for social No or vocational rehab? Patient/Guardian verbally acknowledges Yes understanding of treatment program and consents to further treatment? Patient/Guardian verbally acknowledges Yes understanding of diagnosis, prognosis and goals for treatment? Eval Complexity PT Charges 83924 - Moderate Complexity PHYSICIAN CERTIFICATION: I certify the specified therapy services for Damon Whitfield are required, authorized, and reviewed every 30 days.
== END 2024-03-13 23:59 | disposition home or self-care (01) ==
LOC: PT 13:49
PROVIDERS: Visit Provider Internal Medicine
DX: S51.002A Unspecified open wound of left elbow, initial encounter (principal); E11.628 Type 2 diabetes mellitus with other skin complications
CPT/HCPCS: 97162

== ENCOUNTER 2024-03-27 09:06 | Outpatient (CLI) | payer OTHER, SELFPAY ==
[2024-03-27 19:16] LABS: Thyroid Stimulating Hormone 1.55 uIU/mL (0.465-4.68)
== END 2024-03-27 23:59 ==
LOC: LAB.DROPOF 03-28 09:06
PROVIDERS: PCP Internal Medicine; Visit Provider Internal Medicine
DX: R53.83 Other fatigue (principal)
CPT/HCPCS: 84443

== ENCOUNTER 2024-04-10 08:52 | Outpatient (CLI) | payer OTHER, SELFPAY ==
--- NOTE | 2024-04-10 08:53 | CT_ITS ---
APPROVED REPORT Student Loan Counselor: CLINICAL INDICATION Chest Pain TECHNIQUE Image Acquisition: A 128 slice MDCT scanner (Zimorya View) was used for data acquisition. A noncontrast coronary calcium scan was performed. A CT attenuation threshold of 130 Hounsfield units (HU) was used for the detection of calcium in contiguous voxels of 1 sq mm in area to be counted as individual lesions. Bolus tracking in the ascending aorta with a threshold of 180 HU was performed. Immediately afterwards, ECG synchronized cardiac CT was then performed from the cardiac base to apex using retrospective gating with ECG tube current modulation. A total of 85 mL of Isovue 370 mg/mL contrast medium was administered at 5 mL/sec followed by a saline flush using a biphasic injection protocol. A tube voltage of 120 KVp was used. The patient received the following medications prior to the cardiac CT. 75 mg of oral metoprolol 15 mg of oral ivabradine 0.8 mg of sublingual nitroglycerin The average heart rate at the time of acquisition was 59 bpm and regular. Image Reconstruction Transaxial images were reconstructed at 0.67 mm slide thickness. Data was reviewed interactively on an advanced workstation capable of 2 and 3-dimensional displays in all conventional reconstruction formats, including multiplanar reformations, maximum intensity projections, curved multiplanar reformations, and volume rendered reconstructions. When applicable, selected routine images describing the relevant coronary anatomy and pathology were saved and sent to PACS. Complications None Technical Quality Overall image quality was good. Coronary artery opacification was adequate. Total DLP (Dose-Length Product) is 1485.5 mGy-cm. The reported value represents the total of one or more individual components during the CT acquisition of this date and at this time, and as such, the same value may appear in more than one CT report depending on the interpreting/reporting physicians. COMPARISON None FINDINGS CT Coronary Calcium Scoring LMA (Left Main Artery) = 120 LAD (Left Anterior Descending) = 1098 LCX (Left Coronary Circumflex) = 351 RCA (Right Coronary Artery) = 436 Total Calcium Score = 2004 using the AJ-130 method. The observed calcium score of 2004 is at 99th percentile for subjects of the same age, sex, and race/ethnicity. The interpretation of the calcium heart score is based on the following continuum*: 0 = no calcified plaque detected (risk of coronary artery disease is very low ??? less than 5%) 1-10 = calcium detected in extremely minimal levels (risk of coronary diseases is still low ??? less than 10%) 11-100 = mild levels of plaque detected with certainty (mild or minimal narrowing of heart arteries is likely) 101-400 = definite,at least moderate levels of plaque detected (relatively high risk of a heart attack within 3-5 years) >401-999 = extensive levels of plaque detected (high risk of heart attack, high levels of vascular disease are present, high likelihood of at least one significant coronary narrowing) *The calcium heart score quantifies the burden of coronary calcification/plaque in the coronary arteries. The calcium heart score is not able to evaluate the presence or burden of non-calcified (i.e. soft) plaque. There is no identifiable calcification in the aortic valve, mitral annulus or mitral valve, pericardium, or myocardium. Coronary CT Angiography The coronary arterial system is right dominant. Quantitative Stenosis Grading: Left Main (LM): The left main originates normally from the left sinus of Valsalva. The LM bifurcates into the left anterior descending artery and left circumflex artery. There is calcified plaque in the mid to distal LM segment, with no evidence of luminal stenosis. Left Anterior Descending (LAD) and Diagonal Branches: The LAD gives off 2 diagonal branch(es). There is mixed calcified/noncalcified plaque in the proximal and mid LAD segments, with up to 50 to 70% noted in the midsegment. There is no evidence of LAD-myocardial bridge. Left Circumflex (LCX) and Obtuse Marginals (OM): The LCX gives off 1 Obtuse Marginal (OM) branch(es). There is mixed calcified/noncalcified plaque in the proximal and mid LCx segments, as well as OM1 segment, with up to 25-49% luminal stenosis. Right Coronary Artery (RCA): The RCA originates normally from the right sinus of Valsalva. The RCA gives off a posterior descending artery (PDA) and posterolateral (PL) branches. There is mixed calcified/noncalcified plaque in the proximal, mid, and distal RCA segments, with up to 25-49% luminal stenosis. Non-Coronary Cardiac Findings: Analysis of the left ventricular (LV) structure and function was performed after 3-D reconstruction of the LV from axial images, with user-corrected automatic contouring for assessment of LV volumes and user-defined reconstruction from oblique planes for measurement of 3-D cardiac structure and function. -The left ventricle systolic function is normal. -There is no left atrial appendage filling defect. Two right pulmonary veins and two left pulmonary veins drain normally into the left atrium. -No pericardial thickening or calcification. -Central and branch pulmonary arteries in the [id number] are unremarkable. -Thoracic aorta within the visualized thoracic aortic-branches in the [id number] is unremarkable. Extracardiac Structures No significant extra-cardiac findings. Note, however, that this study is focused on the cardiac findings. IMPRESSION -Presence of coronary calcification with an Agatston score = 2005 using the AJ-130 method. -The observed calcium score of 2005 is at 99th percentile for subjects of the same age, sex, and race/ethnicity. -Multivessel atherosclerotic coronary disease, with possible evidence of significant flow-limiting atherosclerosis of the mid LAD segment. -CAD-RADS 3. Management recommendations per ACC/AHA guidelines*, as clinically appropriate. *Recommendations: CAD RADS 0: Reassurance. Consider non-atherosclerotic causes of chest pain. CAD RADS 1: Consider non-atherosclerotic causes of chest pain. Consider preventive therapy and risk factor modification. CAD RADS 2: Consider non-atherosclerotic causes of chest pain. Consider preventive therapy and risk factor modification, particularly for patients with nonobstructive plaque in multiple segments. CAD RADS 3: Consider further functional testing. Consider symptom-guided anti-ischemic and preventive pharmacotherapy as well as risk factor modification per published guideline statements. CAD RADS 4A: Consider further functional testing or invasive coronary angiography with revascularization per published guideline statements. Consider symptom-guided anti-ischemic and preventive pharmacotherapy as well as risk factor modification per published guideline statements. CAD RADS 4B: Invasive coronary angiography recommended with revascularization per published guideline statements. Consider symptom-guided anti-ischemic and preventive pharmacotherapy as well as risk factor modification per published guideline statements. CAD RADS 5: Consider invasive angiography and/or viability assessment with revascularization per published guideline statements. Consider symptom-guided anti-ischemic and preventive pharmacotherapy as well as risk factor modification per published guideline statements. CRITICAL RESULT None COMMUNICATION Per this written report The coronary and cardiac findings of this CCTA were reviewed, reported, and signed by Arjun Ricketts MD (Political Cartoonist) Conclusion Electronically signed by : Criselda Ricketts MD 04/14/2024 13:03:31
[2024-04-10 09:03] VITALS: BMI 70.7
[2024-04-10 09:06] VITALS: BP 148/90; PULSE 84; RESP 19; TEMP 36.6; O2SAT 98
[2024-04-10] MEDS: IVABRADINE HCL 7.5MG TABLET PO (09:16)
[2024-04-10] MEDS: METOPROLOL TARTRATE 50MG TABLET PO (09:17)
[2024-04-10 09:37] LABS: Anion Gap 10.6 mEq/L (5-15); Blood Urea Nitrogen 10 mg/dl (9-20); Calcium 8.7 mg/dl (8.4-10.2); Carbon Dioxide 31 mmol/L (22.0-30.0); Chloride 98 mmol/L (98-107); Creatinine Clearance Estimated 133 mL/min (50-200); Estimated Glomerular Filt Rate 119 ml/min (>60); GFR (African American) 144 ML/MIN (>60); Glucose 138 mg/dl (74-100); Sodium 137 mmol/L (136-145)
[2024-04-10 09:39] LABS: Potassium 2.6 mmoL/L (3.5-5.1)
[2024-04-10 09:40] VITALS: PULSE 68
[2024-04-10 09:43] VITALS: PULSE 64
[2024-04-10 10:18] VITALS: BMI 32.1
[2024-04-10 10:21] VITALS: BP 176/106; PULSE 60; O2SAT 98
[2024-04-10 10:22] LABS: POC Glucose,Bedside 160 (70-110)
[2024-04-10] MEDS: NITROGLYCERIN 0.4MG SL TABLET SL (10:22)
[2024-04-10 10:23] VITALS: BP 152/91; PULSE 59; O2SAT 98
[2024-04-10] MEDS: 0.9 % SODIUM CHLORIDE 50 ML VIAL IV (10:31)
[2024-04-10] MEDS: SODIUM CHLORIDE 0.9% 10ML SYR (RAD ONLY) 10 ML IV (10:32)
[2024-04-10] MEDS: IOPAMIDOL-370 (76%);100ML BOTTLE 85 ML IV (10:32)
== END 2024-04-10 10:45 | disposition home or self-care (01) ==
PROVIDERS: PCP Internal Medicine; Visit Provider Nurse Practitioner Family
DX: I25.10 Atherosclerotic heart disease of native coronary artery without angina pectoris (principal); R94.39 Abnormal result of other cardiovascular function study; E11.9 Type 2 diabetes mellitus without complications; I10 Essential (primary) hypertension; R94.31 Abnormal electrocardiogram [ECG] [EKG]
CPT/HCPCS: 75574; 80048; 82962; Q9967

== ENCOUNTER 2024-04-18 11:27 | Outpatient (CLI) | payer OTHER, SELFPAY ==
[2024-04-18 12:04] LABS: Chloride 107 mmol/L (98-107)
[2024-04-18 12:05] LABS: Potassium 3.4 mmoL/L (3.5-5.1); Sodium 143 mmol/L (136-145)
[2024-04-18 12:08] LABS: Anion Gap 13.4 mEq/L (5-15); Blood Urea Nitrogen 7 mg/dl (9-20); Carbon Dioxide 26 mmol/L (22.0-30.0); Estimated Glomerular Filt Rate 119 ml/min (>60); GFR (African American) 144 ML/MIN (>60); Glucose 109 mg/dl (74-100)
== END 2024-04-18 23:59 | disposition home or self-care (01) ==
LOC: LAB 11:27
PROVIDERS: PCP Internal Medicine; Visit Provider Nurse Practitioner Family
DX: E87.6 Hypokalemia (principal)
CPT/HCPCS: 36415; 80048

== ENCOUNTER 2024-05-13 07:51 | Outpatient (CLI) | payer OTHER, SELFPAY ==
--- NOTE | 2024-05-13 07:55 | CA_ITS ---
FINAL REPORT CLINICAL HISTORY: Smoker ,DM, HTN COMPARISON: None FINDINGS: DOPPLER RENAL VESSELS FINDINGS: Intrarenal resistive indices on the right are 0.60-0.63, normal . Intrarenal resistive indices on the left are 0.59-0.66, normal . Right main renal artery systolic velocity: 138 cm/sec. Aortic-right renal artery flow velocity ratio: 1.14 COMMENT: No evidence of hemodynamically significant renal artery stenosis . Left main renal artery systolic velocity: 127 cm/sec. Aortic-left renal artery flow velocity ratio: 1.3 COMMENT: No evidence of hemodynamically significant renal artery stenosis . IMPRESSION: No evidence of hemodynamically significant renal artery stenosis. The kidneys are symmetric in size with normal parenchyma. CTA or gadolinium-enhanced MR may be considered as a more sensitive exam. Alternatively noncontrast MRI may be considered for assessing main renal arteries for stenosis as a more sensitive exam if the patient has renal insufficiency. Reviewed, Interpreted and Dictated by Sheryl Ortiz MD Transcribed by Danica Urrutia Authenticated and [facility]
== END 2024-05-13 23:59 | disposition home or self-care (01) ==
LOC: RT 07:52
PROVIDERS: PCP Internal Medicine; Visit Provider Internal Medicine
DX: I10 Essential (primary) hypertension (principal); I25.10 Atherosclerotic heart disease of native coronary artery without angina pectoris
CPT/HCPCS: 93976

== ENCOUNTER 2024-05-19 08:05 | Day surgery (SDC) | payer OTHER, SELFPAY ==
[2024-05-19] VITALS (13 sets, daily range): BP systolic 128–160; BP diastolic 76–101; PULSE 74–85; RESP 16–20; O2SAT 93–99; BMI 32.9
--- NOTE | 2024-05-19 07:22 | IR_ITS ---
APPROVED REPORT Patient Location: Outpatient PROCEDURES Left heart catheterization Left ventriculogram Selective coronary angiogram Bilateral selective renal angiogram Informed consent was obtained prior to the procedure. COMPLICATIONS NONE Estimated Blood Loss: LESS THAN 10 ML TECHNIQUE One percent lidocaine used to anesthetize the right anterior aspect of the wrist. The right radial artery was accessed via the Seldinger technique. A 6 Italian sheath was placed in the right radial artery. 2.5 mg of Verapamil, 800 mcg of nitroglycerin, 1mg Lidocaine and 5000 U Heparin were given through the arterial sheath. The papa catheter was also used to perform left heart catheterization, left ventriculogram and selective coronary angiogram. A long 6 Italian JR4 catheter was used to perform bilateral selective renal angiography at the end of the procedure the sheath was removed good hemostasis was achieved using Traclet band, patient was transferred to the postop holding area in stable condition. ANGIOGRAPHIC RESULTS The left main artery Normal The left anterior descending artery Has proximal and mid vessel 10 to 20% calcified stenoses The circumflex artery Nondominant with proximal 10 to 20% calcified stenoses The right coronary artery Is dominant with proximal and mid vessel 10% calcified stenosis The CRISTINA ventriculogram reveals Normal 65% The left ventricular end-diastolic pressure 15 mmHg Right renal artery singular normal Left kidney has a dual arterial supply with both arteries normal IMPRESSION Mild nonflow limiting coronary disease as described above Normal ejection fraction Normal LVEDP Normal renal arteries PLAN 1. Patient could possibly be a candidate for renal denervation 2. Risk factor modification Electronically signed by : Corey Hathaway MD 05/19/2024 13:11:20
[2024-05-19 08:43] LABS: Basophils # 0.1 K/mm3 (0-0.2); Basophils % 1.2 % (0.1-2.0); Eosinophils # 0.1 K/mm3 (0.0-0.4); Eosinophils % 1.7 % (0.1-12.0); Hematocrit 46.7 % (42.0-52.0); Hemoglobin 16.5 g/dL (14.1-18.0); Lymphocytes # 1.7 K/mm3 (0.7-4.5); Lymphocytes % 28.1 % (10-50); Mean Corpuscular HGB Conc 35.3 g/dL (31.8-35.4); Mean Corpuscular Hemoglobin 36.7 pg (27.0-31.2); Mean Corpuscular Volume 103.8 fl (80-94); Mean Platelet Volume 8.9 fl (7.4-10.4); Monocytes # 0.6 K/mm3 (0.1-1.0); Monocytes % 10.1 % (1.7-9.3); Neutrophils # 3.5 K/mm3 (1.8-7.8); Neutrophils % 58.7 % (37.0-80.0); Platelet Count 156 K/mm3 (142-424); Red Cell Distribution Width 13.6 % (11.5-17.5); White Blood Count 5.9 K/mm3 (4.8-10.8)
[2024-05-19] MEDS: diphenhydrAMINE 50MG/ML VIAL 50 MG IV (10:20)
[2024-05-19] MEDS: HEPARIN 1,000 UNITS/500ML NS (CATH LAB) 3000 UNIT IV (10:21)
[2024-05-19] MEDS: MIDAZOLAM HCL 1MG/ML 5ML VIAL 1 MG IV (10:21)
[2024-05-19 10:24] LABS: Anion Gap 9.5 mEq/L (5-15); Blood Urea Nitrogen 10 mg/dl (9-20); Calcium 8.8 mg/dl (8.4-10.2); Carbon Dioxide 25 mmol/L (22.0-30.0); Chloride 104 mmol/L (98-107); Creatinine Clearance Estimated 189 mL/min (50-200); Estimated Glomerular Filt Rate 119 ml/min (>60); GFR (African American) 144 ML/MIN (>60); Glucose 143 mg/dl (74-100); Potassium 3.5 mmoL/L (3.5-5.1); Sodium 135 mmol/L (136-145)
[2024-05-19] MEDS: VERAPAMIL 2.5MG/ML 2ML VIAL 2.5 MG IV (10:26)
[2024-05-19] MEDS: LIDOCAINE 1% 10ML MDV 20 ML IJ (10:26)
[2024-05-19] MEDS: HEPARIN 1,000 UNITS/ML 10ML VIAL (CATH LAB) 10000 UNIT IV (10:27)
[2024-05-19] MEDS: NITROGLYCERIN 800MCG/8ML SYR (CATH LAB) 800 MCG IA (10:27)
[2024-05-19] MEDS: FENTANYL 100MCG/2ML VIAL 50 MCG IV (10:27)
[2024-05-19] MEDS: 0.9 % SODIUM CHLORIDE 500 ML 25 ML IV (10:27)
[2024-05-19] MEDS: IOPAMIDOL-370 (76%);100ML BOTTLE 80 ML IV (13:17)
== END 2024-05-19 13:46 | disposition home or self-care (01) ==
PROVIDERS: PCP Internal Medicine; Visit Provider Internal Medicine
DX: I25.118 Atherosclerotic heart disease of native coronary artery with other forms of angina pectoris (principal); I10 Essential (primary) hypertension; F17.210 Nicotine dependence, cigarettes, uncomplicated; R06.02 Shortness of breath; E11.9 Type 2 diabetes mellitus without complications; G47.33 Obstructive sleep apnea (adult) (pediatric); E78.5 Hyperlipidemia, unspecified; F10.90 Alcohol use, unspecified, uncomplicated; Z79.899 Other long term (current) drug therapy; Z88.8 Allergy status to other drugs, medicaments and biological substances; Z79.4 Long term (current) use of insulin; Z79.82 Long term (current) use of aspirin; Z82.49 Family history of ischemic heart disease and other diseases of the circulatory system; Z83.3 Family history of diabetes mellitus; Z81.1 Family history of alcohol abuse and dependence; Z80.9 Family history of malignant neoplasm, unspecified
CPT/HCPCS: 36252; 80048; 85025; 93458; 99152; C1725; C1769; J1200; J1644; J3010; Q9967

== ENCOUNTER 2024-05-28 07:57 | Outpatient (CLI) | payer OTHER, SELFPAY ==
[2024-05-28 08:26] LABS: Basophils # 0.1 K/mm3 (0-0.2); Basophils % 1.3 % (0.1-2.0); Eosinophils # 0.1 K/mm3 (0.0-0.4); Eosinophils % 1.7 % (0.1-12.0); Hematocrit 45.2 % (42.0-52.0); Hemoglobin 16.1 g/dL (14.1-18.0); Lymphocytes # 2.5 K/mm3 (0.7-4.5); Lymphocytes % 48.2 % (10-50); Mean Corpuscular HGB Conc 35.6 g/dL (31.8-35.4); Mean Corpuscular Hemoglobin 36.3 pg (27.0-31.2); Mean Platelet Volume 8.6 fl (7.4-10.4); Monocytes # 0.5 K/mm3 (0.1-1.0); Monocytes % 8.9 % (1.7-9.3); Neutrophils # 2.1 K/mm3 (1.8-7.8); Neutrophils % 39.7 % (37.0-80.0); Platelet Count 163 K/mm3 (142-424); Red Blood Count 4.43 M/mm3 (4.60-6.20); Red Cell Distribution Width 13.3 % (11.5-17.5); White Blood Count 5.2 K/mm3 (4.8-10.8)
[2024-05-28 09:36] LABS: Albumin Level 4.1 g/dl (3.5-5.0); Chloride 103 mmol/L (98-107); Sodium 137 mmol/L (136-145)
[2024-05-28 09:37] LABS: Potassium 3.4 mmoL/L (3.5-5.1)
[2024-05-28 09:39] LABS: Alanine Aminotransferase 21 U/L (12-78); Anion Gap 15.4 mEq/L (5-15); Aspartate Amino Transferase 48 U/L (17-59); Bilirubin,Unconjugated 0.8 mg/dL (0.0-1.1); Blood Urea Nitrogen 10 mg/dl (9-20); Carbon Dioxide 22 mmol/L (22.0-30.0); Cholesterol 194 mg/dl (140-200); Estimated Glomerular Filt Rate 119 ml/min (>60); GFR (African American) 144 ML/MIN (>60); Total Protein,Serum 7.1 g/dl (6.3-8.2); Triglycerides 180 mg/dl (30-150); VLDL Cholesterol 36 mg/dL (0-40)
[2024-05-28 09:40] LABS: Alkaline Phosphatase 123 U/L (38-126); Bilirubin,Direct 0.4 mg/dl (0.0-0.4); Bilirubin,Indirect 0.8 mg/dL (0.0-0.9); Bilirubin,Total 1.2 mg/dl (0.2-1.3); Calcium 9.3 mg/dl (8.4-10.2); Chol/HDL Ratio 2.9 (1-3.5); Glucose 136 mg/dl (74-100); HDL Cholesterol 67 mg/dl (40-60); Magnesium 1.6 mg/dl (1.6-2.3)
[2024-05-28 09:51] LABS: Direct LDL Cholesterol 109.81 mg/dL (100-129)
[2024-05-28 09:58] LABS: Free T4 (Free Thyroxine) 0.84 ng/dl (0.78-2.19)
[2024-05-28 10:11] LABS: Thyroid Stimulating Hormone 2.13 uIU/mL (0.465-4.68)
[2024-06-02 15:10] LABS: Metanephrine Plasma 44.1 pg/mL (0.0-88.0); Normetanephrine Plasma 92.5 pg/mL (0.0-244.0)
[2024-06-03 16:18] LABS: Dopamine, Plasma 36 pg/mL (0-48); Epinephrine, Plasma 45 pg/mL (0-62); Norepinephrine, Plasma 499 pg/mL (0-874)
== END 2024-05-28 23:59 | disposition home or self-care (01) ==
LOC: LAB 07:58
PROVIDERS: PCP Internal Medicine; Visit Provider Nurse Practitioner
DX: I20.89 Other forms of angina pectoris (principal); I10 Essential (primary) hypertension; D72.819 Decreased white blood cell count, unspecified; E11.69 Type 2 diabetes mellitus with other specified complication
CPT/HCPCS: 36415; 80048; 80061; 80076; 82088; 82384; 83735; 83835; 84439; 84443; 85025

== ENCOUNTER 2025-03-06 06:50 | Emergency (ER) | payer SELFPAY ==
[2025-03-06 06:56] VITALS: BP 134/91; PULSE 86; RESP 16; TEMP 36.8; O2SAT 99; BMI 31.4
--- OUTSIDE RECORDS SUMMARY | 2025-03-06 06:59 | XMS_ITS | Clinical Summary ---
Author Organization Healthcare Address [address] [place] [address] Care Team Providers Care Misdraw Hand Name Role Phone Sheila Ayoub Primary Care Provider [phone] Social History Tobacco Use Types Packs/Day Years Used Date Smoking Tobacco: Never Assessed Sex and Gender Information Value Date Recorded Sex Assigned at Not on file Legal Sex Male 6:14 PM EDT Gender Identity Not on file Sexual Orientation Not on file Plan of Treatment Not on file Care Teams Misdraw Hand Relationship Specialty Start Date End Date Sheila Ayoub PA [address] [place] [address] PCP - General 07/23/20
--- OUTSIDE RECORDS SUMMARY | 2025-03-06 06:59 | XMS_ITS | Clinical Summary ---
Author Organization [employer] ([place], [place], [place], [place], [place]) Address [address] [place] [address] Care Team Providers Care Lamp Shade Maker Name Role Phone Ortega Rosenberg DO Primary Care Provider [phone] Social History Tobacco Use Types Packs/Day Years Used Date Smoking Tobacco: Never Assessed Food Insecurity Answer Date Recorded Food run out past 12 months Not on file 12/10 Food did not last past 12 months Not on file 12/23/2023 Employment Answer Date Recorded Help finding and keeping a job Not on file 1 Family and Community Support Answer Maverick e Recorded Help with Day to Day Activities Not on file 12/23/2023 Feeling Lonely or Isolated Not on file 12/22 Educational Attainment Answer Date Jim rded Speak language other than Marshallese at home Not on file 12/23/2023 Want help with school or training Not on file 12/23/2023 Substance Use Answer Date Recorded Used prescription meds for non-medical reasons N ot on file 12/23/2023 Used illegal drugs past 12 months Not on file 12/23/2023 Sex and Gender Information Value Date Recorded Sex Assigned at Not on file Legal Sex Male 12:47 PM CDT Gender Identity Not on file Sexual Orientation Not on file Plan of Treatment Not on file Insurance [employer] [facility] Care Teams Lamp Shade Maker Relationship Specialty Start Date End Date Ortega Rosenberg DO PCP - General Internal Medicine 12/23/23
--- OUTSIDE RECORDS SUMMARY | 2025-03-06 06:59 | XMS_ITS | Referral Summary ---
Author Organization [employer] ([place], [place], [place], [place], [place]) Address [address] [place] [address] Care Team Providers Care Oil Inspector Name Role Phone Ortega Rosenberg DO Primary Care Provider [phone] Social History Tobacco Use Types Packs/Day Years [...] Date Jim rded Speak language other than Greenlandic at home Not on file 12/23/2023 Want [...] of Treatment Not on file Insurance [employer] [facility] Care Teams Oil Inspector Relationship Specialty Start Date End Date Ortega Rosenberg DO PCP - General Internal Medicine 12/23/23
--- NOTE | 2025-03-06 07:07 | ED_ITS ---
Discharge Plan Disposition Patient Disposition: Home, Self-Care Prescriptions Prescriptions: New loratadine 10 mg tablet 10 mg PO DAILY Qty: 30 0RF No Action magnesium oxide 400 mg (241.3 mg magnesium) tablet 400 mg PO DAILY Qty: 90 4RF aspirin [Adult Low Dose Aspirin] 81 mg tablet,delayed release (DR/EC) 81 mg PO DAILY potassium chloride 10 mEq capsule, extended release 10 meq PO DAILY amlodipine [Norvasc] 10 mg tablet 10 mg PO DAILY Qty: 30 5RF ezetimibe 10 mg tablet 10 mg PO DAILY Qty: 30 5RF hydrochlorothiazide 25 mg tablet 25 mg PO DAILY Qty: 30 5RF valsartan 320 mg tablet 320 mg PO DAILY Qty: 90 3RF metoprolol succinate 25 mg tablet extended release 24 hr 50 mg PO DAILY Qty: 90 2RF gabapentin 600 mg tablet 600 mg PO DAILY Qty: 90 1RF Vraylar 3 mg capsule 6 mg PO DAILY 90 Days Qty: 180 2RF Rx Instructions: when restarting, start at 1/2 cap a day for first day, then 1 cap a day for a week, then can increase to above dose escitalopram oxalate 20 mg tablet 20 mg PO DAILY Qty: 90 3RF metformin 1,000 mg tablet 1,000 mg PO BID 90 Days Qty: 180 4RF Referrals Follow up/Referrals: Landon Mead DO [Primary Care Provider, Family Practice] - See instructions Activity Restrictions/Add. Instructions Additional Instructions/Restrictions: You do not have any evidence of an ear infection or tooth infection. I am prescribing loratadine to help with congestion as this could be causing your symptoms. I do encourage you to follow with your primary care doctor if symptoms continue. If you develop any new or worsening symptoms, or if you become concerned for your health for any reason, return to the emergency department for evaluation Clinical Impressions Clinical Impression: Left ear pain Print Language Print Language: Guatemalan Discharge ED Provider: James Currie Adult HPI General Chief complaint: Ear Stated complaint: burning pain L ear, vomiting Time Seen by Provider: 03/06/25 07:01 Mode of Arrival: Ambulatory Source of Information: Patient Description of Symptoms (Recalled from ER Triage Doc. by RN): Patient presents to the ED with left ear pain that he states has had for several weeks. Patient states that he has not taken and OTC medications for the symptoms. History of Present Illness HPI narrative: Damon Whitfield is a 54y male with a history of diabetes, hypertension, alcohol use disorder who presents to the emergency department for complaints of several weeks of sharp left ear pain. Patient states that he has been dealing with this pain for several weeks that is constant. He states that it got worse last night. He states that he does not take any medication but has been drinking alcohol to help with the symptoms. He last drink last night. He denies any vomiting, difficulty breathing, difficulty swallowing, tooth pain. He does report that he has had some nasal congestion as well. He denies any fevers. He denies any drainage from the ear. Related Data Home Medications ?Medication ?Instructions ?Recorded ?Confirmed aspirin 81 mg tablet,delayed 81 mg PO DAILY 08/20/18 1 04/29/24 release (Adult Low Dose Aspirin) potassium chloride 10 mEq 10 meq PO DAILY 02/17/25 capsule,extended release Previous Rx's ?Medication ?Instructions ?Recorded magnesium oxide 400 mg (241.3 mg 400 mg PO DAILY #90 t abs 05/01/24 magnesium) tablet amlodipine 10 mg tablet (Norvasc) 10 mg PO DAILY #30 t abs 02/17/25 ezetimibe 10 mg tablet 10 mg PO DAILY #30 tabs 12/04 hydrochlorothiazide 25 mg tablet 25 mg PO DAILY #30 ta bs 02/17/25 metoprolol succinate 25 mg 50 mg (2 x 25 mg) PO DAILY #90 tabs 02/17/25 tablet,extended release 24 hr valsartan 320 mg tablet 320 mg PO DAILY #90 tabs 12/04 cariprazine 3 mg capsule (Vraylar) 6 mg (2 x 3 mg) PO DAILY 90 days 02/26/25 #180 caps escitalopram oxalate 20 mg tablet 20 mg PO DAILY #90 t abs 02/26/25 gabapentin 600 mg tablet 600 mg PO DAILY #90 tabs metformin 1,000 mg tablet 1,000 mg PO BID 90 days #180 tabs 02/26/25 loratadine 10 mg tablet 10 mg PO DAILY #30 tabs 02/10 09/03 Allergies Allergy/AdvReac Type Severity Reaction Status Date / Time adhesive Allergy Mild Rash Verified 02/26/25 10:40 [facility] Disclaimer: The information contained in this section may have been updated after the patient was seen, as this information can be updated by other users. 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 (Updated 03/06/25 @ 07:07 by James Currie MD) Alcohol abuse LIZETH (acute kidney injury) Tobacco abuse counseling Alcohol use disorder HLD (hyperlipidemia) Obesity (BMI 30.0-34.9) CAD (coronary artery disease) MEÑO (obstructive sleep apnea) Atypical angina Tachycardia Ulnar nerve neuropathy Helicobacter pylori (H. pylori) Cellulitis of left elbow Carpal tunnel syndrome on left Near syncope Depression Dyspnea Diabetes mellitus Hypertension Surgical History History of esophagogastroduodenoscopy History of cardiac cath History of colonoscopy History of elbow surgery Family History Other Alcoholism Cancer Diabetes Heart attack Social History Smoking Status: Current every day smoker tobacco type: cigarettes packs per day: 1 second hand exposure: Yes alcohol intake: current alcohol intake frequency: 0-2 drinks per day counseling provided: none substance use type: denies use current occupational status: other Travel in the last 8 weeks?: None household members: none housing: house lives independently: Yes marital status: current occupation: [employer] current occupational exposures/hazards: No caffeine: Yes Have you lived/traveled outside [place] in past 30 days?: No Contact w/someone who lives/traveled outside US past 30 days?: No Exposure to someone with infectious disease in past 14 days?: No Do you have a fever (greater than 100.4 F or 38 C)?: No Have you tested positive for COVID-19?: No Exposed to someone with COVID-19 in past 14 days?: No Do you have a sore throat?: No Do you have a cough?: No Do you have any weakness?: No Do you have any diarrhea?: No Are you experiencing any unusual bleeding?: No Do you have any muscle aches/pain?: No Do you have any abdominal pain?: No Are you experiencing loss of taste or smell?: No Other 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 Have you received the Flu Vaccine for this season: No Have you received the Pneumonia Vaccine: No ROS Obtained: Yes Systems reviewed as appropriate & no additional complaints except as documented Physical Exam General General appearance: alert and in no apparent distress Head Head exam: atraumatic Eye Eye exam: Present normal appearance ENT ENT exam: Present normal oropharynx, mucous membranes moist, TM's normal bilaterally, normal external ear exam and other (No tenderness in the mastoid area. No bogginess or swelling in the mastoid area. No significant tooth erosion/caries or swelling at the gums. No tenderness to percussion of the teeth. Uvula midline. No peritonsillar abscess.) Neck Neck exam: Present full ROM; Absent lymphadenopathy Chest Chest inspection: Present symmetric chest wall rise Respiratory Respiratory exam: Present normal lung sounds bilaterally; Absent respiratory distress Cardiovascular Cardiovascular exam: Present regular rate and normal rhythm Abdominal Exam Abdominal exam: Present soft; Absent tenderness or guarding exam: Present deferred Extremities Exam Extremities exam: Present normal inspection Back Exam Back exam: Present normal inspection Neurological Exam Neurological exam: Present alert and oriented X3 Psychiatric Psychiatric exam: Present normal affect Skin Skin exam: Present warm and dry Medical Decision Making Medical Records Screening: Per USPSTF and CDC recommendations, given the prevalence of disease in our [facility], it is our hospital?s policy to screen for HIV and viral Hepatitis for all patients aged 18 and over and those with ongoing risk factors. Nathaniel Inquiry Pt receiving controlled substance: No Vital Signs: 03/06/25 06:56 Temperature 98.3 F Temperature Source Oral Pulse Rate [Right Radial] 86 Respiratory Rate 16 Blood Pressure [Right Arm] 134/91 H Blood Pressure Mean [Right Arm] 105 Blood Pressure Source [Right Arm] Automatic Cuff 02 Sat by Pulse Oximetry 99 Oxygen Delivery Method Room Air Orders (Tests/Meds): ED MEDICATIONS Generic Name Dose Route Start Last Admin Trade Name Freq PRN Reason Stop Dose Admin Ibuprofen 600 mg 03/06/25 07:06 Ibuprofen 600 Mg Tablet PO 03/06/25 07:07 ONCE ONE Medical Decision Narrative: Damon Whitfield is a 54y male with a history of diabetes, hypertension, alcohol use disorder who presents to the emergency department for complaints of several weeks of sharp left ear pain. Patient states that he has been dealing with this pain for several weeks that is constant. He states that it got worse last night. He states that he does not take any medication but has been drinking alcohol to help with the symptoms. He last drink last night. He denies any vomiting, difficulty breathing, difficulty swallowing, tooth pain. He does report that he has had some nasal congestion as well. He denies any fevers. He denies any drainage from the ear. On arrival, patient is afebrile, hemodynamically stable, breathing comfortably on room air and in no distress. Physical exam, stated above, reveals an overall nontoxic-appearing male sitting upright in stretcher. He has clear tympanic membranes bilaterally without bulging or erythema. Normal light reflex. No erythema of the external auditory canal. No tenderness or swelling at the mastoid area. No cervical lymphadenopathy. Oropharyngeal exam is unremarkable with uvula midline, no posterior oropharyngeal erythema. No tenderness to percussion of the teeth. No significant dental caries or tooth erosion or swelling of the gumline. Patient does have nasal congestion. I have low concern for otitis media, otitis externa, peritonsillar abscess, mastoiditis and I do not feel that laboratory studies or CT imaging are indicated at this time. Due to patient's nasal congestion, will recommend loratadine and will give dose of ibuprofen here. Patient states that he has a new primary care doctor and encouraged him to follow-up with him if symptoms persist. Return precautions were given. All questions were answered. He demonstrated understanding and was in agreement with this plan. He was then discharged from the emergency department in stable condition. Critical Care Critical Care Time Critical Care Time: No
[2025-03-06] MEDS: IBUPROFEN 600 MG TABLET PO (07:10)
[2025-03-06 07:12] VITALS: BP 126/92; PULSE 90; RESP 18; TEMP 36.8; O2SAT 97
== END 2025-03-06 07:17 | disposition home or self-care (01) ==
PROVIDERS: Emergency Provider Student in an Organized Health Care Education/Training Program; PCP Student in an Organized Health Care Education/Training Program
DX: H92.02 Otalgia, left ear (principal); R09.81 Nasal congestion; F10.90 Alcohol use, unspecified, uncomplicated; F17.210 Nicotine dependence, cigarettes, uncomplicated
CPT/HCPCS: 99283